=== PATIENT | male | born 1945 | race Caucasian/White ===

== ENCOUNTER → 2020-08-08 09:16 | Outpatient (CLI) | payer MEDICARE, OTHER, SELFPAY ==
--- NOTE | 2020-08-08 09:23 | XR_ITS ---
PROCEDURE: XR HIP RT 2-3V W/PELVIS CLINICAL INDICATION: right hi p pain COMPARISON: No exams were available for comparison FINDINGS: No fracture or dislocation is evident. There is moderate asymmetrical joint space narrowing right hip. There is a probable small bone island right iliac bone just above the acetabulum. There is scattered arteriosclerotic calcification of the right common iliac artery and proximal superficial femoral artery. There is a total hip prosthesis left-side which is intact with no acute abnormality identified. The iliac bones and pubic bones appear normal. There is moderate sclerosis of the inferior aspect of both SI joints. IMPRESSION: Bese-nn-mesbfoyf osteoarthritic change right hip, no acute pelvic bony pathology identified Dictated by: Dr. Raimundo Dumas MD 08/08/2020 09:51 Dr. Raimundo Dumas MD in [place] 08/08/2020 09:51
== END ==
PROVIDERS: PCP Family Medicine; Visit Provider Orthopaedic Surgery
DX: M25.551 Pain in right hip (principal)
CPT/HCPCS: 73502

== ENCOUNTER → 2022-04-16 11:07 | Outpatient (CLI) | payer MEDICARE, OTHER, SELFPAY | END | disposition home or self-care (01) | LOC: LAB 04-21 09:11 → COVID.OUT 04-21 09:14 | PROVIDERS: PCP Family Medicine; Visit Provider Surgery | DX: Z01.812 Encounter for preprocedural laboratory examination (principal); Z20.822 Contact with and (suspected) exposure to COVID-19; Z12.11 Encounter for screening for malignant neoplasm of colon | CPT/HCPCS: C9803; U0003; U0005 ==

== ENCOUNTER 2022-04-18 06:23 | Day surgery (SDC) | payer MEDICARE, OTHER, SELFPAY ==
[2022-04-18 06:56] VITALS: BP 154/78; PULSE 65; RESP 18; TEMP 36.1; O2SAT 97; BMI 33.5
--- NOTE | 2022-04-18 07:05 | EXP.ANES.CKL ---
PFSH PFSH Medical History Hyperlipidemia Hypertension Surgical History History of left hip replacement Family History (Updated 04/18/22 @ 06:51 by Tanya Murillo RN) Other Family history of myocardial infarction Social History (Updated 04/18/22 @ 06:54 by Tanya Murillo RN) Smoking Status: Current some day smoker tobacco type: cigars years smoked: 50 second hand exposure: No alcohol intake: current substance use type: denies use current occupational status: retired adopted: No caregiver/support person: No foster care: No household members: spouse housing: house lives independently: Yes marital status: service: Yes status: retired group home: No current occupational exposures/hazards: No pets and animals: Yes pets and animals: cat(s) leisure activities: sports sexually active: No caffeine: Yes physical activity: walking do you feel safe at home: Yes
[2022-04-18 08:02] VITALS: O2SAT 97
[2022-04-18 08:43] VITALS: BP 95/60; PULSE 63; RESP 16; TEMP 36.4; O2SAT 93
--- NOTE | 2022-04-18 08:44 | HMH.SCOPE ---
Procedure: Date: 04/18/22 Patient Date of :: 1945 Procedure Performed:: Colonoscopy Indications:: Patient is a 76-year-old male who has undergone several previous colonoscopies. Most recent colonoscopy in 2019 revealed 7 polyps 2 of which were tubular adenomas. 3-year follow-up was recommended. Performing Provider:: Jarocho Jay MD Referring Provider:: Tomás Kessler Sedation:: MAC sedation Procedure:: Patient was taken to endoscopy procedure room. He was positioned in lateral decubitus position. Adequate intravenous sedation was achieved with anesthesia titration of propofol. Variable stiffness Olympus colonoscope was inserted via the anus. It was advanced to the cecum. Ileocecal valve and appendiceal orifice were identified. It was advanced a short distance into the terminal ileum which was grossly normal. Colonoscope was slowly withdrawn to the colon with careful surveillance. He had some degree of pandiverticulosis with significant diverticulosis of the left colon. In the distal sigmoid colon there was a small somewhat hyperplastic appearing polyp removed with cold snare. In the rectum there was a tiny diminutive hyperplastic appearing polyp removed with biopsy forceps. Retroflexion within the rectum revealed no evidence of any bleeding internal hemorrhoids. Colonoscope was withdrawn. Findings:: Diverticulosis Diminutive polyps as noted Recommendations:: Likely repeat colonoscopy 5 years pending pathology Complications:: None immediate Estimated blood obtained (mL): 1
[2022-04-18 08:53] VITALS: BP 110/63; PULSE 57; RESP 16; O2SAT 94
[2022-04-18 09:03] VITALS: BP 126/73; PULSE 58; RESP 16; O2SAT 96
[2022-04-18 09:13] VITALS: BP 152/69; PULSE 52; RESP 16; O2SAT 98
== END 2022-04-18 09:13 | disposition home or self-care (01) ==
PROVIDERS: PCP Family Medicine; Visit Provider Surgery
PROC: 0DJD8ZZ Inspection of Lower Intestinal Tract, Via Natural or Artificial Opening Endoscopic (ICD-10-PCS; principal; 2022-04-18 07:30)
DX: Z12.11 Encounter for screening for malignant neoplasm of colon (principal); K63.5 Polyp of colon; Z79.899 Other long term (current) drug therapy; Z86.010 Personal history of colon polyps
CPT/HCPCS: 45380; 45385; 88305; J2704

== ENCOUNTER → 2022-04-22 09:54 | Outpatient (POV) | payer MEDICARE, OTHER, SELFPAY | PROVIDERS: Visit Provider Dermatology | DX: Z00.00 Encounter for general adult medical examination without abnormal findings (principal) ==

== ENCOUNTER → 2022-04-25 08:25 | Outpatient (CLI) | payer MEDICARE, OTHER, SELFPAY ==
--- NOTE | 2022-04-25 09:06 | XR_ITS ---
FINAL REPORT CLINICAL HISTORY: knee pain FINDINGS: RIGHT KNEE Four views of the right knee were obtained. There is no acute fracture or dislocation. Visualized joint spaces are normally aligned. There are mild degenerative changes. There are diffuse vascular calcifications. IMPRESSION: Mild degenerative change with no acute bony abnormality. Reviewed, Interpreted and Dictated by Jarocho Raines III, MD Transcribed by Charlotte Mcconnell Authenticated and [facility]
--- NOTE | 2022-04-25 09:06 | XR_ITS ---
FINAL REPORT CLINICAL HISTORY: knee pain FINDINGS: LEFT KNEE Four views of the left knee were obtained. There is no acute fracture or dislocation. Visualized joint spaces are normally aligned. There is a moderate joint effusion. There are mild degenerative changes. There are diffuse vascular calcifications. IMPRESSION: Moderate joint effusion with no acute bony abnormality. Reviewed, Interpreted and Dictated by Jarocho Raines III, MD Transcribed by Charlotte Mcconnell Authenticated and [facility]
== END ==
PROVIDERS: PCP Family Medicine; Visit Provider Orthopaedic Surgery
DX: M25.562 Pain in left knee (principal); M25.561 Pain in right knee
CPT/HCPCS: 73564

== ENCOUNTER → 2022-07-16 13:49 | Outpatient (CLI) | payer MEDICARE, OTHER, SELFPAY ==
[2022-07-16 14:46] LABS: Coronavirus 19, PCR Not Detected (NotDetected); Influenza A, PCR Not Detected (NotDetected); Influenza B, PCR Not Detected (NotDetected)
[2022-07-16 14:53] LABS: Basophils # 0.1 K/mm3 (0-0.2); Eosinophils # 0.2 K/mm3 (0.0-0.4); Eosinophils % 2.5 % (0.1-12.0); Hematocrit 42.6 % (42.0-52.0); Hemoglobin 14.2 g/dL (14.1-18.0); Lymphocytes # 1.9 K/mm3 (0.7-4.5); Lymphocytes % 21.1 % (10-50); Mean Corpuscular HGB Conc 33.2 g/dL (31.8-35.4); Mean Corpuscular Hemoglobin 29.6 pg (27.0-31.2); Mean Platelet Volume 8.5 fl (7.4-10.4); Monocytes # 0.4 K/mm3 (0.1-1.0); Monocytes % 4.9 % (1.7-9.3); Neutrophils # 6.3 K/mm3 (1.8-7.8); Neutrophils % 70.6 % (37.0-80.0); Platelet Count 214 K/mm3 (142-424); Red Blood Count 4.79 M/mm3 (4.60-6.20); Red Cell Distribution Width 13.5 % (11.5-17.5)
== END ==
PROVIDERS: PCP Family Medicine; Visit Provider Physician Assistant
DX: Z20.822 Contact with and (suspected) exposure to COVID-19 (principal)
CPT/HCPCS: 36415; 85025; C9803; U0003; U0005

== ENCOUNTER → 2023-06-01 09:44 | Outpatient (CLI) | payer MEDICARE, OTHER, SELFPAY ==
--- NOTE | 2023-06-01 09:51 | XR_ITS ---
FINAL REPORT CLINICAL HISTORY: left shoulder pain since november, muscle tightness, fell last week FINDINGS: LEFT SHOULDER 3 views of the left shoulder were obtained. There is no acute fracture or dislocation. There are mild degenerative changes of the acromioclavicular and glenohumeral joints. Soft tissues are unremarkable. IMPRESSION: No acute bony abnormality. Reviewed, Interpreted and Dictated by Jarocho Raines III, MD Transcribed by Aminta Farias Authenticated and [facility]
== END ==
PROVIDERS: PCP Family Medicine; Visit Provider Orthopaedic Surgery
DX: M25.512 Pain in left shoulder (principal)
CPT/HCPCS: 73030

== ENCOUNTER → 2023-06-04 14:02 | Outpatient (CLI) | payer MEDICARE, OTHER, SELFPAY ==
--- NOTE | 2023-06-04 14:08 | XR_ITS ---
FINAL REPORT CLINICAL HISTORY: LOW BACK PAIN, numbness and tingling FINDINGS: 5 views of the lumbar spine were obtained. There is no evidence of fracture or dislocation. The vertebral alignment is normal. 6 there are mild to moderate degenerative changes. Facet arthropathy is seen in the mid and lower lumbar spine. Vascular calcifications are noted. No acute paraspinous soft tissue abnormalities identified. IMPRESSION: No acute bony abnormality. Reviewed, Interpreted and Dictated by Jarocho Raines III, MD Transcribed by Aminta Farias Authenticated and [facility]
== END ==
PROVIDERS: PCP Family Medicine; Visit Provider Family Medicine
DX: M51.36 Other intervertebral disc degeneration, lumbar region (principal); M47.816 Spondylosis without myelopathy or radiculopathy, lumbar region
CPT/HCPCS: 72110

== ENCOUNTER → 2023-06-18 08:56 | Outpatient (CLI) | payer MEDICARE, OTHER, SELFPAY ==
--- NOTE | 2023-06-18 09:00 | US_ITS ---
FINAL REPORT TECHNIQUE: Ultrasound images of the abdominal aorta were obtained. CLINICAL HISTORY: Abdominal aortic aneurysm screening COMPARISON: None FINDINGS: ULTRASOUND OF THE ABDOMINAL AORTA The aorta measures up to 2.7 cm. The bifurcation is normal. IMPRESSION: No evidence of abdominal aortic aneurysm. Reviewed, Interpreted and Dictated by Jarocho Raines III, MD Transcribed by Gabriela Espitia Authenticated and [facility]
== END ==
PROVIDERS: PCP Family Medicine; Visit Provider Family Medicine
DX: I71.40 Abdominal aortic aneurysm, without rupture, unspecified (principal)
CPT/HCPCS: 76770

== ENCOUNTER → 2023-07-27 08:37 | Outpatient (POV) | payer MEDICARE, OTHER, SELFPAY ==
[2023-07-27 08:44] VITALS: BP 172/67; PULSE 88; RESP 18; O2SAT 94; BMI 35.5
--- NOTE | 2023-07-27 08:48 | EXP.PAIN.OV ---
HPI Data of Consult Patient: new to practice Consult date: 07/27/23 Requesting Physician: Eve Zamorano APRN Primary Care Provider: Tomás Kessler MD Consult Narrative Reason for consult: Low back pain, bilateral leg pain History of present illness: Mr. Patterson is a 77 year old male who presents today as a new patient. He has a referral from Dr. Kessler's office. Today he rates his pain a 4 out of 10. Patient states his pain is all in his low back with radiating symptoms into his legs. Patient does state that his right leg is the worst side and that it typically radiates into his groin as well. Patient does state that his pain gets worse as the day goes on typically getting up to a 7 or 8 out of 10. Patient states this all started a few months ago when he was mowing his yard with a push mower. He states that the grass was wet and got away from him and that he ended up being in an awkward position and felt like he pulled something. Patient does state this is an aching, throbbing sensation with pins and needle sensations. He states he has tried [id number] medication along with prescription Celebrex with no additional improvement. Patient does state that the pain interferes with his ability to perform activities of daily living such as cooking or cleaning and even sleeping. Patient states just in the last week he has started using Tylenol PM to help with some of his sleeping issues due to the pain. He states it does help additionally. Patient has also been to the chiropractor with some improvement over the last few months. He has tried massage. Patient denies any previous back surgery or injection history. He is interested in any help we may be able to provide. Patient is generally very active and walks frequently however has been very limited at the last several weeks due to the worsening pain symptoms. Patient is not on any scheduled medications. His Rc has been reviewed and is appropriate. CC: Eve Zamorano APRN [facility] Disclaimer: The information contained in this section may have been updated after the patient was seen, as this information can be updated by other users. Medical History Hyperlipidemia Hypertension Surgical History History of left hip replacement Family History Other Family history of myocardial infarction Social History Smoking Status: Current some day smoker tobacco type: cigars years smoked: 50 second hand exposure: No alcohol intake: current substance use type: denies use current occupational status: retired Travel in the last 8 weeks: None adopted: No caregiver/support person: No foster care: No household members: spouse housing: house lives independently: Yes marital status: service: Yes status: retired [employer]: No current occupational exposures/hazards: No pets and animals: Yes pets and animals: cat(s) leisure activities: sports sexually active: No caffeine: Yes physical activity: walking do you feel safe at home: Yes Review of Systems Review of Systems Review of systems:: pertinent systems reviewed and negative unless documented below Review of systems (narrative): Review of Systems: General: No recent weight changes, no fever, no sleep disturbances Respiratory: No cough, no shortness of air, no recurring pulmonary infections Cardiovascular/peripheral vascular: No chest pain, no palpitations, no edema, no shortness of breath Gastrointestinal: No new onset incontinence, normal bowel movements reported Genitourinary: No new onset incontinence Musculoskeletal: Low back pain, bilateral leg pain Psychiatric: [Normal mood/affect] Neurological: [Denies weakness in extremities], [denies jazmin
== END ==
PROVIDERS: PCP Family Medicine; Visit Provider Nurse Practitioner Family
DX: M54.50 Low back pain, unspecified; M51.16 Intervertebral disc disorders with radiculopathy, lumbar region; M47.26 Other spondylosis with radiculopathy, lumbar region
CPT/HCPCS: 99202; G0463

== ENCOUNTER 2023-08-04 08:11 | Day surgery (SDC) | payer MEDICARE, OTHER, SELFPAY ==
[2023-08-04 08:33] VITALS: BP 136/77; PULSE 95; RESP 16; TEMP 36.8; O2SAT 97; BMI 35.5
[2023-08-04 08:43] VITALS: BP 124/51; PULSE 89; RESP 18; O2SAT 93
[2023-08-04 08:44] VITALS: BP 124/51; PULSE 87; RESP 18; O2SAT 94
[2023-08-04 08:48] VITALS: BP 147/64; PULSE 80; RESP 16; O2SAT 97
--- NOTE | 2023-08-04 08:52 | EXP.PAIN.PRO ---
Procedure Date: 08/04/23 Time: 08:45 Anesthesiologist:: Molina Hallman CRNA Complications:: None Pre-procedure Diagnosis:: Degenerative disc lumbar spine multilevels. Lumbar radiculopathy. Lumbar facet arthropathy. Lumbar spondylosis. Post-procedure Diagnosis:: Same. Indications for Procedure:: Patient is a very pleasant 77-year-old male comes our clinic today for a lumbar epidural steroid injection at the L5-S1 level. Patient reports low back pain as well as bilateral hip and leg radicular symptoms. He rates his pain 7/10. He describes his low back pain as constant, dull, aching. Procedure Details:: Procedure: Lumbar epidural steroid injection under fluoroscopy Informed consent was obtained and the risks and benefits of the procedure were explained to the patient. The patient was taken to the procedure room and noninvasive monitors placed, including noninvasive blood pressure cuff and pulse oximeter. The back was viewed using C-arm Fluoroscopy and prepped using Chloraprep as a cleansing solution and the L5-S1 interspace was palpated. Skin and subcutaneous tissues were anesthetized using lidocaine 1.5% and a 25-gauge needle. After this, an 18-gauge Touhy epidural needle was placed into the L5-S1 interspace and advanced using fluoroscopic guidance and loss of resistance to air until the epidural space was encountered. After confirmation of needle placement in the epidural space, with dye, a solution containing normal saline, 3 mL and Depo-Medrol 80 mg were incrementally injected into the lumbar epidural space. The patient tolerated the procedure well with no complications. The patient was observed in the Pain Clinic and then discharged home neurologically intact. Plan and Disposition:: Patient was discharged without incident.
== END 2023-08-04 08:48 | disposition home or self-care (01) ==
PROVIDERS: PCP Family Medicine; Visit Provider Nurse Anesthetist, Certified Registered
DX: M51.16 Intervertebral disc disorders with radiculopathy, lumbar region (principal); M47.26 Other spondylosis with radiculopathy, lumbar region
CPT/HCPCS: 62323; J1040

== ENCOUNTER → 2023-10-14 10:48 | Outpatient (POV) | payer MEDICARE, OTHER, SELFPAY ==
--- NOTE | 2023-10-14 11:13 | A.OFFVIS_ITS ---
[facility] Pain Management SOAP Note Subjective:: Patient is a pleasant 77-year-old male who presents today for follow-up of lumbar epidural steroid injection L5-S1 on 08/04/2023. We are currently treating the patient for degenerative disc disease of lumbar spine with lumbar radiculopathy symptoms, lumbar facet arthropathy. Today he rates his pain a 5 out of 10. Patient does state he has had a right total hip replacement that did occur on August. He states he has been recovering from this and doing overall well. Patient does state that he is currently in physical therapy twice a week and then does do his continued at home physician guided exercise regimen daily. Patient does state that following the epidural injection he did have almost 100% relief of his overall heaviness sensations that he was experiencing into his legs. He states overall he felt like this injection did provide significant relief. He does state that now he really does not have any pain in and around his right hip however with doing the physical therapy he does note some pain in and around his belt line. Patient does state if it is still manage able however. His Rc has been reviewed and is appropriate. Review of Systems: General: No recent weight changes, no fever, no sleep disturbances Respiratory: No cough, no shortness of air, no recurring pulmonary infections Cardiovascular/peripheral vascular: No chest pain, no palpitations, no edema, no shortness of breath Gastrointestinal: No new onset incontinence, normal bowel movements reported Genitourinary: No new onset incontinence Musculoskeletal: Low back pain Psychiatric: [Normal mood/affect] Neurological: [Denies weakness in extremities], [denies balance issues] Objective:: Physical Exam: General: Alert and oriented x3, no acute distress, pleasant and cooperative Lungs: Respirations even and unlabored, symmetrical chest expansion Eyes: PERRL Musculoskeletal: Flexion and extension of lumbar [spine] somewhat guarded secondary to pain, [antalgic gait noted] Neurological: Speech clear, no gross sensory deficit Assessment:: Degenerative disc disease of lumbar spine with lumbar radiculopathy symptoms, lumbar facet arthropathy Plan:: Patient is doing well at this time and does not require any additional injection therapy. I have discussed with patient that I will order him a compounded cream. Patient will return to clinic in 1 month for reevaluation of symptoms and plan of care. Patient has been instructed to contact the clinic with any concerns before the next appointment. Dr. Pettit has reviewed this note and agrees with this plan of care. This note was dictated using voice recognition software and make contain errors or omissions. [facility] Disclaimer: The information contained in this section may have been updated after the patient was seen, as this information can be updated by other users. Medical History (Updated 09/01/23 @ 16:24 by Wen Blanca APRN) Hyperlipidemia Hypertension Surgical History (Updated 09/01/23 @ 16:18 by Wen Blanca APRN) History of left hip replacement Family History Other Family history of myocardial infarction Social History Smoking Status: Current some day smoker tobacco type: cigars years smoked: 50 second hand exposure: No alcohol intake: current substance use type: denies use current occupational status: retired Travel in the last 8 weeks: None adopted: No caregiver/support person: No foster care: No household members: spouse housing: house lives independently: Yes marital status: service: Yes status: retired skilled nursing: No current occupational exposures/hazards: No pets and animals: Yes pets and animals: cat(s) leisure activities: sports sexually active: No caffeine: Yes physical activity: walking do you feel safe at home: Yes
[2023-10-14 12:10] VITALS: BP 113/71; PULSE 90; RESP 18; O2SAT 97; BMI 34.7
== END ==
PROVIDERS: Visit Provider Nurse Practitioner Family
DX: M51.16 Intervertebral disc disorders with radiculopathy, lumbar region (principal); M47.26 Other spondylosis with radiculopathy, lumbar region
CPT/HCPCS: 99212; G0463

== ENCOUNTER 2023-10-29 08:00 | Outpatient (RCR) | payer MEDICARE, OTHER, SELFPAY | END 2023-10-29 09:30 | disposition home or self-care (01) | LOC: PT 08:00 | PROVIDERS: PCP Family Medicine; Visit Provider Orthopaedic Surgery | DX: M25.551 Pain in right hip (principal); Z96.641 Presence of right artificial hip joint | CPT/HCPCS: 97110; 97116; 97163; 97164; 97530 ==

== ENCOUNTER 2023-11-16 10:12 | Outpatient (POV) | payer MEDICARE, OTHER, SELFPAY ==
[2023-11-16 10:19] VITALS: BP 134/71; PULSE 80; RESP 18; TEMP 36.6; O2SAT 99; BMI 34.2
--- NOTE | 2023-11-16 10:26 | EXP.PAIN.SOA ---
[facility] Pain Management SOAP Note Subjective:: Patient is a pleasant 77-year-old male who presents today for follow-up. Today he rates his pain a 0 out of 10. Patient denies any new injury or trauma. He does take that he does still have some pain involving his hip where he did recently have it replaced. He states that he will have occasional pain when he is up and walking for longer periods of time however that when he stops to rest it does not improve. Patient did previously have a lumbar epidural back in July and states that overall he still doing well. He did get compounded cream at our last visit and states that this does significantly help improve his overall symptoms as well. His Rc has been reviewed and is appropriate. Review of Systems: General: No recent weight changes, no fever, no sleep disturbances Respiratory: No cough, no shortness of air, no recurring pulmonary infections Cardiovascular/peripheral vascular: No chest pain, no palpitations, no edema, no shortness of breath Gastrointestinal: No new onset incontinence, normal bowel movements reported Genitourinary: No new onset incontinence Musculoskeletal: Low back pain Psychiatric: [Normal mood/affect] Neurological: [Denies weakness in extremities], [denies balance issues] Objective:: Physical Exam: General: Alert and oriented x3, no acute distress, pleasant and cooperative Lungs: Respirations even and unlabored, symmetrical chest expansion Eyes: PERRL Musculoskeletal: Flexion and extension of lumbar [spine] somewhat guarded secondary to pain, [antalgic gait noted] Neurological: Speech clear, no gross sensory deficit Assessment:: Degenerative disc disease of lumbar spine with lumbar radiculopathy symptoms, bilateral hip Plan:: patient continues to do well and does not require any additional injection therapy at this time. Patient will return to clinic in 3 months for reevaluation of symptoms and plan of care. Patient has been instructed to contact the clinic with any concerns before the next appointment. Dr. Pettit has reviewed this note and agrees with this plan of care. This note was dictated using voice recognition software and make contain errors or omissions. [facility] Disclaimer: The information contained in this section may have been updated after the patient was seen, as this information can be updated by other users. Medical History (Updated 09/01/23 @ 16:24 by Wen Blanca APRN) Hyperlipidemia Hypertension Surgical History (Updated 09/01/23 @ 16:18 by Wen Blanca APRN) History of left hip replacement Family History Other Family history of myocardial infarction Social History Smoking Status: Current some day smoker tobacco type: cigars years smoked: 50 second hand exposure: No alcohol intake: current substance use type: denies use current occupational status: other Travel in the last 8 weeks: None adopted: No caregiver/support person: No foster care: No household members: spouse housing: house lives independently: Yes marital status: service: Yes status: retired shelter: No current occupational exposures/hazards: No pets and animals: Yes pets and animals: cat(s) leisure activities: sports sexually active: No caffeine: Yes physical activity: walking do you feel safe at home: Yes
== END 2023-11-16 23:59 ==
PROVIDERS: PCP Family Medicine; Visit Provider Nurse Practitioner Family
DX: M51.16 Intervertebral disc disorders with radiculopathy, lumbar region (principal); M25.551 Pain in right hip; M25.552 Pain in left hip
CPT/HCPCS: 99212; G0463

== ENCOUNTER 2023-11-24 14:23 | Outpatient (CLI) | payer MEDICARE, OTHER, SELFPAY | END 2023-11-24 23:59 | LOC: RT 14:24 | PROVIDERS: PCP Family Medicine; Visit Provider Physician Assistant | DX: I48.0 Paroxysmal atrial fibrillation (principal); Z82.49 Family history of ischemic heart disease and other diseases of the circulatory system; R94.31 Abnormal electrocardiogram [ECG] [EKG]; I10 Essential (primary) hypertension; E78.5 Hyperlipidemia, unspecified | CPT/HCPCS: 93270 ==

== ENCOUNTER 2023-12-25 12:05 | Outpatient (CLI) | payer MEDICARE, OTHER, SELFPAY ==
--- NOTE | 2023-12-25 | CA_ITS ---
APPROVED REPORT Exam: Pharmacologic Technologist: Peg Alfred, Ht: 5 ft 11 in Wt: 256 lbs BSA: 2.34 m2 HR: 66 bpm BP: 135/78 mmHg Rhythm: ectopic atrial rhythm, frequent PVCs, RBBB Medical History Medications: Lisinopril,,,,, Aspirin,,,,, Atorvastatin,,,,, TAMSULOSIN,,,,, Cardiac Risk Factors: HTN, Hyperlipidemia, Smoking Stress Test Details Test: LEXISCAN HR Resting HR: 65 bpm Max Heart Rate (APMHR): 144 bpm Max HR Achieved: 91 bpm Target HR (85% APMHR): 122 bpm % of APMHR: 63 Recovery HR: 73 bpm BP Resting BP: 135/78 mmHg Max BP: 174/92 mmHg Recovery BP: 169.0/80.0 mmHg ECG Resting ECG: ectopic atrial rhythm, frequent PVCs, RBBB Stress ECG: No significant ST changes Arrhythmia: PVCs Clinical Exercise duration: 04:01 min Highest Stage Achieved: Stress ECG Conclusion During lexiscan pt experinced SOA, mild stomach and head discomfort. Ectopy: Frequent isolated unifocal PVCs. Occasional premature junctional or atrial beat. ST changes: No significant ST changes. Conclusion: Unremarkable lexiscan stress. Myoview images reported separately. Test Summary REST . . . . . . . Sitting REST 04:41 . . 65 . 135/ 78 . . Stage 1 01:00 . . 84 . . . . Stage 2 01:00 . . 87 . 117/ 78 . . Stage 3 01:00 . . 78 . . . . Stage 4 01:00 . . 77 . 174/ 92 . . Stage 4 01:01 . . 77 . 174/ 92 . Stop exercise at 04:01 RECOVERY 01:00 . . 73 . . . . RECOVERY 02:00 . . 78 . 174/ 87 . . RECOVERY 03:00 . . 75 . 174/ 87 . . RECOVERY 04:00 . . 74 . 169/ 80 . . RECOVERY 05:00 . . 78 . 169/ 80 . . RECOVERY 05:38 . . 78 . 156/ 68 . . Electronically signed by : Ericka Graves MD 12/29/2023 11:46:41
[2023-12-25] MEDS: SODIUM CHLORIDE 0.9% 10ML SYR (RAD ONLY) 10 ML IV ×2 (12:15→13:45)
--- NOTE | 2023-12-25 12:49 | NM_ITS ---
APPROVED REPORT Exam: Nuclear Stress Test Indication: HTN, HYPERLIPIDEMIA, TOB USE, FM HX Patient Location: Outpatient Stress Tech: Peg Tima NM Tech:Aaliyah AlcarazKAMRAN zepeda RT (R)(N)(M) Ht: 5 ft 11 in Wt: 250 lbs HR: 65 bpm BP: 135/78 mmHg BSA: 2.32 m2 TID: 1.47 BMI: 34.8 History: HTN, HYPERLIPIDEMIA, TOB USE, FM HX Procedure: Patient received 0.4 mg of intravenous Lexiscan, resting heart rate 65 bpm, resting blood pressure 135/78 mmHg, with Lexiscan maximum heart rate achieved was 91 bpm which is % of the maximum predicted heart rate and blood pressure was 174/92 mmHg. With Lexiscan, patient denied any complaint of chest pain. Cardiac Stress and Resting SPECT Images: Cardiac Stress and Resting SPECT images were obtained using technetium 99m Myoview 31.8 mCi stress and 10.34 mCi at rest. Resting and stress imaging in supine and prone positions demonstrate a large sized, moderate, fixed perfusion defect in the inferior and inferoseptal LV olivas. There is increased transient ischemic dilatation ratio (TID 1.47), suggestive of possible multivessel disease or balanced ischemia. Gated imaging demonstrates mild reduction in global LV systolic function. There is moderate hypokinesis of the inferior LV wall. LVEF is calculated at 47%. Of note the LVEF may be inaccurate in the setting of frequent ectopy during image acquisition. Conclusion: Large sized, moderate, fixed perfusion defect in the inferior and inferoseptal LV olivas. There is increased transient ischemic dilatation ratio (TID 1.47), suggestive of possible multivessel disease or balanced ischemia. Gated imaging demonstrates mild reduction in global LV systolic function. There is moderate hypokinesis of the inferior LV wall. LVEF is calculated at 47%. Of note the LVEF may be inaccurate in the setting of frequent ectopy during image acquisition. Electronically signed by : Ericka Graves MD 12/29/2023 11:48:31
--- NOTE | 2023-12-25 13:13 | CA_ITS ---
APPROVED REPORT EXAM: Comprehensive 2D, Doppler, and color-flow Echocardiogram Steel Analyst: Kelly Campos CRT Ht: 5 ft 11 in Wt: 256lbs BSA: 2.34 BP: 159/65 mmHg Indications: ABN EKG, AFIB, HTN, HLD, Smoker 2D Dimensions LA Volume 97.60 mL LA Volume Index 40.70 mL/m2 (M/F) 16-34 M-Mode Dimensions RVDd 2.86 cm (0.9-2.6) LA Diam 5.32 cm (1.9-4.0) LVDd 4.78 cm (3.5-5.7) LVDs 2.90 cm (3.5-5.7) IVSd 1.88 cm (0.6-1.1) PWd 1.43 cm (0.6-1.1) EF (Teich) 69.80% FS 39.30% EDV (Teich) 106.50 mL ESV (Teich) 32.20 mL LV Diastology MED A' 13.70 cm/s LAT A' 13.60 cm/s Aortic Valve AoV Peak Francisco. 171.0 (50-130 cm/s) AI PHT 378.00 ms AO Peak GR. 11.70 mmHg AO Mean GR. 6.50 (<5 mmHg) AO VTI 38.2 (18-25 cm) Pulmonary Valve PV Peak Velocity 128.0 (50-150 cm/s) Tricuspid Valve TR P. Velocity 245.00 cm/s RAP Estimate 10.00 mmHg RVSP 33.90 mmHg Left Ventricle The left ventricle is normal size. The left ventricular systolic function is normal. The left ventricular ejection fraction is within the normal range. There is increased LV wall thickness. There is normal LV segmental wall motion. Transmitral Doppler flow pattern suggests impaired LV relaxation. LVEF is 55%. Right Ventricle Right ventricle is mild to moderately dilated. The right ventricular systolic function is normal. Atria Left atrium is mildly dilated. Right atrium is mildly dilated. There is no Doppler evidence of interatrial shunt. Aortic Valve The aortic valve opens well. There is no aortic valvular stenosis. Trace aortic regurgitation. Mitral Valve The mitral valve is normal in structure. No evidence of mitral valve stenosis. Trace mitral regurgitation. Tricuspid Valve The tricuspid valve leaflets are thin and pliable. Trace tricuspid regurgitation. There is insufficient TR jet to estimate RVSP. Pulmonic Valve The pulmonary valve is normal in structure. Trace pulmonic regurgitation. Great Vessels The aortic root is normal in size. The ascending aorta is normal in size. IVC is normal in size and collapses >50% with inspiration. Pericardium There is no pericardial effusion. Other Information Study Quality: Fair Conclusion Normal biventricular systolic function. No significant valvular stenosis or regurgitation. Electronically signed by : Ericka Graves MD 12/29/2023 21:13:41
[2023-12-25] MEDS: REGADENOSON 0.4MG/5ML SYRINGE 0.400000000000000022 MG IV (13:45)
[2023-12-25] MEDS: ISOTOPE MYOVIEW (PER STUDY) 1 DOSE IV (14:58)
== END 2023-12-25 23:59 | disposition home or self-care (01) ==
LOC: RAD 12:06
PROVIDERS: PCP Family Medicine; Visit Provider Physician Assistant
DX: I10 Essential (primary) hypertension (principal); E78.5 Hyperlipidemia, unspecified; I47.20 Ventricular tachycardia, unspecified; R94.31 Abnormal electrocardiogram [ECG] [EKG]; I49.3 Ventricular premature depolarization
CPT/HCPCS: 78452; 93017; 93018; 93306; A9502; J2785

== ENCOUNTER 2024-01-05 14:52 | Observation (INO) | payer MEDICARE, OTHER, SELFPAY ==
[2024-01-05] VITALS (41 sets, daily range): BP systolic 114–218; BP diastolic 56–123; PULSE 58–108; RESP 15–22; TEMP 36.6–36.9; O2SAT 95–97; BMI 35.2; BMI 34.8
--- NOTE | 2024-01-05 07:17 | IR_ITS ---
APPROVED REPORT Patient Location: Outpatient Coal Trammer: KAMRAN Jeronimo RT (R) PROCEDURES Right radial arterial access Catheter placement in the right brachial artery Right brachial artery retrograde angiogram Right femoral arterial access Left heart catheterization Left ventriculogram Selective coronary angiogram Pigtail catheter placement in the abdominal aorta Abdominal aortography Repositioning of the catheter in the abdominal aorta Bilateral iliofemoral runoff Left femoral arterial access Left retrograde femoral angiogram Attempted angioplasty of a chronically occluded left common iliac artery INDICATION Angina pectoris, Abnormal stress test, Abnormal JONELLE 0.5 bilaterally, [place] claudication class III-IV, Right brachial artery stenosis, Left common iliac artery occlusion, Informed consent was obtained prior to the procedure. COMPLICATIONS None Estimated Blood Loss: Less than 10 mls TECHNIQUE One percent lidocaine used to anesthetize the right anterior aspect of the wrist. The right radial artery was accessed via the Seldinger technique. A 6 Argentine sheath was placed in the right radial artery. 2.5 mg of Verapamil, 800 mcg of nitroglycerin, 1mg Lidocaine and 5000 U Heparin were given through the arterial sheath. The Poppa catheter was advanced to the distal brachial artery and would not further advance. Retrograde angiography was performed which demonstrated the radial artery extended into a small brachial branch and was not in the main brachial artery. Because the brachial artery appeared to branch into a larger dominant ulnar artery it was decided to abandon this access. 1% lidocaine was then used anesthetize right groin the right femoral artery was accessed via the Salinger technique. A long 6 Argentine sheath was placed in the right femoral artery due to the significant tortuosity of the iliofemoral system. A JL 4 JR4 catheter used to perform left heart catheterization left ventriculogram and selective coronary angiogram. Pigtail catheter is placed in abdominal aorta abdominal aortography was performed in the catheter was then repositioned and pulled down to the distal abdominal aorta where bilateral iliofemoral runoff was performed. Following this 1% lidocaine was used to size the left groin left femoral artery was accessed via Salinger technique and a 6 Argentine sheath is placed in the femoral artery. An advantage wire was used to attempt recanalization of the chronically occluded left common iliac artery. A trailblazer was advanced as well as a JR4 6 Argentine catheter to try to steer through the occlusion. There was extensive calcification and retrograde access or reentry into the aorta cannot be performed or achieved. A rim catheter was advanced through the right groin to the distal abdominal aorta and used to cannulate the chronically occluded left common iliac artery. An advantage wire cannot push in an antegrade manner through the occlusion. Eventually the apparatus was removed the patient was transferred to the postop holding in stable condition for postoperative care and sheath removal. ANGIOGRAPHIC RESULTS The left main artery Normal The left anterior descending artery Mild 10% luminal irregularities The circumflex artery Large mild 10% luminal irregularities The right coronary artery Large dominant mild 10% luminal irregularities The ESPINAL ventriculogram reveals Normal 65% The left ventricular end-diastolic pressure 10 mmHg Right brachial artery is a large vessel which branches into a large ulnar artery and gives a subbranch to the radial artery Bilateral renal arteries are singular and normal Infrarenal abdominal aorta is calcified but widely patent Left common iliac artery is ostially calcified and reconstitutes scantly via collaterals at the level of the common femoral artery. The left profunda femoris artery appears scantly patent as the left superficial femoral artery appears to be occluded throughout its entire course. No visualization was obtained below the left thigh due to the poor flow and chronic occlusion Right common iliac arteries patent and severely calcified. The right internal iliac artery is occluded. The right external iliac artery is patent the right common femoral artery is severely calcified. The right superficial femoral artery is calcified creating 70 and 80% proximal stenoses and then occluded at Rey's canal. The right popliteal artery reconstitutes at the infrageniculate level. Right anterior tibialis artery is proximally calcified with a focal 90% stenosis. The proximal right peroneal and right posterior tibialis artery are occluded however the right posterior tibialis artery does reconstitute via collaterals and supplies flow into the right foot. The distal right anterior tibialis artery is occluded IMPRESSION Mild luminal irregularities in the coronary arteries with normal ejection fraction normal LVEDP Chronically occluded heavily calcified left common iliofemoral artery with poor visualization distally Peripheral artery disease on the right leg most notably with severe spherical calcifications throughout the right common femoral artery and right superficial femoral artery with an occluded right popliteal artery and two-vessel runoff below the right leg PLAN 1. Medical management for coronary disease 2. Medical management for the right leg. The nature and extensive calcifications make percutaneous revascularization unattainable. 3. I recommend medical management for the left iliac occlusion and less patient's symptoms are recalcitrant or patient is experiencing limb threatening ischemia. It is possible to obtain right ulnar access and then take a long [address] at into the left common iliac artery and try to revascularize the vessel in an antegrade manner. This would still be considered high risk due to the extensive calcifications. I would only recommend this if patient is experiencing recalcitrant claudication which is impeding his quality of life or limb threatening ischemia Electronically signed by : Greg Grayson MD 01/05/2024 15:30:18
[2024-01-05 09:44] LABS: Basophils # 0.1 K/mm3 (0-0.2); Basophils % 1.3 % (0.1-2.0); Eosinophils # 0.2 K/mm3 (0.0-0.4); Hematocrit 46.3 % (42.0-52.0); Hemoglobin 15.6 g/dL (14.1-18.0); Lymphocytes # 1.3 K/mm3 (0.7-4.5); Lymphocytes % 26.8 % (10-50); Mean Corpuscular HGB Conc 33.8 g/dL (31.8-35.4); Mean Corpuscular Hemoglobin 29.2 pg (27.0-31.2); Mean Corpuscular Volume 86.5 fl (80-94); Mean Platelet Volume 8.2 fl (7.4-10.4); Monocytes # 0.2 K/mm3 (0.1-1.0); Monocytes % 4.7 % (1.7-9.3); Neutrophils # 3.1 K/mm3 (1.8-7.8); Neutrophils % 63.2 % (37.0-80.0); Platelet Count 153 K/mm3 (142-424); Red Blood Count 5.35 M/mm3 (4.60-6.20); Red Cell Distribution Width 14.7 % (11.5-17.5); White Blood Count 4.9 K/mm3 (4.8-10.8)
[2024-01-05 09:59] LABS: Anion Gap 15.5 mEq/L (5-15); Blood Urea Nitrogen 16 mg/dl (9-20); Calcium 9.4 mg/dl (8.4-10.2); Carbon Dioxide 27 mmol/L (22.0-30.0); Chloride 105 mmol/L (98-107); Creatinine Clearance Estimated 102 mL/min (50-200); Estimated Glomerular Filt Rate 73 ml/min (>60); GFR (African American) 88 ML/MIN (>60); Glucose 129 mg/dl (74-100); Potassium 4.5 mmoL/L (3.5-5.1); Sodium 143 mmol/L (136-145)
[2024-01-05] MEDS: LIDOCAINE 1% 10ML MDV 20 ML IJ ×2 (12:59→14:19)
[2024-01-05] MEDS: 0.9 % SODIUM CHLORIDE 500 ML 25 ML IV (12:59)
[2024-01-05] MEDS: HEPARIN 1,000 UNITS/500ML NS (CATH LAB) 3000 UNIT IV (12:59)
[2024-01-05] MEDS: VERAPAMIL 2.5MG/ML 2ML VIAL 2.5 MG IV (13:00)
[2024-01-05] MEDS: diphenhydrAMINE 50MG/ML VIAL 50 MG IV (13:00)
[2024-01-05] MEDS: NITROGLYCERIN 800MCG/8ML SYR (CATH LAB) 800 MCG IA (13:00)
[2024-01-05] MEDS: HEPARIN 1,000 UNITS/ML 10ML VIAL (CATH LAB) 10000 UNIT IV ×2 (13:00→14:26)
[2024-01-05] MEDS: FENTANYL 100MCG/2ML VIAL 50 MCG IV ×2 (13:54→14:43)
[2024-01-05] MEDS: MIDAZOLAM HCL 1MG/1ML 5ML VIAL 1 MG IV (13:54)
[2024-01-05] MEDS: PROTAMINE SULFATE 50MG/5ML VIAL (CATH LAB) 50 MG IV (14:42)
[2024-01-05] MEDS: MIDAZOLAM 2MG/2ML VIAL 1 MG IV (14:43)
--- NOTE | 2024-01-05 15:15 | HMH.PHAINT1 ---
Pharmacy Intervention Comments: MEDICATION RECONCILIATION COMPLETED ON PATIENT USING EXTERNAL FILL HISTORY FROM PHARMACY AND LIST FROM CARDIOLOGY OFFICE. -MICHELLE BRANTLEY, RYANND
[2024-01-05] MEDS: IOHEXOL-240 100ML BOTTLE 140 ML IV (15:38)
[2024-01-05] MEDS: IOPAMIDOL-370 (76%);100ML BOTTLE 150 ML IV (15:38)
[2024-01-05 15:40] LABS: CATHL Activated Clotting Time > 400 SEC (74-125)
[2024-01-05 15:41] LABS: CATHL Activated Clotting Time 176 SEC (74-125)
[2024-01-05] MEDS: HYDRALAZINE 20MG/ML VIAL 20 MG IV (15:48)
[2024-01-05] MEDS: MORPHINE 4MG/ML SYRINGE 4 MG IV (16:08)
[2024-01-05] MEDS: 0.9 % SODIUM CHLORIDE 1000ML 1,000 ML 100 ML IV (16:54)
--- NOTE | 2024-01-05 23:39 | PC.NURSE ---
left groin having red drainage. marked area, drainage went beyond border. held manual pressure for 15 minutes. removed drsg, no drainage noted, new drsg re-applied with gauze and tegaderm. no new draiange noted
[2024-01-06] VITALS: BP 99/59; PULSE 84; PULSE 90; RESP 16; TEMP 36.7; O2SAT 93
[2024-01-06 00:55] VITALS: BP 103/53; PULSE 83
[2024-01-06 04:00] VITALS: BP 107/62; PULSE 70; PULSE 76; RESP 18; TEMP 36.8; O2SAT 96; BMI 35.4
[2024-01-06 06:50] LABS: Anion Gap 13.1 mEq/L (5-15); Blood Urea Nitrogen 19 mg/dl (9-20); Calcium 8.5 mg/dl (8.4-10.2); Carbon Dioxide 23 mmol/L (22.0-30.0); Chloride 110 mmol/L (98-107); Creatinine Clearance Estimated 93 mL/min (50-200); Estimated Glomerular Filt Rate 65 ml/min (>60); GFR (African American) 79 ML/MIN (>60); Glucose 112 mg/dl (74-100); Potassium 4.1 mmoL/L (3.5-5.1); Sodium 142 mmol/L (136-145)
[2024-01-06 07:10] LABS: Basophils % 0.3 % (0.1-2.0); Eosinophils # 0.1 K/mm3 (0.0-0.4); Eosinophils % 0.7 % (0.1-12.0); Hematocrit 39.3 % (42.0-52.0); Lymphocytes # 1.3 K/mm3 (0.7-4.5); Lymphocytes % 16.8 % (10-50); Mean Corpuscular HGB Conc 33.2 g/dL (31.8-35.4); Mean Corpuscular Hemoglobin 28.4 pg (27.0-31.2); Mean Corpuscular Volume 85.5 fl (80-94); Mean Platelet Volume 8.6 fl (7.4-10.4); Monocytes # 0.4 K/mm3 (0.1-1.0); Monocytes % 5.5 % (1.7-9.3); Neutrophils # 6.1 K/mm3 (1.8-7.8); Neutrophils % 76.6 % (37.0-80.0); Platelet Count 168 K/mm3 (142-424); Red Blood Count 4.59 M/mm3 (4.60-6.20); Red Cell Distribution Width 14.7 % (11.5-17.5); White Blood Count 7.9 K/mm3 (4.8-10.8)
[2024-01-06 08:00] VITALS: PULSE 80
[2024-01-06 08:32] LABS: Hemoglobin 13.1 g/dL (14.1-18.0)
--- NOTE | 2024-01-06 11:59 | P.CONCA_ITS ---
History of Present Illness History of Present Illness Consult date: 01/06/24 Requesting physician: Tomás Kessler Chief complaint: observation post cath Additional Medical History:: History of present illness: 78-year-old white male established patient of our office. Recently underwent health screening was found to have irregular heart rhythm. He was referred to our office for evaluation and heart monitor showed nonsustained V. tach, PVCs, SVT. His echo was normal but stress test indicated transient ischemic dilation suggestive of possible multivessel disease. In the meantime patient also went to the [facility] where he had bilateral lower extremity ABIs indicating 0.5 bilaterally. Accordingly he was scheduled outpatient for left heart cath with bolus shefali angiogram which was completed yesterday. Results indicate nonobstructive disease in the coronary arteries. He has occluded arteries both lower extremities left to medical management due to high complexity. Patient was kept overnight to observe renal function and for evidence of bleeding as he had 3, 6-Swiss sheaths. This morning patient reports he is asymptomatic with no questions or concerns. He has mild bruising at bilateral groin sites but no pain on palpation and no firmness. [facility] Disclaimer: The information contained in this section may have been updated after the patient was seen, as this information can be updated by other users. Medical History Paroxysmal A-fib Family history of ischemic heart disease (IHD) Abnormal electrocardiogram [ECG] [EKG] Hyperlipidemia Hypertension Surgical History History of left hip replacement Family History Other Family history of myocardial infarction Social History Smoking Status: Current some day smoker tobacco type: cigars years smoked: 50 second hand exposure: No alcohol intake: current alcohol intake frequency: a few times a week substance use type: denies use current occupational status: other Travel in the last 8 weeks: None adopted: No caregiver/support person: No foster care: No household members: spouse housing: house lives independently: Yes marital status: service: Yes status: retired fdc: No current occupational exposures/hazards: No pets and animals: Yes pets and animals: cat(s) leisure activities: sports sexually active: No caffeine: Yes physical activity: walking do you feel safe at home: Yes Review of Systems Constitutional Constitutional: Denies fatigue and Denies weakness Eyes Eyes: Denies loss of vision ENT Ears, Nose, Mouth, and Throat: Denies hearing loss and Denies vertigo *Cardiovascular Cardiovascular: Denies chest pain, Denies dyspnea and Denies syncope *Respiratory Respiratory: Denies cough and Denies dyspnea *Gastrointestinal Gastrointestinal: Denies change in stool character, Denies nausea and Denies vomiting *Genitourinary Genitourinary: Denies difficulty urinating *Musculoskeletal Musculoskeletal: Denies muscle weakness Integumentary/Breasts Skin/Breast: Denies changing lesions *Neurologic Neurologic: Denies loss of vision, Denies syncope, Denies vertigo and Denies weakness Endocrine Endocrine: Denies fatigue Exam Data for Last 24 hours Vital signs and Labs for Last 24 Hours: Temp Pulse Resp BP Pulse Ox O2 Del Method 98.2 F 80 18 107/62 L 96 Room Air 01/06/24 04:00 01/06/24 08:00 01/06/24 04:00 01/06/24 04:00 01/06/24 04:00 01/06/24 11:00 Laboratory Results - last 24 hr 01/05/24 13:49: Activated Clotting Time > 400 H* 01/05/24 14:33: Activated Clotting Time 176 H* D 01/06/24 05:33: WBC 7.9 D, RBC 4.59 L, Hgb 13.1 L D, Hct 39.3 L, MCV 85.5, MCH 28.4, MCHC 33.2, RDW 14.7, Plt Count 168, MPV 8.6, Neut % (Auto) 76.6, Lymph % (Auto) 16.8, [place] % (Auto) 5.5, Eos % (Auto) 0.7, Baso % (Auto) 0.3, Neut # (Auto) 6.1, Lymph # (Auto) 1.3, [place] # (Auto) 0.4, Eos # (Auto) 0.1, Baso # (Auto) 0.0, Sodium 142, Potassium 4.1, Chloride 110 H, Carbon Dioxide 23, Anion Gap 13.1, BUN 19, Creatinine 1.10, Estimated Creat Clear 93, Estimated GFR 65, Est GFR ( Amer) 79, Glucose 112 H, Calcium 8.5 I & O for Last 24 hours: Intake & Output 01/03/24 01/04/24 01/05/24 01/06/24 23:59 23:59 23:59 23:59 Intake Total 1899 Output Total 450 / 450 0 / 0 Balance -450 / 970 1899 Weight 249 lb 253 lb 8 oz Constitutional Constitutional: no acute distress and cooperative *Routine HEENT Exam Eye: Present PERRL *Routine Respiratory Exam Respiratory: Present CTA bilaterally; Absent accessory muscle use, wheezes or crackles *Routine Cardiovascular Exam Cardiovascular: Present RRR, Normal S1 and Normal S2; Absent murmur, gallop or rubs Comments: Bilateral groin cath sites have mild surrounding bruising but no firmness or tenderness. Right radial cath site normal on inspection and palpation *Routine Abdominal Exam Abdominal: Present soft; Absent tenderness *Routine Extremities Exam Extremities: Present pulses intact; Absent cyanosis or edema *Routine Skin Exam Skin: Present intact; Absent erythema or wounds *Routine Neurological Exam Neurological: Present alert and oriented X3 Routine Psychiatric Exam Psychiatric: Present cooperative Meds Home Medications and Allergies Home Medications Medication Instructions Recorded Confirmed Type atorvastatin 40 mg tablet 40 mg PO DAILY 11/08/18 01/05/24 History tamsulosin 0.4 mg capsule 0.4 mg PO DAILY 11/08/18 01/05/24 History aspirin 81 mg tablet,delayed 81 mg PO DAILY 09/01/23 01/05/24 History release (Adult Low Dose Aspirin) lisinopril 20 mg tablet 10 mg PO DAILY 12/15/23 01/05/24 History metoprolol succinate 25 mg 25 mg PO DAILY #30 tabs 12/15/23 01/05/24 Rx tablet,extended release 24 hr (Toprol XL) New Prescriptions to Start Prescriptions: Allergies Allergy/AdvReac Type Severity Reaction Status Date / Time No Known Allergies Allergy Verified 12/30/23 13:09 Assessment and Plan *Assessment and plan (1) Coronary artery disease: Status: Acute Category: Medical Code(s): I25.10 - Atherosclerotic heart disease of [place] coronary artery without angina pectoris (2) Peripheral artery disease: Status: Acute Category: Medical Code(s): I73.9 - Peripheral vascular disease, unspecified (3) Nonsustained ventricular tachycardia: Status: Acute Category: Medical Code(s): I47.29 - Other ventricular tachycardia (4) Supraventricular tachycardia: Status: Acute Category: Medical Code(s): I47.10 - Supraventricular tachycardia, unspecified Plan Nonobstructive CAD - Pt denies chest pain, EKG - SR without acute ischemia - Plan: Continue aspirin, statin, beta-nikki, risk factor management PAD -L - left common iliofemoral artery - chronically occluded -R - Severe spherical calcifications throughout the right common femoral artery and right superficial femoral artery with an occluded right popliteal artery and two-vessel runoff below -Medical management recommended due to high complexity lesions with extensive calcification. -Plan: Cont ASA, Statin, Add Xarelto 2.5mg BID. NSVT/SVT/PVCs - noted on outpatient monitor - stable, SR here - continue beta blockers Obesity, BMI 35 - recommend aggressive weight loss via diet/exercise Htn - well controlled - Plan: cont home meds HLD - need outpatient labs - Plan: cont statin CV stable for discharge home. Patient has been instructed no lifting pushing pulling more than 10 pounds for 5 days. CV DC Meds: ASA 81 mg Atorvastatin 40 mg daily Lisinopril 10 mg daily Metoprolol 25 mg daily *Add Xarelto 2.5mg BID
[2024-01-06 12:00] VITALS: BP 102/61; PULSE 79; PULSE 80; RESP 16; TEMP 36.6; O2SAT 95
[2024-01-06] MEDS: RIVAROXABAN 2.5MG TABLET 2.5 MG PO (12:25)
--- NOTE | 2024-01-06 12:36 | EXP.HPDC ---
General Admission date:: 01/05/24 Discharge date: 01/06/24 *Admission Date: 01/05/24 *Chief complaint: leg weakness, abnormal stress test *History of present illness: 78-year-old white male established patient of our office. Recently underwent health screening was found to have irregular heart rhythm. He was referred to our office for evaluation and heart monitor showed nonsustained V. tach, PVCs, SVT. His echo was normal but stress test indicated transient ischemic dilation suggestive of possible multivessel disease. In the meantime patient also went to the [place] where he had bilateral lower extremity ABIs indicating 0.5 bilaterally. Accordingly he was scheduled outpatient for left heart cath with bolus shefali angiogram which was completed yesterday. Results indicate nonobstructive disease in the coronary arteries. He has occluded arteries both lower extremities left to medical management due to high complexity. Patient was kept overnight to observe renal function and for evidence of bleeding as he had 3, 6-Danish sheaths. This morning patient reports he is asymptomatic with no questions or concerns. He has mild bruising at bilateral groin sites but no pain on palpation and no firmness. (above as per cardiology) [facility] Disclaimer: The information contained in this section may have been updated after the patient was seen, as this information can be updated by other users. Medical History (Updated 01/06/24 @ 12:41 by MIRANDA Saenz) Type 2 diabetes mellitus Abdominal aortic aneurysm BPH (benign prostatic hyperplasia) Lumbar disc disease Paroxysmal A-fib Family history of ischemic heart disease (IHD) Abnormal electrocardiogram [ECG] [EKG] Hyperlipidemia Hypertension Surgical History (Updated 01/06/24 @ 12:42 by MIRANDA Saenz) History of cardiac catheterization History of inguinal hernia repair History of left hip replacement Family History Other Family history of myocardial infarction Social History Smoking Status: Current some day smoker tobacco type: cigars years smoked: 50 second hand exposure: No alcohol intake: current alcohol intake frequency: a few times a week substance use type: denies use current occupational status: other Travel in the last 8 weeks: None adopted: No caregiver/support person: No foster care: No household members: spouse housing: house lives independently: Yes marital status: service: Yes status: retired snf: No current occupational exposures/hazards: No pets and animals: Yes pets and animals: cat(s) leisure activities: sports sexually active: No caffeine: Yes physical activity: walking do you feel safe at home: Yes Review of Systems Constitutional Constitutional: Denies fatigue, Denies fever(s), Denies headache(s) and Denies weakness Eyes Eyes: Denies blurry vision, Denies diplopia and Denies loss of vision ENT Ears, Nose, Mouth, and Throat: Denies headache(s), Denies nasal congestion and Reports vertigo *Cardiovascular Cardiovascular: Denies chest pain, Denies dyspnea and Denies syncope *Respiratory Respiratory: Denies cough and Denies dyspnea *Gastrointestinal Gastrointestinal: Denies abdominal pain, Denies loose stools, Denies nausea and Denies vomiting *Genitourinary Genitourinary: Denies difficulty urinating and Denies dysuria *Musculoskeletal Musculoskeletal: Denies arthralgias and Denies myalgias *Neurologic Neurologic: Denies headache(s), Denies loss of vision, Denies syncope, Reports vertigo and Denies weakness Endocrine Endocrine: Denies fatigue Exam Data for Last 24 hours Vital signs and Labs for Last 24 Hours: Temp Pulse Resp BP Pulse Ox O2 Del Method 97.9 F 79 16 102/61 L 95 Room Air 01/06/24 12:00 01/06/24 12:00 01/06/24 12:00 01/06/24 12:00 01/06/24 12:00 01/06/24 11:00 Laboratory Results - last 24 hr 01/05/24 13:49: Activated Clotting Time > 400 H* 01/05/24 14:33: Activated Clotting Time 176 H* D 01/06/24 05:33: WBC 7.9 D, RBC 4.59 L, Hgb 13.1 L D, Hct 39.3 L, MCV 85.5, MCH 28.4, MCHC 33.2, RDW 14.7, Plt Count 168, MPV 8.6, Neut % (Auto) 76.6, Lymph % (Auto) 16.8, Smyth % (Auto) 5.5, Eos % (Auto) 0.7, Baso % (Auto) 0.3, Neut # (Auto) 6.1, Lymph # (Auto) 1.3, Smyth # (Auto) 0.4, Eos # (Auto) 0.1, Baso # (Auto) 0.0, Sodium 142, Potassium 4.1, Chloride 110 H, Carbon Dioxide 23, Anion Gap 13.1, BUN 19, Creatinine 1.10, Estimated Creat Clear 93, Estimated GFR 65, Est GFR ( Amer) 79, Glucose 112 H, Calcium 8.5 I & O for Last 24 hours: Intake & Output 01/04/24 01/05/24 01/06/24 01/07/24 11:59 11:59 11:59 11:59 Intake Total 1900 / 1900 Output Total 450 / 450 Balance 1450 / 1450 Weight 253 lb 253 lb 8 oz Constitutional Constitutional: no acute distress *Routine HEENT Exam Head: Present normocephalic and atraumatic Eye: Present EOMI and PERRL ENT: Present mucous membranes moist *Routine Neck Exam Neck: Present supple and full ROM *Routine Respiratory Exam Respiratory: Present CTA bilaterally *Routine Cardiovascular Exam Cardiovascular: Present RRR *Routine Abdominal Exam Abdominal: Present soft and normoactive bowel sounds; Absent tenderness *Routine Rectal Exam Rectal:: deferred *Routine Genitalia Exam Genitalia:: deferred *Routine Extremities Exam Extremities: Absent cyanosis, clubbing or edema *Routine Skin Exam Skin: Present intact and ecchymosis (bilateral groin areas); Absent erythema *Routine Neurological Exam Neurological: Present alert and oriented X3 Meds Home Medications and Allergies Home Medications Medication Instructions Recorded Confirmed Type atorvastatin 40 mg tablet 40 mg PO DAILY 11/08/18 01/05/24 History tamsulosin 0.4 mg capsule 0.4 mg PO DAILY 11/08/18 01/05/24 History aspirin 81 mg tablet,delayed 81 mg PO DAILY 09/01/23 01/05/24 History release (Adult Low Dose Aspirin) lisinopril 20 mg tablet 10 mg PO DAILY 12/15/23 01/05/24 History metoprolol succinate 25 mg 25 mg PO DAILY #30 tabs 12/15/23 01/05/24 Rx tablet,extended release 24 hr (Toprol XL) rivaroxaban 2.5 mg tablet (Xarelto) 2.5 mg PO BID #60 tabs 01/06/24 Rx New Prescriptions to Start Prescriptions: rivaroxaban [Xarelto] [place],Tomás Allergies Allergy/AdvReac Type Severity Reaction Status Date / Time No Known Allergies Allergy Verified 12/30/23 13:09 Hospital Course Hospital Course Hospital Course: The patient did well overnight. He did have some bruising in the bilateral groin areas. Medical management was recommended due to high complexity lesions with extensive calcifications. Cardiology wanted the patient to continue aspirin, a statin, and add Xarelto 2.5 mg twice daily. They felt he could be discharged home and should do no lifting pushing or pulling more than 10 pounds for 5 days. He will follow-up in the cardiology office. Results Data Completed and Pending Labs on day of discharge: Labs from last 24 hours 01/06/24 01/05/24 01/05/24 05:33 14:33 13:49 WBC 7.9 D RBC 4.59 L Hgb 13.1 L D Hct 39.3 L MCV 85.5 MCH 28.4 MCHC 33.2 RDW 14.7 Plt Count 168 MPV 8.6 Neut % (Auto) 76.6 Lymph % (Auto) 16.8 Smyth % (Auto) 5.5 Eos % (Auto) 0.7 Baso % (Auto) 0.3 Neut # (Auto) 6.1 Lymph # (Auto) 1.3 Smyth # (Auto) 0.4 Eos # (Auto) 0.1 Baso # (Auto) 0.0 Activated Clotting Time 176 H* D > 400 H* Sodium 142 Potassium 4.1 Chloride 110 H Carbon Dioxide 23 Anion Gap 13.1 BUN 19 Creatinine 1.10 Estimated Creat Clear 93 Estimated GFR 65 Est GFR ( Amer) 79 Glucose 112 H Calcium 8.5 DS: Diagnosis Discharge Diagnosis (1) Coronary artery disease: Status: Acute Code(s): I25.10 - Atherosclerotic heart disease of [place] coronary artery without angina pectoris (2) Peripheral artery disease: Status: Acute Code(s): I73.9 - Peripheral vascular disease, unspecified (3) Nonsustained ventricular tachycardia: Status: Acute Code(s): I47.29 - Other ventricular tachycardia (4) Supraventricular tachycardia: Status: Acute Code(s): I47.10 - Supraventricular tachycardia, unspecified Discharge Plan Disposition Patient Disposition: Home, Self-Care Condition: Fair Follow up Plan Follow up with: Tomás Kessler MD [Primary Care Provider] - 01/13/24 10:00 am Greg Grayson MD [Staff Physician] - 01/12/24 2:45 pm Prescriptions/Medication Reconciliation: New Xarelto 2.5 mg tablet 2.5 mg PO BID Qty: 60 5RF Continued lisinopril 20 mg tablet 10 mg PO DAILY metoprolol succinate [Toprol XL] 25 mg tablet extended release 24 hr 25 mg PO DAILY Qty: 30 5RF atorvastatin 40 mg tablet 40 mg PO DAILY tamsulosin 0.4 mg capsule 0.4 mg PO DAILY aspirin [Adult Low Dose Aspirin] 81 mg tablet,delayed release (DR/EC) 81 mg PO DAILY Problem Reconciliation Problems Reviewed?: Yes Patient Discharge Instructions ACTIVITY: Limited activity DIET: continue same diet Patient Instructions: DI for Cardiac Catheterization, DI for Surgical Site Infection Providers Primary Care Provider: Tomás Kessler Admit Provider: Tomás Kessler Attending Provider: Tomás Kessler
--- NOTE | 2024-01-08 11:27 | CARE MANAGER ---
Contacted patient related to hospital discharge. He had no medication changes and is aware of follow up appointments. Denies questions or concerns. JAZ Hand
== END 2024-01-06 13:15 | disposition home or self-care (01) ==
LOC: 2ND 14:53
PROVIDERS: Internal Medicine; Admitting Provider Family Medicine; PCP Family Medicine; Visit Provider Family Medicine
DX: R94.39 Abnormal result of other cardiovascular function study (principal); I49.3 Ventricular premature depolarization; R94.31 Abnormal electrocardiogram [ECG] [EKG]; I47.20 Ventricular tachycardia, unspecified; I10 Essential (primary) hypertension; E78.5 Hyperlipidemia, unspecified; I70.213 Atherosclerosis of native arteries of extremities with intermittent claudication, bilateral legs; I25.10 Atherosclerotic heart disease of native coronary artery without angina pectoris; I47.10 Supraventricular tachycardia, unspecified; F17.290 Nicotine dependence, other tobacco product, uncomplicated; Z79.899 Other long term (current) drug therapy; I25.83 Coronary atherosclerosis due to lipid rich plaque; I77.1 Stricture of artery; I70.92 Chronic total occlusion of artery of the extremities; Z82.49 Family history of ischemic heart disease and other diseases of the circulatory system
CPT/HCPCS: 36247; 36415; 75716; 80048; 85025; 85347; 99152; 99153; C1725; C1769; G0378; J1644; J2720; Q9966; Q9967

== ENCOUNTER 2024-01-13 08:47 | Outpatient (CLI) | payer MEDICARE, OTHER, SELFPAY ==
--- NOTE | 2024-01-13 08:47 | CA_ITS ---
FINAL REPORT TECHNIQUE: Arterial duplex Doppler evaluation of the right lower extremity. CLINICAL HISTORY: PAD, Knot in right groin, Rule out pseudoaneurysm COMPARISON: None FINDINGS: There is no evidence of hematoma or pseudoaneurysm. There is a 2.2 cm benign-appearing lymph node. IMPRESSION: No evidence of hematoma or pseudoaneurysm. Reviewed, Interpreted and Dictated by Kin Silva MD Transcribed by Gabriela Espitia Authenticated and [facility]
== END 2024-01-13 23:59 | disposition home or self-care (01) ==
LOC: RT 08:47
PROVIDERS: PCP Family Medicine; Visit Provider Nurse Practitioner Family
DX: I77.0 Arteriovenous fistula, acquired (principal); I72.9 Aneurysm of unspecified site
CPT/HCPCS: 93926

== ENCOUNTER 2024-02-15 08:08 | Outpatient (POV) | payer MEDICARE, OTHER, SELFPAY ==
[2024-02-15 08:34] VITALS: BP 122/71; PULSE 82; RESP 18; TEMP 36.6; O2SAT 98; BMI 34.8
--- NOTE | 2024-02-15 09:10 | EXP.PAIN.SOA ---
[facility] Pain Management SOAP Note Subjective:: Patient is a pleasant 78-year-old male who presents today for follow-up. Today he rates his pain a 2 out of 10 while sitting however states his pain will go up to a 7 out of 10 with walking or standing. Patient states it is still the same pain he was experiencing months ago. He states the pain is all in his low back and radiates into his legs. He describes it as a constant aching, throbbing sensation with numbness and tingling with prolonged positioning or ambulation. He denies any new trauma or injury. Patient does state that it is starting to interfere with his ability perform activities of daily living such as cooking and cleaning. Patient did previously have a lumbar epidural back in July that provided 100% relief and has lasted up until the last couple of weeks. He does state that he would be interested in repeating this injection because he did have some much improved function. Patient is on compounded cream and states this continues to help and he does also use it on his left shoulder. Patient does state that he was put on Plavix by Dr. Grayson's office for leg circulation and denies any A-fib or blood clot history. His Rc has been reviewed and is appropriate. Review of Systems: General: No recent weight changes, no fever, no sleep disturbances Respiratory: No cough, no shortness of air, no recurring pulmonary infections Cardiovascular/peripheral vascular: No chest pain, no palpitations, no edema, no shortness of breath Gastrointestinal: No new onset incontinence, normal bowel movements reported Genitourinary: No new onset incontinence Musculoskeletal: Low back pain, leg pain Psychiatric: [Normal mood/affect] Neurological: [Denies weakness in extremities], [denies balance issues] Objective:: Physical Exam: General: Alert and oriented x3, no acute distress, pleasant and cooperative Lungs: Respirations even and unlabored, symmetrical chest expansion Eyes: PERRL Musculoskeletal: Flexion and extension of lumbar [spine] somewhat guarded secondary to pain, [antalgic gait noted] Neurological: Speech clear, no gross sensory deficit Assessment:: Degenerative disc disease of lumbar spine with lumbar radiculopathy symptoms, bilateral hip pain Plan:: Patient is experiencing worsening pain in his low back and legs with limited range of motion of his lumbar spine. Patient did have 100% relief with his last lumbar epidural that was done on August 04, 2023 that lasted up until about the last couple of weeks. I did review over the risk and benefits of repeating a lumbar epidural steroid injection. Patient would like to proceed forward with this plan of care. Patient did have significant improved function with decreased pain when these injections had previously worked. Patient is currently on Plavix written by Dr. Grayson's office and we will reach out to them to confirm that he can stop this medication prior to this injection. Patient has continued at home stretching and exercises for longer than 6 weeks between injections with minimal improvement. Patient will be submitted for a LESI L5-S1 under fluoroscopy. Patient has been instructed to contact the clinic with any concerns before the next appointment. Dr. Pettit has reviewed this note and agrees with this plan of care. This note was dictated using voice recognition software and make contain errors or omissions. [facility] Disclaimer: The information contained in this section may have been updated after the patient was seen, as this information can be updated by other users. Medical History Right groin pain Peripheral artery disease CAD in [place] artery Pseudoaneurysm Type 2 diabetes mellitus Abdominal aortic aneurysm BPH (benign prostatic hyperplasia) Lumbar disc disease Paroxysmal A-fib Family history of ischemic heart disease (IHD) Abnormal electrocardiogram [ECG] [EKG] Hyperlipidemia Hypertension Surgical History History of cardiac catheterization History of inguinal hernia repair History of left hip replacement Family History Other Family history of myocardial infarction Social History Smoking Status: Current some day smoker tobacco type: cigars years smoked: 50 second hand exposure: No alcohol intake: current alcohol intake frequency: a few times a week substance use type: denies use current occupational status: other Travel in the last 8 weeks: None adopted: No caregiver/support person: No foster care: No household members: spouse housing: house lives independently: Yes marital status: service: Yes status: retired residential: No current occupational exposures/hazards: No pets and animals: Yes pets and animals: cat(s) leisure activities: sports sexually active: No caffeine: Yes physical activity: walking do you feel safe at home: Yes
== END 2024-02-15 23:59 | disposition home or self-care (01) ==
LOC: SC.PAIN 08:09
PROVIDERS: PCP Family Medicine; Visit Provider Nurse Practitioner Family
DX: M25.551 Pain in right hip (principal); M25.552 Pain in left hip; M51.36 Other intervertebral disc degeneration, lumbar region
CPT/HCPCS: 99212; G0463

== ENCOUNTER 2024-03-08 07:49 | Day surgery (SDC) | payer MEDICARE, OTHER, SELFPAY ==
[2024-03-08 08:33] VITALS: BP 150/78; PULSE 65; RESP 18; TEMP 36.7; O2SAT 95; BMI 34.8
[2024-03-08 08:56] VITALS: BP 156/67; PULSE 68; RESP 18; O2SAT 96
[2024-03-08] MEDS: methylPREDNISolone ACETATE 80MG/ML VIAL 80 MG (08:56)
[2024-03-08 08:57] VITALS: BP 156/67; PULSE 68; RESP 18; O2SAT 96
[2024-03-08 09:07] VITALS: BP 158/69; PULSE 61; RESP 18; O2SAT 96
--- NOTE | 2024-03-08 09:20 | EXP.PAIN.PRO ---
Procedure Date: 03/08/24 Time: 09:00 Anesthesiologist:: Molina Hallman CRNA Complications:: None Pre-procedure Diagnosis:: Degenerative disc lumbar spine multilevels. Lumbar radiculopathy. Post-procedure Diagnosis:: Same. Indications for Procedure:: Patient is a very pleasant 78-year-old male comes our clinic today for a second lumbar epidural steroid injection at L5-S1 level. Patient reports moderate to significant improvement in his overall low back pain as well as bilateral hip and leg radicular symptoms with his initial injection at the same level. He rates his pain today 7/10. He reports low back as well as bilateral hip and leg radicular symptoms. Procedure Details:: Procedure: Lumbar epidural steroid injection under fluoroscopy Informed consent was obtained and the risks and benefits of the procedure were explained to the patient. The patient was taken to the procedure room and noninvasive monitors placed, including noninvasive blood pressure cuff and pulse oximeter. The back was viewed using C-arm Fluoroscopy and prepped using Chloraprep as a cleansing solution and the L5-S1 interspace was palpated. Skin and subcutaneous tissues were anesthetized using lidocaine 1.5% and a 25-gauge needle. After this, an 18-gauge Touhy epidural needle was placed into the L5-S1 interspace and advanced using fluoroscopic guidance and loss of resistance to air until the epidural space was encountered. After confirmation of needle placement in the epidural space, with dye, a solution containing normal saline, 3 mL and Depo-Medrol 80 mg were incrementally injected into the lumbar epidural space. The patient tolerated the procedure well with no complications. The patient was observed in the Pain Clinic and then discharged home neurologically intact. Plan and Disposition:: Patient was discharged without incident.
== END 2024-03-08 09:08 | disposition home or self-care (01) ==
LOC: SC.PAINP 07:50
PROVIDERS: PCP Family Medicine; Visit Provider Nurse Anesthetist, Certified Registered
DX: M54.16 Radiculopathy, lumbar region (principal)
CPT/HCPCS: 62323; J1010

== ENCOUNTER 2024-03-24 09:49 | Outpatient (POV) | payer MEDICARE, OTHER, SELFPAY ==
[2024-03-24 09:58] VITALS: BP 163/81; PULSE 54; RESP 18; O2SAT 97; BMI 34.8
--- NOTE | 2024-03-24 10:11 | A.OFFVIS_ITS ---
[facility] Disclaimer: The information contained in this section may have been updated after the patient was seen, as this information can be updated by other users. Medical History Right groin pain Peripheral artery disease CAD in [place] artery Pseudoaneurysm Type 2 diabetes mellitus Abdominal aortic aneurysm BPH (benign prostatic hyperplasia) Lumbar disc disease Paroxysmal A-fib Family history of ischemic heart disease (IHD) Abnormal electrocardiogram [ECG] [EKG] Hyperlipidemia Hypertension Surgical History History of cardiac catheterization History of inguinal hernia repair History of left hip replacement Family History Other Family history of myocardial infarction Social History Smoking Status: Current some day smoker tobacco type: cigars years smoked: 50 second hand exposure: No alcohol intake: current alcohol intake frequency: a few times a week substance use type: denies use current occupational status: retired Travel in the last 8 weeks: None adopted: No caregiver/support person: No foster care: No household members: spouse housing: house lives independently: Yes marital status: service: Yes status: retired custodial: No current occupational exposures/hazards: No pets and animals: Yes pets and animals: cat(s) leisure activities: sports sexually active: No caffeine: Yes physical activity: walking do you feel safe at home: Yes PM Subjective & Objective Subjective Subjective:: Patient is a pleasant 78-year-old male who presents today for follow-up of lumbar epidural steroid injection L5-S1 on 03/08/2024. Today he rates his pain a 1 out of 10. Patient states that he has had at least 90% improvement and feels like it is still helping. Patient has been able to increase his activity with overall decreased pain and improved function. He states sitting and he has absolutely no pain and when he walks it is just a little bit. Patients Rc has been reviewed and is appropriate. Review of Systems: General: No recent weight changes, no fever, no sleep disturbances Respiratory: No cough, no shortness of air, no recurring pulmonary infections Cardiovascular/peripheral vascular: No chest pain, no palpitations, no edema, no shortness of breath Gastrointestinal: No new onset incontinence, normal bowel movements reported Genitourinary: No new onset incontinence Musculoskeletal: Low back pain Psychiatric: [Normal mood/affect] Neurological: [Denies weakness in extremities], [denies balance issues] Pain at rest (0-10 scale): 1 Objective Objective:: Physical Exam: General: Alert and oriented x3, no acute distress, pleasant and cooperative Lungs: Respirations even and unlabored, symmetrical chest expansion Eyes: PERRL Musculoskeletal: Flexion and extension of lumbar [spine] somewhat guarded secondary to pain, [antalgic gait noted] Neurological: Speech clear, no gross sensory deficit Has patient had previous pain injection?: Yes Percent improvement in pain since last injection: 90% Conservative treatment options previously tried: Home exercise plan Length of treatment: Longer than 6 weeks Meds Home Medications and Allergies Home Medications ?Medication ?Instructions ?Recorded ?Confirmed ?Type atorvastatin 40 mg tablet 40 mg PO DAILY 11/08/18 03/24/24 History tamsulosin 0.4 mg capsule 0.4 mg PO DAILY 11/08/18 03/24/24 History aspirin 81 mg tablet,delayed 81 mg PO DAILY 09/01/23 03/24/24 History release (Adult Low Dose Aspirin) lisinopril 20 mg tablet 10 mg PO DAILY 12/15/23 03/24/24 History metoprolol succinate 25 mg 25 mg PO DAILY #30 tabs 12/15/23 03/24/24 Rx tablet,extended release 24 hr (Toprol XL) clopidogrel 75 mg tablet (Plavix) 75 mg PO DAILY #30 tabs 01/08/24 03/24/24 Rx allopurinol 100 mg tablet 100 mg PO DAILY 01/12/24 03/24/24 History New Prescriptions to Start Prescriptions: Allergies Allergy/AdvReac Type Severity Reaction Status Date / Time No Known Allergies Allergy Verified 02/23/24 12:01 Assessment and Plan *Assessment and plan (1) Lumbar disc disease: Status: Acute Category: Medical Code(s): M51.9 - Unspecified thoracic, thoracolumbar and lumbosacral intervertebral disc disorder Plan Patient has had significant improvement following his lumbar epidural and does not require any additional injection therapy at this time. Patient will return to clinic in 1 month for reevaluation of symptoms and plan of care. Patient has been instructed to contact the clinic with any concerns before the next appointment. Dr. Pettit has reviewed this note and agrees with this plan of care. This note was dictated using voice recognition software and make contain errors or omissions. All injections are used with Lidocaine or Bupivacaine and Depo Medrol.
== END 2024-03-24 23:59 | disposition home or self-care (01) ==
LOC: SC.PAIN 09:50
PROVIDERS: PCP Family Medicine; Visit Provider Nurse Practitioner Family
DX: M51.36 Other intervertebral disc degeneration, lumbar region (principal); F17.210 Nicotine dependence, cigarettes, uncomplicated
CPT/HCPCS: 99212; G0463

== ENCOUNTER 2024-04-27 12:27 | Outpatient (CLI) | payer MEDICARE, OTHER, SELFPAY ==
--- NOTE | 2024-04-27 12:33 | XR_ITS ---
FINAL REPORT CLINICAL HISTORY: Bronchitis, question pneumonia COMPARISON: None FINDINGS: Two views of the chest were obtained. The heart size and pulmonary vascularity are within normal limits. The mediastinum is normal. There is a left upper lobe opacity best seen on the lateral view which is consistent with atelectasis or pneumonia. There is no pneumothorax. The bony thorax is intact. IMPRESSION: Atelectasis or pneumonia. Recommend follow-up radiographs. Reviewed, Interpreted and Dictated by Jarocho Raines III, MD Transcribed by Angélica Mac Authenticated and . [facility]
== END 2024-04-27 23:59 | disposition home or self-care (01) ==
LOC: RAD 12:29
PROVIDERS: PCP Family Medicine; Visit Provider Physician Assistant
DX: J40 Bronchitis, not specified as acute or chronic (principal)
CPT/HCPCS: 71046

== ENCOUNTER 2024-05-02 08:20 | Outpatient (POV) | payer MEDICARE, OTHER, SELFPAY ==
[2024-05-02 08:47] VITALS: PULSE 76; RESP 16; O2SAT 97; BMI 34.8
--- NOTE | 2024-05-02 08:55 | A.OFFVIS_ITS ---
[facility] Disclaimer: The information contained in this section may have been updated after the patient was seen, as this information can be updated by other users. 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 Type 2 diabetes mellitus Abdominal aortic aneurysm BPH (benign prostatic hyperplasia) Lumbar disc disease Paroxysmal A-fib Family history of ischemic heart disease (IHD) Abnormal electrocardiogram [ECG] [EKG] Hyperlipidemia Hypertension Surgical History History of cardiac catheterization History of inguinal hernia repair History of left hip replacement Family History Other Family history of myocardial infarction Social History Smoking Status: Current some day smoker tobacco type: cigars years smoked: 50 second hand exposure: No alcohol intake: current alcohol intake frequency: a few times a week substance use type: denies use current occupational status: retired Travel in the last 8 weeks: None adopted: No caregiver/support person: No foster care: No household members: spouse housing: house lives independently: Yes marital status: service: Yes status: retired [employer]: No current occupational exposures/hazards: No pets and animals: Yes pets and animals: cat(s) leisure activities: sports sexually active: No caffeine: Yes physical activity: walking do you feel safe at home: Yes PM Subjective & Objective Subjective Subjective:: Patient is a pleasant 78-year-old male who presents today for 1 month follow-up. Today he rates his pain a 0 out of 10. He denies any new trauma or injury. He does state that he feels like his lumbar epidural of L5-S1 that was given in February is still providing significant relief. Patient did previously write 90% improvement. He states that overall this is working well for him and he does have improved function. He does state however today that he has been under the weather due to pneumonia and is currently on antibiotic and breathing treatments. Patient is prescribed compounded cream that he states does help additionally and times that he is going out to do more activity. His Rc has been reviewed and is appropriate. Review of Systems: General: No recent weight changes, no fever, no sleep disturbances Respiratory: No cough, no shortness of air, no recurring pulmonary infections Cardiovascular/peripheral vascular: No chest pain, no palpitations, no edema, no shortness of breath Gastrointestinal: No new onset incontinence, normal bowel movements reported Genitourinary: No new onset incontinence Musculoskeletal: Low back pain Psychiatric: [Normal mood/affect] Neurological: [Denies weakness in extremities], [denies balance issues] Pain at rest (0-10 scale): 0 Objective Objective:: Physical Exam: General: Alert and oriented x3, no acute distress, pleasant and cooperative Lungs: Respirations even and unlabored, symmetrical chest expansion Eyes: PERRL Musculoskeletal: Flexion and extension of lumbar [spine] somewhat guarded secondary to pain, [antalgic gait noted] Neurological: Speech clear, no gross sensory deficit Has patient had previous pain injection?: No Conservative treatment options previously tried: Home exercise plan Length of treatment: Longer than 6 weeks Meds Home Medications and Allergies Home Medications ?Medication ?Instructions ?Recorded ?Confirmed ?Type atorvastatin 40 mg tablet 40 mg PO DAILY 11/08/18 05/02/24 History tamsulosin 0.4 mg capsule 0.4 mg PO DAILY 11/08/18 05/02/24 History aspirin 81 mg tablet,delayed 81 mg PO DAILY 09/01/23 05/02/24 History release (Adult Low Dose Aspirin) lisinopril 20 mg tablet 10 mg PO DAILY 12/15/23 05/02/24 History metoprolol succinate 25 mg 25 mg PO DAILY #30 tabs 12/15/23 05/02/24 Rx tablet,extended release 24 hr (Toprol XL) clopidogrel 75 mg tablet (Plavix) 75 mg PO DAILY #30 tabs 01/08/24 05/02/24 Rx allopurinol 100 mg tablet 100 mg PO DAILY 01/12/24 05/02/24 History New Prescriptions to Start Prescriptions: Allergies Allergy/AdvReac Type Severity Reaction Status Date / Time No Known Allergies Allergy Verified 04/18/24 09:29 Assessment and Plan *Assessment and plan (1) Lumbar radiculopathy: Status: Acute Category: Medical Code(s): M54.16 - Radiculopathy, lumbar region (2) Degenerative disc disease, lumbar: Status: Acute Category: Medical Code(s): M51.36 - Other intervertebral disc degeneration, lumbar region Plan Patient continues to get significant relief following his lumbar epidural on March 08 and does not require any additional injection therapy at this time. Patient will return to clinic in 3 months for reevaluation of symptoms and plan of care. Patient has been instructed to contact the clinic with any concerns before the next appointment. Dr. Pettit has reviewed this note and agrees with this plan of care. This note was dictated using voice recognition software and make contain errors or omissions. All injections are used with Lidocaine or Bupivacaine and Depo Medrol.
== END 2024-05-02 23:59 | disposition home or self-care (01) ==
LOC: SC.PAIN 08:22
PROVIDERS: PCP Family Medicine; Visit Provider Nurse Practitioner Family
DX: M51.16 Intervertebral disc disorders with radiculopathy, lumbar region (principal); F17.290 Nicotine dependence, other tobacco product, uncomplicated
CPT/HCPCS: 99212; G0463

== ENCOUNTER 2024-05-05 08:26 | Outpatient (CLI) | payer MEDICARE, OTHER, SELFPAY | END 2024-05-05 23:59 | disposition home or self-care (01) | LOC: LAB 08:28 | PROVIDERS: PCP Family Medicine; Visit Provider Physician Assistant | DX: J18.9 Pneumonia, unspecified organism (principal) | CPT/HCPCS: 87070; 87205 ==

== ENCOUNTER 2024-05-05 14:34 | Outpatient (CLI) | payer MEDICARE, OTHER, SELFPAY ==
--- NOTE | 2024-05-05 14:40 | XR_ITS ---
FINAL REPORT CLINICAL HISTORY: PNEUMONIA LEFT UPPER LOBE COMPARISON: 03/27/2024 FINDINGS: Two views of the chest were obtained. The heart size and pulmonary vascularity are within normal limits. The mediastinum is normal. Persistent left upper lobe opacities are present, consistent with pneumonia. There is no pneumothorax. The bony thorax is intact. IMPRESSION: Persistent left upper lobe opacities, consistent with pneumonia. Reviewed, Interpreted and Dictated by Jarocho Raines III, MD Transcribed by Alisha Hawk Authenticated and [facility]
== END 2024-05-05 23:59 | disposition home or self-care (01) ==
LOC: RAD 14:36
PROVIDERS: PCP Family Medicine; Visit Provider Physician Assistant
DX: J18.9 Pneumonia, unspecified organism (principal)
CPT/HCPCS: 71046; 87070; 87205

== ENCOUNTER 2024-05-16 08:03 | Outpatient (CLI) | payer MEDICARE, OTHER, SELFPAY ==
--- NOTE | 2024-05-16 08:09 | XR_ITS ---
FINAL REPORT CLINICAL HISTORY: f/u .pneumona COMPARISON: 05/05/2024 FINDINGS: 2 views of the chest were obtained . The heart is normal in size. The mediastinum is within normal limits. There has been significant interval improvement in left perihilar pneumonia. Mild residual density may represent scarring or residual pneumonia. There is no pleural effusion. There is no pneumothorax. Osseous structures are unremarkable. IMPRESSION: Significant interval improvement in left perihilar pneumonia. Reviewed, Interpreted and Dictated by Tom Kennedy MD Transcribed by Aminta Farias Authenticated and [facility]
== END 2024-05-16 23:59 | disposition home or self-care (01) ==
LOC: RAD 08:04
PROVIDERS: PCP Family Medicine; Visit Provider Physician Assistant
DX: J18.9 Pneumonia, unspecified organism (principal)
CPT/HCPCS: 71046

== ENCOUNTER 2024-08-15 09:06 | Outpatient (POV) | payer MEDICARE, OTHER, SELFPAY ==
--- NOTE | 2024-08-15 09:31 | A.OFFVIS_ITS ---
[facility] Disclaimer: The information contained in this section may have been updated after the patient was seen, as this information can be updated by other users. 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 Type 2 diabetes mellitus Abdominal aortic aneurysm BPH (benign prostatic hyperplasia) Lumbar disc disease Paroxysmal A-fib Family history of ischemic heart disease (IHD) Abnormal electrocardiogram [ECG] [EKG] Hyperlipidemia Hypertension Surgical History History of cardiac catheterization History of inguinal hernia repair History of left hip replacement Family History Other Family history of myocardial infarction Social History Smoking Status: Current some day smoker tobacco type: cigars years smoked: 50 second hand exposure: No alcohol intake: current alcohol intake frequency: a few times a week substance use type: denies use current occupational status: retired Travel in the last 8 weeks: None adopted: No caregiver/support person: No foster care: No household members: spouse housing: house lives independently: Yes marital status: service: Yes status: retired skilled nursing: No current occupational exposures/hazards: No pets and animals: Yes pets and animals: cat(s) leisure activities: sports sexually active: No caffeine: Yes physical activity: walking do you feel safe at home: Yes PM Subjective & Objective Subjective Subjective:: Patient is a pleasant 78-year-old male who presents today for worsening pain. Today he rates his pain a 5 out of 10. He denies any new injury or trauma. He does state that he has had overall worsening pain in his low back going on the last year and that it would come and go. Today he states that he has had more pain from her last appointment all along the left side and does go into his left buttocks area. He describes it as an aching, throbbing sensation that will occasionally interfere with his ability to perform activities of daily living such as cooking and cleaning. Patient does state that he does notice it when he is up moving more with increased activity. Patient does state that occasionally he can stop and rest and it does ease up. Patient has had lumbar epidurals in the past with his last 1 in February that did provide 90% improvement. He is prescribed compounded cream. Patient does state that he just lost his a week and a half ago due to cancer. His Rc has been reviewed and is appropriate. Review of Systems: General: No recent weight changes, no fever, no sleep disturbances Respiratory: No cough, no shortness of air, no recurring pulmonary infections Cardiovascular/peripheral vascular: No chest pain, no palpitations, no edema, no shortness of breath Gastrointestinal: No new onset incontinence, normal bowel movements reported Genitourinary: No new onset incontinence Musculoskeletal: Low back pain, left-sided Psychiatric: [Normal mood/affect] Neurological: [Denies weakness in extremities], [denies balance issues] Pain at rest (0-10 scale): 5 Objective Objective:: Physical Exam: General: Alert and oriented x3, no acute distress, pleasant and cooperative Lungs: Respirations even and unlabored, symmetrical chest expansion Eyes: PERRL Musculoskeletal: Flexion and extension of lumbar [spine] somewhat guarded secon jean to pain, [antalgic gait noted] point tenderness along left SI with positive left Radha's, Terrance's, Gaenslen's, compression and distraction exam Neurological: Speech clear, no gross sensory deficit Has patient had previous pain injection?: No Conservative treatment options previously tried: Home exercise plan Length of treatment: Longer than 12 weeks Meds Home Medications and Allergies Home Medications ?Medication ?Instructions ?Recorded ?Confirmed ?Type atorvastatin 40 mg tablet 40 mg PO DAILY 11/08/18 05/24/24 History tamsulosin 0.4 mg capsule 0.4 mg PO DAILY 11/08/18 05/24/24 History aspirin 81 mg tablet,delayed 81 mg PO DAILY 09/01/23 05/24/24 History release (Adult Low Dose Aspirin) lisinopril 20 mg tablet 10 mg PO DAILY 12/15/23 05/24/24 History metoprolol succinate 25 mg 25 mg PO DAILY #30 tabs 12/15/23 05/24/24 Rx tablet,extended release 24 hr (Toprol XL) clopidogrel 75 mg tablet (Plavix) 75 mg PO DAILY #30 tabs 01/08/24 05/24/24 Rx allopurinol 100 mg tablet 100 mg PO DAILY 01/12/24 05/24/24 History New Prescriptions to Start Prescriptions: Allergies Allergy/AdvReac Type Severity Reaction Status Date / Time No Known Allergies Allergy Verified 05/24/24 08:13 Assessment and Plan *Assessment and plan (1) Sacroiliitis: Status: Acute Category: Medical Code(s): M46.1 - Sacroiliitis, not elsewhere classified Plan Patient is experiencing worsening pain in his low back along the left side with limited range of motion and point tenderness along his left SI. Patient did have a positive left Radha's, Terrance's, Gaenslen's, compression and distraction exam. I did discuss with the patient that I do believe he would benefit from a left SI injection. Risk and benefits were discussed with the patient and he would like to proceed forward with this plan of care. Patient has tried and failed conservative therapy including continued at home stretching exercise for longer than 12 weeks between injections. Patient does state that he has had overall low back pain like this going on the last year and that it was more intermittent in the past. Patient will be scheduled for a left SI injection under fluoroscopy. Patient has been instructed to contact the clinic with any concerns before the next appointment. Dr. Pettit has reviewed this note and agrees with this plan of care. This note was dictated using voice recognition software and make contain errors or omissions. All injections are used with Lidocaine, Bupivacaine and Depo Medrol. Occasionally urine drug screen is needed to verify patient's compliance with our office pain contract. This is ordered based off specific treatments related to chronic pain with the potential to abuse certain medications.
[2024-08-15 09:50] VITALS: BP 139/52; PULSE 85; RESP 20; O2SAT 96; BMI 33.5
== END 2024-08-15 23:59 | disposition home or self-care (01) ==
LOC: SC.PAIN 09:09
PROVIDERS: PCP Family Medicine; Visit Provider Nurse Practitioner Family
DX: M46.1 Sacroiliitis, not elsewhere classified (principal); F17.290 Nicotine dependence, other tobacco product, uncomplicated; Z73.89 Other problems related to life management difficulty; Z79.02 Long term (current) use of antithrombotics/antiplatelets
CPT/HCPCS: 99212; G0463

== ENCOUNTER 2024-09-06 10:33 | Day surgery (SDC) | payer MEDICARE, OTHER, SELFPAY ==
[2024-09-06 10:46] VITALS: BP 152/84; PULSE 80; RESP 18; TEMP 36.6; O2SAT 96; BMI 34.2
--- NOTE | 2024-09-06 10:53 | EXP.PAIN.PRO ---
Procedure Date: 09/06/24 Time: 10:30 Anesthesiologist:: Molina Hallman CRNA Complications:: None Pre-procedure Diagnosis:: Left sacroiliitis Post-procedure Diagnosis:: Same. Indications for Procedure:: Patient is a pleasant 78-year-old male who comes our clinic today for a left sacroiliac joint injection of cortisone and local anesthetic. Patient describes left lumbar back pain. Also, left posterior hip pain. He describes having difficulty sitting. Difficulty with ambulation. Difficulty transitioning from sitting to standing due to left posterior hip pain. He rates his pain 7/10. Procedure Details:: Procedure: Left sacroiliac injection under fluoroscopy Informed consent was obtained and the risk and benefits of the procedure were explained to the patient.~ The patient was taken to the procedure room and noninvasive monitors were placed including noninvasive blood pressure cuff and pulse oximeter.~ The patient was placed prone on the procedure table.~ The~ left hip was cleansed using Betadine as a cleansing solution.~ C-arm fluorosocpy was used to view the left SI joint.~ The skin and subcutaneous tissues were anesthetized using Lidocaine 1.5% and a 25-gauge needle.~ After this, a 22-gauge spinal needle was inserted under fluoroscopic guidance into the inferior aspect of the left SI joint.~ Omnipaque dye was injected and a good spread was seen throughout the joint.~ After this, approximately 5 mL of bupivacaine 0.25% and Depo-Medrol 40 mg was incrementally injected into the sacroiliac joint.~ The patient tolerated the procedure well with no complications.~ The patient was observed in the Pain Clinic for a period of 30-45 minutes, then discharged home neurologically intact.~ Plan and Disposition:: Patient was discharged without incident.
[2024-09-06] MEDS: methylPREDNISolone ACETATE 80MG/ML VIAL 80 MG (10:54)
[2024-09-06] MEDS: LIDOCAINE 1% 5ML PF VIAL 5 ML (10:54)
[2024-09-06] MEDS: BUPIVACAINE 0.25% 10ML INJ 25 MG IJ (10:54)
[2024-09-06 10:55] VITALS: BP 165/64; PULSE 74; RESP 18; O2SAT 94
[2024-09-06 10:56] VITALS: BP 165/64; PULSE 74; RESP 18; O2SAT 94
[2024-09-06 11:00] VITALS: BP 154/92; PULSE 60; RESP 18; O2SAT 96
== END 2024-09-06 11:00 | disposition home or self-care (01) ==
PROVIDERS: PCP Family Medicine; Visit Provider Nurse Anesthetist, Certified Registered
DX: M46.1 Sacroiliitis, not elsewhere classified (principal)
CPT/HCPCS: 27096; G0260; J1010

== ENCOUNTER 2024-09-19 13:05 | Outpatient (POV) | payer MEDICARE, OTHER, SELFPAY ==
--- NOTE | 2024-09-19 13:17 | EXP.PAIN.SOA ---
[facility] Disclaimer: The information contained in this section may have been updated after the patient was seen, as this information can be updated by other users. 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 Type 2 diabetes mellitus Abdominal aortic aneurysm BPH (benign prostatic hyperplasia) Lumbar disc disease Paroxysmal A-fib Family history of ischemic heart disease (IHD) Abnormal electrocardiogram [ECG] [EKG] Hyperlipidemia Hypertension Surgical History History of cardiac catheterization History of inguinal hernia repair History of left hip replacement Family History Other Family history of myocardial infarction Social History Smoking Status: Current some day smoker tobacco type: cigars years smoked: 50 second hand exposure: No alcohol intake: current alcohol intake frequency: a few times a week substance use type: denies use current occupational status: retired Travel in the last 8 weeks: None adopted: No caregiver/support person: No foster care: No household members: spouse housing: house lives independently: Yes marital status: service: Yes status: retired senior living: No current occupational exposures/hazards: No pets and animals: Yes pets and animals: cat(s) leisure activities: sports sexually active: No caffeine: Yes physical activity: walking do you feel safe at home: Yes Have you lived/traveled outside [place] in past 30 days?: No Contact w/someone who lives/traveled outside US past 30 days?: No Exposure to someone with infectious disease in past 14 days?: No Do you have a fever (greater than 100.4 F or 38 C)?: No Have you tested positive for COVID-19: No Exposed to someone with COVID-19 in past 14 days?: No Do you have a sore throat?: No Do you have a cough?: No Do you have any weakness?: No Do you have any diarrhea?: No Are you experiencing any unusual bleeding?: No Do you have any muscle aches/pain?: No Do you have any abdominal pain?: No Are you experiencing loss of taste or smell?: No PM Subjective & Objective Subjective Subjective:: Patient is a pleasant 78-year-old male who presents today of follow-up regarding left SI injection on 09/06/2024. Today he rates his pain a 1 out of 10. He denies any new injury or trauma. He states that he has gotten 100% relief following this injection and feels like it still working wonderful. He states that he has been able to move around easier with overall decreased pain and is not experiencing any issues. Patient is prescribed compounded cream. His Rc has been reviewed and is appropriate., Review of Systems: General: No recent weight changes, no fever, no sleep disturbances Respiratory: No cough, no shortness of air, no recurring pulmonary infections Cardiovascular/peripheral vascular: No chest pain, no palpitations, no edema, no shortness of breath Gastrointestinal: No new onset incontinence, normal bowel movements reported Genitourinary: No new onset incontinence Musculoskeletal: Low back pain Psychiatric: [Normal mood/affect] Neurological: [Denies weakness in extremities], [denies balance issues] Pain at rest (0-10 scale): 1 Objective Objective:: Physical Exam: General: Alert and oriented x3, no acute distress, pleasant and cooperative Lungs: Respirations even and unlabored, symmetrical chest expansion Eyes: PERRL Musculoskeletal: Flexion and extension of lumbar [spine] somewhat guarded secondary to pain, [antalgic gait noted] Neurological: Speech clear, no gross sensory deficit Has patient had previous pain injection?: Yes Percent improvement in pain since last injection: 100% Conservative treatment options previously tried: Home exercise plan Length of treatment: Longer than 12 weeks Meds Home Medications and Allergies Home Medications ?Medication ?Instructions ?Recorded ?Confirmed ?Type atorvastatin 40 mg tablet 40 mg PO DAILY 11/08/18 09/06/24 History tamsulosin 0.4 mg capsule 0.4 mg PO DAILY 11/08/18 09/06/24 History aspirin 81 mg tablet,delayed 81 mg PO DAILY 09/01/23 09/06/24 History release (Adult Low Dose Aspirin) lisinopril 20 mg tablet 10 mg PO DAILY 12/15/23 09/06/24 History metoprolol succinate 25 mg 25 mg PO DAILY #30 tabs 12/15/23 09/06/24 Rx tablet,extended release 24 hr (Toprol XL) clopidogrel 75 mg tablet (Plavix) 75 mg PO DAILY #30 tabs 01/08/24 09/06/24 Rx allopurinol 100 mg tablet 100 mg PO DAILY 01/12/24 09/06/24 History New Prescriptions to Start Prescriptions: Allergies Allergy/AdvReac Type Severity Reaction Status Date / Time No Known Allergies Allergy Verified 09/06/24 10:47 Assessment and Plan *Assessment and plan (1) Sacroiliitis: Status: Acute Category: Medical Code(s): M46.1 - Sacroiliitis, not elsewhere classified (2) Lumbar disc disease: Status: Acute Category: Medical Code(s): M51.9 - Unspecified thoracic, thoracolumbar and lumbosacral intervertebral disc disorder Plan Patient has had significant improvement and does not require any additional injection therapy at this time. Patient will return to clinic in 6 weeks for reevaluation of symptoms and plan of care. Patient has been instructed to contact the clinic with any concerns before the next appointment. Dr. Pettit has reviewed this note and agrees with this plan of care. This note was dictated using voice recognition software and make contain errors or omissions. All injections are used with Lidocaine, Bupivacaine and Depo Medrol. Occasionally urine drug screen is needed to verify patient's compliance with our office pain contract. This is ordered based off specific treatments related to chronic pain with the potential to abuse certain medications.
[2024-09-19 15:23] VITALS: BP 120/73; PULSE 65; RESP 14; O2SAT 95; BMI 33.5
== END 2024-09-19 23:59 | disposition home or self-care (01) ==
LOC: SC.PAIN 13:07
PROVIDERS: PCP Family Medicine; Visit Provider Nurse Practitioner Family
DX: M46.1 Sacroiliitis, not elsewhere classified (principal); M51.86 Other intervertebral disc disorders, lumbar region; Z96.642 Presence of left artificial hip joint; F17.290 Nicotine dependence, other tobacco product, uncomplicated; Z79.02 Long term (current) use of antithrombotics/antiplatelets
CPT/HCPCS: 99212; G0463

== ENCOUNTER 2024-10-31 09:46 | Outpatient (POV) | payer MEDICARE, OTHER, SELFPAY ==
--- NOTE | 2024-10-31 10:17 | EXP.PAIN.SOA ---
[facility] Disclaimer: The information contained in this section may have been updated after the patient was seen, as this information can be updated by other users. 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 Type 2 diabetes mellitus Abdominal aortic aneurysm BPH (benign prostatic hyperplasia) Lumbar disc disease Paroxysmal A-fib Family history of ischemic heart disease (IHD) Abnormal electrocardiogram [ECG] [EKG] Hyperlipidemia Hypertension Surgical History History of cardiac catheterization History of inguinal hernia repair History of left hip replacement Family History Other Family history of myocardial infarction Social History Smoking Status: Current some day smoker tobacco type: cigars years smoked: 50 second hand exposure: No alcohol intake: current alcohol intake frequency: a few times a week substance use type: denies use current occupational status: other Travel in the last 8 weeks: None adopted: No caregiver/support person: No foster care: No household members: spouse housing: house lives independently: Yes marital status: service: Yes status: retired correction: No current occupational exposures/hazards: No pets and animals: Yes pets and animals: cat(s) leisure activities: sports sexually active: No caffeine: Yes physical activity: walking do you feel safe at home: Yes PM Subjective & Objective Subjective Subjective:: Patient is a pleasant 78-year-old male who presents today for follow-up. Today he rates his pain a 0 out of 10. He states that overall he is still doing well from his last SI injections back in August. Patient states that in the mornings he has no pain and really only notices more pain as the day goes on depending on his activity. Patient states he does do more work around his home and will have some more pain but it is definitely continue to provide significant relief. He is prescribed compounded cream. His Rc has been reviewed and is appropriate. Review of Systems: General: No recent weight changes, no fever, no sleep disturbances Respiratory: No cough, no shortness of air, no recurring pulmonary infections Cardiovascular/peripheral vascular: No chest pain, no palpitations, no edema, no shortness of breath Gastrointestinal: No new onset incontinence, normal bowel movements reported Genitourinary: No new onset incontinence Musculoskeletal: Low back pain Psychiatric: [Normal mood/affect] Neurological: [Denies weakness in extremities], [denies balance issues] Pain at rest (0-10 scale): 0 Objective Objective:: Physical Exam: General: Alert and oriented x3, no acute distress, pleasant and cooperative Lungs: Respirations even and unlabored, symmetrical chest expansion Eyes: PERRL Musculoskeletal: Flexion and extension of lumbar spine within normal limits Neurological: Speech clear, no gross sensory deficit Has patient had previous pain injection?: No Conservative treatment options previously tried: Home exercise plan Length of treatment: Longer than 12 weeks Meds Home Medications and Allergies Home Medications ?Medication ?Instructions ?Recorded ?Confirmed ?Type aspirin 81 mg tablet,delayed 81 mg PO DAILY 09/01/23 10/24/24 History release (Adult Low Dose Aspirin) metoprolol succinate 25 mg 25 mg PO DAILY #30 tabs 12/15/23 10/24/24 Rx tablet,extended release 24 hr (Toprol XL) clopidogrel 75 mg tablet (Plavix) 75 mg PO DAILY #30 tabs 01/08/24 10/24/24 Rx allopurinol 100 mg tablet 100 mg PO DAILY 01/12/24 10/24/24 History atorvastatin 40 mg tablet 80 mg PO HS 10/24/24 10/24/24 History lisinopril 20 mg tablet 10 mg PO HS 10/24/24 10/24/24 History omeprazole 20 mg capsule,delayed 20 mg PO DAILY 10/24/24 10/24/24 History release tamsulosin 0.4 mg capsule 0.4 mg PO HS 10/24/24 10/24/24 History New Prescriptions to Start Prescriptions: Allergies Allergy/AdvReac Type Severity Reaction Status Date / Time No Known Allergies Allergy Verified 10/24/24 09:04 Assessment and Plan *Assessment and plan (1) Sacroiliitis: Status: Acute Category: Medical Code(s): M46.1 - Sacroiliitis, not elsewhere classified Plan Patient continues to do well following his SI injection in August along the left side and does not require any additional injection therapy at this time. Patient will return to clinic in another 6 weeks. \ Patient has been instructed to contact the clinic with any concerns before the next appointment. Dr. Pettit has reviewed this note and agrees with this plan of care. This note was dictated using voice recognition software and make contain errors or omissions. All injections are used with Lidocaine, Bupivacaine and Depo Medrol. Occasionally urine drug screen is needed to verify patient's compliance with our office pain contract. This is ordered based off specific treatments related to chronic pain with the potential to abuse certain medications.
[2024-10-31 10:19] VITALS: BP 134/83; PULSE 77; RESP 16; O2SAT 97; BMI 34.8
== END 2024-10-31 23:59 | disposition home or self-care (01) ==
LOC: SC.PAIN 09:48
PROVIDERS: PCP Family Medicine; Visit Provider Nurse Practitioner Family
DX: M46.1 Sacroiliitis, not elsewhere classified (principal); Z96.642 Presence of left artificial hip joint; F17.290 Nicotine dependence, other tobacco product, uncomplicated
CPT/HCPCS: 99212; G0463

== ENCOUNTER 2024-12-12 10:17 | Outpatient (POV) | payer MEDICARE, OTHER, SELFPAY ==
--- OUTSIDE RECORDS SUMMARY | 2024-12-12 10:21 | XMS_ITS | Encounter Summary ---
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 Date/Time Encounter Type Encounter Description Reason Pro vider Source Nov 14, 2024 10:21 AM Outpatient Encounter PRIMARY CARE/MEDICINE IHE Encounter Template Text not used by ID Plan of Treatment: Future Appointments (+ 6 months) and Future Tests (+/- 45 days) The Plan of Treatment section includes future care activities for the patient from [facility] This section includes future appointments and future orders which are active, pending or scheduled. Future Appointments This section includes appointments that were scheduled to occur 6 months from the date of the Encounter, up to a maximum of 20 appointments. The data comes from all ID treatment facilities. Appointment Date/Time Appointment Type Appointme nt Facility Name Nov 29, 2024 08:30 AM AMBULATORY - NONE [facility] [facility] January 09, 2025 08:30 AM AMBULATORY - SURGERY [place] [facility] January 09, 2025 10:20 AM AMBULATORY - SURGERY [facility] Social History: Smoking Status (Most current) and Tobacco Use (All prior to encounter date) This section includes the most current, and the historical, smoking and tobacco- related health factors from the ID facility where the Encounter took place. Current Smoking Status This section includes the most current smoking, or tobacco-related health factor, from the ID facility where the Encounter took place. Date/Time Current Smoking Status Comment Facil ity May 18, 2024 09:00 AM VA-TOBACCO USER SOME DAYS [facility] Tobacco Use History This section includes a history of the smoking, or tobacco-related health factors, that were collected on or before the date of the Encounter. The data comes from the ID facility where the Encounter took place. 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 [facility] May 18, 2024 09:00 AM VA-TOBACCO USE MED NO [facility] May 18, 2024 09:00 AM VA-TOBACCO USER SOME DAYS [facility] Nov 02, 2023 09:00 AM VA-TOBACCO USE 30 YEARS OR MORE [facility] Nov 02, 2023 09:00 AM VA-TOBACCO USE ADVICE [facility] Nov 02, 2023 09:00 AM 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 [facility] Nov 02, 2023 09:00 AM VA-TOBACCO USE MED NO [facility] Nov 02, 2023 09:00 AM VA-TOBACCO USE WI 30 MIN OF WAKEUP [facility] Nov 02, 2023 09:00 AM VA-TOBACCO USER EVERY DAY [facility] Aug 29, 2022 08:00 AM VA-TOBACCO DOESNT USE WI 30 MIN WAKEUP [facility] Aug 29, 2022 08:00 AM VA-TOBACCO USE 30 YEARS OR MORE [facility] Aug 29, 2022 08:00 AM VA-TOBACCO USE ADVICE [facility] Aug 29, 2022 08:00 AM 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 [facility] Aug 29, 2022 08:00 AM VA-TOBACCO USE MED NO [facility] Aug 29, 2022 08:00 AM VA-TOBACCO USER EVERY DAY [facility] Aug 26, 2021 08:00 AM VA-TOBACCO DOESNT USE WI 30 MIN WAKEUP [facility] Aug 26, 2021 08:00 AM VA-TOBACCO USE 30 YEARS OR MORE [facility] Aug 26, 2021 08:00 AM VA-TOBACCO USE ADVICE [facility] Aug 26, 2021 08:00 AM 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 [facility] Aug 26, 2021 08:00 AM VA-TOBACCO USE MED NO [facility] Aug 26, 2021 08:00 AM VA-TOBACCO USER EVERY DAY [facility] December 26, 2019 10:07 AM VA-TOBACCO DOESNT USE WI 30 MIN WAKEUP [facility] December 26, 2019 10:07 AM VA-TOBACCO USE 30 YEARS OR MORE [facility] December 26, 2019 10:07 AM VA-TOBACCO USE ADVICE [facility] December 26, 2019 10:07 AM 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 [facility] December 26, 2019 10:07 AM VA-TOBACCO USE MED NO [facility] December 26, 2019 10:07 AM VA-TOBACCO USER EVERY DAY [facility] Oct 19, 2018 09:18 AM VA-TOBACCO DOESNT USE WI 30 MIN WAKEUP [facility] Oct 19, 2018 09:18 AM VA-TOBACCO USE 30 YEARS OR MORE [facility] Oct 19, 2018 09:18 AM VA-TOBACCO USE ADVICE [facility] Oct 19, 2018 09:18 AM 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 [facility] Oct 19, 2018 09:18 AM VA-TOBACCO USE MED NO [facility] Oct 19, 2018 09:18 AM VA-TOBACCO USER SOME DAYS [facility] Sep 25, 2017 01:14 PM V9 CURRENT TOBACCO USER [facility] Sep 25, 2017 01:14 PM V9 TOBACCO OFFERED [facility] Sep 25, 2017 01:14 PM V9 TOBACCO USE-DECLINED MEDS [facility] Oct 14, 2016 04:43 PM V9 CURRENT TOBACCO USER [facility] Oct 14, 2016 04:43 PM V9 TOBACCO OFFERED [facility] Oct 14, 2016 04:43 PM V9 TOBACCO USE-DECLINED MEDS [facility] Oct 03, 2015 08:21 AM V9 CURRENT TOBACCO USER [facility] Oct 03, 2015 08:21 AM V9 TOBACCO OFFERED [facility] Oct 03, 2015 08:21 AM V9 TOBACCO USE-DECLINED MEDS [facility] Aug 30, 2014 08:12 AM V9 CURRENT TOBACCO USER [facility] Aug 30, 2014 08:12 AM V9 TOBACCO OFFERED [facility] Jul 18, 2013 08:02 AM V9 CURRENT TOBACCO USER [facility] Jul 18, 2013 08:02 AM V9 QUIT TOBACCO >7 YEARS AGO [facility] Jul 18, 2013 08:02 AM V9 TOBACCO OFFERED [facility] Jul 01, 2012 07:45 AM TOBACCO OFFERRED P T MEDS (PROVIDER) [facility] Jul 01, 2012 07:45 AM V9 CURRENT TOBACCO USER [facility] Jul 01, 2012 07:45 AM V9 QUIT TOBACCO >1 2 MO & <7 YRS AGO [facility] Jul 01, 2012 07:45 AM V9 TOBACCO OFFERED [facility] 2011 07:55 AM V9 CURRENT TOBACCO USER [facility] 2011 07:55 AM V9 TOBACCO OFFERED [facility] Jun 12, 2011 07:53 AM TOBACCO OFFERRED P T MEDS (PROVIDER) [facility] Jun 12, 2011 07:53 AM V9 CURRENT TOBACCO USER [facility] Jun 12, 2011 07:53 AM V9 TOBACCO OFFERED [facility] Sep 06, 2010 07:32 AM TOBACCO OFFERRED P T MEDS (PROVIDER) [facility] Sep 06, 2010 07:32 AM V9 CURRENT TOBACCO USER [facility] Sep 06, 2010 07:32 AM V9 TOBACCO OFFERED [facility] Sep 06, 2009 07:33 AM TOBACCO OFFERRED P T MEDS (PROVIDER) [facility] Sep 06, 2009 07:33 AM V9 CURRENT TOBACCO USER [facility] Sep 06, 2009 07:33 AM V9 TOBACCO OFFERED [facility] Radiology Reports: +/- 30 [...] the Encounter. The data comes from all [facility] facilities. Date/Time Radiology Report Provider Source Nov 29, 2024 07:47 AM LDCT LCS 1, 3 OR 6 MONTH FOLLOW UP: MICHAEL THOMAS [facility] [id number] M Exm Date: NOV 29, 2024@07:47 Req Phys: KOUSA,KITTA Pat Loc: [facility]EKE PACT ALPHA 1-3 (Req'g Loc) Img Loc: CT SCAN Service: [place] [address] (Case [id number] COMPLETE) LDCT LCS 1, 3 OR 6 MONTH FOLLOW U(CT Detailed) CPT:46047 Reason for Study: 12-month F/U LDCT Clinical History: Report Status: Verified Date Reported: NOV 29, 2024 Date Verified: NOV 29, 2024 Commissary Officer E-Sig: Report: EXAM: LDCT LCS 1, 3 [...] Staff: CLAUDETTE HIDALGO, Staff Radiologist Verified by mangle roll operator for CLAUDETTE HIDALGO /CLAUDETTE [facility] Encounter Notes: All associated encounter notes This section contains the clinical notes associated to the Encounter. Date/Time Encounter Note(s) Provider Source Nov 14, 2024 10:38 AM PRIMARY CARE SECUR E MESSAGING: LOCAL TITLE: PRIMARY CARE SECURE MESSAGING STANDARD TITLE: PRIMARY CARE SECURE MESSAGING DATE OF NOTE: NOV 14, 2024@10:38 ENTRY DATE: NOV 14, 2024@10:38:32 AUTHOR: ASIA MITCHELL EXP COSIGNER: URGENCY: STATUS: COMPLETED ------Original Message ---- Sent: 11/14/2024 10:29 AM ET From: MICHAEL THOMAS To: [facility]PHA Team (Nasima) [facility] [place] Subject: General:Response regarding Omeprazole I don't think I need it anymore Thank you ------Original Message ---- Sent: 11/14/2024 10:38 AM ET From: ASIA MITCHELL To: MICHAEL THOMAS Subject: General:Response regarding Omeprazole You're welcome. I will forward your message to Dr. Jenkins. Thank you for using MICHAEL. /milagros/ Asia MARINELLI Signed: 11/14/2024 10:38 Receipt Acknowledged By: 11/16/2024 22:09 /es/ ASIA TURCIOS MD [facility] Nov 14, 2024 10:21 AM PRIMARY CARE [facility] E MESSAGING: LOCAL TITLE: PRIMARY CARE SECURE MESSAGING STANDARD TITLE: PRIMARY CARE SECURE MESSAGING DATE OF NOTE: NOV 14, 2024@10:21 ENTRY DATE: NOV 14, 2024@10:21:46 AUTHOR: ASIA MITCHELL EXP COSIGNER: URGENCY: STATUS: COMPLETED ------Original Message ---- Sent: 11/14/2024 10:21 AM ET From: ASIA MITCHELL To: MICHAEL THOMAS Subject: General:Response regarding Omeprazole Good morning, I sent your previous message to Dr. Jenkins. Her reply is as follows: Per Dr. Jenkins: Do I need Omeprazole. The omeprazole is on your list of medications. Do you need to take it for acid reflux, heart burn or nausea triggered by spicy , sour food or sweets....? If you wish to renew the medication, please let us know. Thank you for using [facility]. /milagros/ Asia MARINELLI Signed: 11/14/2024 10:21 ASIA MITCHELL [facility]
--- OUTSIDE RECORDS SUMMARY | 2024-12-12 10:21 | XMS_ITS | Clinical Summary ---
Author Organization [facility] , [facility] Address [address] [place] [address] Phone Care Team Providers Care Pastry Supervisor Name Role Phone Luis RUIZ, Ptael Covington Unavailable [phone] AZAEL CUMMINGS Unavailable [phone] Reason for Visit and Chief Complaint The Chief Complaint is: R hip pain Problems Includes: Problems addressed during this encounter and other active Problems All Visits Onset Date Resolved Date Provider Condition S tatus Joint Pain in the Right Hip 08/18/2023 Mela Jackson PA-C Active Last Documented On 3 8:24AM ; [facility] Plan of Treatment Fall Risk Assessment: This patient has been identified as a fall risk. Balance/gait along with postural blood pressure, vision and home fall hazards have been assessed. Medications have been reviewed, and recommendations made with regard to contributing factors for future falls. Plan of care: Consideration of vitamin D supplementation along with balance and strength training with consideration for formal physical therapy has been discussed with the patient. - Last Documented On 12/07/2023 10:20AM ; [facility] Overall, they are doing well post operatively. We discussed activity progression and reviewed dental precautions. They will continue to work on stretches and exercises on their own at home. We will plan to follow-up with them in 9 months with an x-ray on arrival. All of the patient's questions were answered to their satisfaction. They will call our office with any additional questions or concerns. They are comfortable with the plan. - Last Documented On 12/07/2023 10:20AM ; [facility], [facility] Instructions to patient Intervention and counseling on cessation of tobacco use Last Documented On 4 9:36AM ; [facility], [facility] Lose weight Last Documented On 4 9:36AM ; [facility], [facility] Assessments Includes: Assessments from this encounter Findings - Overweight - Last Documented On 12/07/2023 10:20AM ; [facility], [facility] Instructions Includes: Instructions from this encounter Instructions to patient Intervention and counseling on cessation of tobacco use Last Documented On 4 9:36AM ; [facility], [facility] Lose weight Last Documented On 4 9:36AM ; [facility], [facility] Medical Equipment - Implanted Devices Includes: Current Devices No Medical Equipment Recorded Medications Includes: Medications discussed during this encounter and other current Medications Past Medications on file Acetaminophen 500 MG Oral Tablet 08/21/2023 - 09/20/2023 Provider: Keanu cain MD Diagnosis: take as directed; take 2 tablets three times a d ay Last Documented On 3 3:13PM By Juliette Nair ; [facility] Aspirin Adult Low Dose 81 MG Oral Tablet Delayed Release 08/21/2023 - 10/02/2023 Provider: Keanu Doherty MD Diagnosis: twice a day Last Documented On 3 3:13PM By Juliette Nair ; [facility], [facility] Colace 100 MG Oral Capsule 08/21/2023 - 11/19/2023 Pro vider: Keanu Doherty MD Diagnosis: 1-2 tabs daily Last Documented On 3 3:13PM By Juliette Nair ; [facility] Cefadroxil 500 MG Oral Capsule 08/21/2023 - 08/24/2023 Provider: Keanu cain MD Diagnosis: twice a day Last Documented On 3 3:13PM By Juliette Nair ; [facility], [facility] Meloxicam 15 MG Oral Tablet 08/21/2023 - 09/04/2023 Pr ovider: Keanu Doherty MD Diagnosis: once a day Last Documented On 3 3:13PM By Juliette Nair ; [facility] Ondansetron HCl 4 MG Oral Tablet 08/21/2023 - 08/25/2023 Provider: Keanu cain MD Diagnosis: 1 po q 6h prn nausea Last Documented On 3 3:13PM By Juliette Nair ; [facility] oxyCODONE HCl 5 MG Oral Tablet 08/21/2023 - 08/28/2023 Provider: Keanu cain MD Diagnosis: 1-2 po q 4-6h prn pain Last Documented On 3 3:13PM By Dr. Doherty ; [facility] traMADol HCl 50 MG Oral Tablet 08/21/2023 - 08/28/2023 Provider: Keanu cain MD Diagnosis: 1-2 po q6h prn pain Last Documented On 3 3:13PM By Dr. Doherty ; [facility] Medications Administered Includes: Administered Medications from this encounter No Administered Medications Recorded Results Includes: Results discussed during this encounter No Results Recorded For Specified Dates History of Present Illness Includes: History of Present Illness from this encounter RADHA Thomas is a 77 year old male. 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 Overall, he reports that he is doing well post operatively. He denies any pain. He is working on stretches and exercises on his own at home. He denies any pain at today's appointment. He is very happy with his surgical outcome up to this point. No interval injury, trauma, or fall. Social History Description Last Updated Tobacco use 09/01/2023 Last Documented On 4 9:36AM ; [facility] Smoking Status Unknown Procedures and Surgical History Includes: Procedures from this encounter Procedures Code Diagnosis Performing Provider Service L ocation Service Date intervention and counseling on cessation of tobacco use 4000F Last Documented On 4 9:36AM ; [facility] use of tobacco assessment performed 1000F Last Documented On 4 9:36AM ; [facility] patient screened for future fall risk: documentation of any fall with injury in past year 1100F Last Documented On 4 9:36AM ; [facility] review of medications documented 1160F Last Documented On 4 9:36AM ; [facility] Medical History Includes: Medical History addressed during this encounter No Medical History Recorded Family History Includes: Family History addressed during this encounter No Family History Recorded Review of Systems Includes: Review of Systems from this encounter No Review of Systems Recorded Mental Status Includes: Mental Status from this encounter No Mental Status Recorded Functional Status Includes: Functional Status from this encounter No Functional Status Recorded Physical Exam Includes: Physical Exam from this encounter Allergies Includes: Active Allergies No Known Allergies Encounters Encounter Provider Location Date Check-In Time Check-Out Time Diagnosis Follow Up Mela Jackson PA-C [facility] 4 9:24AM 10:16AM Overweight Insurance Includes: Active Insurance Policies Plan Name Member ID Group # Subscriber Relationship Effect tricia Dates 1 - Medicare Part B [facility] [id number] Obey Durhamabner Self 2 - [facility] [id number] Obey Durhamclemenciasamuel Self Clinical Notes Includes: Clinical Notes from this encounter * Progress note Date Encounter Last Documented by 12/07/2023 Follow Up Last documented on 12/07/2023; 10:20 AM, Mela Jackson PA-C; [facility] Active Problems & Conditions - Joint Pain in the Right Hip Chief Complaint The Chief Complaint is: R hip pain. Referred Here Referred by. History of Present Illness Obey Thomas is a 77 year old male. 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 Overall, he reports that he is doing well post operatively. He denies any pain. He is working on stretches and exercises on his own at home. He denies any pain at today's appointment. He is very happy with his surgical outcome up to this point. No interval injury, trauma, or fall. Current Medication - Atorvastatin Calcium 10 MG Oral Tablet 0 days, 0 refills - Lisinopril 10 MG Oral Tablet 0 days, 0 refills - Tamsulosin HCl 0.4 MG Oral Capsule 0 days, 0 refills - ZyrTEC 10 MG Oral Tablet Chewable take as directed 0 days, 0 refills Social History Tobacco use: Tobacco use. Allergies - No Known Allergies Physical Findings The patient is well-dressed well-groomed. They have normal mood and affect. They are ambulating without any assistive devices at today's follow-up appointment. The hip has normal alignment. Leg lengths are equal. The incision is intact and well healed. There is no induration, fluctuance, or drainage. There is no increased redness or heat. There is no effusion. The right hip has normal internal and external rotation compared to the opposite side without pain. Normal sensation. Normal neurovascular status. No calf tenderness. Negative Homans sign. Tests Three-view radiographs of the right hip show the prosthesis to be in excellent alignment without signs of loosening. Assessment - Overweight Therapy - Intervention and counseling on cessation of tobacco use. Counseling/Education - Lose weight Plan Fall Risk Assessment: This patient has been identified as a fall risk. Balance/gait along with postural blood pressure, vision and home fall hazards have been assessed. Medications have been reviewed, and recommendations made with regard to contributing factors for future falls. Plan of care: Consideration of vitamin D supplementation along with balance and strength training with consideration for formal physical therapy has been discussed with the patient. Overall, they are doing well post operatively. We discussed activity progression and reviewed dental precautions. They will continue to work on stretches and exercises on their own at home. We will plan to follow-up with them in 9 months with an x-ray on arrival. All of the patient's questions were answered to their satisfaction. They will call our office with any additional questions or concerns. They are comfortable with the plan. Notes This dictation was done with voice recognition software and may contain errors and omissions. Practice Management Use of tobacco assessment performed and patient screened for future fall risk documentation of any fall with injury in past year Review of medications documented. Care Team - AZAEL CUMMINGS - CREW TRAINER
--- OUTSIDE RECORDS SUMMARY | 2024-12-12 10:21 | XMS_ITS ---
Author Organization [facility] , [facility] Address [address] [place] [address] Phone Care Team Providers Care Eyeglass Frames Polisher Name Role Phone Luis RUIZ, Patel Covington Unavailable + [phone] AZAEL CUMMINGS Unavailable [phone] Problems Includes: Active, inactive, and resolved Problems All Visits Onset Date Resolved Date Provider Condition S tatus Joint Pain in the Right Hip 08/18/2023 Mela Jackson PA-C Active Last Documented On 3 8:24AM ; [facility], [facility] Plan of Treatment Findings Encounter Date Patient screened for future fall risk: documentation of any fall with injury in past year Follow Up with Mela Jackson PA-C 09/07/2024 Last Documented On 5 11:05AM ; [facility] Instructions to patient Intervention and counseling on cessation of tobacco use Last Documented On 5 9:43AM ; [facility] Lose weight Last Documented On 5 9:43AM ; [facility] Intervention and counseling on cessation of tobacco use Last Documented On 4 9:36AM ; [facility] Lose weight Last Documented On 4 9:36AM ; [facility] Intervention and counseling on cessation of tobacco use Last Documented On 4 9:51AM ; [facility] Lose weight Last Documented On 4 9:51AM ; [facility] Assessments Includes: Assessments for all patient encounters Findings Encounter Date Overweight Follow Up with Mela Jagruti Sloan-C 09/07/2024 Last Documented On 5 11:05AM ; [facility], [facility] Overweight Follow Up with Mela Jagruti Sloan-C 12/07/2023 Last Documented On 4 10:20AM ; [facility], [facility] Overweight Post Op with Mela Jagruti Montanez 09/01/2023 Last Documented On 4 10:08AM ; [facility] Instructions Includes: Instructions for all patient encounters Instructions to patient Intervention and counseling on cessation of tobacco use Last Documented On 5 9:43AM ; [facility] Lose weight Last Documented On 5 9:43AM ; [facility] Intervention and counseling on cessation of tobacco use Last Documented On 4 9:36AM ; [facility], [facility] Lose weight Last Documented On 4 9:36AM ; [facility], [facility] Intervention and counseling on cessation of tobacco use Last Documented On 4 9:51AM ; [facility], [facility] Lose weight Last Documented On 4 9:51AM ; [facility], [facility] Medical Equipment - Implanted Devices Includes: Current and historical Devices No Medical Equipment Recorded Medications Includes: Current and historical Medications Past Medications on file Acetaminophen 500 MG Oral Tablet 08/21/2023 - 09/20/2023 Provider: Keanu cain MD Diagnosis: take as directed; take 2 tablets three times a d ay Last Documented On 3 3:13PM By Juliette Nair ; [facility], [facility] Aspirin Adult Low Dose 81 MG Oral Tablet Delayed Release 08/21/2023 - 10/02/2023 Provider: Keanu Doherty MD Diagnosis: twice a day Last Documented On 3 3:13PM By Juliette Nair ; [facility], [facility] Colace 100 MG Oral Capsule 08/21/2023 - 11/19/2023 Pro vider: Keanu Doherty MD Diagnosis: 1-2 tabs daily Last Documented On 3 3:13PM By Juliette Nair ; [facility] Cefadroxil 500 MG Oral Capsule 08/21/2023 - 08/24/2023 Provider: Keanu cain MD Diagnosis: twice a day Last Documented On 3 3:13PM By uJliette Nair ; [facility], [facility] Meloxicam 15 MG Oral Tablet 08/21/2023 - 09/04/2023 Pr ovider: Keanu Doherty MD Diagnosis: once a day Last Documented On 3 3:13PM By Juliette Nair ; [facility] Ondansetron HCl 4 MG Oral Tablet 08/21/2023 - 08/25/2023 Provider: Keanu cain MD Diagnosis: 1 po q 6h prn nausea Last Documented On 3 3:13PM By Juliette Nair ; [facility], [facility] oxyCODONE HCl 5 MG Oral Tablet 08/21/2023 - 08/28/2023 Provider: Keanu cain MD Diagnosis: 1-2 po q 4-6h prn pain Last Documented On 3 3:13PM By Dr. Doherty ; [facility] traMADol HCl 50 MG Oral Tablet 08/21/2023 - 08/28/2023 Provider: Keanu cain MD Diagnosis: 1-2 po q6h prn pain Last Documented On 3 3:13PM By Dr. Doherty ; [facility] Lisinopril 10 MG Oral Tablet 08/18/2023 - 09/07/2024 P hiender: Diagnosis: Last Documented On 5 9:42AM By Warner Bush ; [facility] Atorvastatin Calcium 10 MG Oral Tablet 08/18/2023 - Provider: Diagnosis: Last Documented On 5 9:42AM By Warner Bush ; [facility], [facility] Tamsulosin HCl 0.4 MG Oral Capsule 08/18/2023 - 2024 Provider: Diagnosis: Last Documented On 5 9:42AM By Warner Bush ; [facility] ZyrTEC 10 MG Oral Tablet Chewable 08/18/2023 - 025 Provider: Diagnosis: Last Documented On 5 9:42AM By Warner Bush ; [facility] Medications Administered Includes: Administered Medications in patient's chart No Administered Medications Recorded Vital Signs Includes: Vital Signs from 12/13/2023 through 12/12/2024 Vital Name 09/07/2024 09:51A Height (in) 71 Weight (lb) 250 Body Mass Index 34.9 Body Surface Area 2.3 Note: cd Last Documented: On 09/07/2024 9:51AM ; [facility] Results Includes: Results from 12/13/2023 through 12/12/2024 No Results Recorded For Specified Dates History of Present Illness History of Present Illness not supported for this document type No History of Present Illness Recorded Social History Description Last Updated Alcohol use 09/07/2024 Last Documented On 5 11:05AM ; [facility] No caffeine use 09/07/2024 Last Documented On 5 11:05AM ; [facility] No recent change in diet 09/07/2024 Last Documented On 5 11:05AM ; [facility] Not a current smoker. 09/07/2024 Last Documented On 5 11:05AM ; [facility] Not exercising regularly 09/07/2024 Last Documented On 5 11:05AM ; [facility] Not using drugs 09/07/2024 Last Documented On 5 11:05AM ; [facility] Tobacco use 09/01/2023 Last Documented On 4 10:08AM ; [facility] Smoking Status Unknown Procedures and Surgical History Includes: Procedures from 12/13/2023 through 12/12/2024 Procedures Code Diagnosis Performing Provider Service Location Service Date PELVIS w/ 2-3 VIEW HIP (RIGHT) 82981 Unilateral primary osteoarthritis, right hip Mela Jackson PA-C [facility] 09/07/2024 Last Documented On 5 9:42AM ; [facility] Medical History Includes: Medical History in patient's chart Description Last Updated Past medical and surgical history non-co ntributory 09/07/2024 Last Documented On 5 11:05AM ; [facility] Family History Includes: Family History in patient's chart Description Last Updated No significant family history 09/07/2024 Last Documented On 5 11:05AM ; [facility] Review of Systems Review of Systems not supported for this document type No Review of Systems Recorded Mental Status Description No anxiety Functional Status No Functional Status Recorded Physical Exam Physical Exam not supported for this document type No Physical Exam Recorded Allergies Includes: Active, inactive, and resolved Allergies No Known Allergies Encounters Includes: Encounters from 12/13/2023 through 12/12/2024 Encounter Provider Location Date Check-In Time Check-Out Time Diagnosis Follow Up Mela Jackson PA-C [facility] 5 9:40AM 10:29AM Overweight Insurance Includes: Active Insurance Policies Plan Name Member ID Group # Subscriber Relationship Effect tricia Dates 1 - Medicare Part B [facility] [id number] Obey Thomas Self 2 - [facility] [id number] Obey Thomas [facility] Clinical Notes Includes: Signed Clinical Notes starting from 08/07/2022 * Progress note Date Encounter Last Documented by 09/07/2024 Follow Up Last documented on 09/07/2024; 11:05 AM, Mela Jackson PA-C; [facility] Active Problems & Conditions - Joint Pain in the Right Hip Chief Complaint The Chief Complaint is: R hip pain. Referred Here Referred by pcp. History of Present Illness Obey Thomas is a 78 year old male. 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 Overall, he reports that he is doing well post operatively. He denies any pain. He is working on stretches and exercises on his own at home. He is very happy with his surgical outcome up to this point. The pain he was having before surgery has completely resolved. No interval injury, trauma, or fall. Current Medication - None Past Medical/Surgical History Past medical and surgical history non-contributory. Social History Not a current smoker. Current diet: No recent change in diet. Caffeine use: No caffeine use. Tobacco use: Tobacco use. Alcohol: Alcohol use. Drug Use: Not using drugs. Habits: Not exercising regularly. Allergies - No Known Allergies Family History No significant family history Review Of Systems Systemic: Not feeling tired, no recent weight loss, and no recent weight gain. Head: No headache and no sinus pain. Eyes: No vision problems, no Cataracts, no Glasses/Contacts, and no Glaucoma. Otolaryngeal: No hearing loss and no tinnitus. Cardiovascular: No chest pain or discomfort, no palpitations, no Hypertension, and no High Cholesterol. Pulmonary: No daytime asthma symptoms and no chronic cough. No wheezing. Gastrointestinal: No heartburn and no abdominal pain. No Indigestion, no Peptic Ulcer, no GI Stomach Bleed, no Ulcers, and no Acid Reflux. Endocrine: No hot flashes, no muscle weakness, no Diabetes, no Hypothyroid, and no Hyperthyroid. Hematologic: No easy bleeding, no tendency for easy bruising, and no Anemia. Musculoskeletal: No Arthritis and no lower back pain. No soft tissue swelling and no localized joint pain. Neurological: No dizziness, no convulsions, and no numbness. Psychological: No anxiety, no emotional lability, no depression, and no insomnia. Not crying for no reason. Skin: No dry skin. No Ulcers, no Scars, and no rash. Allergic and Immunologic: No complaint of seasonal allergic reaction. Physical Findings - Vitals taken 09/07/2024 09:51 am cd Height 71 in Weight 250 lbs Body Mass Index 34.9 kg/m2 Body Surface Area 2.3 m2 The patient is well-dressed well-groomed. They have [...] without signs of loosening. Assessment - Overweight Previous Tests Imaging: X-Ray: X-ray. MRI Scan: An MRI was performed. Therapy - Intervention and counseling on cessation of tobacco use. Counseling/Education - Tobacco non-user - Use of tobacco assessment performed - Lose weight Plan - Patient screened for future fall risk: documentation of any fall with injury in past year Fall Risk Assessment: This patient has been [...] home. We will plan to follow-up with every 5 years with an x-ray on arrival. All of [...] documented. Care Team - AZAEL CUMMINGS - NEWSPAPER MANAGING EDITOR
--- OUTSIDE RECORDS SUMMARY | 2024-12-12 10:21 | XMS_ITS ---
Author Name [facility] [place] Organization [facility] [place] Address [address] [place] [address] Care Team Providers Care Machinist Wood Name Role Phone PHONG JENKINS Primary Care [...] Policy Reece MEDICARE (WNR) MEDICARE (M) PART B Nov 22, 2012 PART B [id number] MICHAEL THOMAS PATIENT MEDICARE (WNR) MEDICARE (M) PART A Nov 22, 2012 PART A [id number] MICHAEL THOMAS PATIENT MEDICARE (WNR) MEDICARE (M) PART B Nov 22, 2012 PART B [id number] MICHAEL THOMAS PATIENT MEDICARE (WNR) MEDICARE (M) PART A Nov 22, 2012 PART A [id number] MICHAEL THOMAS PATIENT Selected Encounter This section includes the information on record at [place] for the Encounter. Date/Time Encounter Type Encounter Description Reason Pro vider Source Mar 30, 2024 11:31 AM Outpatient Encounter ADMIN PAT ACTIVTIES (MASNONCT) IHE Encounter Template Text not used by [place] Plan of Treatment: Future Appointments (+ 6 months) and Future Tests (+/- 45 days) The Plan of Treatment section includes future care activities for the patient from all [place] treatmentfacilities. This section includes future appointments and future orders which are active, pending or scheduled. Future Appointments This section includes appointments that were scheduled to occur 6 months from the date of the Encounter, up to a maximum of 20 appointments. The data comes from all [place] treatment facilities. Appointment Date/Time Appointment Type Appointme nt Facility Name May 18, 2024 09:00 AM AMBULATORY - NONE [facility] Encounter Notes: All associated encounter notes This section contains the clinical notes associated to the Encounter. Date/Time Encounter Note(s) Provider Source Mar 30, 2024 11:31 AM PRIMARY CARE LETTE RS: [facility] TITLE: PC LETTER FOLLOW UP/PAST RECALL/INACTIVE STANDARD TITLE: PRIMARY CARE LETTERS DATE OF NOTE: MAR 30, 2024@11:31 ENTRY DATE: MAR 30, 2024@11:32:01 AUTHOR: SIRI MUNGUIA COSIGNER: URGENCY: STATUS: COMPLETED [place] [id number] [place] [id number] Mr. MICHAEL THOMAS [address] [place] [address] [place] [address] MAR 30, 2024 Dear Mr. MICHAEL THOMAS, Our Records indicate you are past due for an appointment in primary care. We value you as a patient, and are concerned about your overall health. Patients are encouraged to see their Primary Care Provider annually to maintain their health care needs. If you would like to be seen and maintain enrollment in Primary Care, please contact our Telephone Care Program at or local [phone] to schedule an appointment. If you do not wish to be seen, please call the same number listed above, and let us know. We look forward to hearing from you soon. Sincerely, /milagros/ SIRI MUNGUIA Advanced Marine Pipefitter Helper Patient Record Number [id number] SIRI MUNGUIA-[facility]
--- OUTSIDE RECORDS SUMMARY | 2024-12-12 10:21 | XMS_ITS | Clinical Summary ---
Author Organization [facility] Address [address] [place] [address] Phone Care Team Providers Care Front Office Coordinator Name Role Phone Luis RUIZ, Patel Covington Unavailable [phone] AZAEL CUMMINGS Unavailable [phone] Reason for Visit and Chief Complaint The Chief Complaint is: R hip pain Problems Includes: Problems addressed during this encounter and other active Problems All Visits Onset Date Resolved Date Provider Condition S tatus Joint Pain in the Right Hip 08/18/2023 Mela Jackson PA-C Active Last Documented On 3 8:24AM ; [facility] Plan of Treatment Fall Risk Assessment: This [...] with the patient. - Last Documented On 09/01/2023 10:08AM ; [facility] Overall, they are doing well post operatively. We discussed activity progression and driving. We reviewed dental precautions. They will continue to work with outpatient physical therapy. We will plan to follow-up with them in 3 months with an x-ray on arrival. All of the patient's questions were answered to their satisfaction. They will call our office with any additional questions or concerns. They are comfortable with the plan. - Last Documented On 09/01/2023 10:08AM ; [facility] Pending Tests Order Diagnosis Results Due Ordering P mahsa Therapy - Physical Therapy Hip Tobacco abuse counseling 09/01/23 Mela Jackson PA-C Last Documented On 4 10:01AM ; [facility] Instructions to patient Intervention and counseling on cessation of tobacco use Last Documented On 4 9:51AM ; [facility] Lose weight Last Documented On 4 9:51AM ; [facility] Assessments Includes: Assessments from this encounter Findings - Overweight - Last Documented On 09/01/2023 10:08AM ; [facility] Instructions Includes: Instructions from this encounter Instructions to patient Intervention and counseling on cessation of tobacco use Last Documented On 4 9:51AM ; [facility] Lose weight Last Documented On 4 9:51AM ; [facility] Medical Equipment - Implanted Devices Includes: Current Devices No Medical Equipment Recorded Medications Includes: Medications discussed during this encounter and other current Medications Past Medications on file Acetaminophen 500 MG Oral Tablet 08/21/2023 - 09/20/2023 Provider: Keanu cain MD Diagnosis: take as directed; take 2 tablets three times a d ay Last Documented On 3 3:13PM By Juliette Nair ; [facility] Aspirin Adult Low Dose 81 MG Oral Tablet Delayed Release 08/21/2023 - 10/02/2023 Provider: Keanu Doherty MD Diagnosis: twice a day Last Documented On 3 3:13PM By Juliette Nair ; [facility] Colace 100 MG Oral Capsule 08/21/2023 - 11/19/2023 Pro vider: Keanu Doherty MD Diagnosis: 1-2 tabs daily Last Documented On 3 3:13PM By Juliette Nair ; [facility] Cefadroxil 500 MG Oral Capsule 08/21/2023 - 08/24/2023 Provider: Keanu cain MD Diagnosis: twice a day Last Documented On 3 3:13PM By Juliette Nair ; [facility] Meloxicam 15 MG Oral Tablet 08/21/2023 - 09/04/2023 Pr ovider: Keanu Doherty MD Diagnosis: once a day Last Documented On 3 3:13PM By Juliette Nair ; [facility] Ondansetron HCl 4 MG Oral Tablet 08/21/2023 - 08/25/2023 Provider: Keanu cain MD Diagnosis: 1 po q 6h prn nausea Last Documented On 3 3:13PM By Juliette Nair ; [facility] oxyCODONE HCl 5 MG Oral Tablet 08/21/2023 - 08/28/2023 Provider: Keanu cain MD Diagnosis: 1-2 po q 4-6h prn pain Last Documented On 3 3:13PM By Dr. Doherty ; [facility] traMADol HCl 50 MG Oral Tablet 08/21/2023 - 08/28/2023 Provider: Keanu cain MD Diagnosis: 1-2 po q6h prn pain Last Documented On 3 3:13PM By Dr. Doherty ; [facility] Medications Administered Includes: Administered Medications from this encounter No Administered Medications Recorded Vital Signs Includes: Vital Signs from this encounter Vital Name 09/01/2023 09:51A Height (in) 72 Weight (lb) 252 Body Mass Index 34.2 Body Surface Area 2.4 Note: adri Last Documented: On 09/01/2023 9:51AM ; [facility] Results Includes: Results discussed during this encounter No Results Recorded For Specified Dates History of Present Illness Includes: History of Present Illness from this encounter RADHA Thomas is a 77 year old male. - Allergy list reviewed - Problem list reviewed - Medication list reviewed He is 1 week status post right total hip arthroplasty. Overall, he reports that he is doing well post operatively. His pain is well controlled. His ambulation is progressing. He is working with home health physical therapy and plan to transition to outpatient physical therapy. He denies any recent fever, shortness of breath, chest pain, or calf tenderness. Social History Description Last Updated Tobacco use 09/01/2023 Last Documented On 4 10:08AM ; [facility] Smoking Status Unknown Procedures and Surgical History Includes: Procedures from this encounter Procedures Code Diagnosis Performing Provider Service L ocation Service Date intervention and counseling on cessation of tobacco use 4000F Last Documented On 4 9:51AM ; [facility] use of tobacco assessment performed 1000F Last Documented On 4 9:51AM ; [facility] patient screened for future fall risk: documentation of any fall with injury in past year 1100F Last Documented On 4 9:51AM ; [facility] review of medications documented 1160F Last Documented On 4 9:51AM ; [facility] Medical History Includes: Medical History addressed during [...] Location Date Check-In Time Check-Out Time Diagnosis Post Op Mela Jackson PA-C [facility] 4 9:46AM 10:08AM Overweight Insurance Includes: Active Insurance Policies Plan Name Member ID Group # Subscriber Relationship Effect tricia Dates 1 - Medicare Part B [facility] [id number] Obey Thomas Self 2 - [facility] [id number] Obey Thomas Self Clinical Notes Includes: Clinical Notes from this encounter * Progress note Date Encounter Last Documented by 09/01/2023 Post Op Last documented on 09/01/2023; 10:08 AM, Mela Montanez; [facility] Active Problems & Conditions - Joint Pain in the Right Hip Chief Complaint The Chief Complaint is: R hip pain. Referred Here Referred by. History of Present Illness Obey Thomas is a 77 year old male. - Allergy list reviewed - Problem list reviewed - Medication list reviewed He is 1 week status post right total hip arthroplasty. Overall, he reports that he is doing well post operatively. His pain is well controlled. His ambulation is progressing. He is working with home health physical therapy and plan to transition to outpatient physical therapy. He denies any recent fever, shortness of breath, chest pain, or calf tenderness. Current Medication - Acetaminophen 500 MG Oral Tablet take as directed; take 2 tablets three times a day, 30 days, 0 refills - Aspirin Adult Low Dose 81 MG Oral Tablet Delayed Release twice a day, 42 days, 0 refills - Atorvastatin Calcium 10 MG Oral Tablet 0 days, 0 refills - Colace 100 MG Oral Capsule 1-2 tabs daily, 30 days, 2 refills - Lisinopril 10 MG Oral Tablet 0 days, 0 refills - Meloxicam 15 MG Oral Tablet once a day, 14 days, 0 refills - Tamsulosin HCl 0.4 MG Oral Capsule 0 days, 0 refills - ZyrTEC 10 MG Oral Tablet Chewable take as directed 0 days, 0 refills Social History Tobacco use: Tobacco use. Allergies - No Known Allergies Physical Findings - Vitals taken 09/01/2023 09:51 am adri Height 72 in Weight 252 lbs Body Mass Index 34.2 kg/m2 Body Surface Area 2.4 m2 The patient is well-dressed well-groomed. They have normal mood and affect. They are ambulating with the assistance of a walker at today's follow-up appointment. The hip has normal alignment. Leg lengths are equal. The dressing was removed. The Preena mesh remains intact. The incision is intact, steri-strips cover the incision. There is no induration, fluctuance, or drainage. There is no increased redness or heat. There is no effusion. Normal sensation. Normal neurovascular status. No calf tenderness. Negative Homans sign. Assessment - Overweight Therapy - Intervention and counseling on cessation of tobacco use. Counseling/Education - Lose weight Plan StartCited - Tobacco abuse counseling Therapy/Physical Therapy: Hip Instructions: See PT order attached EndCited Fall Risk Assessment: This patient has been [...] post operatively. We discussed activity progression and driving. We reviewed dental precautions. They will continue to work with outpatient physical therapy. We will plan to follow-up with them in 3 months with an x-ray on arrival. All [...] documented. Care Team - AZAEL CUMMINGS - REFERENCE ASSISTANT
--- OUTSIDE RECORDS SUMMARY | 2024-12-12 10:21 | XMS_ITS ---
Author Organization Unknown Medications Date Medication Dosage DosageUnit StartDate StopDate StopReason Active DoseQuantity DoseUnit Dispense DispenseUnit Refills NdcCode DrugCode PharmacyId IsPrescription MappedMedication Srcstatus 08/31 00:00 :00 Albuterol Sulfate (2.5 MG/3ML) 0.083% Nebulizatio n Solution 1 [id number] 27 052 P Taking 07/11 00:00 :00 Albuterol Sulfate (2.5 MG/3ML) 0.083% Nebulizatio n Solution 1 [id number] 27 052 P Taking 05/05 00:00 :00 Albuterol Sulfate (2.5 MG/3ML) 0.083% Nebulizatio n Solution 1 [id number] 27 052 P Continue 05/05 00:00 :00 Albuterol Sulfate (2.5 MG/3ML) 0.083% Nebulizatio n Solution 04/27/2024 00:00:00 1 [id number] 7 052 P Taking 04/29 00:00 :00 Albuterol Sulfate (2.5 MG/3ML) 0.083% Nebulizatio n Solution 04/27/2024 00:00:00 1 [id number] 7 052 P Continue 04/29 00:00 :00 Albuterol Sulfate (2.5 MG/3ML) 0.083% Nebulizatio n Solution 04/27/2024 00:00:00 1 60 2 [id number] 7 052 P Taking 04/27 00:00 :00 Albuterol Sulfate (2.5 MG/3ML) 0.083% Nebulizatio n Solution 04/27/2024 00:00:00 1 60 2 [id number] 7 052 P Start 08/31 00:00 :00 Allopurinol 100 MG Tablet 1 30 36 8013 701 Taking 07/11 00:00 :00 Allopurinol 100 MG Tablet 1 30 7 8013 701 Taking 05/05 00:00 :00 Allopurinol 100 MG Tablet 1 30 7 8013 701 Taking 04/29 00:00 :00 Allopurinol 100 MG Tablet 1 30 0037 8013 701 Taking 04/27 00:00 :00 Allopurinol 100 MG Tablet 1 30 0037 8013 701 Taking 04/19 00:00 :00 Allopurinol 100 MG Tablet 1 30 7 8013 701 Taking 01/12 00:00 :00 Allopurinol 100 MG Tablet 1 30 0037 8013 701 Taking 08/31 00:00 :00 Aspirin 81 MG Tablet Delayed Release 1 30 [id number] 474 Taking 07/11 00:00 :00 Aspirin 81 MG Tablet Delayed Release 1 30 [id number] 474 Taking 05/05 00:00 :00 Aspirin 81 MG Tablet Delayed Release 1 30 [id number] 474 Taking 04/29 00:00 :00 Aspirin 81 MG Tablet Delayed Release 1 30 [id number] 474 Taking 04/27 00:00 :00 Aspirin 81 MG Tablet Delayed Release 1 30 [id number] 474 Taking 04/19 00:00 :00 Aspirin 81 MG Tablet Delayed Release 1 30 [id number] 474 Taking 01/12 00:00 :00 Aspirin 81 MG Tablet Delayed Release 1 30 09043482 474 Taking 07/16 00:00 :00 ATORVASTATI N 80 mg tablet 1 2381107 5 798 Taking 08/31 00:00 :00 Atorvastati n Calcium 80 MG Tablet 1 000 67394 705 Taking 07/11 00:00 :00 Atorvastati n Calcium 80 MG Tablet 1 000 05762 705 Taking 05/05 00:00 :00 Atorvastati n Calcium 80 MG Tablet 1 000 64553 705 Taking 04/29 00:00 :00 Atorvastati n Calcium 80 MG Tablet 1 000 20585 705 Taking 04/27 00:00 :00 Atorvastati n Calcium 80 MG Tablet 1 000 78818 705 Taking 04/19 00:00 :00 Atorvastati n Calcium 80 MG Tablet 1 000 74031 705 Taking 01/12 00:00 :00 Atorvastati n Calcium 80 MG Tablet 1 000 38323 705 Taking 06/23 00:00 :00 Atorvastati n Calcium 80 MG Tablet 1 000 30697 705 Taking 06/02 00:00 :00 Atorvastati n Calcium 80 MG Tablet 1 000 95516 705 Taking 01/24 00:00 :00 Atorvastati n Calcium 80 MG Tablet 1 000 11540 705 Taking 07/11 00:00 :00 Benzonatate 200 MG Capsule 0 101 30405 205 P Discontinu ed 05/05 00:00 :00 Benzonatate 200 MG Capsule 1 101 24016 205 P Continue 05/05 00:00 :00 Benzonatate 200 MG Capsule 04/27/2024 00:00:00 1 9609991 3 205 P Taking 04/29 00:00 :00 Benzonatate 200 MG Capsule 04/27/2024 00:00:00 1 6961693 3 205 P Continue 04/29 00:00 :00 Benzonatate 200 MG Capsule 04/27/2024 00:00:00 1 30 1 9968510 3 205 P Taking 04/27 00:00 :00 Benzonatate 200 MG Capsule 04/27/2024 00:00:00 1 30 1 4537648 3 205 P Start 08/31 00:00 :00 Breztri Aerosphere 160-9-4 .8 MCG/ACT Aerosol 1 35068064 612 P Taking 07/11 00:00 :00 Breztri Aerosphere 160-9-4 .8 MCG/ACT Aerosol 1 37943731 612 P Taking 05/05 00:00 :00 Breztri Aerosphere 160-9-4 .8 MCG/ACT Aerosol 1 75806614 612 P Continue 05/05 00:00 :00 Breztri Aerosphere 160-9-4 .8 MCG/ACT Aerosol 04/27/2024 00:00:00 1 2111631 1 612 P Taking 04/29 00:00 :00 Breztri Aerosphere 160-9-4 .8 MCG/ACT Aerosol 04/27/2024 00:00:00 1 7496473 1 612 P Continue 04/29 00:00 :00 Lorena Aerosphere 160-9-4 .8 MCG/ACT Aerosol 04/27/2024 00:00:00 1 0855717 1 612 P Taking 04/27 00:00 :00 Lorena Aerosphere 160-9-4 .8 MCG/ACT Aerosol 04/27/2024 00:00:00 1 [id number] 1 612 P Start 04/29 00:00 :00 Cefdinir 300 MG Capsule 04/28/2024 00:00:00 1 5233168 6 006 P Continue 04/29 00:00 :00 Cefdinir 300 MG Capsule 04/28/2024 00:00:00 1 14 Capsule 0 90047530 006 P Taking 04/28 00:00 :00 Cefdinir 300 MG Capsule 04/28/2024 00:00:00 1 14 Capsule 0 05616056 006 P Start 04/19 00:00 :00 Celecoxib 100 MG Capsule 06/02/2023 00:00:00 0 30 Capsule 0 53239166 301 P Discontinu ed 01/12 00:00 :00 Celecoxib 100 MG Capsule 06/02/2023 00:00:00 0 30 Capsule 0 51468758 301 P Not Taking 06/23 00:00 :00 Celecoxib 100 MG Capsule 06/02/2023 00:00:00 1 30 Capsule 0 21486752 301 P Unknown Status 06/23 00:00 :00 Celecoxib 100 MG Capsule 06/02/2023 00:00:00 1 30 Capsule 0 00087821 301 P Taking 06/02 00:00 :00 Celecoxib 100 MG Capsule 06/02/2023 00:00:00 1 30 Capsule 0 76479043 301 P Start 08/31 00:00 :00 CPAP machine and supplies - - 04/19/2024 00:00:00 1 1 0 P Taking 07/11 00:00 :00 CPAP machine and supplies - - 04/19/2024 00:00:00 1 1 0 P Taking 05/05 00:00 :00 CPAP machine and supplies - - 04/19/2024 00:00:00 1 1 0 P Taking 04/29 00:00 :00 CPAP machine and supplies - - 04/19/2024 00:00:00 1 1 0 P Taking 04/27 00:00 :00 CPAP machine and supplies - - 04/19/2024 00:00:00 1 1 0 P Unknow n Status 04/27 00:00 :00 CPAP machine and supplies - - 04/19/2024 00:00:00 1 1 0 P Taking 04/19 00:00 :00 CPAP machine and supplies - - 04/19/2024 00:00:00 1 1 0 P Start 08/31 00:00 :00 CPAP SUPPLIES 01/06/2020 00:00:00 1 1 P Taking 07/11 00:00 :00 CPAP SUPPLIES 01/06/2020 00:00:00 1 1 P Taking 05/05 00:00 :00 CPAP SUPPLIES 01/06/2020 00:00:00 1 1 P Taking 04/29 00:00 :00 CPAP SUPPLIES 01/06/2020 00:00:00 1 1 P Taking 04/27 00:00 :00 CPAP SUPPLIES 01/06/2020 00:00:00 1 1 P Taking 04/19 00:00 :00 CPAP SUPPLIES 01/06/2020 00:00:00 1 1 P Taking 01/12 00:00 :00 CPAP SUPPLIES 01/06/2020 00:00:00 1 1 P Taking 06/23 00:00 :00 CPAP SUPPLIES 01/06/2020 00:00:00 1 1 P Taking 06/02 00:00 :00 CPAP SUPPLIES 01/06/2020 00:00:00 1 1 P Taking 01/24 00:00 :00 CPAP SUPPLIES 01/06/2020 00:00:00 1 1 P Taking 07/16 00:00 :00 CPAP SUPPLIES 01/06/2020 00:00:00 1 1 P Taking 08/31 00:00 :00 Doxycycline Monohydrate 100 MG Tablet 05/06/2024 00:00:00 0 14 Tablet 0 83726 133 825 P Discontinu ed 07/11 00:00 :00 Doxycycline Monohydrate 100 MG Tablet 05/06/2024 00:00:00 1 14 Tablet 0 95648 133 825 P Taking 05/06 00:00 :00 Doxycycline Monohydrate 100 MG Tablet 05/06/2024 00:00:00 1 14 Tablet 0 68039 133 825 P Start 08/31 00:00 :00 Fluticasone Propionate 50 MCG/ACT Suspension 08/31/2024 00:00:00 1 1 0 3954633 7 099 P Start 08/31 00:00 :00 Lisinopril 5 MG Tablet 1 4950320 0 601 Taking 07/11 00:00 :00 Lisinopril 5 MG Tablet 1 5371278 0 601 Taking 05/05 00:00 :00 Lisinopril 5 MG Tablet 1 4960601 0 601 Taking 04/29 00:00 :00 Lisinopril 5 MG Tablet 1 1540671 0 601 Taking 04/27 00:00 :00 Lisinopril 5 MG Tablet 1 8626758 0 601 Taking 04/19 00:00 :00 Lisinopril 5 MG Tablet 1 0027939 0 601 Taking 01/12 00:00 :00 Lisinopril 5 MG Tablet 1 9709451 0 601 Taking 06/23 00:00 :00 Lisinopril 5 MG Tablet 1 0532475 0 601 Taking 06/02 00:00 :00 Lisinopril 5 MG Tablet 1 9071959 0 601 Taking 01/24 00:00 :00 Lisinopril 5 MG Tablet 1 5517768 0 601 Taking 07/16 00:00 :00 LISINOPRIL 5 mg tablet 1 8673694 1 890 Taking 04/29 00:00 :00 Loratadine 10 MG Tablet 04/19/2024 00:00:00 0 30 0 7587637 7 430 P Not Taking 04/27 00:00 :00 Loratadine 10 MG Tablet 04/19/2024 00:00:00 0 30 0 0937304 7 430 P Not Taking 04/19 00:00 :00 Loratadine 10 MG Tablet 04/19/2024 00:00:00 1 30 0 7698898 7 430 P Start 04/29 00:00 :00 Medrol 4 MG Tablet Therapy Pack 04/27/2024 00:00:00 1 0746959 5 604 P Continue 04/29 00:00 :00 Medrol 4 MG Tablet Therapy Pack 04/27/2024 00:00:00 1 1 0 9075472 5 604 P Taking 04/27 00:00 :00 Medrol 4 MG Tablet Therapy Pack 04/27/2024 00:00:00 1 1 0 0495937 5 604 P Start 08/31 00:00 :00 Montelukast Sodium 10 MG Tablet 08/31/2024 00:00:00 1 30 Tablet 0 87847 680 806 P Start 04/29 00:00 :00 Montelukast Sodium 10 MG Tablet 04/19/2024 00:00:00 0 30 0 3667648 0 806 P Not Taking 04/27 00:00 :00 Montelukast Sodium 10 MG Tablet 04/19/2024 00:00:00 0 30 0 7111813 0 806 P Not Taking 04/19 00:00 :00 Montelukast Sodium 10 MG Tablet 04/19/2024 00:00:00 1 30 0 2531880 0 806 P Start 08/31 00:00 :00 Multivitami n - Tablet 1 30 8505902 2 000 Taking 07/11 00:00 :00 Multivitami n - Tablet 1 30 6634260 2 000 Taking 05/05 00:00 :00 Multivitami n - Tablet 1 30 3850373 2 000 Taking 04/29 00:00 :00 Multivitami n - Tablet 1 30 5059117 2 000 Taking 04/27 00:00 :00 Multivitami n - Tablet 1 30 1591738 2 000 Taking 04/19 00:00 :00 Multivitami n - Tablet 1 30 2832061 2 000 Taking 01/12 00:00 :00 Multivitami n - Tablet 1 30 8797028 2 000 Taking 06/23 00:00 :00 Multivitami n - Tablet 1 30 2947182 2 000 Taking 06/02 00:00 :00 Multivitami n - Tablet 1 30 6941183 2 000 Taking 01/24 00:00 :00 Multivitami n - Tablet 1 30 3468310 2 000 Taking 07/16 00:00 :00 MULTIVITAMI N Multipl e Vitamin s tablet 1 30 04316140 030 Taking 08/31 00:00 :00 Nebulizer System All-In-One - Miscellaneo 04/27/2024 00:00:00 1 1 0 0026851 9 21 P Taking 07/11 00:00 :00 Nebulizer System All-In-One - Miscellaneo 04/27/2024 00:00:00 1 1 0 1517653 9 21 P Taking 05/05 00:00 :00 Nebulizer System All-In-One - Miscellaneo 04/27/2024 00:00:00 1 1 0 1377870 9 21 P Taking 04/29 00:00 :00 Nebulizer System All-In-One - Miscellaneo 04/27/2024 00:00:00 1 1 0 6517194 9 21 P Taking 04/27 00:00 :00 Nebulizer System All-In-One - Miscellaneo 04/27/2024 00:00:00 1 1 0 7220870 9 21 P Start 08/31 00:00 :00 Plavix 75 MG Tablet 1 30 64246304 190 Taking 07/11 00:00 :00 Plavix 75 MG Tablet 1 30 01712855 190 Taking 05/05 00:00 :00 Plavix 75 MG Tablet 1 30 96897242 190 Taking 04/29 00:00 :00 Plavix 75 MG Tablet 1 30 23306973 190 Taking 04/27 00:00 :00 Plavix 75 MG Tablet 1 30 81980451 190 Taking 04/19 00:00 :00 Plavix 75 MG Tablet 1 30 56845217 190 Taking 01/12 00:00 :00 Plavix 75 MG Tablet 1 30 16014323 190 Taking 07/16 00:00 :00 TAMSULOSIN 0.4 mg capsule 1 0022 8299 611 Taking 08/31 00:00 :00 Tamsulosin HCl 0.4 MG Capsule 1 34923 002 510 Taking 07/11 00:00 :00 Tamsulosin HCl 0.4 MG Capsule 1 77105 002 510 Taking 05/05 00:00 :00 Tamsulosin HCl 0.4 MG Capsule 1 52454 002 510 Taking 04/29 00:00 :00 Tamsulosin HCl 0.4 MG Capsule 1 15007 002 510 Taking 04/27 00:00 :00 Tamsulosin HCl 0.4 MG Capsule 1 12470 002 510 Taking 04/19 00:00 :00 Tamsulosin HCl 0.4 MG Capsule 1 40863 002 510 Taking 01/12 00:00 :00 Tamsulosin HCl 0.4 MG Capsule 1 54381 002 510 Taking 06/23 00:00 :00 Tamsulosin HCl 0.4 MG Capsule 1 08117 002 510 Taking 06/02 00:00 :00 Tamsulosin HCl 0.4 MG Capsule 1 77936 002 510 Taking 01/24 00:00 :00 Tamsulosin HCl 0.4 MG Capsule 1 16145 002 510 Taking 07/16 00:00 :00 ZITHROMAX Z-PACK 250 mg tablet 07/16/2022 00:00:00 1 1 0 0513215 6 075 P Start 04/29 00:00 :00 Zithromax Z-Brandan 250 MG Tablet 04/27/2024 00:00:00 1 8665845 6 075 P Continue 04/29 00:00 :00 Zithromax Z-Brandan 250 MG Tablet 04/27/2024 00:00:00 1 1 0 9529343 6 075 P Taking 04/27 00:00 :00 Zithromax Z-Brandan 250 MG Tablet 04/27/2024 00:00:00 1 1 0 3465850 6 075 P Start 01/24 00:00 :00 Zithromax Z-Brandan 250 MG Tablet 07/16/2022 00:00:00 1 1 0 2413398 6 075 P Start
--- OUTSIDE RECORDS SUMMARY | 2024-12-12 10:21 | XMS_ITS | Encounter Summary ---
Author Name [facility] Organization [facility] Address [address] [place] [address] Care Team Providers Care Slabber Light Name Role Phone PHONG JENKINS Primary Care [...] PART A Nov 22, 2012 PART A [id number] MICHAEL THOMAS PATIENT MEDICARE (WNR) MEDICARE (M) PART B Nov 22, 2012 PART B [id number] MEGANMIKEMICHAEL An PATIENT MEDICARE (WNR) MEDICARE (M) PART A Nov 22, 2012 PART A [id number] MICHAEL THOMAS PATIENT MEDICARE (WNR) MEDICARE (M) PART B Nov 22, 2012 PART B [id number] MICHAEL THOMSA PATIENT Selected Encounter This section includes the information on record at CT for the Encounter. Date/Time Encounter Type Encounter Description Reason Pro vider Source Sep 27, 2024 09:40 AM Outpatient Encounter ADMIN PAT ACTIVTIES (MASNONCT) IHE Encounter Template Text not used by CT Plan of Treatment: Future Appointments (+ 6 months) and Future Tests (+/- 45 days) The Plan of Treatment section includes future care activities for the patient from all CT treatmentfacilities. This section includes future appointments and future orders which are active, pending or scheduled. Future Appointments This section includes appointments that were scheduled to occur 6 months from the date of the Encounter, up to a maximum of 20 appointments. The data comes from all CT treatment facilities. Appointment Date/Time Appointment Type Appointme nt Facility Name Nov 02, 2024 08:00 AM [facility] Nov 29, 2024 08:30 AM [facility] - NONE [facility] January 09, 2025 08:30 AM [facility] - SURGERY [facility] January 09, 2025 10:20 [facility] Encounter Notes: All associated encounter notes This section contains the clinical notes associated to the Encounter. 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 /milagros/ MITZI SEGOVIA AMSA Signed: 09/27/2024 09:41 [facility]
--- OUTSIDE RECORDS SUMMARY | 2024-12-12 10:22 | XMS_ITS | Clinical Summary ---
Author Organization [facility] Address [address] [address] Phone Care Team Providers Care Associate Principal Name Role Phone Luis RUIZ, Patel Covington Unavailable [phone] AZAEL CUMMINGS Unavailable [phone] Reason for Visit and Chief Complaint The Chief Complaint is: R hip pain Problems Includes: Problems addressed during this encounter and other active Problems All Visits Onset Date Resolved Date Provider Condition S tatus Joint Pain in the Right Hip 08/18/2023 Mela Jackson PA-C Active Last Documented On 3 8:24AM ; [facility] Plan of Treatment - Patient screened for future fall risk: documentation of any fall with injury in past year - Last Documented On 09/07/2024 11:05AM ; [facility] Fall Risk Assessment: This patient has been [...] with the patient. - Last Documented On 09/07/2024 11:05AM ; [facility] Overall, they are doing well post [...] with the plan. - Last Documented On 09/07/2024 11:05AM ; [facility] Instructions to patient Intervention and counseling on cessation of tobacco use Last Documented On 5 9:43AM ; [facility] Lose weight Last Documented On 5 9:43AM ; [facility] Assessments Includes: Assessments from this encounter Findings - Overweight - Last Documented On 09/07/2024 11:05AM ; [facility] Instructions Includes: Instructions from this encounter Instructions to patient Intervention and counseling on cessation of tobacco use Last Documented On 5 9:43AM ; [facility] Lose weight Last Documented On 5 9:43AM ; [facility] Medical Equipment - Implanted Devices Includes: Current Devices No Medical Equipment Recorded Medications Includes: Medications discussed during this encounter and other current Medications Discontinued / Stopped on this date on 08/18/2023 Lisinopril 10 MG Oral Tablet Provider: Diagnosis: Last Documented On 5 9:42AM By Warner Castro [facility] Atorvastatin Calcium 10 MG Oral Tablet Pr ovider: Diagnosis: Last Documented On 5 9:42AM By Warner Bush ; [facility] Tamsulosin HCl 0.4 MG Oral Capsule Provid er: Diagnosis: Last Documented On 5 9:42AM By Warner Castro [facility] ZyrTEC 10 MG Oral Tablet Chewable Provide r: Diagnosis: Last Documented On 5 9:42AM By Warner Castro [facility] Past Medications on file Acetaminophen 500 MG Oral Tablet 08/21/2023 - 09/20/2023 Provider: Keanu cain MD Diagnosis: take as directed; take 2 tablets three times a d ay Last Documented On 3 3:13PM By Juliette Castro [facility] Aspirin Adult Low Dose 81 MG Oral Tablet Delayed Release 08/21/2023 - 10/02/2023 Provider: Keanu Doherty MD Diagnosis: twice a day Last Documented On 3 3:13PM By Juliette Nair ; [facility] Colace 100 MG Oral Capsule 08/21/2023 - 11/19/2023 Pro vider: Keanu Doherty MD Diagnosis: 1-2 tabs daily Last Documented On 3 3:13PM By Juliette Nair ; [facility] Cefadroxil 500 MG Oral Capsule 08/21/2023 - 08/24/2023 Provider: Keanu cain MD Diagnosis: twice a day Last Documented On 3 3:13PM By Juliette Nair ; [facility] Meloxicam 15 MG Oral Tablet 08/21/2023 - 09/04/2023 Pr ovider: Keanu Doherty MD Diagnosis: once a day Last Documented On 3 3:13PM By Juliette Nair ; [facility] Ondansetron HCl 4 MG Oral Tablet 08/21/2023 - 08/25/2023 Provider: Keanu cain MD Diagnosis: 1 po q 6h prn nausea Last Documented On 3 3:13PM By Juliette Nair ; [facility] oxyCODONE HCl 5 MG Oral Tablet 08/21/2023 - 08/28/2023 Provider: Keanu cain MD Diagnosis: 1-2 po q 4-6h prn pain Last Documented On 3 3:13PM By Dr. Doherty ; [facility] traMADol HCl 50 MG Oral Tablet 08/21/2023 - 08/28/2023 Provider: Keanu cain MD Diagnosis: 1-2 po q6h prn pain Last Documented On 3 3:13PM By Dr. Doherty ; [facility] Medications Administered Includes: Administered Medications from this encounter No Administered Medications Recorded Vital Signs Includes: Vital Signs from this encounter Vital Name 09/07/2024 09:51A Height (in) 71 Weight (lb) 250 Body Mass Index 34.9 Body Surface Area 2.3 Note: cd Last Documented: On 09/07/2024 9:51AM ; [facility] Results Includes: Results discussed during this encounter No Results Recorded For Specified Dates History of Present Illness Includes: History of Present Illness from this encounter RADHA Thomas is a 78 year old male. [...] resolved. No interval injury, trauma, or fall. Social History Description Last Updated Alcohol use 09/07/2024 Last Documented On 5 11:05AM ; [facility] No caffeine use 09/07/2024 Last Documented On 5 11:05AM ; [facility] No recent change in diet 09/07/2024 Last Documented On 5 11:05AM ; [facility] Not a current smoker. 09/07/2024 Last Documented On 5 11:05AM ; [facility] Not exercising regularly 09/07/2024 Last Documented On 5 11:05AM ; [facility] Not using drugs 09/07/2024 Last Documented On 5 11:05AM ; [facility] Tobacco use 09/01/2023 Last Documented On 5 9:43AM ; [facility] Smoking Status Unknown Procedures and Surgical History Includes: Procedures from this encounter Procedures Code Diagnosis Performing Provider Service Location Service Date PELVIS w/ 2-3 VIEW HIP (RIGHT) 52046 Unilateral primary osteoarthritis, right hip Mela Jackson PA-C [facility] 09/07/2024 Last Documented On 5 9:42AM ; [facility] 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 4000F Last Documented On 5 9:43AM ; [facility] use of tobacco assessment performed 1000F Last Documented On 5 9:43AM ; [facility] patient screened for future fall risk: documentation of any fall with injury in past year 1100F Last Documented On 5 9:43AM ; [facility] review of medications documented 1160F Last Documented On 5 9:43AM ; [facility] X-ray 33647 Last Documented On 5 10:53AM ; [facility] an MRI was performed 60711 Last Documented On 5 10:53AM ; [facility] Medical History Includes: Medical History addressed during this encounter Description Last Updated Past medical and surgical history non-co ntributory 09/07/2024 Last Documented On 5 11:05AM ; [facility] Family History Includes: Family History addressed during this encounter Description Last Updated No significant family history 09/07/2024 Last Documented On 11:05AM ; [facility] Review of Systems Includes: Review of Systems from this encounter Systemic: Not feeling tired, no recent weight [...] Immunologic: No complaint of seasonal allergic reaction. Mental Status Includes: Mental Status from this encounter Description No anxiety Functional Status Includes: Functional Status from this encounter No Functional Status Recorded Physical Exam Includes: Physical Exam from this encounter Allergies Includes: Active Allergies No Known Allergies Encounters Encounter Provider Location Date Check-In Time Check-Out Time Diagnosis Follow Up Mela Jakcson PA-C [facility] 5 9:40AM 10:29AM Overweight Insurance Includes: Active Insurance Policies Plan Name Member ID Group # Subscriber Relationship Effect tricia Dates 1 - Medicare Part B [facility] [id number] Obey Thomas Self 2 - [facility] [id number] Obey Thomas Self Clinical Notes Includes: Clinical Notes from this encounter * Progress note Date Encounter Last Documented by 09/07/2024 Follow Up Last documented on 09/07/2024; 11:05 AM, Mela Jackson PA-C; [facility] Active Problems & Conditions - [...] documented. Care Team - AZAEL CUMMINGS - [employer]
--- OUTSIDE RECORDS SUMMARY | 2024-12-12 10:22 | XMS_ITS | Clinical Summary ---
Author Organization [facility] , [facility] Address [address] [place] [address] Phone Care Team Providers Care Beater Machine Operator Name Role Phone Luis RUIZ, Patel Covington Unavailable [phone] AZAEL CUMMINGS Unavailable [phone] Reason for Visit and Chief Complaint [facility] Outpatient Surgery Suites Problems Includes: Problems addressed during this encounter and other active Problems All Visits Onset Date Resolved Date Provider Condition S tatus Joint Pain in the Right Hip 08/18/2023 Mela Jackson PA-C Active Last Documented On 3 8:24AM ; [facility] Plan of Treatment No Plan of Treatment Recorded Assessments Includes: Assessments from this encounter No Assessments Recorded Medical Equipment - Implanted Devices Includes: Current Devices No Medical Equipment Recorded Medications Includes: Medications discussed during this encounter and other current Medications No Medications Taken Medications Administered Includes: Administered Medications from this encounter No Administered Medications Recorded Results Includes: Results discussed during this encounter No Results Recorded For Specified Dates History of Present Illness Includes: History of Present Illness from this encounter No History of Present Illness Recorded Social History No Social History Recorded - Smoking Status Unknown Medical History Includes: Medical History addressed during [...] Exam Includes: Physical Exam from this encounter No Physical Exam Recorded Allergies Includes: Active Allergies No Known Allergies Encounters Encounter Provider Location Date Check-In Time Check-Out Time Diagnosis [facility] Outpatient Surgery Suites Keanu Doherty MD Surgery 4 9:27AM 11:59PM Insurance Includes: Active Insurance Policies Plan Name Member ID Group # Subscriber Relationship Effect tricia Dates 1 - Medicare Part B [facility] [id number] Obey Tyler 2 - [facility] [id number] Obey Tyler Clinical Notes Includes: Clinical Notes from this encounter No Clinical Notes Recorded
--- OUTSIDE RECORDS SUMMARY | 2024-12-12 10:22 | XMS_ITS | Encounter Summary ---
Author Name [facility] Organization [facility] Address [address] [place] [id number] Care Team Providers Care Machine Room Engineer Name Role Phone PHONG JENKINS Primary Care [...] PART A Nov 22, 2012 PART A [id number] MICHAEL THOMAS PATIENT MEDICARE (WNR) MEDICARE (M) PART B Nov 22, 2012 PART B [id number] MICHAEL THOMAS PATIENT MEDICARE (WNR) MEDICARE (M) PART A Nov 22, 2012 PART A [id number] MICHAEL THOMAS PATIENT MEDICARE (WNR) MEDICARE (M) PART B Nov 22, 2012 PART B [id number] MICHAEL THOMAS PATIENT Selected Encounter This section includes the information on record at [place] for the Encounter. Date/Time Encounter Type Encounter Description Reason Pro vider Source Nov 07, 2024 10:12 AM Outpatient Encounter PRIMARY CARE/MEDICINE IHE Encounter Template Text not used by [place] Plan of Treatment: Future Appointments (+ 6 months) and Future Tests (+/- 45 days) The Plan of Treatment section includes future care activities for the patient from [facility]. This section includes future appointments and future orders which are active, pending or scheduled. Future Appointments This section includes appointments that were scheduled to occur 6 months from the date of the Encounter, up to a maximum of 20 appointments. The data comes from all [place] treatment facilities. Appointment Date/Time Appointment Type Appointme nt Facility Name Nov 29, 2024 08:30 AM AM[place]ULATORY - NONE [place] [facility] January 09, 2025 08:30 AM AMBULATORY - SURGERY [place] [facility] January 09, 2025 10:20 AM AMBULATORY - SURGERY [facility] Social History: Smoking Status (Most current) and Tobacco Use (All prior to encounter date) This section includes the most current, and the historical, smoking and tobacco- related health factors from the [place] facility where the Encounter took place. Current Smoking Status This section includes the most current smoking, or tobacco-related health factor, from the [place] facility where the Encounter took place. Date/Time Current Smoking Status Comment Facil ity May 18, 2024 09:00 AM VA-TOBACCO USER SOME DAYS [facility] Tobacco Use History This section includes a history of the smoking, or tobacco-related health factors, that were collected on or before the date of the Encounter. The data comes from the [place] facility where the Encounter took place. Date/Time Smoking Status/Tobacco Use Comment F acility May 18, 2024 09:00 AM VA-TOBACCO USE 30 YEARS OR MORE [facility] May 18, 2024 09:00 AM VA-TOBACCO USE ADVICE [facility] May 18, 2024 09:00 AM VA-TOBACCO USE REFRACTORY TECHNICIAN NO [facility] May 18, 2024 09:00 AM VA-TOBACCO USE MED NO [facility] May 18, 2024 09:00 AM VA-TOBACCO USER SOME DAYS [facility] Nov 02, 2023 09:00 AM VA-TOBACCO USE 30 YEARS OR MORE [facility] Nov 02, 2023 09:00 AM VA-TOBACCO USE ADVICE [facility] Nov 02, 2023 09:00 AM VA-TOBACCO USE REFRACTORY TECHNICIAN NO [facility] Nov 02, 2023 09:00 AM VA-TOBACCO USE MED NO [facility] Nov 02, 2023 09:00 AM VA-TOBACCO USE WI 30 MIN OF WAKEUP [facility] Nov 02, 2023 09:00 AM VA-TOBACCO USER EVERY DAY [facility] Aug 29, 2022 08:00 AM VA-TOBACCO DOESNT USE WI 30 MIN WAKEUP [facility] Aug 29, 2022 08:00 AM VA-TOBACCO USE 30 YEARS OR MORE [facility] Aug 29, 2022 08:00 AM VA-TOBACCO USE ADVICE [facility] Aug 29, 2022 08:00 AM VA-TOBACCO USE REFRACTORY TECHNICIAN NO [facility] Aug 29, 2022 08:00 AM VA-TOBACCO USE MED NO [facility] Aug 29, 2022 08:00 AM VA-TOBACCO USER EVERY DAY [facility] Aug 26, 2021 08:00 AM VA-TOBACCO DOESNT USE WI 30 MIN WAKEUP [facility] Aug 26, 2021 08:00 AM VA-TOBACCO USE 30 YEARS OR MORE [facility] Aug 26, 2021 08:00 AM VA-TOBACCO USE ADVICE [facility] Aug 26, 2021 08:00 AM VA-TOBACCO USE REFRACTORY TECHNICIAN NO [facility] Aug 26, 2021 08:00 AM VA-TOBACCO USE MED NO [facility] Aug 26, 2021 08:00 AM VA-TOBACCO USER EVERY DAY [facility] December 26, 2019 10:07 AM VA-TOBACCO DOESNT USE WI 30 MIN WAKEUP [facility] December 26, 2019 10:07 AM VA-TOBACCO USE 30 YEARS OR MORE [facility] December 26, 2019 10:07 AM VA-TOBACCO USE ADVICE [facility] December 26, 2019 10:07 AM VA-TOBACCO USE REFRACTORY TECHNICIAN NO [facility] December 26, 2019 10:07 AM VA-TOBACCO USE MED NO [facility] December 26, 2019 10:07 AM VA-TOBACCO USER EVERY DAY [facility] Oct 19, 2018 09:18 AM VA-TOBACCO DOESNT USE WI 30 MIN WAKEUP [facility] Oct 19, 2018 09:18 AM VA-TOBACCO USE 30 YEARS OR MORE [facility] Oct 19, 2018 09:18 AM VA-TOBACCO USE ADVICE [facility] Oct 19, 2018 09:18 AM VA-TOBACCO USE REFRACTORY TECHNICIAN NO [facility] Oct 19, 2018 09:18 AM VA-TOBACCO USE MED NO [facility] Oct 19, 2018 09:18 AM VA-TOBACCO USER SOME DAYS [facility] Sep 25, 2017 01:14 PM V9 CURRENT TOBACCO USER [facility] Sep 25, 2017 01:14 PM V9 TOBACCO OFFERED [facility] Sep 25, 2017 01:14 PM V9 TOBACCO USE-DECLINED MEDS [facility] Oct 14, 2016 04:43 PM V9 CURRENT TOBACCO USER [facility] Oct 14, 2016 04:43 PM V9 TOBACCO OFFERED [facility] Oct 14, 2016 04:43 PM V9 TOBACCO USE-DECLINED MEDS [facility] Oct 03, 2015 08:21 AM V9 CURRENT TOBACCO USER [facility] Oct 03, 2015 08:21 AM V9 TOBACCO OFFERED [facility] Oct 03, 2015 08:21 AM V9 TOBACCO USE-DECLINED MEDS [facility] Aug 30, 2014 08:12 AM V9 CURRENT TOBACCO USER [facility] Aug 30, 2014 08:12 AM V9 TOBACCO OFFERED [facility] Jul 18, 2013 08:02 AM V9 CURRENT TOBACCO USER [facility] Jul 18, 2013 08:02 AM V9 QUIT TOBACCO >7 YEARS AGO [facility] Jul 18, 2013 08:02 AM V9 TOBACCO OFFERED [facility] Jul 01, 2012 07:45 AM TOBACCO OFFERRED P T MEDS (PROVIDER) [facility] Jul 01, 2012 07:45 AM V9 CURRENT TOBACCO USER [facility] Jul 01, 2012 07:45 AM V9 QUIT TOBACCO >1 2 MO & <7 YRS AGO [facility] Jul 01, 2012 07:45 AM V9 TOBACCO OFFERED [facility] 2011 07:55 AM V9 CURRENT TOBACCO USER [facility] 2011 07:55 AM V9 TOBACCO OFFERED [facility] Jun 12, 2011 07:53 AM TOBACCO OFFERRED P T MEDS (PROVIDER) [facility] Jun 12, 2011 07:53 AM V9 CURRENT TOBACCO USER [facility] Jun 12, 2011 07:53 AM V9 TOBACCO OFFERED [facility] Sep 06, 2010 07:32 AM TOBACCO OFFERRED P T MEDS (PROVIDER) [facility] Sep 06, 2010 07:32 AM V9 CURRENT TOBACCO USER [facility] Sep 06, 2010 07:32 AM V9 TOBACCO OFFERED [facility] Sep 06, 2009 07:33 AM TOBACCO OFFERRED P T MEDS (PROVIDER) [facility] Sep 06, 2009 07:33 AM V9 CURRENT TOBACCO USER [facility] Sep 06, 2009 07:33 AM V9 TOBACCO OFFERED [facility] Radiology Reports: +/- 30 days [...] the Encounter. The data comes from all [facility] facilities. Date/Time Radiology Report Provider Source Nov 29, 2024 07:47 AM LDCT LCS 1, 3 OR 6 MONTH FOLLOW UP: MICHAEL THOMAS [facility] [id number] -[id number] M Exm Date: NOV 29, 2024@07:47 Req Phys: KOUSA,KITTA Pat Loc: [facility] PACT ALPHA 1-3 (Req'g Loc) Img Loc: CT SCAN Service: Unknown [place] [id number] (Case [id number] COMPLETE) LDCT LCS 1, 3 OR 6 MONTH FOLLOW U(CT Detailed) CPT:71945 Reason for Study: 12-month F/U LDCT Clinical History: Report Status: Verified Date Reported: NOV 29, 2024 Date Verified: NOV 29, 2024 Booking Manager E-Sig: Report: EXAM: LDCT LCS 1, 3 [...] Staff: CLAUDETTE HIDALGO, Staff Radiologist Verified by abrasive sawyer for CLAUDETTE HIDALGO /CLAUDETTE [facility] Encounter Notes: All associated encounter notes This section contains the clinical notes associated to the Encounter. Date/Time Encounter Note(s) Provider Source Nov 12, 2024 08:44 AM ADDENDUM: LOCAL TITLE: Addendum STANDARD TITLE: ADDENDUM DATE OF NOTE: NOV 12, 2024@08:44:05 ENTRY DATE: NOV 12, 2024@08:44:06 AUTHOR: PHONG JENKINS EXP COSIGNER: URGENCY: STATUS: COMPLETED Do I need Omeorazole The omeprazole is on your list of medications. Do you need to take it for acid reflux, heart burn or nausea triggered by spicy , sour food or sweats....! /milagros/ PHONG JENKINS MD Signed: 11/12/2024 08:45 Receipt Acknowledged By: 11/14/2024 10:21 /milagros/ Asia Vargas AMSA --- Original Document --- 11/07/24 PRIMARY CARE SECURE MESSAGING: ------Original Message ---- Sent: 11/06/2024 10:22 AM ET From: MICHAEL THOMAS To: [facility] Team (Nas[facility]) [facility] Subject: Medication:Meds Do I need Omeorazole [place] has been notifying but not for this ------Original Message ---- Sent: 11/07/2024 10:11 AM ET From: ASIA VARGAS To: MICHAEL THOMAS Subject: Medication:Meds Good morning, I will send your message to Dr. Jenkins for review and to see if the medication is still needed. Thank you for using [facility]. /milagros/ Asia Vargas AMSA Signed: 11/07/2024 10:12 Receipt Acknowledged By: 11/12/2024 08:42 /PHONG Torres MD [facility] Nov 07, 2024 10:12 AM PRIMARY CARE [facility] E MESSAGING: LOCAL TITLE: PRIMARY CARE SECURE MESSAGING STANDARD TITLE: PRIMARY CARE SECURE MESSAGING DATE OF NOTE: NOV 07, 2024@10:12 ENTRY DATE: NOV 07, 2024@10:12:04 AUTHOR: ASIA VARGAS EXP COSIGNER: URGENCY: STATUS: COMPLETED PRIMARY CARE SECURE MESSAGING Has ADDENDA ------Original Message ---- Sent: 11/06/2024 10:22 AM ET From: MICHAEL THOMAS To: ALPHA Team (Nasima) [facility] Subject: Medication:Meds Do I need Omeorazole [place] has been notifying but not for this ------Original Message ---- Sent: 11/07/2024 10:11 AM ET From: ASIA VARGAS To: MICHAEL THOMAS Subject: Medication:Meds Good morning, I will send your message to Dr. Jenkins for review and to see if the medication is still needed. Thank you for using [facility]. /milagros/ Asia MARINELLI Signed: 11/07/2024 10:12 Receipt Acknowledged By: 11/12/2024 08:42 /milagros/ PHONG JENKINS MD 11/12/2024 ADDENDUM STATUS: COMPLETED Do I need Omeorazole The omeprazole is on your list of medications. Do you need to take it for acid reflux, heart burn or nausea triggered by spicy , sour food or sweats....! /milagros/ PHNOG JENKINS MD Signed: 11/12/2024 08:45 Receipt Acknowledged By: 11/14/2024 10:21 /guerrero MARINELLI 11/14/2024 ADDENDUM STATUS: COMPLETED -See 11/14/2024 PC Secure messaging note. /guerrero MARINELLI Signed: 11/14/2024 10:22 ASIA VARGAS [facility]
--- OUTSIDE RECORDS SUMMARY | 2024-12-12 10:22 | XMS_ITS | Continuity of Care Document ---
Author Name [facility] Organization [facility] Care Team Providers Care Slab Inspector Name Role Phone [facility] Unavailable Unavailable Problems Combined list of problems from Department of Defense and [facility] facilities. It does not include entries that were removed or entered in error. Problem Status Onset Date Problem Type Date of Resolution Comments Source Benign essential hypertension (SNOMED CT 5094003) Active Condition [place] [facility] Benign prostatic hyperplasia with outflow obstruction Active Condition [place] [facility] Exposure to potentially hazardous substance Active Condition [place] [facility] Exposure to potentially hazardous substance (SCT [id number]) Active Condition [place] [facility] Gastroesophageal reflux disease Active Condition [place] [facility] Hearing loss in left ear Active Condition [place] [facility] Low back pain Active Condition [place] [facility] Mixed hyperlipidemia (SNOMED CT 845799431) Active Condition [place] [facility] Multiple nodules of lung (SNOMED CT 680809134) Active Condition [place] [facility] Neuropathy Active Condition [place] [facility] Obstructive sleep apnea of adult Active Condition [place] [facility] Peripheral arterial occlusive disease Active Condition [place] [facility] 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 [place] [facility] Smokes tobacco daily Active Condition [place] [facility] Dm Type I Dm W/O Complications Inactive Condition 02/06/2014 Feb 06, 2014 Entered By: NANCY PABLO Comment: removed per MD request [place] [facility] Diagnosis: ICD-10-CM E11.9 Type 2 diabetes mellitus without complications Active Diagnosis [facility] Diagnosis: ICD-10-CM I10 Essential (primary) hypertension Active Diagnosis [facility] Diagnosis: ICD-10-CM Z71.89 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ed counseling Active Diagnosis DIMITRIAngella JOHNSON [facility] Diagnosis: ICD-10-CM I73.9 Peripheral vascular disease, unspecified Active Diagnosis DARLINE Winkler [facility] Diagnosis: ICD-10-CM H25.813 Combined forms of age-related cataract, bilateral Active Diagnosis [facility] Medications Combined list of outpatient medications from Department of Defense and Veterans Affairs facilities.Medications provided include 1) outpatient medications from the last 15 months, and 2) patient-reported medications. Medication Details Route Status Patient Instructions Prescription Expires Prescription Number Last Dispense Date Ordering Provider Order Date Order Qty Source ALLOPURINOL 100MG TAB TAKE ONE TABLET BY MOUTH DAILY FOR GOUT ORAL SUSPEND ED 11/23/2025 [id number] 5 SANTANA JENKINS TA 2024 90 [place] [facility] ALLOPURINOL 100MG TAB TAKE ONE TABLET BY MOUTH DAILY FOR GOUT ORAL DISCONT INUED 10/19/2025 [id number] 5 SANTANA JENKINS TA 2024 90 [place] [facility] ALLOPURINOL 100MG TAB TAKE ONE TABLET BY MOUTH DAILY FOR GOUT ORAL DISCONT INUED 11/15/2024 [id number] MORENAUSAKIT TA 2023 90 [place] [facility] ASPIRIN 81MG TAB,EC TAKE ONE TABLET BY MOUTH DAILY FOR HEART ORAL ACTIVE 11/23/2025 [id number] 5 MORENAUSAKIT TA 2024 90 [place] [facility] ASPIRIN 81MG TAB,EC TAKE ONE TABLET BY MOUTH DAILY FOR HEART ORAL DISCONT INUED 11/02/2024 [id number] MORENAUSAKIT TA 2023 90 [place] [facility] ATORVASTATI N CA 80MG TAB TAKE ONE-HALF TABLET BY MOUTH DAILY FOR CHOLESTE ROL ORAL SUSPEND ED 11/23/2025 [id number] 5 GREGORYKIT TA 2024 45 [place] [facility] [place] ATORVASTATI N CA 80MG TAB TAKE ONE-HALF TABLET BY MOUTH DAILY FOR CHOLESTE ROL ORAL DISCONT INUED 10/12/2025 [id number] 5 SANTANA JENKINS 2024 45 [place] [facility] ATORVASTATI N CA 80MG TAB TAKE ONE-HALF TABLET BY MOUTH DAILY FOR CHOLESTE ROL ORAL DISCONT INUED 11/02/2024 [id number] 4 SANTANA JENKINS 2023 45 [place] [facility] CLOPIDOGREL BISULFATE 75MG TAB TAKE ONE TABLET BY MOUTH DAILY TO THIN BLOOD ORAL SUSPEND ED 11/23/2025 [id number] 5 SANTANA JENKINS 2024 90 [place] [facility] CLOPIDOGREL BISULFATE 75MG TAB TAKE ONE TABLET BY MOUTH DAILY TO THIN BLOOD ORAL DISCONT INUED 05/19/2025 [id number] SANTANA JENKINS 2023 90 [place] [facility] LISINOPRIL 20MG TAB TAKE ONE-HALF TABLET BY MOUTH DAILY FOR BLOOD PRESSURE /HEART ORAL SUSPEND ED 11/23/2025 [id number] 5 SANTANA JENKINS 2024 45 [place] [facility] LISINOPRIL 20MG TAB TAKE ONE-HALF TABLET BY MOUTH DAILY FOR BLOOD PRESSURE /HEART NEW DOSE ORAL DISCONT INUED 10/12/2025 [id number] 5 SANTANA JENKINS 2024 45 [place] [facility] LISINOPRIL 20MG TAB TAKE ONE-HALF TABLET BY MOUTH DAILY FOR BLOOD PRESSURE /HEART NEW DOSE ORAL DISCONT INUED 11/02/2024 [id number] SANTANA JENKINS 2023 45 [place] [facility] LISINOPRIL 5MG TAB TAKE ONE TABLET BY MOUTH DAILY FOR BLOOD PRESSURE /HEART NEW DOSE ORAL DISCONT INUED (EDIT) 04/01/2024 [id number] Daniella ABRAHAM A 2022 90 [place] [facility] METOPROLOL SUCCINATE 50MG TAB,SA TAKE ONE-HALF TABLET BY MOUTH DAILY FOR BLOOD PRESSURE ORAL SUSPEND ED 11/23/2025 [id number] 5 KOUSA,KIT TA 2024 45 [place] [facility] METOPROLOL SUCCINATE 50MG TAB,SA TAKE ONE-HALF TABLET BY MOUTH DAILY FOR BLOOD PRESSURE ORAL DISCONT INUED 05/19/2025 [id number] 5 KOUSA,KIT TA 2023 45 [place] [facility] [place] OMEPRAZOLE 20MG CAP,EC TAKE ONE CAPSULE BY MOUTH ONCE A DAY 30 MINUTES BEFORE A MEAL FOR STOMACH -TAKE ON AN EMPTY STOMACH ORAL SUSPEND ED 11/23/2025 [id number] 5 KOUSA,KIT TA 2024 90 [place] [facility] [place] OMEPRAZOLE 20MG CAP,EC TAKE ONE CAPSULE BY MOUTH ONCE A DAY 30 MINUTES BEFORE A MEAL FOR STOMACH -TAKE ON AN EMPTY STOMACH ORAL DISCONT INUED BY PROVIDE R 11/02/2024 [id number] 4 MORENAUSAKIT TA 2023 90 [place] [facility] [place] TAMSULOSIN HCL 0.4MG CAP TAKE ONE CAPSULE BY MOUTH EVERY EVENING FOR PROSTATE ORAL ACTIVE 11/23/2025 [id number] 5 MORENAUSA,KIT TA 2024 90 [place] [facility] [place] TAMSULOSIN HCL 0.4MG CAP TAKE ONE CAPSULE BY MOUTH EVERY EVENING FOR PROSTATE ORAL DISCONT INUED 11/02/2024 [id number] 5 MORENAUSA,KIT TA 2023 90 [place] [facility] [place] TAMSULOSIN HCL 0.4MG CAP TAKE ONE CAPSULE BY MOUTH EVERY EVENING FOR PROSTATE ORAL DISCONT INUED (EDIT) 06/12/2024 [id number] 4 EBENEZER DAVIS 2022 30 [place] [facility] Immunizations Combined list of available immunizations from the Department of Defense and Veterans Affairs facilities. 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 Status Comments Source COVID-19 (MODERNA), MRNA, LNP-S, PF, 50 MCG/0.5 ML (AGES 12+ YEARS) 6 2022 312 complet ed HISTORICA L INFORMATI ON - FROM OTHER REGISTRY, [place] [facility] INFLUENZA, INJECTABLE, QUADRIVALENT, PRESERVATIVE FREE 6 2022 150 complet ed HISTORICA L INFORMATI ON - FROM OTHER REGISTRY, [place] [facility] ZOSTER RECOMBINANT 2 2022 SOILA BOSS LEFT DELTO ID [id number] 187 complet ed [facility] [place], [place] [facility] ZOSTER RECOMBINANT 1 2022 PEYTON SOOD LEFT DEL[place] ID [id number] 187 complet ed [place] [place], [place] [facility] [place] COVID-19 ([employer]), MRNA, LNP-S, BIVALENT BOOSTER, PF, 30 MCG/0.3 ML DOSE 2022 ALANIS PARKER RIGHT DELTO ID [id number] 300 complet ed Booster for Series, [place], [place] [facility] PNEUMOCOCCAL CONJUGATE PCV20, POLYSACCHARID E [id number] CONJUGATE, ADJUVANT, PF 2022 ALANIS PARKER LEFT DELTO ID [id number] 216 complet ed Completed Series, [place], [place] [facility] [place] INFLUENZA, HIGH-DOSE, QUADRIVALENT 5 2021 197 complet ed HISTORICA L INFORMATI ON - FROM OTHER REGISTRY, [place] [facility] COVID-19 ([employer]), MRNA, LNP-S, PF, 30 MCG/0.3 ML DOSE, KIRSTEN-SUCROSE (AGES 12+ YEARS) 3 2021 217 complet ed HISTORICA L INFORMATI ON - FROM OTHER REGISTRY, [place] [facility] [place] INFLUENZA, HIGH DOSE SEASONAL 4 2020 135 complet ed HISTORICA L INFORMATI ON - FROM OTHER REGISTRY, [place] [facility] [place] INFLUENZA, UNSPECIFIED FORMULATION 2020 88 complet ed [place] [facility] COVID-19 ([employer]), MRNA, LNP-S, PF, 30 MCG/0.3 ML DOSE 3 2020 208 complet ed HISTORICA L INFORMATI ON - FROM OTHER REGISTRY, [place] [facility] COVID-19 ([employer]), MRNA, LNP-S, PF, 30 MCG/0.3 ML DOSE 2 2020 208 complet ed PFR; [id number]; 1 [place] [facility] COVID-19 ([employer]), MRNA, LNP-S, PF, 30 MCG/0.3 ML DOSE 1 2020 208 complet ed PFR; [id number]; 1 [place] [facility] INFLUENZA, HIGH DOSE SEASONAL 3 2019 135 complet ed HISTORICA L INFORMATI ON - FROM OTHER REGISTRY, [place] [facility] INFLUENZA, UNSPECIFIED FORMULATION 2019 88 complet ed [place] [facility] HEP A, ADULT 2019 52 complet ed [place] [facility] INFLUENZA, HIGH DOSE SEASONAL 2 2018 135 complet ed HISTORICA L INFORMATI ON - FROM OTHER REGISTRY, [place] [facility] INFLUENZA, SEASONAL, INJECTABLE 2018 141 complet ed [place] [facility] [place] HEP A, ADULT 2018 52 complet ed [place] [facility] INFLUENZA, INJECTABLE, QUADRIVALENT, PRESERVATIVE FREE 1 2017 150 complet ed HISTORICA L INFORMATI ON - FROM OTHER REGISTRY, [place] [facility] INFLUENZA, SEASONAL, INJECTABLE 2017 141 complet ed locally [place] [facility] PNEUMOCOCCAL POLYSACCHARID E [id number] 2017 33 complet ed [place] [facility] INFLUENZA A & B (HISTORICAL) 2016 88 complet ed [place] [facility] [id number] (HISTORICAL) 2016 133 complet ed [place] [facility] INFLUENZA A & B (HISTORICAL) 2015 88 complet ed [place] [facility] DTP 2015 01 complet ed [place] [facility] TDAP (HISTORICAL) 2015 115 complet ed [place] [facility] [place] INFLUENZA A & B (HISTORICAL) 2014 88 complet ed [place] [facility] INFLUENZA A & B (HISTORICAL) 2013 88 complet ed [place] [facility] [place] INFLUENZA A & B (HISTORICAL) 2012 88 complet ed [place] [facility] PNEUMOCOCCAL, UNSPECIFIED FORMULATION 2011 109 complet ed [place] [facility] [place] ZOSTER LIVE 2011 TERENCE TALLEY 121 complet ed [place] [facility] [place] INFLUENZA A & B (HISTORICAL) 2011 88 complet ed [place] [facility] [place] FLU,3 YRS (HISTORICAL) 2010 88 complet ed [place] [facility] [place] INFLUENZA A & B (HISTORICAL) 2009 88 complet ed [place] [facility] [place] INFLUENZA A & B (HISTORICAL) 2008 88 complet ed [place] [facility] TD(ADULT) UNSPECIFIED FORMULATION 2004 139 complet ed [place] [facility] TD (ADULT), 2 LF TETANUS TOXOID, PRESERVATIVE FREE, ADSORBED 1 1996 09 complet ed HISTORICA L INFORMATI ON - FROM OTHER REGISTRY, [place] [facility] Results Combined list of recent chemistry, hematology and other laboratory results from Department of Defense and Veterans Affairs, ranging from 15 months to all on record, depending upon the facility. Order Name Results Value Reference Range Date Interpretation Specimen Comments Source GLYCOHEM OGLOBIN HEMOGLOBIN A1C/HEMOGL OBIN.TOTAL IN BLOOD BY HPLC 6.6 4.4 - 6.4 05/18 H Specimen Type: BLOOD Comment: [place]-DoD guidelines for A1c interpretat ion: Glycemic control targets are based on Shared Decision Making between clinicians and patients. Criteria used to establish an A1c target recommendat ion can be found at https://www .va.gov/moe lityandpati entsafety/ and include the use of result accuracy and precision(C V) of the A1c tests clinicians utilize at their own sites of practice. Values obtained from A1C measurement s can vary. For typical A1C assays, a reported value of 7.0 could actually be between 6.72 and 7.28 if measured by a reference method. A reported value of 9.0 could actually be between 8.73 and 9.27. Ref: https://ngs p.org/CAPda ta.asp. The in-house [employer] D-100 analyzer has a historical CV <= 2%. Contact the laboratory for further performance characteris tics of this assay. Ordering Provider: PHONG JENKINS Report Released Date/Time: May 18, 2024 09:37 AM Reporting Lab: [facility] [address] [address] Performing Lab: [facility] [address] [address] [facility] LIPID PROFILE CHOLESTERO L [MASS/VOLU ME] IN SERUM OR PLASMA 110 mg/dL 0 - 199 05/18 Specimen Type: PLASMA Comment: Estimated Glomerular Filtration Rate (eGFR) calculated using the 2020 Chronic Kidney Disease-Epi demiology (CKD-EPI) Collaborati on creatinine equation; units of measure are mL/min/1.73 m2. Results are only valid for adults (>=18 years) whose serum creatinine is in a steady state. eGFR calculation s are not valid for patients with acute kidney injury and for patients on dialysis. Creatinine- based estimates of kidney function may also be inaccurate in patients with reduced creatinine generation due to decreased muscle mass (e.g., malnutritio n, severe hypoalbumin emia, sarcopenia, chronic neuromuscul ar disease, amputations , severe heart failure or liver disease) and in patients with increased creatinine generation due to increased muscle mass (e.g., muscle builders, anabolic steroids) or increased dietary intake. As drug clearance is proportiona l to total GFR and not GFR indexed to body surface area (BSA), in individuals with a BSA substantial ly different than 1.73 m2, drug dosing should be based on the reported eGFR value de-indexed from BSA by multiplying by the individual' s BSA and dividing by 1.73. CKD is diagnosed based on abnormaliti es of kidney structure or function, present for >3 months, with implication s for health and disease. CKD is classified and staged based on cause, eGFR and albuminuria (quantified as urine albumin to creatinine ratio). An eGFR >60 mL/min/1.73 m2 in the absence of increased urine albumin excretion or structural abnormaliti es does not represent CKD. eGFR CKD Interpretat ion (mL/min/1.7 3 m2) stage >=90 G1 Normal 60-89 G2 Mild decrease 45-59 G3A Mild to moderate decrease 30-44 G3B Moderate to severe decrease 15-29 G4 Severe decrease <15 G5 Kidney failure Ordering Provider: PHONG JENKINS Report Released Date/Time: May 18, 2024 09:37 AM Reporting Lab: [address] [address] Performing Lab: [address] [address] [facility] LIPID PROFILE TRIGLYCERI DE [MASS/VOLU ME] IN SERUM OR PLASMA 99 mg/dL 0 - 149 05/18 Specimen Type: PLASMA Comment: Estimated Glomerular Filtration Rate (eGFR) calculated using the 2020 Chronic Kidney Disease-Epi demiology (CKD-EPI) Collaborati on creatinine equation; units of measure are mL/min/1.73 m2. Results are only valid for adults (>=18 years) whose serum creatinine is in a steady state. eGFR calculation s are not valid for patients with acute kidney injury and for patients on dialysis. Creatinine- based estimates of kidney function may also be inaccurate in patients with reduced creatinine generation due to decreased muscle mass (e.g., malnutritio n, severe hypoalbumin emia, sarcopenia, chronic neuromuscul ar disease, amputations , severe heart failure or liver disease) and in patients with increased creatinine generation due to increased muscle mass (e.g., muscle builders, anabolic steroids) or increased dietary intake. As drug clearance is proportiona l to total GFR and not GFR indexed to body surface area (BSA), in individuals with a BSA substantial ly different than 1.73 m2, drug dosing should be based on the reported eGFR value de-indexed from BSA by multiplying by the individual' s BSA and dividing by 1.73. CKD is diagnosed based on abnormaliti es of kidney structure or function, present for >3 months, with implication s for health and disease. CKD is classified and staged based on cause, eGFR and albuminuria (quantified as urine albumin to creatinine ratio). An eGFR >60 mL/min/1.73 m2 in the absence of increased urine albumin excretion or structural abnormaliti es does not represent CKD. eGFR CKD Interpretat ion (mL/min/1.7 3 m2) stage >=90 G1 Normal 60-89 G2 Mild decrease 45-59 G3A Mild to moderate decrease 30-44 G3B Moderate to severe decrease 15-29 G4 Severe decrease <15 G5 Kidney failure Ordering Provider: PHONG JENKINS Report Released Date/Time: May 18, 2024 09:37 AM Reporting Lab: [facility] [address] [address] Performing Lab: [facility] [address] [address] [facility] LIPID PROFILE CHOLESTERO L IN HDL [MASS/VOLU ME] IN SERUM OR PLASMA 33 mg/dL 40 - 69 05/18 L Specimen Type: PLASMA Comment: Estimated Glomerular Filtration Rate (eGFR) calculated using the 2020 Chronic Kidney Disease-Epi demiology (CKD-EPI) Collaborati on creatinine equation; units of measure are mL/min/1.73 m2. Results are only valid for adults (>=18 years) whose serum creatinine is in a steady state. eGFR calculation s are not valid for patients with acute kidney injury and for patients on dialysis. Creatinine- based estimates of kidney function may also be inaccurate in patients with reduced creatinine generation due to decreased muscle mass (e.g., malnutritio n, severe hypoalbumin emia, sarcopenia, chronic neuromuscul ar disease, amputations , severe heart failure or liver disease) and in patients with increased creatinine generation due to increased muscle mass (e.g., muscle builders, anabolic steroids) or increased dietary intake. As drug clearance is proportiona l to total GFR and not GFR indexed to body surface area (BSA), in individuals with a BSA substantial ly different than 1.73 m2, drug dosing should be based on the reported eGFR value de-indexed from BSA by multiplying by the individual' s BSA and dividing by 1.73. CKD is diagnosed based on abnormaliti es of kidney structure or function, present for >3 months, with implication s for health and disease. CKD is classified and staged based on cause, eGFR and albuminuria (quantified as urine albumin to creatinine ratio). An eGFR >60 mL/min/1.73 m2 in the absence of increased urine albumin excretion or structural abnormaliti es does not represent CKD. eGFR CKD Interpretat ion (mL/min/1.7 3 m2) stage >=90 G1 Normal 60-89 G2 Mild decrease 45-59 G3A Mild to moderate decrease 30-44 G3B Moderate to severe decrease 15-29 G4 Severe decrease <15 G5 Kidney failure Ordering Provider: PHONG JENKINS Report Released Date/Time: May 18, 2024 09:37 AM Reporting Lab: [facility] [address] [address] Performing Lab: [facility] [address] [address] [facility] LIPID PROFILE CHOLESTERO L IN LDL [MASS/VOLU ME] IN SERUM OR PLASMA BY DIRECT ASSAY 69 mg/dL 0 - 100 05/18 Specimen Type: PLASMA Comment: Estimated Glomerular Filtration Rate (eGFR) calculated using the 2020 Chronic Kidney Disease-Epi demiology (CKD-EPI) Collaborati on creatinine equation; units of measure are mL/min/1.73 m2. Results are only valid for adults (>=18 years) whose serum creatinine is in a steady state. eGFR calculation s are not valid for patients with acute kidney injury and for patients on dialysis. Creatinine- based estimates of kidney function may also be inaccurate in patients with reduced creatinine generation due to decreased muscle mass (e.g., malnutritio n, severe hypoalbumin emia, sarcopenia, chronic neuromuscul ar disease, amputations , severe heart failure or liver disease) and in patients with increased creatinine generation due to increased muscle mass (e.g., muscle builders, anabolic steroids) or increased dietary intake. As drug clearance is proportiona l to total GFR and not GFR indexed to body surface area (BSA), in individuals with a BSA substantial ly different than 1.73 m2, drug dosing should be based on the reported eGFR value de-indexed from BSA by multiplying by the individual' s BSA and dividing by 1.73. CKD is diagnosed based on abnormaliti es of kidney structure or function, present for >3 months, with implication s for health and disease. CKD is classified and staged based on cause, eGFR and albuminuria (quantified as urine albumin to creatinine ratio). An eGFR >60 mL/min/1.73 m2 in the absence of increased urine albumin excretion or structural abnormaliti es does not represent CKD. eGFR CKD Interpretat ion (mL/min/1.7 3 m2) stage >=90 G1 Normal 60-89 G2 Mild decrease 45-59 G3A Mild to moderate decrease 30-44 G3B Moderate to severe decrease 15-29 G4 Severe decrease <15 G5 Kidney failure Ordering Provider: PHONG JENKINS Report Released Date/Time: May 18, 2024 09:37 AM Reporting Lab: [facility] [address] [address] Performing Lab: [facility] [address] [address] [facility] URIC ACID URATE [MASS/VOLU ME] IN SERUM OR PLASMA 5.5 mg/dL 3.5 - 7.2 05/18 Specimen Type: PLASMA Comment: Estimated Glomerular Filtration Rate (eGFR) calculated using the 2020 Chronic Kidney Disease-Epi demiology (CKD-EPI) Collaborati on creatinine equation; units of measure are mL/min/1.73 m2. Results are only valid for adults (>=18 years) whose serum creatinine is in a steady state. eGFR calculation s are not valid for patients with acute kidney injury and for patients on dialysis. Creatinine- based estimates of kidney function may also be inaccurate in patients with reduced creatinine generation due to decreased muscle mass (e.g., malnutritio n, severe hypoalbumin emia, sarcopenia, chronic neuromuscul ar disease, amputations , severe heart failure or liver disease) and in patients with increased creatinine generation due to increased muscle mass (e.g., muscle builders, anabolic steroids) or increased dietary intake. As drug clearance is proportiona l to total GFR and not GFR indexed to body surface area (BSA), in individuals with a BSA substantial ly different than 1.73 m2, drug dosing should be based on the reported eGFR value de-indexed from BSA by multiplying by the individual' s BSA and dividing by 1.73. CKD is diagnosed based on abnormaliti es of kidney structure or function, present for >3 months, with implication s for health and disease. CKD is classified and staged based on cause, eGFR and albuminuria (quantified as urine albumin to creatinine ratio). An eGFR >60 mL/min/1.73 m2 in the absence of increased urine albumin excretion or structural abnormaliti es does not represent CKD. eGFR CKD Interpretat ion (mL/min/1.7 3 m2) stage >=90 G1 Normal 60-89 G2 Mild decrease 45-59 G3A Mild to moderate decrease 30-44 G3B Moderate to severe decrease 15-29 G4 Severe decrease <15 G5 Kidney failure Ordering Provider: PHONG JENKINS Report Released Date/Time: May 18, 2024 09:37 AM Reporting Lab: [place] [id number] Performing Lab: [address] PSA PROSTATE SPECIFIC AG [MASS/VOLU ME] IN SERUM OR PLASMA 8.384 ng/mL 0 - 3.999 05/18 H Specimen Type: SERUM No comment entered. Ordering Provider: PHONG JENKINS Report Released Date/Time: May 18, 2024 09:37 AM Reporting Lab: [place] [id number] Performing Lab: [id number] CBC/PLT LEUKOCYTES [#/VOLUME] IN BLOOD BY AUTOMATED COUNT 4.7 10*3/uL 5.0 - 10.0 05/18 L Specimen Type: BLOOD No comment entered. Ordering Provider: PHONG JENKINS Report Released Date/Time: May 18, 2024 09:37 AM Reporting Lab: [address] [address] Performing Lab: [place] [id number] [place] [address] CBC/PLT ERYTHROCYT ES [#/VOLUME] IN BLOOD BY AUTOMATED COUNT 4.76 10*6/uL 4.6 - 6.2 05/18 Specimen Type: BLOOD No comment entered. Ordering Provider: PHONG JENKINS Report Released Date/Time: May 18, 2024 09:37 AM Reporting Lab: [address] [address] Performing Lab: [place] [phone] [place] [address] CBC/PLT HEMOGLOBIN [MASS/VOLU ME] IN BLOOD 13.3 g/dL 14.0 - 18.0 05/18 L Specimen Type: BLOOD No comment entered. Ordering Provider: PHONG JENKINS Report Released Date/Time: May 18, 2024 09:37 AM Reporting Lab: [address] [address] Performing Lab: [place] [id number] [place] [address] CBC/PLT HEMATOCRIT [VOLUME FRACTION] OF BLOOD BY AUTOMATED COUNT 42.5 42.0 - 52.0 05/18 Specimen Type: BLOOD No comment entered. Ordering Provider: PHONG JENKINS Report Released Date/Time: May 18, 2024 09:37 AM Reporting Lab: [address] [address] Performing Lab: [phone] [place] [address] CBC/PLT MCV [ENTITIC VOLUME] BY AUTOMATED COUNT 89.3 fL 80.0 - 94.0 05/18 Specimen Type: BLOOD No comment entered. Ordering Provider: PHONG JENKINS Report Released Date/Time: May 18, 2024 09:37 AM Reporting Lab: [address] [address] Performing Lab: [address] [place] [id number] [place] [address] CBC/PLT MCH [ENTITIC MASS] BY AUTOMATED COUNT 27.9 pg 27.0 - 31.0 05/18 Specimen Type: BLOOD No comment entered. Ordering Provider: PHONG JENKINS Report Released Date/Time: May 18, 2024 09:37 AM Reporting Lab: [place] [phone] Performing Lab: [place] [id number] [place] [address] CBC/PLT MCHC [MASS/VOLU ME] BY AUTOMATED COUNT 31.3 g/dL 32.0 - 36.0 05/18 L Specimen Type: BLOOD No comment entered. Ordering Provider: PHONG JENKINS Report Released Date/Time: May 18, 2024 09:37 AM Reporting Lab: [place] [phone] Performing Lab: [address] CBC/PLT PLATELETS [#/VOLUME] IN BLOOD 173 10*3/uL 150 - 450 05/18 Specimen Type: BLOOD No comment entered. Ordering Provider: PHONG JENKINS Report Released Date/Time: May 18, 2024 09:37 AM Reporting Lab: [place] [phone] Performing Lab: [place] [id number] [place] [address] CBC/PLT PLATELET MEAN VOLUME [ENTITIC VOLUME] IN BLOOD 10.2 fL 9.0 - 13.1 05/18 Specimen Type: BLOOD No comment entered. Ordering Provider: PHONG JENKINS Report Released Date/Time: May 18, 2024 09:37 AM Reporting Lab: [address] [address] Performing Lab: [place] [phone] CBC/PLT ERYTHROCYT E DISTRIBUTI ON WIDTH [ENTITIC VOLUME] BY AUTOMATED COUNT 13.6 11.0 - 16.0 05/18 Specimen Type: BLOOD No comment entered. Ordering Provider: PHONG JENKINS Report Released Date/Time: May 18, 2024 09:37 AM Reporting Lab: [address] [address] Performing Lab: [address] [phone] [place] [address] CBC/PLT NUCLEATED ERYTHROCYT ES/100 ERYTHROCYT ES IN BLOOD 0.0 0.0 - 0.0 05/18 Specimen Type: BLOOD No comment entered. Ordering Provider: HPONG JENKINS Report Released Date/Time: May 18, 2024 09:37 AM Reporting Lab: [address] [address] Performing Lab: [place] [phone] [place] [address] PANEL 5 CREATININE [MASS/VOLU ME] IN SERUM OR PLASMA 1.05 mg/dL 0.72 - 1.25 05/18 Specimen Type: PLASMA Comment: Estimated Glomerular Filtration Rate (eGFR) calculated using the 2020 Chronic Kidney Disease-Epi demiology (CKD-EPI) Collaborati on creatinine equation; units of measure are mL/min/1.73 m2. Results are only valid for adults (>=18 years) whose serum creatinine is in a steady state. eGFR calculation s are not valid for patients with acute kidney injury and for patients on dialysis. Creatinine- based estimates of kidney function may also be inaccurate in patients with reduced creatinine generation due to decreased muscle mass (e.g., malnutritio n, severe hypoalbumin emia, sarcopenia, chronic neuromuscul ar disease, amputations , severe heart failure or liver disease) and in patients with increased creatinine generation due to increased muscle mass (e.g., muscle builders, anabolic steroids) or increased dietary intake. As drug clearance is proportiona l to total GFR and not GFR indexed to body surface area (BSA), in individuals with a BSA substantial ly different than 1.73 m2, drug dosing should be based on the reported eGFR value de-indexed from BSA by multiplying by the individual' s BSA and dividing by 1.73. CKD is diagnosed based on abnormaliti es of kidney structure or function, present for >3 months, with implication s for health and disease. CKD is classified and staged based on cause, eGFR and albuminuria (quantified as urine albumin to creatinine ratio). An eGFR >60 mL/min/1.73 m2 in the absence of increased urine albumin excretion or structural abnormaliti es does not represent CKD. eGFR CKD Interpretat ion (mL/min/1.7 3 m2) stage >=90 G1 Normal 60-89 G2 Mild decrease 45-59 G3A Mild to moderate decrease 30-44 G3B Moderate to severe decrease 15-29 G4 Severe decrease <15 G5 Kidney failure Ordering Provider: PHONG JENKINS Report Released Date/Time: May 18, 2024 09:37 AM Reporting Lab: [facility] [address] [address] Performing Lab: [facility] [address] [address] [facility] PANEL 5 UREA NITROGEN [MASS/VOLU ME] IN SERUM OR PLASMA 10 mg/dL 05/18 Specimen Type: PLASMA Comment: Estimated Glomerular Filtration Rate (eGFR) calculated using the 2020 Chronic Kidney Disease-Epi demiology (CKD-EPI) Collaborati on creatinine equation; units of measure are mL/min/1.73 m2. Results are only valid for adults (>=18 years) whose serum creatinine is in a steady state. eGFR calculation s are not valid for patients with acute kidney injury and for patients on dialysis. Creatinine- based estimates of kidney function may also be inaccurate in patients with reduced creatinine generation due to decreased muscle mass (e.g., malnutritio n, severe hypoalbumin emia, sarcopenia, chronic neuromuscul ar disease, amputations , severe heart failure or liver disease) and in patients with increased creatinine generation due to increased muscle mass (e.g., muscle builders, anabolic steroids) or increased dietary intake. As drug clearance is proportiona l to total GFR and not GFR indexed to body surface area (BSA), in individuals with a BSA substantial ly different than 1.73 m2, drug dosing should be based on the reported eGFR value de-indexed from BSA by multiplying by the individual' s BSA and dividing by 1.73. CKD is diagnosed based on abnormaliti es of kidney structure or function, present for >3 months, with implication s for health and disease. CKD is classified and staged based on cause, eGFR and albuminuria (quantified as urine albumin to creatinine ratio). An eGFR >60 mL/min/1.73 m2 in the absence of increased urine albumin excretion or structural abnormaliti es does not represent CKD. eGFR CKD Interpretat ion (mL/min/1.7 3 m2) stage >=90 G1 Normal 60-89 G2 Mild decrease 45-59 G3A Mild to moderate decrease 30-44 G3B Moderate to severe decrease 15-29 G4 Severe decrease <15 G5 Kidney failure Ordering Provider: PHONG JENKINS Report Released Date/Time: May 18, 2024 09:37 AM Reporting Lab: [facility] [address] [address] Performing Lab: [facility] [address] [address] [facility] PANEL 5 GLUCOSE [MASS/VOLU ME] IN SERUM OR PLASMA 119 mg/dL 74 - 100 05/18 H Specimen Type: PLASMA Comment: Estimated Glomerular Filtration Rate (eGFR) calculated using the 2020 Chronic Kidney Disease-Epi demiology (CKD-EPI) Collaborati on creatinine equation; units of measure are mL/min/1.73 m2. Results are only valid for adults (>=18 years) whose serum creatinine is in a steady state. eGFR calculation s are not valid for patients with acute kidney injury and for patients on dialysis. Creatinine- based estimates of kidney function may also be inaccurate in patients with reduced creatinine generation due to decreased muscle mass (e.g., malnutritio n, severe hypoalbumin emia, sarcopenia, chronic neuromuscul ar disease, amputations , severe heart failure or liver disease) and in patients with increased creatinine generation due to increased muscle mass (e.g., muscle builders, anabolic steroids) or increased dietary intake. As drug clearance is proportiona l to total GFR and not GFR indexed to body surface area (BSA), in individuals with a BSA substantial ly different than 1.73 m2, drug dosing should be based on the reported eGFR value de-indexed from BSA by multiplying by the individual' s BSA and dividing by 1.73. CKD is diagnosed based on abnormaliti es of kidney structure or function, present for >3 months, with implication s for health and disease. CKD is classified and staged based on cause, eGFR and albuminuria (quantified as urine albumin to creatinine ratio). An eGFR >60 mL/min/1.73 m2 in the absence of increased urine albumin excretion or structural abnormaliti es does not represent CKD. eGFR CKD Interpretat ion (mL/min/1.7 3 m2) stage >=90 G1 Normal 60-89 G2 Mild decrease 45-59 G3A Mild to moderate decrease 30-44 G3B Moderate to severe decrease 15-29 G4 Severe decrease <15 G5 Kidney failure Ordering Provider: PHONG JENKINS Report Released Date/Time: May 18, 2024 09:37 AM Reporting Lab: [facility] [address] [address] Performing Lab: [facility] [address] [address] [facility] PANEL 5 SODIUM [MOLES/VOL UME] IN SERUM OR PLASMA 142 mmol/L 136 - 145 05/18 Specimen Type: PLASMA Comment: Estimated Glomerular Filtration Rate (eGFR) calculated using the 2020 Chronic Kidney Disease-Epi demiology (CKD-EPI) Collaborati on creatinine equation; units of measure are mL/min/1.73 m2. Results are only valid for adults (>=18 years) whose serum creatinine is in a steady state. eGFR calculation s are not valid for patients with acute kidney injury and for patients on dialysis. Creatinine- based estimates of kidney function may also be inaccurate in patients with reduced creatinine generation due to decreased muscle mass (e.g., malnutritio n, severe hypoalbumin emia, sarcopenia, chronic neuromuscul ar disease, amputations , severe heart failure or liver disease) and in patients with increased creatinine generation due to increased muscle mass (e.g., muscle builders, anabolic steroids) or increased dietary intake. As drug clearance is proportiona l to total GFR and not GFR indexed to body surface area (BSA), in individuals with a BSA substantial ly different than 1.73 m2, drug dosing should be based on the reported eGFR value de-indexed from BSA by multiplying by the individual' s BSA and dividing by 1.73. CKD is diagnosed based on abnormaliti es of kidney structure or function, present for >3 months, with implication s for health and disease. CKD is classified and staged based on cause, eGFR and albuminuria (quantified as urine albumin to creatinine ratio). An eGFR >60 mL/min/1.73 m2 in the absence of increased urine albumin excretion or structural abnormaliti es does not represent CKD. eGFR CKD Interpretat ion (mL/min/1.7 3 m2) stage >=90 G1 Normal 60-89 G2 Mild decrease 45-59 G3A Mild to moderate decrease 30-44 G3B Moderate to severe decrease 15-29 G4 Severe decrease <15 G5 Kidney failure Ordering Provider: PHONG JENKINS Report Released Date/Time: May 18, 2024 09:37 AM Reporting Lab: [facility] [address] [address] Performing Lab: [facility] [address] [address] [facility] PANEL 5 POTASSIUM [MOLES/VOL UME] IN SERUM OR PLASMA 4.6 mmol/L 3.5 - 5.1 05/18 Specimen Type: PLASMA Comment: Estimated Glomerular Filtration Rate (eGFR) calculated using the 2020 Chronic Kidney Disease-Epi demiology (CKD-EPI) Collaborati on creatinine equation; units of measure are mL/min/1.73 m2. Results are only valid for adults (>=18 years) whose serum creatinine is in a steady state. eGFR calculation s are not valid for patients with acute kidney injury and for patients on dialysis. Creatinine- based estimates of kidney function may also be inaccurate in patients with reduced creatinine generation due to decreased muscle mass (e.g., malnutritio n, severe hypoalbumin emia, sarcopenia, chronic neuromuscul ar disease, amputations , severe heart failure or liver disease) and in patients with increased creatinine generation due to increased muscle mass (e.g., muscle builders, anabolic steroids) or increased dietary intake. As drug clearance is proportiona l to total GFR and not GFR indexed to body surface area (BSA), in individuals with a BSA substantial ly different than 1.73 m2, drug dosing should be based on the reported eGFR value de-indexed from BSA by multiplying by the individual' s BSA and dividing by 1.73. CKD is diagnosed based on abnormaliti es of kidney structure or function, present for >3 months, with implication s for health and disease. CKD is classified and staged based on cause, eGFR and albuminuria (quantified as urine albumin to creatinine ratio). An eGFR >60 mL/min/1.73 m2 in the absence of increased urine albumin excretion or structural abnormaliti es does not represent CKD. eGFR CKD Interpretat ion (mL/min/1.7 3 m2) stage >=90 G1 Normal 60-89 G2 Mild decrease 45-59 G3A Mild to moderate decrease 30-44 G3B Moderate to severe decrease 15-29 G4 Severe decrease <15 G5 Kidney failure Ordering Provider: PHONG JENKINS Report Released Date/Time: May 18, 2024 09:37 AM Reporting Lab: [facility] [address] [address] Performing Lab: [facility] [address] [address] [facility] PANEL 5 CHLORIDE [MOLES/VOL UME] IN SERUM OR PLASMA 110 mmol/L 98 - 107 05/18 H Specimen Type: PLASMA Comment: Estimated Glomerular Filtration Rate (eGFR) calculated using the 2020 Chronic Kidney Disease-Epi demiology (CKD-EPI) Collaborati on creatinine equation; units of measure are mL/min/1.73 m2. Results are only valid for adults (>=18 years) whose serum creatinine is in a steady state. eGFR calculation s are not valid for patients with acute kidney injury and for patients on dialysis. Creatinine- based estimates of kidney function may also be inaccurate in patients with reduced creatinine generation due to decreased muscle mass (e.g., malnutritio n, severe hypoalbumin emia, sarcopenia, chronic neuromuscul ar disease, amputations , severe heart failure or liver disease) and in patients with increased creatinine generation due to increased muscle mass (e.g., muscle builders, anabolic steroids) or increased dietary intake. As drug clearance is proportiona l to total GFR and not GFR indexed to body surface area (BSA), in individuals with a BSA substantial ly different than 1.73 m2, drug dosing should be based on the reported eGFR value de-indexed from BSA by multiplying by the individual' s BSA and dividing by 1.73. CKD is diagnosed based on abnormaliti es of kidney structure or function, present for >3 months, with implication s for health and disease. CKD is classified and staged based on cause, eGFR and albuminuria (quantified as urine albumin to creatinine ratio). An eGFR >60 mL/min/1.73 m2 in the absence of increased urine albumin excretion or structural abnormaliti es does not represent CKD. eGFR CKD Interpretat ion (mL/min/1.7 3 m2) stage >=90 G1 Normal 60-89 G2 Mild decrease 45-59 G3A Mild to moderate decrease 30-44 G3B Moderate to severe decrease 15-29 G4 Severe decrease <15 G5 Kidney failure Ordering Provider: PHONG JENKINS Report Released Date/Time: May 18, 2024 09:37 AM Reporting Lab: [facility] [address] [address] Performing Lab: [facility] [address] [address] [facility] PANEL 5 CARBON DIOXIDE, TOTAL [MOLES/VOL UME] IN SERUM OR PLASMA 23 mmol/L 22 - 29 05/18 Specimen Type: PLASMA Comment: Estimated Glomerular Filtration Rate (eGFR) calculated using the 2020 Chronic Kidney Disease-Epi demiology (CKD-EPI) Collaborati on creatinine equation; units of measure are mL/min/1.73 m2. Results are only valid for adults (>=18 years) whose serum creatinine is in a steady state. eGFR calculation s are not valid for patients with acute kidney injury and for patients on dialysis. Creatinine- based estimates of kidney function may also be inaccurate in patients with reduced creatinine generation due to decreased muscle mass (e.g., malnutritio n, severe hypoalbumin emia, sarcopenia, chronic neuromuscul ar disease, amputations , severe heart failure or liver disease) and in patients with increased creatinine generation due to increased muscle mass (e.g., muscle builders, anabolic steroids) or increased dietary intake. As drug clearance is proportiona l to total GFR and not GFR indexed to body surface area (BSA), in individuals with a BSA substantial ly different than 1.73 m2, drug dosing should be based on the reported eGFR value de-indexed from BSA by multiplying by the individual' s BSA and dividing by 1.73. CKD is diagnosed based on abnormaliti es of kidney structure or function, present for >3 months, with implication s for health and disease. CKD is classified and staged based on cause, eGFR and albuminuria (quantified as urine albumin to creatinine ratio). An eGFR >60 mL/min/1.73 m2 in the absence of increased urine albumin excretion or structural abnormaliti es does not represent CKD. eGFR CKD Interpretat ion (mL/min/1.7 3 m2) stage >=90 G1 Normal 60-89 G2 Mild decrease 45-59 G3A Mild to moderate decrease 30-44 G3B Moderate to severe decrease 15-29 G4 Severe decrease <15 G5 Kidney failure Ordering Provider: PHONG JENKINS Report Released Date/Time: May 18, 2024 09:37 AM Reporting Lab: [facility] [address] [address] Performing Lab: [facility] [address] [address] [facility] PANEL 5 CALCIUM [MASS/VOLU ME] IN SERUM OR PLASMA 9.4 mg/dL 8.4 - 10.2 09/25 /2024 Specimen Type: PLASMA Comment: Estimated Glomerular Filtration Rate (eGFR) calculated using the 2020 Chronic Kidney Disease-Epi demiology (CKD-EPI) Collaborati on creatinine equation; units of measure are mL/min/1.73 m2. Results are only valid for adults (>=18 years) whose serum creatinine is in a steady state. eGFR calculation s are not valid for patients with acute kidney injury and for patients on dialysis. Creatinine- based estimates of kidney function may also be inaccurate in patients with reduced creatinine generation due to decreased muscle mass (e.g., malnutritio n, severe hypoalbumin emia, sarcopenia, chronic neuromuscul ar disease, amputations , severe heart failure or liver disease) and in patients with increased creatinine generation due to increased muscle mass (e.g., muscle builders, anabolic steroids) or increased dietary intake. As drug clearance is proportiona l to total GFR and not GFR indexed to body surface area (BSA), in individuals with a BSA substantial ly different than 1.73 m2, drug dosing should be based on the reported eGFR value de-indexed from BSA by multiplying by the individual' s BSA and dividing by 1.73. CKD is diagnosed based on abnormaliti es of kidney structure or function, present for >3 months, with implication s for health and disease. CKD is classified and staged based on cause, eGFR and albuminuria (quantified as urine albumin to creatinine ratio). An eGFR >60 mL/min/1.73 m2 in the absence of increased urine albumin excretion or structural abnormaliti es does not represent CKD. eGFR CKD Interpretat ion (mL/min/1.7 3 m2) stage >=90 G1 Normal 60-89 G2 Mild decrease 45-59 G3A Mild to moderate decrease 30-44 G3B Moderate to severe decrease 15-29 G4 Severe decrease <15 G5 Kidney failure Ordering Provider: PHONG JENKINS Report Released Date/Time: May 18, 2024 09:37 AM Reporting Lab: [facility] [address] [address] Performing Lab: [facility] [address] [address] [facility] PANEL 5 PROTEIN [MASS/VOLU ME] IN SERUM OR PLASMA 7.0 g/dL 6.4 - 8.3 05/18 Specimen Type: PLASMA Comment: Estimated Glomerular Filtration Rate (eGFR) calculated using the 2020 Chronic Kidney Disease-Epi demiology (CKD-EPI) Collaborati on creatinine equation; units of measure are mL/min/1.73 m2. Results are only valid for adults (>=18 years) whose serum creatinine is in a steady state. eGFR calculation s are not valid for patients with acute kidney injury and for patients on dialysis. Creatinine- based estimates of kidney function may also be inaccurate in patients with reduced creatinine generation due to decreased muscle mass (e.g., malnutritio n, severe hypoalbumin emia, sarcopenia, chronic neuromuscul ar disease, amputations , severe heart failure or liver disease) and in patients with increased creatinine generation due to increased muscle mass (e.g., muscle builders, anabolic steroids) or increased dietary intake. As drug clearance is proportiona l to total GFR and not GFR indexed to body surface area (BSA), in individuals with a BSA substantial ly different than 1.73 m2, drug dosing should be based on the reported eGFR value de-indexed from BSA by multiplying by the individual' s BSA and dividing by 1.73. CKD is diagnosed based on abnormaliti es of kidney structure or function, present for >3 months, with implication s for health and disease. CKD is classified and staged based on cause, eGFR and albuminuria (quantified as urine albumin to creatinine ratio). An eGFR >60 mL/min/1.73 m2 in the absence of increased urine albumin excretion or structural abnormaliti es does not represent CKD. eGFR CKD Interpretat ion (mL/min/1.7 3 m2) stage >=90 G1 Normal 60-89 G2 Mild decrease 45-59 G3A Mild to moderate decrease 30-44 G3B Moderate to severe decrease 15-29 G4 Severe decrease <15 G5 Kidney failure Ordering Provider: PHONG JENKINS Report Released Date/Time: May 18, 2024 09:37 AM Reporting Lab: [facility] [address] [address] Performing Lab: [facility] [address] [address] [facility] PANEL 5 ALBUMIN [MASS/VOLU ME] IN SERUM OR PLASMA 4.1 g/dL 3.5 - 5.2 05/18 Specimen Type: PLASMA Comment: Estimated Glomerular Filtration Rate (eGFR) calculated using the 2020 Chronic Kidney Disease-Epi demiology (CKD-EPI) Collaborati on creatinine equation; units of measure are mL/min/1.73 m2. Results are only valid for adults (>=18 years) whose serum creatinine is in a steady state. eGFR calculation s are not valid for patients with acute kidney injury and for patients on dialysis. Creatinine- based estimates of kidney function may also be inaccurate in patients with reduced creatinine generation due to decreased muscle mass (e.g., malnutritio n, severe hypoalbumin emia, sarcopenia, chronic neuromuscul ar disease, amputations , severe heart failure or liver disease) and in patients with increased creatinine generation due to increased muscle mass (e.g., muscle builders, anabolic steroids) or increased dietary intake. As drug clearance is proportiona l to total GFR and not GFR indexed to body surface area (BSA), in individuals with a BSA substantial ly different than 1.73 m2, drug dosing should be based on the reported eGFR value de-indexed from BSA by multiplying by the individual' s BSA and dividing by 1.73. CKD is diagnosed based on abnormaliti es of kidney structure or function, present for >3 months, with implication s for health and disease. CKD is classified and staged based on cause, eGFR and albuminuria (quantified as urine albumin to creatinine ratio). An eGFR >60 mL/min/1.73 m2 in the absence of increased urine albumin excretion or structural abnormaliti es does not represent CKD. eGFR CKD Interpretat ion (mL/min/1.7 3 m2) stage >=90 G1 Normal 60-89 G2 Mild decrease 45-59 G3A Mild to moderate decrease 30-44 G3B Moderate to severe decrease 15-29 G4 Severe decrease <15 G5 Kidney failure Ordering Provider: PHONG JENKINS Report Released Date/Time: May 18, 2024 09:37 AM Reporting Lab: [facility] [address] [address] Performing Lab: [facility] [address] [address] [facility] PANEL 5 BILIRUBIN. TOTAL [MASS/VOLU ME] IN SERUM OR PLASMA 1.0 mg/dL 0.2 - 1.2 05/18 Specimen Type: PLASMA Comment: Estimated Glomerular Filtration Rate (eGFR) calculated using the 2020 Chronic Kidney Disease-Epi demiology (CKD-EPI) Collaborati on creatinine equation; units of measure are mL/min/1.73 m2. Results are only valid for adults (>=18 years) whose serum creatinine is in a steady state. eGFR calculation s are not valid for patients with acute kidney injury and for patients on dialysis. Creatinine- based estimates of kidney function may also be inaccurate in patients with reduced creatinine generation due to decreased muscle mass (e.g., malnutritio n, severe hypoalbumin emia, sarcopenia, chronic neuromuscul ar disease, amputations , severe heart failure or liver disease) and in patients with increased creatinine generation due to increased muscle mass (e.g., muscle builders, anabolic steroids) or increased dietary intake. As drug clearance is proportiona l to total GFR and not GFR indexed to body surface area (BSA), in individuals with a BSA substantial ly different than 1.73 m2, drug dosing should be based on the reported eGFR value de-indexed from BSA by multiplying by the individual' s BSA and dividing by 1.73. CKD is diagnosed based on abnormaliti es of kidney structure or function, present for >3 months, with implication s for health and disease. CKD is classified and staged based on cause, eGFR and albuminuria (quantified as urine albumin to creatinine ratio). An eGFR >60 mL/min/1.73 m2 in the absence of increased urine albumin excretion or structural abnormaliti es does not represent CKD. eGFR CKD Interpretat ion (mL/min/1.7 3 m2) stage >=90 G1 Normal 60-89 G2 Mild decrease 45-59 G3A Mild to moderate decrease 30-44 G3B Moderate to severe decrease 15-29 G4 Severe decrease <15 G5 Kidney failure Ordering Provider: PHONG JENKINS Report Released Date/Time: May 18, 2024 09:37 AM Reporting Lab: [address] [address] Performing Lab: [address] [address] [facility] PANEL 5 ASPARTATE AMINOTRANS FERASE [ENZYMATIC ACTIVITY/V OLUME] IN SERUM OR PLASMA 14 U/L 5 - 34 05/18 Specimen Type: PLASMA Comment: Estimated Glomerular Filtration Rate (eGFR) calculated using the 2020 Chronic Kidney Disease-Epi demiology (CKD-EPI) Collaborati on creatinine equation; units of measure are mL/min/1.73 m2. Results are only valid for adults (>=18 years) whose serum creatinine is in a steady state. eGFR calculation s are not valid for patients with acute kidney injury and for patients on dialysis. Creatinine- based estimates of kidney function may also be inaccurate in patients with reduced creatinine generation due to decreased muscle mass (e.g., malnutritio n, severe hypoalbumin emia, sarcopenia, chronic neuromuscul ar disease, amputations , severe heart failure or liver disease) and in patients with increased creatinine generation due to increased muscle mass (e.g., muscle builders, anabolic steroids) or increased dietary intake. As drug clearance is proportiona l to total GFR and not GFR indexed to body surface area (BSA), in individuals with a BSA substantial ly different than 1.73 m2, drug dosing should be based on the reported eGFR value de-indexed from BSA by multiplying by the individual' s BSA and dividing by 1.73. CKD is diagnosed based on abnormaliti es of kidney structure or function, present for >3 months, with implication s for health and disease. CKD is classified and staged based on cause, eGFR and albuminuria (quantified as urine albumin to creatinine ratio). An eGFR >60 mL/min/1.73 m2 in the absence of increased urine albumin excretion or structural abnormaliti es does not represent CKD. eGFR CKD Interpretat ion (mL/min/1.7 3 m2) stage >=90 G1 Normal 60-89 G2 Mild decrease 45-59 G3A Mild to moderate decrease 30-44 G3B Moderate to severe decrease 15-29 G4 Severe decrease <15 G5 Kidney failure Ordering Provider: PHONG JENKINS Report Released Date/Time: May 18, 2024 09:37 AM Reporting Lab: [facility] [address] [address] Performing Lab: [facility] [address] [address] [facility] PANEL 5 ALANINE AMINOTRANS FERASE [ENZYMATIC ACTIVITY/V OLUME] IN SERUM OR PLASMA 20 U/L 0 - 55 05/18 Specimen Type: PLASMA Comment: Estimated Glomerular Filtration Rate (eGFR) calculated using the 2020 Chronic Kidney Disease-Epi demiology (CKD-EPI) Collaborati on creatinine equation; units of measure are mL/min/1.73 m2. Results are only valid for adults (>=18 years) whose serum creatinine is in a steady state. eGFR calculation s are not valid for patients with acute kidney injury and for patients on dialysis. Creatinine- based estimates of kidney function may also be inaccurate in patients with reduced creatinine generation due to decreased muscle mass (e.g., malnutritio n, severe hypoalbumin emia, sarcopenia, chronic neuromuscul ar disease, amputations , severe heart failure or liver disease) and in patients with increased creatinine generation due to increased muscle mass (e.g., muscle builders, anabolic steroids) or increased dietary intake. As drug clearance is proportiona l to total GFR and not GFR indexed to body surface area (BSA), in individuals with a BSA substantial ly different than 1.73 m2, drug dosing should be based on the reported eGFR value de-indexed from BSA by multiplying by the individual' s BSA and dividing by 1.73. CKD is diagnosed based on abnormaliti es of kidney structure or function, present for >3 months, with implication s for health and disease. CKD is classified and staged based on cause, eGFR and albuminuria (quantified as urine albumin to creatinine ratio). An eGFR >60 mL/min/1.73 m2 in the absence of increased urine albumin excretion or structural abnormaliti es does not represent CKD. eGFR CKD Interpretat ion (mL/min/1.7 3 m2) stage >=90 G1 Normal 60-89 G2 Mild decrease 45-59 G3A Mild to moderate decrease 30-44 G3B Moderate to severe decrease 15-29 G4 Severe decrease <15 G5 Kidney failure Ordering Provider: PHONG JENKINS Report Released Date/Time: May 18, 2024 09:37 AM Reporting Lab: [facility] [address] [address] Performing Lab: [facility] [address] [address] [facility] PANEL 5 ANION GAP 3 IN SERUM OR PLASMA 9 meq/L 3 - 19 05/18 Specimen Type: PLASMA Comment: Estimated Glomerular Filtration Rate (eGFR) calculated using the 2020 Chronic Kidney Disease-Epi demiology (CKD-EPI) Collaborati on creatinine equation; units of measure are mL/min/1.73 m2. Results are only valid for adults (>=18 years) whose serum creatinine is in a steady state. eGFR calculation s are not valid for patients with acute kidney injury and for patients on dialysis. Creatinine- based estimates of kidney function may also be inaccurate in patients with reduced creatinine generation due to decreased muscle mass (e.g., malnutritio n, severe hypoalbumin emia, sarcopenia, chronic neuromuscul ar disease, amputations , severe heart failure or liver disease) and in patients with increased creatinine generation due to increased muscle mass (e.g., muscle builders, anabolic steroids) or increased dietary intake. As drug clearance is proportiona l to total GFR and not GFR indexed to body surface area (BSA), in individuals with a BSA substantial ly different than 1.73 m2, drug dosing should be based on the reported eGFR value de-indexed from BSA by multiplying by the individual' s BSA and dividing by 1.73. CKD is diagnosed based on abnormaliti es of kidney structure or function, present for >3 months, with implication s for health and disease. CKD is classified and staged based on cause, eGFR and albuminuria (quantified as urine albumin to creatinine ratio). An eGFR >60 mL/min/1.73 m2 in the absence of increased urine albumin excretion or structural abnormaliti es does not represent CKD. eGFR CKD Interpretat ion (mL/min/1.7 3 m2) stage >=90 G1 Normal 60-89 G2 Mild decrease 45-59 G3A Mild to moderate decrease 30-44 G3B Moderate to severe decrease 15-29 G4 Severe decrease <15 G5 Kidney failure Ordering Provider: PHONG JENKINS Report Released Date/Time: May 18, 2024 09:37 AM Reporting Lab: [facility] [address] [address] Performing Lab: [facility] [address] [address] [facility] PANEL 5 ALKALINE PHOSPHATAS E [ENZYMATIC ACTIVITY/V OLUME] IN SERUM OR PLASMA 82 U/L 40 - 150 05/18 Specimen Type: PLASMA Comment: Estimated Glomerular Filtration Rate (eGFR) calculated using the 2020 Chronic Kidney Disease-Epi demiology (CKD-EPI) Collaborati on creatinine equation; units of measure are mL/min/1.73 m2. Results are only valid for adults (>=18 years) whose serum creatinine is in a steady state. eGFR calculation s are not valid for patients with acute kidney injury and for patients on dialysis. Creatinine- based estimates of kidney function may also be inaccurate in patients with reduced creatinine generation due to decreased muscle mass (e.g., malnutritio n, severe hypoalbumin emia, sarcopenia, chronic neuromuscul ar disease, amputations , severe heart failure or liver disease) and in patients with increased creatinine generation due to increased muscle mass (e.g., muscle builders, anabolic steroids) or increased dietary intake. As drug clearance is proportiona l to total GFR and not GFR indexed to body surface area (BSA), in individuals with a BSA substantial ly different than 1.73 m2, drug dosing should be based on the reported eGFR value de-indexed from BSA by multiplying by the individual' s BSA and dividing by 1.73. CKD is diagnosed based on abnormaliti es of kidney structure or function, present for >3 months, with implication s for health and disease. CKD is classified and staged based on cause, eGFR and albuminuria (quantified as urine albumin to creatinine ratio). An eGFR >60 mL/min/1.73 m2 in the absence of increased urine albumin excretion or structural abnormaliti es does not represent CKD. eGFR CKD Interpretat ion (mL/min/1.7 3 m2) stage >=90 G1 Normal 60-89 G2 Mild decrease 45-59 G3A Mild to moderate decrease 30-44 G3B Moderate to severe decrease 15-29 G4 Severe decrease <15 G5 Kidney failure Ordering Provider: PHONG JENKINS Report Released Date/Time: May 18, 2024 09:37 AM Reporting Lab: [facility] [address] [address] Performing Lab: [facility] [address] [address] [facility] PANEL 5 GLOMERULAR FILTRATION RATE/1.73 SQ M.PREDICTE D [VOLUME RATE/AREA] IN SERUM, PLASMA OR BLOOD BY CREATININE -BASED FORMULA (CKD-EPI 2020) 74 05/18 Specimen Type: PLASMA Comment: Estimated Glomerular Filtration Rate (eGFR) calculated using the 2020 Chronic Kidney Disease-Epi demiology (CKD-EPI) Collaborati on creatinine equation; units of measure are mL/min/1.73 m2. Results are only valid for adults (>=18 years) whose serum creatinine is in a steady state. eGFR calculation s are not valid for patients with acute kidney injury and for patients on dialysis. Creatinine- based estimates of kidney function may also be inaccurate in patients with reduced creatinine generation due to decreased muscle mass (e.g., malnutritio n, severe hypoalbumin emia, sarcopenia, chronic neuromuscul ar disease, amputations , severe heart failure or liver disease) and in patients with increased creatinine generation due to increased muscle mass (e.g., muscle builders, anabolic steroids) or increased dietary intake. As drug clearance is proportiona l to total GFR and not GFR indexed to body surface area (BSA), in individuals with a BSA substantial ly different than 1.73 m2, drug dosing should be based on the reported eGFR value de-indexed from BSA by multiplying by the individual' s BSA and dividing by 1.73. CKD is diagnosed based on abnormaliti es of kidney structure or function, present for >3 months, with implication s for health and disease. CKD is classified and staged based on cause, eGFR and albuminuria (quantified as urine albumin to creatinine ratio). An eGFR >60 mL/min/1.73 m2 in the absence of increased urine albumin excretion or structural abnormaliti es does not represent CKD. eGFR CKD Interpretat ion (mL/min/1.7 3 m2) stage >=90 G1 Normal 60-89 G2 Mild decrease 45-59 G3A Mild to moderate decrease 30-44 G3B Moderate to severe decrease 15-29 G4 Severe decrease <15 G5 Kidney failure Ordering Provider: PHONG JENKINS Report Released Date/Time: May 18, 2024 09:37 AM Reporting Lab: [id number] [address] Performing Lab: [address] [address] [facility] MICROALB UMIN/CRE AT RATIO CREATININE [MASS/VOLU ME] IN URINE 49.2 mg/dL 11/01 Specimen Type: URINE No comment entered. Ordering Provider: PHONG JENKINS Report Released Date/Time: Nov 02, 2023 09:25 AM Reporting Lab: [id number] [address] Performing Lab: [address] [address] [facility] MICROALB UMIN/CRE AT RATIO MICROALBUM IN [MASS/VOLU ME] IN URINE 30.0 mg/L 0.0 - 30.0 11/01 Specimen Type: URINE No comment entered. Ordering Provider: PHONG JENKINS Report Released Date/Time: Nov 02, 2023 09:25 AM Reporting Lab: [address] [address] Performing Lab: [address] [phone] [place] [address] MICROALB UMIN/CRE AT RATIO MICROALBUM IN/CREATIN INE [MASS RATIO] IN URINE 61.0 ug/mg{cr eat} 11/01 Specimen Type: URINE No comment entered. Ordering Provider: PHONG JENKINS Report Released Date/Time: Nov 02, 2023 09:25 AM Reporting Lab: [address] [address] Performing Lab: [address] [phone] [place] [address] URINALYS IS COLOR OF URINE Light Yellow 11/01 Specimen Type: URINE Comment: Microscopic not indicated Ordering Provider: PHONG JENKINS Report Released Date/Time: Nov 02, 2023 09:25 AM Reporting Lab: [address] [address] Performing Lab: [address] [address] [facility] URINALYS IS APPEARANCE OF URINE Clear 11/01 Specimen Type: URINE Comment: Microscopic not indicated Ordering Provider: PHONG JENKINS Report Released Date/Time: Nov 02, 2023 09:25 AM Reporting Lab: [address] [address] Performing Lab: [address] [address] [facility] URINALYS IS UROBILINOG EN [MASS/VOLU ME] IN URINE BY TEST STRIP Normalmg /dL 11/01 Specimen Type: URINE Comment: Microscopic not indicated Ordering Provider: PHONG JENKINS Report Released Date/Time: Nov 02, 2023 09:25 AM Reporting Lab: [id number] [address] Performing Lab: [address] [address] [facility] URINALYS IS HEMOGLOBIN [PRESENCE] IN URINE BY TEST STRIP Negative 11/01 Specimen Type: URINE Comment: Microscopic not indicated Ordering Provider: PHONG JENKINS Report Released Date/Time: Nov 02, 2023 09:25 AM Reporting Lab: [address] [address] Performing Lab: [address] [address] [facility] URINALYS IS BILIRUBIN. TOTAL [PRESENCE] IN URINE BY TEST STRIP Negative 11/01 Specimen Type: URINE Comment: Microscopic not indicated Ordering Provider: PHONG JENKINS Report Released Date/Time: Nov 02, 2023 09:25 AM Reporting Lab: [address] [address] Performing Lab: [address] [address] [facility] URINALYS IS KETONES [MASS/VOLU ME] IN URINE BY TEST STRIP Negative mg/dL 11/01 Specimen Type: URINE Comment: Microscopic not indicated Ordering Provider: PHONG JENKINS Report Released Date/Time: Nov 02, 2023 09:25 AM Reporting Lab: [address] [address] Performing Lab: [address] [address] [facility] URINALYS IS PROTEIN [MASS/VOLU ME] IN URINE BY TEST STRIP Negative mg/dL 11/01 Specimen Type: URINE Comment: Microscopic not indicated Ordering Provider: PHONG JENKINS Report Released Date/Time: Nov 02, 2023 09:25 AM Reporting Lab: [address] [address] Performing Lab: [address] [address] [facility] URINALYS IS PH OF URINE BY TEST STRIP 5.5 4.5 - 8.0 11/01 Specimen Type: URINE Comment: Microscopic not indicated Ordering Provider: PHONG JENKINS Report Released Date/Time: Nov 02, 2023 09:25 AM Reporting Lab: [address] [address] Performing Lab: [address] [address] [facility] URINALYS IS NITRITE [PRESENCE] IN URINE BY TEST STRIP Negative 11/01 Specimen Type: URINE Comment: Microscopic not indicated Ordering Provider: PHONG JENKINS Report Released Date/Time: Nov 02, 2023 09:25 AM Reporting Lab: [address] [address] Performing Lab: [address] [address] [facility] URINALYS IS LEUKOCYTE ESTERASE [PRESENCE] IN URINE BY TEST STRIP Negative 11/01 Specimen Type: URINE Comment: Microscopic not indicated Ordering Provider: PHONG JENKINS Report Released Date/Time: Nov 02, 2023 09:25 AM Reporting Lab: [address] [address] Performing Lab: [address] [address] [facility] URINALYS IS SPECIFIC GRAVITY OF URINE 1.010 1.005 - 1.030 11/01 Specimen Type: URINE Comment: Microscopic not indicated Ordering Provider: PHONG JENKINS Report Released Date/Time: Nov 02, 2023 09:25 AM Reporting Lab: [address] [address] Performing Lab: [address] [address] [facility] URINALYS IS GLUCOSE [MASS/VOLU ME] IN URINE BY TEST STRIP Negative mg/dL 11/01 Specimen Type: URINE Comment: Microscopic not indicated Ordering Provider: PHONG JENKINS Report Released Date/Time: Nov 02, 2023 09:25 AM Reporting Lab: [address] [address] Performing Lab: [address] [address] [facility] PSA PROSTATE SPECIFIC AG [MASS/VOLU ME] IN SERUM OR PLASMA 3.887 ng/mL 0 - 3.999 11/01 Specimen Type: SERUM Comment: The National Institutes of Health (NIH) recommendat ions state: <12 ng/mL - Deficient 20 - 50 ng/mL - Optimal Levels - adequate for most people. >50 ng/mL - Increased risk of hypercalciu edgardo/other health problems - clinical correlation is required. These reference ranges represent clinical decision values rather than population- based reference values. Ordering Provider: PHONG JENKINS Report Released Date/Time: Nov 02, 2023 09:25 AM Reporting Lab: [address] [address] Performing Lab: [address] [phone] [place] [address] GLYCOHEM OGLOBIN HEMOGLOBIN A1C/HEMOGL OBIN.TOTAL IN BLOOD BY HPLC 5.6 4.4 - 6.4 11/01 Specimen Type: BLOOD Comment: [place] guidelines for A1c interpretat ion: Glycemic control targets are based on Shared Decision Making between clinicians and patients. Criteria used to establish an A1c target recommendat ion can be found at https://www .ne.gov/moe lityandpati entsafety/ and include the use of result accuracy and precision(C V) of the A1c tests clinicians utilize at their own sites of practice. Values obtained from A1C measurement s can vary. For typical A1C assays, a reported value of 7.0 could actually be between 6.72 and 7.28 if measured by a reference method. A reported value of 9.0 could actually be between 8.73 and 9.27. Ref: https://ngs p.org/CAPda ta.asp. The in-house [employer] D-100 analyzer has a historical CV <= 2%. Contact the laboratory for further performance characteris tics of this assay. Ordering Provider: PHONG JENKINS Report Released Date/Time: Nov 02, 2023 09:25 AM Reporting Lab: [address] [address] Performing Lab: [address] [address] [facility] Vital Signs Combined list of inpatient and outpatient Vital Signs from Department of Defense and Veterans Affairs, ranging from 12 months to all on record, depending upon the facility. Vital Sign Value Date Comments Source SYSTOLIC BLOOD PRESSURE 123 05/18/2024 08:50:13 [place] [facility] DIASTOLIC BLOOD PRESSURE 69 05/18/2024 08:50:13 [place] [facility] PULSE OXIMETRY 95 05/18/2024 08:50:13 [place] [facility] WEIGHT 241.8 05/18/2024 08:50:13 [place] [facility] BMI 34 kg/m2 05/18/2024 08:50:13 [place] [facility] PAIN 2 05/18/2024 08:50:13 [place] [facility] HEIGHT 71 05/18/2024 08:50:13 [place] [facility] TEMPERATURE 97.8 05/18/2024 08:50:13 [place] [facility] PULSE 65 05/18/2024 08:50:13 [place] [facility] SYSTOLIC BLOOD PRESSURE 121 02/17/2024 10:44:47 [place] [facility] DIASTOLIC BLOOD PRESSURE 69 02/17/2024 10:44:47 [place] [facility] PULSE OXIMETRY 94 02/17/2024 10:44:47 [place] [facility] PULSE 74 02/17/2024 10:44:47 [place] [facility] RESPIRATION 18 02/17/2024 10:44:47 [place] [facility] SYSTOLIC BLOOD PRESSURE 145 01/11/2024 08:21:00 [place] [facility] DIASTOLIC BLOOD PRESSURE 74 01/11/2024 08:21:00 [place] [facility] PULSE OXIMETRY 94 01/11/2024 08:21:00 [place] [facility] WEIGHT 253.0 01/11/2024 08:21:00 [place] [facility] BMI 35 kg/m2 01/11/2024 08:21:00 [place] [facility] PAIN 0 01/11/2024 08:21:00 [place] [facility] PULSE 71 01/11/2024 [facility] Encounters Combined list of: 1) Encounters from Department of [facility] facilities going backup to the last 18 months, not all [place] inpatient encounters are included; 2) Encounters from the Department of [facility] facilities going backup to 280 months. Location Location Details Encounter Type Encounter Number Reason For Visit Attending Provider ADM Date DC Date Status Disposition Source [facility] Outpatient Encounter [id number] 06/19 [place] [facility] Outpatient Encounter [id number] 08/11 [place] [facility] Outpatient Encounter [id number] 08/19 [place] En[facility] [id number] 11/01 [place] [facility] OFFICE O/P EST MOD 30 MIN [id number] Diagnos is: ICD-10- CM I10 Essenti al (primar y) hyperte nsion NANCY JENKINS A 11/01 [place] [facility] COMPRE OPH EXAM EST PT 1/> [id number] Diagnos is: ICD-10- CM H25.813 Combine d forms of age-rel ated catarac t, bilater al BRIE DIXON Y 11/01 [place] [facility] Outpatient Encounter [id number] 11/05 [place] [facility] Outpatient Encounter [id number] 11/09 [place] En[facility] [id number] 11/14 [place] [facility] Outpatient Encounter [id number] 11/15 [place] [facility] Outpatient Encounter [id number] 11/23 [place] [facility] Outpatient Encounter [id number] 11/28 [place] [facility] Outpatient Encounter [id number] 11/30 [place] [facility] Outpatient Encounter [id number] 11/30 [place] OFFICE O/P NEW LOW 30 MIN [id number] Diagnos is: ICD-10- CM 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 , unspeci BEVERLY Gudino 01/10 [place] Outpatient Encounter [id number] 02/07 [place] [facility] OFF/OP EST MAY X REQ PHY/QHP [id number] Diagnos is: ICD-10- CM 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 Aline Merino 02/16 [place] [facility] Outpatient Encounter [id number] 02/22 [place] [facility] Outpatient Encounter [id number] 03/30 [place] OFFICE O/P EST MOD 30 MIN [id number] Diagnos is: ICD-10- CM I10 Essenti al (primar y) hyperte nsion MORENAALBANANCY A 05/18 [place] [facility] Outpatient Encounter [id number] 05/21 [place] [facility] Outpatient Encounter [id number] 09/27 [place] EST PT 1/ [id number] Diagnos is: ICD-10- CM E11.9 Type 2 diabete s mellitu s without complic ations BRIE DIXON Y 11/02 [place] [facility] Outpatient Encounter [id number] 11/07 [place] [facility] Outpatient Encounter [id number] 11/14 [place] [facility] Outpatient Encounter [id number] 11/21 [place] [facility] Outpatient Encounter [id number] 11/22 [place] [facility] Outpatient Encounter [id number] 11/29 [place] [facility] Social History Combined list of available smoking, tobacco, and other social history from Department of Defense and Veterans Affairs facilities. 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 12/26/2019 [facility] 10/19/2018 [facility] History of tobacco use V9 CURRENT TOBACCO USER 09/25/2017 [facility] History of tobacco use V9 CURRENT TOBACCO USER 10/14/2016 [facility] History of tobacco use V9 CURRENT TOBACCO USER 10/03/2015 [facility] History of tobacco use V9 CURRENT TOBACCO USER 08/30/2014 [facility] History of tobacco use V9 QUIT TOBACCO >7 YEARS AGO 07/18/2013 [facility] History of tobacco use V9 CURRENT TOBACCO USER 07/01/2012 [facility] History of tobacco use V9 CURRENT TOBACCO USER 2011 [facility] History of tobacco use V9 CURRENT TOBACCO USER 06/12/2011 [facility] History of tobacco use V9 CURRENT TOBACCO USER 09/06/2010 [facility] History of tobacco use V9 CURRENT TOBACCO USER 09/06/2009 [facility] Plan of Care List of future care activities from Department [facility] facilities. Additional future care activities may be listed in the Assessment and Plan section. Date/Time Care Activity Care Activity Detail Facili ty 01/09/2025 AMBULATORY - SURGERY AMBULATORY - SURGERY [facility]
--- OUTSIDE RECORDS SUMMARY | 2024-12-12 10:22 | XMS_ITS ---
Author Name [facility] Organization [facility] [place] Address [address] [place] [address] Care Team Providers Care Procurement Cost Coordinator Name Role Phone PHONG JENKINS Primary Care [...] PART B Nov 22, 2012 PART B [id number] [phone] MICHAEL THOMAS PATIENT MEDICARE (WNR) MEDICARE (M) PART A Nov 22, 2012 PART A [id number] MICHAEL THOMAS PATIENT MEDICARE (WNR) MEDICARE (M) PART B Nov 22, 2012 PART B [id number] MICHAEL THOMAS PATIENT MEDICARE (WNR) MEDICARE (M) PART A Nov 22, 2012 PART A [id number] MICHAEL THOMAS PATIENT Selected Encounter This section includes the information on record at [place] for the Encounter. Date/Time Encounter Type Encounter Description Reason Provider Source January 11, 2024 09:00 AM OFFICE O/P NEW LOW 30 MIN VASCULAR SURGERY ICD-10-CM I73.9 Peripheral vascular disease, unspecified BEVERLY QUINONEZ IHE Encounter Template Text not used by [place] Assessments - Encounter Diagnoses This section includes the primary and secondary diagnoses documented for the Encounter. Date/Time Primary/Secondary Diagnosis Diagnosis Name Provider Source Feb 01, 2024 12:14 PM PRIMARY Peripheral vascular disease, unspecified JADYN JESUS [facility] Plan of Treatment: Future Appointments (+ 6 months) and Future Tests (+/- 45 days) The Plan of Treatment section includes future care activities for the patient from all [facility] This section includes future appointments and future orders which are active, pending or scheduled. Future Appointments This section includes appointments that were scheduled to occur 6 months from the date of the Encounter, up to a maximum of 20 appointments. The data comes from all [facility] facilities. Appointment Date/Time Appointment Type Appointme nt Facility Name Feb 17, 2024 10:00 AM AMBULATORY - MEDICINE DIMITRI JOHNSON [facility] May 18, 2024 09:00 AM AMBULATORY - NONE ABDOUL Curtis [facility] Radiology Reports: +/- 30 days of the [...] the Encounter. The data comes from all [facility]. Date/Time Radiology Report Provider Source January 05, 2024 07:17 AM [id number] SPECIALS/ANG IO PERFORMED BY OTHER FACILITY: MICHAEL THOMAS [facility] [id number] -1945 M Exm Date: JANUARY 05, 2024@07:17 Req Phys: PHONG JENKINS Pat Loc: ZEKE PACT ALPHA 1-3 (Req'g Loc) Img Loc: OUTSIDE2 LD ANGIO Service: Unknown (Case [id number] COMPLETE) [id number] SPECIALS/ANGIO PERFORMED BY(ANI Detailed) CPT:31637 Reason for Study: Exam imported from outside Clinical History: Original Data for Imported Study Patient Name: MICHAEL THOMAS Date: 1945 Sex: M Study Date: 01/05/24 Study Time: 07:17:00 Study Description: CL [facility] W VENTRICLE Referring Physician: AZAEL VANCE Series 1: 1 XA file, description: Zero-Image Study Series 2: 1 XA file, description: Left Coronary 15 fps Series 3: 1 XA file, description: Left Coronary 15 fps Series 4: 1 XA file, description: Left Coronary 15 fps Series 5: 1 XA file, description: Left Coronary 15 fps Series 6: 1 XA file, description: Left Coronary 15 fps Series 7: 1 XA file, description: Left Coronary 15 fps Series 8: 1 XA file, description: Left Coronary 15 fps Series 9: 1 XA file, description: Left Coronary 15 fps Series 10: 1 XA file, description: Left Coronary 15 fps Series 11: 1 XA file, description: Left Coronary 15 fps Series 12: 1 XA file, description: Abdomen 2fps Series 13: 1 XA file, description: Bolus shefali two legs Report Status: Electronically Filed Date Reported: JANUARY 11, 2024 Report: Electronically generated report for outside study. Impression: Electronically generated report for outside study. Primary Diagnostic Code: VERIFIED BY: / *ELECTRONICALLY FILED* [facility] Encounter Notes: All associated encounter notes This section contains the clinical notes associated to the Encounter. Date/Time Encounter Note(s) Provider Source January 11, 2024 09:01 AM VASCULAR SURGERY C ONSULT: LOCAL TITLE: VASCULAR SURGERY CONSULT RESPONSE STANDARD TITLE: VASCULAR SURGERY CONSULT DATE OF NOTE: JANUARY 11, 2024@09:01 ENTRY DATE: JANUARY 11, 2024@09:02:08 AUTHOR: JADYN JESUS COSIGNER: BEVERLY QUINONEZ URGENCY: STATUS: COMPLETED VASCULAR SURGERY CONSULT RESPONSE Has ADDENDA HISTORY & PHYSICAL CONSULT RESPONSE Is patient a transfer from an outside facility? PAIN:0 (01/11/2024 08:21) CHIEF COMPLAINT: Abnormal ABIs HISTORY OF PRESENT ILLNESS: Patient is a 78 year old male with PMHx of HTN, T2DM, WALLACE, and tobacco abuse who presents to clinic for evaluation following abnormal ABIs. Patient recently switched primary providers and underwent ABIs, arterial duplex, stress test, echo, and carotid ultrasounds. His ABIs were R .57 and L .52. He denies any claudication symptoms and can walk through [employer] without issue. He denies rest pain or tissue loss. He is currently on ASA, statin, and Plavix. He smokes 1 cigar daily and denies cigarrette use. He recently underwent a heart cath for abnormal stress test but states it was normal with no intervention performed. Most recent A1c 5.7. PAST MEDICAL HX: Active problems - Computerized Problem List is the source for the followin. Exposure to potentially hazardous substance ([facility] [id number]) 2. Low back pain 3. Hearing loss in left ear 4. Obstructive sleep apnea of adult 5. Neuropathy 6. Exposure to potentially hazardous substance 7. Benign prostatic hyperplasia with outflow obstruction 8. Smokes tobacco daily 9. Peripheral arterial occlusive disease 10. Renal disorder due to type 2 diabetes mellitus 11. Gastroesophageal reflux disease 12. Multiple nodules of lung (SNOMED CT 084924535) 13. Benign essential hypertension (SNOMED CT 2452609) 14. Mixed hyperlipidemia (SNOMED CT 733521562) OTHER MEDICAL HX/PROBLEMS: PAST SURGICAL HX: no previous vascular surgeries. ALLERGIES: Patient has answered NKA MEDICATIONS: Medicine/Supplies Qty Last Filled 1) ASPIRIN 81MG EC TAB: TAKE ONE TABLET BY MOUTH NOV 02, 2023 DAILY FOR HEART 2) ATORVASTATIN CALCIUM 80MG TAB: TAKE ONE-HALF NOV 02, 2023 TABLET BY MOUTH DAILY FOR CHOLESTEROL 3) LISINOPRIL 20MG TAB: TAKE ONE-HALF TABLET BY MOUTH NOV 02, 2023 DAILY FOR BLOOD PRESSURE/HEART NEW DOSE 4) OMEPRAZOLE 20MG EC CAP: TAKE ONE CAPSULE BY MOUTH NOV 02, 2023 ONCE A DAY 30 MINUTES BEFORE A MEAL FOR 5) TAMSULOSIN HCL 0.4MG CAP: TAKE ONE CAPSULE BY 90 NOV 23, 2023 MOUTH EVERY EVENING FOR PROSTATE 6) ALLOPURINOL 100MG TAB: TAKE ONE TABLET BY MOUTH NOV 15, 2023 DAILY FOR GOUT Active Non-VA Meds NONE Patient educated on medication changes and an updated list of medications was provided. REVIEW OF SYSTEMS: 14 pt review of systems negative unless otherwise stated in HPI ALLERGIES: Patient has answered NKA Active problems - Computerized Problem List is the source for the followin. Exposure to potentially hazardous substance ([facility] [id number]) 2. Low back pain 3. Hearing loss in left ear 4. Obstructive sleep apnea of adult 5. Neuropathy 6. Exposure to potentially hazardous substance 7. Benign prostatic hyperplasia with outflow obstruction 8. Smokes tobacco daily 9. Peripheral arterial occlusive disease 10. Renal disorder due to type 2 diabetes mellitus 11. Gastroesophageal reflux disease 12. Multiple nodules of lung (SNOMED CT 032280008) 13. Benign essential hypertension (SNOMED CT 2236476) 14. Mixed hyperlipidemia (SNOMED CT 327107710) Other problems: FAMILY HISTORY: SOCIAL HISTORY: SMOKING: Past 1ppd cigarette smoker, currently smokes 1 cigar daily ETOH: Denies PHYSICAL EXAMINATION: Vitals: TEMP: 98 F [36.7 C] (11/02/2023 08:36) BP: 137/76 (01/11/2024 08:22) RESP: 12 (11/02/2023 08:36) PULSE: 70 (01/11/2024 08:22) WT: 253.0 lb [114.76 kg] (01/11/2024 08:21) APPEARANCE:NAD HEENT: Normal RESP:No increased work of breathing on room air CV: Heart:Regular rate, appears well perfused ABD:Soft, Non-tender, Non-distended EXT:no edema SKIN: warm and dry, No chronic non-healing wounds on bilateral lower extremities MUSCULOSKELETAL: Muscle strength/tone 5/5 NEURO/PSYCH: Orientation Time, Place, Person Mood/affect NL LABS: CBC/PLT, BLOOD - Partial Panel found WBC , BLOOD, 11/02/23 6.0 K/cmm (5.0 - 10.0) RBC, BLOOD, 11/02/23 5.08 M/cmm (4.6 - 6.2) HGB, BLOOD, 11/02/23 14.3 g/dL (14.0 - 18.0) HCT, BLOOD, 11/02/23 43.8 % (42.0 - 52.0) MCV, BLOOD, 11/02/23 86.2 fL (80.0 - 94.0) MCH, BLOOD, 11/02/23 28.1 pg (27.0 - 31.0) MCHC, BLOOD, 11/02/23 32.6 g/dL (32.0 - 36.0) RDW, BLOOD, 11/02/23 12.9 % (11.0 - 16.0) PLT, BLOOD, 11/02/23 189 K/cmm (150 - 450) MPV, BLOOD, 11/02/23 10.1 fL (9.0 - 13.1) NRBC, BLOOD, 11/02/23 0.0 % (0.0 - 0.0) PANEL 1 David. date GLUCOSE BUN CREAT SODIUM K [employer] CO2 11/02/23 09:26 129 H 15 1.02 140 4.3 107 22 PANEL 2 David. date TOT PRO ALBUMIN SGOT SGPT Z ALK PHZ DIRECTZ TOTAL 11/02/23 09:26 7.3 4.5 17 29 66 0.2 0.8 AMYLASE:____ LIPASE:____ PT:____ PTT:____ Date Procedure CPT Status Case # 11/12/2023 SEGMENTAL PRESSURES, LOWER [id number] Verified 1435 EXT(JONELLE) BILAT Right: Abnormal study. Hemodynamically significant infrainguinal disease is identified. Moderate arterial insufficiency is present at rest. Left: Abnormal study. Hemodynamically significant inflow disease is identified. Moderate arterial insufficiency is present at rest. 05/15/2017 SEGMENTAL PRESSURES (JONELLE) WITH [id number] Verified 1925 TREADMILL Abnormal study. Left lower extremity abnormal study. Hemodynamically significant disease identified at rest and with exercise. Moderate arterial insufficiency is present at rest Right lower extremity no evidence of hemodynamically significant arterial disease identified at rest. Assessment/Plan: Patient is a 78 year old male with PMHx of HTN, T2DM, WALLACE, and tobacco abuse who presents to clinic for evaluation following abnormal ABIs. His ABIs were R .57 and L .52. Carotid duplex with <50% stenosis bilaterally. Arterial duplex with Right:hemodynamically significant common femoral artery stenosis. Multiphasic flow starting in the mid superficial femoral artery. Stenosis of the distal superficial femoral artery at large collaterals origin. Occlusion of the proximal posterior tibial artery with distal reconstitution. Left: Monophasic flow throughout the left lower extremity starting in the common femoral artery. Occlusion of the left proximal peroneal artery with distal reconstitution. The patient is currently asymptomatic and does not experience claudication symptoms. He denies rest pain and tissue loss. He is on ASA, statin, and plavix. Encouraged smoking cessation. Will follow up in 1 year with repeat ABIs. Patient voiced understanding and is in agreement with this plan. /milagros/ JADYN JESUS SURGERY RESIDENT Signed: 01/11/2024 09:18 /milagros/ BEVERLY QUINONEZ VASCULAR SURGERY ATTENDING Cosigned: 01/25/2024 11:02 01/26/2024 ADDENDUM STATUS: COMPLETED Placed on 1 year recall for VS FOLLOW-Up1 01/09/25. /milagros/ RUSLAN SILVA Advanced Telephone Ad Taker Signed: 01/26/2024 09:42 [facility] January 11, 2024 08:46 AM SURGERY NURSING NO TE: LOCAL TITLE: SURGERY CLINIC INTAKE NOTE STANDARD TITLE: SURGERY NURSING NOTE DATE OF NOTE: JANUARY 11, 2024@08:46 ENTRY DATE: JANUARY 11, 2024@08:46:48 AUTHOR: JESSIE ALVAREZ EXP COSIGNER: URGENCY: STATUS: COMPLETED The patient was given a list of his/her medications, instructed to review and discuss any changes or problems with their provider. Patient advised to carry a list of current medications and any allergies with them in the event of emergency situations. Allergies: local and remote Patient has answered NKA No Remote Allergy/ADR Data available for this patient Medication Reconciliation MRR1 - Med Reconciliation INCLUDED IN THIS LIST: Alphabetical list of active outpatient prescriptions dispensed from this [place] (local) and dispensed from another [place] or [facility] facility (remote) as well as inpatient orders (local pending and active), local clinic medications, locally documented non-VA medications, and local prescriptions that have or been discontinued in the past 90 days. Non-VA Meds Last Documented On: Sep 06, 2010 NOTE The display of VA prescriptions dispensed from another [place] or [facility] facility (remote) is limited to active outpatient prescription entries matched to National Drug File at the originating site and may not include some items such as investigational drugs, compounds, etc. NOT INCLUDED IN THIS LIST: Medications self-entered by the patient into personal health records (i.e. Flexiroam) are NOT included in this list. Non-VA medications documented outside this [place], remote inpatient orders (regardless of status) and remote clinic medications are NOT included in this list. The patient and provider must always discuss medications the patient is taking, regardless of where the medication was dispensed or obtained. OUTPT ALLOPURINOL 100MG TAB (Status = Active) TAKE ONE TABLET BY MOUTH DAILY FOR GOUT Rx# [id number] Last Released: 11/16/23 Qty/Days Supply: Rx Expiration Date: 11/15/24 Refills Remainin Indication: FOR GOUT OUTPT ASPIRIN 81MG EC TAB (Status = Active) TAKE ONE TABLET BY MOUTH DAILY FOR HEART Rx# [id number] Last Released: 11/03/23 Qty/Days Supply: Rx Expiration Date: 11/02/24 Refills Remainin Indication: FOR HEART OUTPT ATORVASTATIN CALCIUM 80MG TAB (Status = Discontinued) TAKE ONE-HALF TABLET BY MOUTH DAILY FOR CHOLESTEROL Rx# [id number] Last Released: 07/30/23 Qty/Days Supply: Rx Expiration Date: 10/21/23 Refills Remainin Indication: FOR CHOLESTEROL OUTPT ATORVASTATIN CALCIUM 80MG TAB (Status = Active) TAKE ONE-HALF TABLET BY MOUTH DAILY FOR CHOLESTEROL Rx# [id number] Last Released: 11/05/23 Qty/Days Supply: Rx Expiration Date: 11/02/24 Refills Remainin Indication: FOR CHOLESTEROL OUTPT LISINOPRIL 20MG TAB (Status = Active) TAKE ONE-HALF TABLET BY MOUTH DAILY FOR BLOOD PRESSURE/HEART NEW DOSE Rx# [id number] Last Released: 11/05/23 Qty/Days Supply: Rx Expiration Date: 11/02/24 Refills Remainin Indication: FOR BLOOD PRESSURE/HEART OUTPT LISINOPRIL 5MG TAB (Status = Discontinued) TAKE ONE TABLET BY MOUTH DAILY FOR BLOOD PRESSURE/HEART NEW DOSE Rx# [id number] Last Released: 09/29/23 Qty/Days Supply: Rx Expiration Date: 04/01/24 Refills Remainin Indication: FOR HIGH BLOOD PRESSURE OUTPT OMEPRAZOLE 20MG EC CAP (Status = Active) TAKE ONE CAPSULE BY MOUTH ONCE A DAY 30 MINUTES BEFORE A MEAL FOR STOMACH -TAKE ON AN EMPTY STOMACH Rx# [id number] Last Released: 11/03/23 Qty/Days Supply: Rx Expiration Date: 11/02/24 Refills Remainin Indication: FOR STOMACH OUTPT TAMSULOSIN HCL 0.4MG CAP (Status = Discontinued) TAKE ONE CAPSULE BY MOUTH EVERY EVENING FOR PROSTATE Rx# [id number] Last Released: 10/29/23 Qty/Days Supply: Rx Expiration Date: 06/12/24 Refills Remainin Indication: FOR PROSTATE OUTPT TAMSULOSIN HCL 0.4MG CAP (Status = Active) TAKE ONE CAPSULE BY MOUTH EVERY EVENING FOR PROSTATE Rx# [id number] Last Released: 11/18/23 Qty/Days Supply: Rx Expiration Date: 11/02/24 Refills Remainin Indication: FOR PROSTATE SUPPLIES /milagros/ Serena Al[address] Passenger Firer Signed: 01/11/2024 08:47 JESSIE ALVAREZ[facility]
--- OUTSIDE RECORDS SUMMARY | 2024-12-12 10:22 | XMS_ITS | Clinical Summary ---
Author Organization [facility] Address [address] [place] [address] Phone Care Team Providers Care Regional Maintenance Manager Name Role Phone Luis RUIZ, Patel Covington Unavailable U navailable AZAEL CUMMINGS Unavailable [phone] Reason for Visit and Chief Complaint BRACE FITTING Problems Includes: Problems addressed during this encounter and other active Problems All Visits Onset Date Resolved Date Provider Condition S tatus Joint Pain in the Right Hip 08/18/2023 Mela Jackson PA-C Active Last Documented On 3 8:24AM ; [facility] Plan of Treatment No Plan of Treatment [...] Allergies Includes: Active Allergies No Known Allergies Insurance Includes: Active Insurance Policies Plan Name Member ID Group # Subscriber Relationship Effect tricia Dates 1 - Medicare Part [place] of [place] [id number] Obey Tyler 2 - [employer] [id number] Obey Tyler Clinical Notes Includes: Clinical Notes from this encounter No Clinical Notes Recorded
--- OUTSIDE RECORDS SUMMARY | 2024-12-12 10:22 | XMS_ITS | Encounter Summary ---
Author Name [facility] [place] [facility] [place] Organization [facility] [place] Address [address] [place] [address] Care Team Providers Care Supervisor Telephone Clerks Name Role Phone PHONG JENKINS Primary Care [...] PART A Nov 22, 2012 PART A [id number] MICHAEL THOMAS PATIENT MEDICARE (WNR) MEDICARE (M) PART B Nov 22, 2012 PART B [id number] MICHAEL THOMAS PATIENT MEDICARE (WNR) MEDICARE (M) PART B Nov 22, 2012 PART B [id number] MICHAEL THOMAS PATIENT MEDICARE (WNR) MEDICARE (M) PART A Nov 22, 2012 PART A [id number] MICHAEL THOMAS PATIENT Selected Encounter This section includes the information on record at [place] for the Encounter. Date/Time Encounter Type Encounter Description Reason Pro vider Source Nov 22, 2024 08:40 AM Outpatient Encounter PRIMARY CARE/MEDICINE IHE Encounter Template Text not used by [place] Plan of Treatment: Future Appointments (+ 6 months) and Future Tests (+/- 45 days) The Plan of Treatment section includes future care activities for the [facility] [place] [facility] This section includes future appointments and future orders which are active, pending or scheduled. Future Appointments This section includes appointments that were scheduled to occur 6 months from the date of the Encounter, up to a maximum of 20 appointments. The data comes from all [place] treatment facilities. Appointment Date/Time Appointment Type Appointme nt Facility Name Nov 29, 2024 08:30 AM [facility] - [facility]ONE [place] [facility] January 09, 2025 08:30 AM AMBULATORY - SURGERY [place] [facility] January 09, 2025 10:20 AM AMBULATORY - SURGERY [facility] Social History: Smoking Status (Most current) and Tobacco Use (All prior to encounter date) This section includes the most current, and the historical, smoking and tobacco- related health factors from the [place] facility where the Encounter took place. Current Smoking Status This section includes the most current smoking, or tobacco-related health factor, from the [place] facility where the Encounter took place. Date/Time Current Smoking Status Comment Facil ity May 18, 2024 09:00 AM VA-TOBACCO USER SOME DAYS [facility] Tobacco Use History This section includes a history of the smoking, or tobacco-related health factors, that were collected on or before the date of the Encounter. The data comes from the [place] facility where the Encounter took place. Date/Time Smoking Status/Tobacco Use Comment F acility May 18, 2024 09:00 AM VA-TOBACCO USE 30 YEARS OR MORE [facility] May 18, 2024 09:00 AM VA-TOBACCO USE ADVICE [facility] May 18, 2024 09:00 AM VA-TOBACCO USE AREA OPERATIONS MANAGER NO [facility] May 18, 2024 09:00 AM VA-TOBACCO USE MED NO [facility] May 18, 2024 09:00 AM VA-TOBACCO USER SOME DAYS [facility] Nov 02, 2023 09:00 AM VA-TOBACCO USE 30 YEARS OR MORE [facility] Nov 02, 2023 09:00 AM VA-TOBACCO USE ADVICE [facility] Nov 02, 2023 09:00 AM VA-TOBACCO USE AREA OPERATIONS MANAGER NO [facility] Nov 02, 2023 09:00 AM VA-TOBACCO USE MED NO [facility] Nov 02, 2023 09:00 AM VA-TOBACCO USE WI 30 MIN OF WAKEUP [facility] Nov 02, 2023 09:00 AM VA-TOBACCO USER EVERY DAY [facility] Aug 29, 2022 08:00 AM VA-TOBACCO DOESNT USE WI 30 MIN WAKEUP [facility] Aug 29, 2022 08:00 AM VA-TOBACCO USE 30 YEARS OR MORE [facility] Aug 29, 2022 08:00 AM VA-TOBACCO USE ADVICE [facility] Aug 29, 2022 08:00 AM VA-TOBACCO USE AREA OPERATIONS MANAGER NO [facility] Aug 29, 2022 08:00 AM VA-TOBACCO USE MED NO [facility] Aug 29, 2022 08:00 AM VA-TOBACCO USER EVERY DAY [facility] Aug 26, 2021 08:00 AM VA-TOBACCO DOESNT USE WI 30 MIN WAKEUP [facility] Aug 26, 2021 08:00 AM VA-TOBACCO USE 30 YEARS OR MORE [facility] Aug 26, 2021 08:00 AM VA-TOBACCO USE ADVICE [facility] Aug 26, 2021 08:00 AM VA-TOBACCO USE AREA OPERATIONS MANAGER NO [facility] Aug 26, 2021 08:00 AM VA-TOBACCO USE MED NO [facility] Aug 26, 2021 08:00 AM VA-TOBACCO USER EVERY DAY [facility] December 26, 2019 10:07 AM VA-TOBACCO DOESNT USE WI 30 MIN WAKEUP [facility] December 26, 2019 10:07 AM VA-TOBACCO USE 30 YEARS OR MORE [facility] December 26, 2019 10:07 AM VA-TOBACCO USE ADVICE [facility] December 26, 2019 10:07 AM VA-TOBACCO USE AREA OPERATIONS MANAGER NO [facility] December 26, 2019 10:07 AM VA-TOBACCO USE MED NO [facility] December 26, 2019 10:07 AM VA-TOBACCO USER EVERY DAY [facility] Oct 19, 2018 09:18 AM VA-TOBACCO DOESNT USE WI 30 MIN WAKEUP [facility] Oct 19, 2018 09:18 AM VA-TOBACCO USE 30 YEARS OR MORE [facility] Oct 19, 2018 09:18 AM VA-TOBACCO USE ADVICE [facility] Oct 19, 2018 09:18 AM VA-TOBACCO USE AREA OPERATIONS MANAGER NO [facility] Oct 19, 2018 09:18 AM VA-TOBACCO USE MED NO [facility] Oct 19, 2018 09:18 AM VA-TOBACCO USER SOME DAYS [facility] Sep 25, 2017 01:14 PM V9 CURRENT TOBACCO USER [facility] Sep 25, 2017 01:14 PM V9 TOBACCO OFFERED [facility] Sep 25, 2017 01:14 PM V9 TOBACCO USE-DECLINED MEDS [facility] Oct 14, 2016 04:43 PM V9 CURRENT TOBACCO USER [facility] Oct 14, 2016 04:43 PM V9 TOBACCO OFFERED [facility] Oct 14, 2016 04:43 PM V9 TOBACCO USE-DECLINED MEDS [facility] Oct 03, 2015 08:21 AM V9 CURRENT TOBACCO USER [facility] Oct 03, 2015 08:21 AM V9 TOBACCO OFFERED [facility] Oct 03, 2015 08:21 AM V9 TOBACCO USE-DECLINED MEDS [facility] Aug 30, 2014 08:12 AM V9 CURRENT TOBACCO USER [facility] Aug 30, 2014 08:12 AM V9 TOBACCO OFFERED [facility] Jul 18, 2013 08:02 AM V9 CURRENT TOBACCO USER [facility] Jul 18, 2013 08:02 AM V9 QUIT TOBACCO >7 YEARS AGO [facility] Jul 18, 2013 08:02 AM V9 TOBACCO OFFERED [facility] Jul 01, 2012 07:45 AM TOBACCO OFFERRED P T MEDS (PROVIDER) [facility] Jul 01, 2012 07:45 AM V9 CURRENT TOBACCO USER [facility] Jul 01, 2012 07:45 AM V9 QUIT TOBACCO >1 2 MO & <7 YRS AGO [facility] Jul 01, 2012 07:45 AM V9 TOBACCO OFFERED [facility] 2011 07:55 AM V9 CURRENT TOBACCO USER [facility] 2011 07:55 AM V9 TOBACCO OFFERED [facility] Jun 12, 2011 07:53 AM TOBACCO OFFERRED P T MEDS (PROVIDER) [facility] Jun 12, 2011 07:53 AM V9 CURRENT TOBACCO USER [facility] Jun 12, 2011 07:53 AM V9 TOBACCO OFFERED [facility] Sep 06, 2010 07:32 AM TOBACCO OFFERRED P T MEDS (PROVIDER) [facility] Sep 06, 2010 07:32 AM V9 CURRENT TOBACCO USER [facility] Sep 06, 2010 07:32 AM V9 TOBACCO OFFERED [facility] Sep 06, 2009 07:33 AM TOBACCO OFFERRED P T MEDS (PROVIDER) [facility] Sep 06, 2009 07:33 AM V9 CURRENT TOBACCO USER [facility] Sep 06, 2009 07:33 AM V9 TOBACCO OFFERED [facility] Radiology Reports: +/- 30 days of the [...] the Encounter. The data comes from all [facility] facilities. Date/Time Radiology Report Provider Source Nov 29, 2024 07:47 AM LDCT LCS 1, 3 OR 6 MONTH FOLLOW UP: MICHAEL THOMAS [facility] [id number] -[id number] M Exm Date: NOV 29, 2024@07:47 Req Phys: KOUSA,KITTA Pat Loc: ZEKE PACT ALPHA 1-3 (Req'g Loc) Img Loc: CT SCAN Service: [place] [address] (Case [id number] COMPLETE) LDCT LCS 1, 3 OR 6 MONTH FOLLOW U(CT Detailed) CPT:04205 Reason for Study: 12-month F/U LDCT Clinical History: Report Status: Verified Date Reported: NOV 29, 2024 Date Verified: NOV 29, 2024 Silviculturist E-Sig: Report: EXAM: LDCT LCS 1, 3 [...] Staff: CLAUDETTE HIDALGO, Staff Radiologist Verified by sports agent for CLAUDETTE HIDALGO /CLAUDETTE [facility] Encounter Notes: All associated encounter notes This section contains the clinical notes associated to the Encounter. Date/Time Encounter Note(s) Provider Source Nov 23, 2024 09:39 AM ADDENDUM: LOCAL TITLE: Addendum STANDARD TITLE: ADDENDUM DATE OF NOTE: NOV 23, 2024@09:39:05 ENTRY DATE: NOV 23, 2024@09:39:06 AUTHOR: ASIA MITCHELL EXP COSIGNER: URGENCY: STATUS: COMPLETED Forwarding to RN for assistance with this. Thank you so much. /milagros/ Asia MARINELLI Signed: 11/23/2024 09:39 Receipt Acknowledged By: 11/24/2024 15:57 /milagros/ EDY REBOLLEDO,RN PC GATE TENDER --- Original Document --- 11/23/24 PRIMARY CARE SECURE MESSAGING: ------Original Message --- Sent: 11/22/2024 09:15 AM ET From: MICHAEL THOMAS To: [facility] Team ([place]) [facility] [place] Subject: Medication:Response to previous message. Attachments: [id number] (127.41 KB) Neither one of the statements are correct The prescriptions were stopped by a [place] provider The suzanneson have 7 refills remaining /guerrero MARINELLI Signed: 11/23/2024 09:38 11/24/2024 ADDENDUM STATUS: UNSIGNED You may not VIEW this UNSIGNED Addendum. ASIA MITCHELL [facility] Nov 23, 2024 09:38 AM PRIMARY CARE SECUR E MESSAGING: LOCAL TITLE: PRIMARY CARE SECURE MESSAGING STANDARD TITLE: PRIMARY CARE SECURE MESSAGING DATE OF NOTE: NOV 23, 2024@09:38 ENTRY DATE: NOV 23, 2024@09:38:55 AUTHOR: ASIA MITCHELL EXP COSIGNER: URGENCY: STATUS: COMPLETED PRIMARY CARE SECURE MESSAGING Has ADDENDA ------Original Message --- Sent: 11/22/2024 09:15 AM ET From: MICHAEL THOMAS To: [facility]PHA Team (Nasima) [facility] [place] Subject: Medication:Response to previous message. Attachments: [id number] (076.41 KB) Neither one of the statements are correct The prescriptions were stopped by a [place] provider The tamsoloson have 7 refills remaining /guerrero MARINELLI Signed: 11/23/2024 09:38 11/23/2024 ADDENDUM STATUS: COMPLETED Forwarding to RN for assistance with this. Thank you so much. /guerrero MARINELLI Signed: 11/23/2024 09:39 Receipt Acknowledged By: 11/24/2024 15:57 /EDY Rajput,RN PC GATE TENDER 11/24/2024 ADDENDUM STATUS: COMPLETED Called and spoke with and advised him medications, omeprazole and tamsulosin has been reordered and mailed on 11/23/24. If he has any further medication questions, advised that he can send secure message to pharmacy. verbalized understanding and had no other issues or concerns. /EDY Rajput,RN PC GATE TENDER Signed: 11/24/2024 15:59 ASIA MITCHELL [facility] Nov 22, 2024 08:40 AM PRIMARY CARE SECUR E MESSAGING: LOCAL TITLE: PRIMARY CARE SECURE MESSAGING STANDARD TITLE: PRIMARY CARE SECURE MESSAGING DATE OF NOTE: NOV 22, 2024@08:40 ENTRY DATE: NOV 22, 2024@08:40:32 AUTHOR: ASIA MITCHELL EXP COSIGNER: URGENCY: STATUS: COMPLETED ------Original Message --- Sent: 11/22/2024 08:40 AM ET From: ASIA MITCHELL To: MICHAEL THOMAS Subject: Medication:Response to previous message. Good morning, I sent your previous message to Dr. García. She replied as follows, Per Dr. Jenkins: Please let pt know that his medications can only be D/C'd in 2 cases: -If he does not renew his meds for > 8 months per pharmacy policy -Or he requested to cancel his medications. I hope this helps. Thank you for using [facility]. /milagros/ Asia MARINELLI Signed: 11/22/2024 08:40 ASIA MITCHELL [facility]
--- OUTSIDE RECORDS SUMMARY | 2024-12-12 10:23 | XMS_ITS | Encounter Summary ---
Author Name [facility] [place] [place] Organization [facility] [place] Address [address] [place] [address] Care Team Providers Care Skidway Worker Name Role Phone PHONG JENKINS Primary [...] PART B Nov 22, 2012 PART B [id number] [phone] [id number] MICHAEL THOMAS PATIENT MEDICARE (WNR) MEDICARE (M) PART A Nov 22, 2012 PART A [id number] MARTHA MICHAEL PATIENT MEDICARE (WNR) MEDICARE (M) PART A Nov 22, 2012 PART A [id number] MEGANMIKEMICHAEL An PATIENT MEDICARE (WNR) MEDICARE (M) PART B Nov 22, 2012 PART B [id number] MICHAEL THOMAS PATIENT Selected Encounter This section includes the information on record at [place] for the Encounter. Date/Time Encounter Type Encounter Description Reason Provider Source Nov 02, 2024 08:00 AM COMPRE OPH EXAM EST PT 1/> OPTOMETRY ICD-10-CM E11.9 Type 2 diabetes mellitus without complications YOLADNA DIXON Willy Encounter Template Text not used by [facility] Assessments - Encounter Diagnoses This section includes the primary and secondary diagnoses documented for the Encounter. Date/Time Primary/Secondary Diagnosis Diagnosis Name Provider Source Nov 02, 2024 09:09 AM PRIMARY Type 2 diabetes mellitus without complications YOLANDA DIXON [facility] Nov 02, 2024 09:09 AM SECONDARY Combined forms of age-related cataract, bilateral YOLANDA DIXON [facility] Nov 02, 2024 09:09 AM SECONDARY Presbyopia YOLANDA DIXON [facility] Plan of Treatment: Future Appointments (+ 6 months) and Future Tests (+/- 45 days) The Plan of Treatment section includes future care activities for the patient from all [place] treatmentfacilities. This section includes future appointments and future orders which are active, pending or scheduled. Future Appointments This section includes appointments that were scheduled to occur 6 months from the date of the Encounter, up to a maximum of 20 appointments. The data comes from all [place] treatment facilities. Appointment Date/Time Appointment Type Appointme nt Facility Name Nov 29, 2024 08:30 AM [facility]ORY - [facility]ONE [place] [facility] January 09, 2025 08:30 AM AM[facility]ULATORY - SURGERY [place] [facility] January 09, 2025 10:20 AM [facility] Social History: Smoking Status (Most current) and Tobacco Use (All prior to encounter date) This section includes the most current, and the historical, smoking and tobacco- related health factors from the [place] facility where the Encounter took place. Current Smoking Status This section includes the most current smoking, or tobacco-related health factor, from the [place] facility where the Encounter took place. Date/Time Current Smoking Status Comment Facil ity May 18, 2024 09:00 AM VA-TOBACCO USER SOME DAYS [facility] Tobacco Use History This section includes a history of the smoking, or tobacco-related health factors, that were collected on or before the date of the Encounter. The data comes from the [place] facility where the Encounter took place. Date/Time Smoking Status/Tobacco Use Comment F acility May 18, 2024 09:00 AM VA-TOBACCO USE 30 YEARS OR MORE [facility] May 18, 2024 09:00 AM VA-TOBACCO USE ADVICE [facility] May 18, 2024 09:00 AM VA-TOBACCO USE CAKE FORMER NO [facility] May 18, 2024 09:00 AM VA-TOBACCO USE MED NO [facility] May 18, 2024 09:00 AM VA-TOBACCO USER SOME DAYS [facility] Nov 02, 2023 09:00 AM VA-TOBACCO USE 30 YEARS OR MORE [facility] Nov 02, 2023 09:00 AM VA-TOBACCO USE ADVICE [facility] Nov 02, 2023 09:00 AM VA-TOBACCO USE CAKE FORMER NO [facility] Nov 02, 2023 09:00 AM VA-TOBACCO USE MED NO [facility] Nov 02, 2023 09:00 AM VA-TOBACCO USE WI 30 MIN OF WAKEUP [facility] Nov 02, 2023 09:00 AM VA-TOBACCO USER EVERY DAY [facility] Aug 29, 2022 08:00 AM VA-TOBACCO DOESNT USE WI 30 MIN WAKEUP [facility] Aug 29, 2022 08:00 AM VA-TOBACCO USE 30 YEARS OR MORE [facility] Aug 29, 2022 08:00 AM VA-TOBACCO USE ADVICE [facility] Aug 29, 2022 08:00 AM VA-TOBACCO USE CAKE FORMER NO [facility] Aug 29, 2022 08:00 AM VA-TOBACCO USE MED NO [facility] Aug 29, 2022 08:00 AM VA-TOBACCO USER EVERY DAY [facility] Aug 26, 2021 08:00 AM VA-TOBACCO DOESNT USE WI 30 MIN WAKEUP [facility] Aug 26, 2021 08:00 AM VA-TOBACCO USE 30 YEARS OR MORE [facility] Aug 26, 2021 08:00 AM VA-TOBACCO USE ADVICE [facility] Aug 26, 2021 08:00 AM VA-TOBACCO USE CAKE FORMER NO [facility] Aug 26, 2021 08:00 AM VA-TOBACCO USE MED NO [facility] Aug 26, 2021 08:00 AM VA-TOBACCO USER EVERY DAY [facility] December 26, 2019 10:07 AM VA-TOBACCO DOESNT USE WI 30 MIN WAKEUP [facility] December 26, 2019 10:07 AM VA-TOBACCO USE 30 YEARS OR MORE [facility] December 26, 2019 10:07 AM VA-TOBACCO USE ADVICE [facility] December 26, 2019 10:07 AM VA-TOBACCO USE CAKE FORMER NO [facility] December 26, 2019 10:07 AM VA-TOBACCO USE MED NO [facility] December 26, 2019 10:07 AM VA-TOBACCO USER EVERY DAY [facility] Oct 19, 2018 09:18 AM VA-TOBACCO DOESNT USE WI 30 MIN WAKEUP [facility] Oct 19, 2018 09:18 AM VA-TOBACCO USE 30 YEARS OR MORE [facility] Oct 19, 2018 09:18 AM VA-TOBACCO USE ADVICE [facility] Oct 19, 2018 09:18 AM VA-TOBACCO USE CAKE FORMER NO [facility] Oct 19, 2018 09:18 AM VA-TOBACCO USE MED NO [facility] Oct 19, 2018 09:18 AM VA-TOBACCO USER SOME DAYS [facility] Sep 25, 2017 01:14 PM V9 CURRENT TOBACCO USER [facility] Sep 25, 2017 01:14 PM V9 TOBACCO OFFERED [facility] Sep 25, 2017 01:14 PM V9 TOBACCO USE-DECLINED MEDS [facility] Oct 14, 2016 04:43 PM V9 CURRENT TOBACCO USER [facility] Oct 14, 2016 04:43 PM V9 TOBACCO OFFERED [facility] Oct 14, 2016 04:43 PM V9 TOBACCO USE-DECLINED MEDS [facility] Oct 03, 2015 08:21 AM V9 CURRENT TOBACCO USER [facility] Oct 03, 2015 08:21 AM V9 TOBACCO OFFERED [facility] Oct 03, 2015 08:21 AM V9 TOBACCO USE-DECLINED MEDS [facility] Aug 30, 2014 08:12 AM V9 CURRENT TOBACCO USER [facility] Aug 30, 2014 08:12 AM V9 TOBACCO OFFERED [facility] Jul 18, 2013 08:02 AM V9 CURRENT TOBACCO USER [facility] Jul 18, 2013 08:02 AM V9 QUIT TOBACCO >7 YEARS AGO [facility] Jul 18, 2013 08:02 AM V9 TOBACCO OFFERED [facility] Jul 01, 2012 07:45 AM TOBACCO OFFERRED P T MEDS (PROVIDER) [facility] Jul 01, 2012 07:45 AM V9 CURRENT TOBACCO USER [facility] Jul 01, 2012 07:45 AM V9 QUIT TOBACCO >1 2 MO & <7 YRS AGO [facility] Jul 01, 2012 07:45 AM V9 TOBACCO OFFERED [facility] 2011 07:55 AM V9 CURRENT TOBACCO USER [facility] 2011 07:55 AM V9 TOBACCO OFFERED [facility] Jun 12, 2011 07:53 AM TOBACCO OFFERRED P T MEDS (PROVIDER) [facility] Jun 12, 2011 07:53 AM V9 CURRENT TOBACCO USER [facility] Jun 12, 2011 07:53 AM V9 TOBACCO OFFERED [facility] Sep 06, 2010 07:32 AM TOBACCO OFFERRED P T MEDS (PROVIDER) [facility] Sep 06, 2010 07:32 AM V9 CURRENT TOBACCO USER [facility] Sep 06, 2010 07:32 AM V9 TOBACCO OFFERED [facility] Sep 06, 2009 07:33 AM TOBACCO OFFERRED P T MEDS (PROVIDER) [facility] Sep 06, 2009 07:33 AM V9 CURRENT TOBACCO USER [facility] Sep 06, 2009 07:33 AM V9 TOBACCO OFFERED [facility] Radiology Reports: +/- 30 days of the [...] the Encounter. The data comes from all [place] treatment facilities. Date/Time Radiology Report Provider Source Nov 29, 2024 07:47 AM LDCT LCS 1, 3 OR 6 MONTH FOLLOW UP: MICHAEL THOMAS [id number] -1945 M Exm Date: NOV 29, 2024@07:47 Req Phys: PHONG JENKINS Pat Loc: ZEKE PACT ALPHA 1-3 (Req'g Loc) Img Loc: CT SCAN Service: [place] [address] (Case [id number] COMPLETE) LDCT LCS 1, 3 OR 6 MONTH FOLLOW U(CT Detailed) CPT:96301 Reason for Study: 12-month F/U LDCT Clinical History: Report Status: Verified Date Reported: NOV 29, 2024 Date Verified: NOV 29, 2024 Technical Trainer E-Sig: Report: EXAM: LDCT LCS 1, 3 [...] Staff: CLAUDETTE HIDALGO, Staff Radiologist Verified by carry out clerk and shelf stocker for CLAUDETTE HIDALGO /CLAUDETTE [facility] Encounter Notes: All associated encounter notes This section contains the clinical notes associated to the Encounter. Date/Time Encounter Note(s) Provider Source Nov 02, 2024 08:56 AM STUDENT NOTE: LOCAL TITLE: MEDICAL STUDENT SOAP NOTE STANDARD TITLE: STUDENT NOTE DATE OF NOTE: NOV 02, 2024@08:56 ENTRY DATE: NOV 02, 2024@08:56:28 AUTHOR: SHERRELL TIPTON EXP COSIGNER: YOLANDA DIXON URGENCY: STATUS: COMPLETED I participated in this patient care encounter with Dr. Dixon /milagros/ SHERRELL TIPTON Optometry Student Signed: 11/02/2024 08:56 /milagros/ YOLANDA DIXON Staff Ground Transportation Operator, Primary Care Service Cosigned: 11/02/2024 09:09 SHERRELL TIPTON [facility] Nov 02, 2024 08:08 AM OPTOMETRY NOTE: [...] is over age 60 (-) Pt has Citizen Of [place] heritage Medical history: Active problems - Computerized Problem List is the source for the followin. Exposure to potentially hazardous substance ([facility] [id number]) 2. Low back pain 3. Hearing loss in left ear 4. Obstructive sleep apnea of adult 5. Neuropathy 6. Exposure to potentially hazardous substance 7. Benign prostatic hyperplasia with outflow obstruction 8. Smokes tobacco daily 9. Peripheral arterial occlusive disease 10. Renal disorder due to type 2 diabetes mellitus 11. Gastroesophageal reflux disease 12. Multiple nodules of lung (SNOMED CT 963698800) 13. Benign essential hypertension (SNOMED CT 4085478) 14. Mixed hyperlipidemia (SNOMED CT 567837999) Allergies: Patient has answered NKA Medications: Active [...] OU Pupils: PERRL, no APD Refraction: OD: +1.00-0.77k110 20/20-2 OS: -0.50-0.42b551 20/25+2 Add:+2.50 Final RX: Same as above [...] happy with habitual bifocals. Monitor annually. The voiced understanding of topics covered/discussed in today's visit. Next visit: 12 months with attending 5 for full exam /es/ YOLANDA DIXON Staff Ground Transportation Operator, Primary Care Service Signed: 11/02/2024 09:09 YOLANDA DIXON [facility]
--- OUTSIDE RECORDS SUMMARY | 2024-12-12 10:23 | XMS_ITS ---
Care Plan - [facility] Created on: December 12, 2024 Obey Thomas : 1945 Sex: Male Author Organization [facility] Address [address] [place] [address] Phone Care Team Providers Care Technology Consultant Name Role Phone Luis RUIZ, Patel Covington Unavailable [phone] AZAEL CUMMINGS Unavailable [phone]
--- OUTSIDE RECORDS SUMMARY | 2024-12-12 10:23 | XMS_ITS | Encounter Summary ---
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 Date/Time Encounter Type Encounter Description Reason Pro vider Source Nov 21, 2024 09:22 AM Outpatient Encounter PRIMARY CARE/MEDICINE IHE Encounter Template Text not used by [place] Plan of Treatment: Future Appointments (+ 6 months) and Future Tests (+/- 45 days) The Plan of Treatment section includes future care activities for the patient from all [place] [facility] This section includes future appointments and future orders which are active, pending or scheduled. Future Appointments This section includes appointments that were scheduled to occur 6 months from the date of the Encounter, up to a maximum of 20 appointments. The data comes from all [place] treatment facilities. Appointment Date/Time Appointment Type Appointme nt Facility Name Nov 29, 2024 08:30 AM AMBULATORY - NONE [place] [facility] January 09, 2025 08:30 AM AMBULATORY - SURGERY [place] [facility] January 09, 2025 10:20 AM AMBULATORY - SURGERY [facility] Social History: Smoking Status (Most current) and Tobacco Use (All prior to encounter date) This section includes the most current, and the historical, smoking and tobacco- related health factors from the [place] facility where the Encounter took place. Current Smoking Status This section includes the most current smoking, or tobacco-related health factor, from the [place] facility where the Encounter took place. Date/Time Current Smoking Status Comment Facil ity May 18, 2024 09:00 AM VA-TOBACCO USER SOME DAYS [facility] Tobacco Use History This section includes a history of the smoking, or tobacco-related health factors, that were collected on or before the date of the Encounter. The data comes from the [place] facility where the Encounter took place. 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 PAINTER NO [facility] May 18, 2024 09:00 AM VA-TOBACCO USE MED NO [facility] May 18, 2024 09:00 AM VA-TOBACCO USER SOME DAYS [facility] Nov 02, 2023 09:00 AM VA-TOBACCO USE 30 YEARS OR MORE [facility] Nov 02, 2023 09:00 AM VA-TOBACCO USE ADVICE [facility] Nov 02, 2023 09:00 AM VA-TOBACCO USE METAL PAINTER NO [facility] Nov 02, 2023 09:00 AM VA-TOBACCO USE MED NO [facility] Nov 02, 2023 09:00 AM VA-TOBACCO USE WI 30 MIN OF WAKEUP [facility] Nov 02, 2023 09:00 AM VA-TOBACCO USER EVERY DAY [facility] Aug 29, 2022 08:00 AM VA-TOBACCO DOESNT USE WI 30 MIN WAKEUP [facility] Aug 29, 2022 08:00 AM VA-TOBACCO USE 30 YEARS OR MORE [facility] Aug 29, 2022 08:00 AM VA-TOBACCO USE ADVICE [facility] Aug 29, 2022 08:00 AM VA-TOBACCO USE 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 PAINTER NO [facility] Aug 29, 2022 08:00 AM VA-TOBACCO USE MED NO [facility] Aug 29, 2022 08:00 AM VA-TOBACCO USER EVERY DAY [facility] Aug 26, 2021 08:00 AM VA-TOBACCO DOESNT USE WI 30 MIN WAKEUP [facility] Aug 26, 2021 08:00 AM VA-TOBACCO USE 30 YEARS OR MORE [facility] Aug 26, 2021 08:00 AM VA-TOBACCO USE ADVICE [facility] Aug 26, 2021 08:00 AM VA-TOBACCO USE METAL PAINTER NO [facility] Aug 26, 2021 08:00 AM VA-TOBACCO USE MED NO [facility] Aug 26, 2021 08:00 AM VA-TOBACCO USER EVERY DAY [facility] December 26, 2019 10:07 AM VA-TOBACCO DOESNT USE WI 30 MIN WAKEUP [facility] December 26, 2019 10:07 AM VA-TOBACCO USE 30 YEARS OR MORE [facility] December 26, 2019 10:07 AM VA-TOBACCO USE ADVICE [facility] December 26, 2019 10:07 AM VA-TOBACCO USE METAL PAINTER NO [facility] December 26, 2019 10:07 AM VA-TOBACCO USE MED NO [facility] December 26, 2019 10:07 AM VA-TOBACCO USER EVERY DAY [facility] Oct 19, 2018 09:18 AM VA-TOBACCO DOESNT USE WI 30 MIN WAKEUP [facility] Oct 19, 2018 09:18 AM VA-TOBACCO USE 30 YEARS OR MORE [facility] Oct 19, 2018 09:18 AM VA-TOBACCO USE ADVICE [facility] Oct 19, 2018 09:18 AM VA-TOBACCO USE METAL PAINTER NO [facility] Oct 19, 2018 09:18 AM VA-TOBACCO USE MED NO [facility] Oct 19, 2018 09:18 AM VA-TOBACCO USER SOME DAYS [facility] Sep 25, 2017 01:14 PM V9 CURRENT TOBACCO USER [facility] Sep 25, 2017 01:14 PM V9 TOBACCO OFFERED [facility] Sep 25, 2017 01:14 PM V9 TOBACCO USE-DECLINED MEDS [facility] Oct 14, 2016 04:43 PM V9 CURRENT TOBACCO USER [facility] Oct 14, 2016 04:43 PM V9 TOBACCO OFFERED [facility] Oct 14, 2016 04:43 PM V9 TOBACCO USE-DECLINED MEDS [facility] Oct 03, 2015 08:21 AM V9 CURRENT TOBACCO USER [facility] Oct 03, 2015 08:21 AM V9 TOBACCO OFFERED [facility] Oct 03, 2015 08:21 AM V9 TOBACCO USE-DECLINED MEDS [facility] Aug 30, 2014 08:12 AM V9 CURRENT TOBACCO USER [facility] Aug 30, 2014 08:12 AM V9 TOBACCO OFFERED [facility] Jul 18, 2013 08:02 AM V9 CURRENT TOBACCO USER [facility] Jul 18, 2013 08:02 AM V9 QUIT TOBACCO >7 YEARS AGO [facility] Jul 18, 2013 08:02 AM V9 TOBACCO OFFERED [facility] Jul 01, 2012 07:45 AM TOBACCO OFFERRED P T MEDS (PROVIDER) [facility] Jul 01, 2012 07:45 AM V9 CURRENT TOBACCO USER [facility] Jul 01, 2012 07:45 AM V9 QUIT TOBACCO >1 2 MO & <7 YRS AGO [facility] Jul 01, 2012 07:45 AM V9 TOBACCO OFFERED [facility] 2011 07:55 AM V9 CURRENT TOBACCO USER [facility] 2011 07:55 AM V9 TOBACCO OFFERED [facility] Jun 12, 2011 07:53 AM TOBACCO OFFERRED P T MEDS (PROVIDER) [facility] Jun 12, 2011 07:53 AM V9 CURRENT TOBACCO USER [facility] Jun 12, 2011 07:53 AM V9 TOBACCO OFFERED [facility] Sep 06, 2010 07:32 AM TOBACCO OFFERRED P T MEDS (PROVIDER) [facility] Sep 06, 2010 07:32 AM V9 CURRENT TOBACCO USER [facility] Sep 06, 2010 07:32 AM V9 TOBACCO OFFERED [facility] Sep 06, 2009 07:33 AM TOBACCO OFFERRED P T MEDS (PROVIDER) [facility] Sep 06, 2009 07:33 AM V9 CURRENT TOBACCO USER [facility] Sep 06, 2009 07:33 AM V9 TOBACCO OFFERED [facility] Radiology Reports: +/- 30 days of [...] the Encounter. The data comes from all [facility] facilities. Date/Time Radiology Report Provider Source Nov 29, 2024 07:47 AM LDCT LCS 1, 3 OR 6 MONTH FOLLOW UP: MICHAEL THOMAS 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 Date/Time Encounter Note(s) Provider Source Nov 22, 2024 06:00 AM ADDENDUM: LOCAL TITLE: Addendum STANDARD TITLE: ADDENDUM DATE OF NOTE: NOV 22, 2024@06:00:09 ENTRY DATE: NOV 22, 2024@06:00:10 AUTHOR: PHONG JENKINS EXP COSIGNER: URGENCY: STATUS: COMPLETED Please let pt know that his medications can only be D/C'd in 2 cases: -If he does not renewed his meds for > 8 months per pharmact policy -Or he requested to cancel his medications. Thank you. /milagros/ PHONG JENKINS MD Signed: 11/22/2024 06:03 Receipt Acknowledged By: 11/22/2024 08:40 /milagros/ Asia Vargas AMSA --- Original Document --- 11/21/24 PRIMARY CARE SECURE MESSAGING: ------Original Message --- Sent: 11/21/2024 08:21 AM ET From: MICHAEL THOMAS To: [facility] Team ([facility]as[facility]) [facility] [place] Subject: Medication:Meds Why is the V A discontinuing my meds Should someone let me know 2 nd time ------Original Message --- Sent: 11/21/2024 09:22 AM ET From: ASIA VARGAS To: MICHAEL THOMAS Subject: Medication:Meds Good morning, I will forward your message to Dr. Jenkins for her to review your meds. Thank you for using [facility]. /milagros/ Asia Vargas AMSA Signed: 11/21/2024 09:22 Receipt Acknowledged By: 11/22/2024 05:57 /PHONG Torres MD [facility] Nov 21, 2024 09:22 AM PRIMARY CARE SECUR E MESSAGING: LOCAL TITLE: PRIMARY CARE SECURE MESSAGING STANDARD TITLE: PRIMARY CARE SECURE MESSAGING DATE OF NOTE: NOV 21, 2024@09:22 ENTRY DATE: NOV 21, 2024@09:22:44 AUTHOR: ASIA VARGAS EXP COSIGNER: URGENCY: STATUS: COMPLETED PRIMARY CARE SECURE MESSAGING Has ADDENDA ------Original Message --- Sent: 11/21/2024 08:21 AM ET From: MICHAEL THOMAS To: ALPHA Team (Nasima) [facility] [place] Subject: Medication:Meds Why is the V A discontinuing my meds Should someone let me know 2 nd time ------Original Message --- Sent: 11/21/2024 09:22 AM ET From: ASIA VARGAS To: MICHAEL THOMAS Subject: Medication:Meds Good morning, I will forward your message to Dr. Jenkins for her to review your meds. Thank you for using [facility]. /guerrero MARINELLI Signed: 11/21/2024 09:22 Receipt Acknowledged By: 11/22/2024 05:57 /milagros/ PHONG JENKINS MD 11/22/2024 ADDENDUM STATUS: COMPLETED Please let pt know that his medications can only be D/C'd in 2 cases: -If he does not renewed his meds for > 8 months per pharmact policy -Or he requested to cancel his medications. Thank you. /guerrero JENKINS MD Signed: 11/22/2024 06:03 Receipt Acknowledged By: 11/22/2024 08:40 /guerrero MARINELLI 11/22/2024 ADDENDUM STATUS: COMPLETED Sent through secure message. -See 11/22/2024 PC Secure messaging note. /guerrero MARINELLI Signed: 11/22/2024 08:41 [facility]ARGAS [facility]
--- OUTSIDE RECORDS SUMMARY | 2024-12-12 10:23 | XMS_ITS | Encounter Summary ---
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 Date/Time Encounter Type Encounter Description Reason Pro vider Source Nov 29, 2024 12:00 AM Outpatient Encounter EVENT (HISTORICAL) IHE Encounter Template Text not used by [place] Plan of Treatment: Future Appointments (+ 6 months) and Future Tests (+/- 45 days) The Plan of Treatment section includes future care activities for the patient [facility] [place] [facility] This section includes future appointments and future orders which are active, pending or scheduled. Future Appointments This section includes appointments that were scheduled to occur 6 months from the date of the Encounter, up to a maximum of 20 appointments. The data comes from all [place] treatment facilities. Appointment Date/Time Appointment Type Appointme nt Facility Name January 09, 2025 08:30 AM [facility] January 09, 2025 10:20 AM AMBULATORY - SURGERY [facility] Active, Pending, and Scheduled Orders This section includes a listing of several types of active, pending, and scheduled orders, including clinic medications orders, diagnostic test orders, procedure orders and consult orders; where the start date of the order is 45 days before the date of the Encounter or 45 days after the date of theEncounter. The data comes from all [facility] facilities. Test Date/Time Test Type Test Details Facility Name January 09, 2025 12:00 AM Imaging - Vascular Lab Order SEGMENTAL PRESSURES, LOWER EXT(JONELLE) [facility] Social History: Smoking Status (Most current) and Tobacco Use (All prior to encounter date) This section includes the most current, and the historical, smoking and tobacco- related health factors from the [place] facility where the Encounter took place. Current Smoking Status This section includes the most current smoking, or tobacco-related health factor, from the [place] facility where the Encounter took place. Date/Time Current Smoking Status Comment Facil ity May 18, 2024 09:00 AM VA-TOBACCO USER SOME DAYS [facility] Tobacco Use History This section includes a history of the smoking, or tobacco-related health factors, that were collected on or before the date of the Encounter. The data comes from the [place] facility where the Encounter took place. 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 BUSINESS 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 NO [facility] Nov 02, 2023 09:00 AM VA-TOBACCO USE MED NO [facility] Nov 02, 2023 09:00 AM VA-TOBACCO USE WI 30 MIN OF WAKEUP [facility] Nov 02, 2023 09:00 AM VA-TOBACCO USER EVERY DAY [facility] Aug 29, 2022 08:00 AM VA-TOBACCO DOESNT USE WI 30 MIN WAKEUP [facility] Aug 29, 2022 08:00 AM VA-TOBACCO USE 30 YEARS OR MORE [facility] Aug 29, 2022 08:00 AM VA-TOBACCO USE ADVICE [facility] Aug 29, 2022 08:00 AM VA-TOBACCO USE 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 BUSINESS MANAGER NO [facility] Aug 29, 2022 08:00 AM VA-TOBACCO USE MED NO [facility] Aug 29, 2022 08:00 AM VA-TOBACCO USER EVERY DAY [facility] Aug 26, 2021 08:00 AM VA-TOBACCO DOESNT USE WI 30 MIN WAKEUP [facility] Aug 26, 2021 08:00 AM VA-TOBACCO USE 30 YEARS OR MORE [facility] Aug 26, 2021 08:00 AM VA-TOBACCO USE ADVICE [facility] Aug 26, 2021 08:00 AM VA-TOBACCO USE 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 BUSINESS MANAGER NO [facility] Aug 26, 2021 08:00 AM VA-TOBACCO USE MED NO [facility] Aug 26, 2021 08:00 AM VA-TOBACCO USER EVERY DAY [facility] December 26, 2019 10:07 AM VA-TOBACCO DOESNT USE WI 30 MIN WAKEUP [facility] December 26, 2019 10:07 AM VA-TOBACCO USE 30 YEARS OR MORE [facility] December 26, 2019 10:07 AM VA-TOBACCO USE ADVICE [facility] December 26, 2019 10:07 AM VA-TOBACCO USE 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 BUSINESS MANAGER NO [facility] December 26, 2019 10:07 AM VA-TOBACCO USE MED NO [facility] December 26, 2019 10:07 AM VA-TOBACCO USER EVERY DAY [facility] Oct 19, 2018 09:18 AM VA-TOBACCO DOESNT USE WI 30 MIN WAKEUP [facility] Oct 19, 2018 09:18 AM VA-TOBACCO USE 30 YEARS OR MORE [facility] Oct 19, 2018 09:18 AM VA-TOBACCO USE ADVICE [facility] Oct 19, 2018 09:18 AM VA-TOBACCO USE 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 BUSINESS MANAGER NO [facility] Oct 19, 2018 09:18 AM VA-TOBACCO USE MED NO [facility] Oct 19, 2018 09:18 AM VA-TOBACCO USER SOME DAYS [facility] Sep 25, 2017 01:14 PM V9 CURRENT TOBACCO USER [facility] Sep 25, 2017 01:14 PM V9 TOBACCO OFFERED [facility] Sep 25, 2017 01:14 PM V9 TOBACCO USE-DECLINED MEDS [facility] Oct 14, 2016 04:43 PM V9 CURRENT TOBACCO USER [facility] Oct 14, 2016 04:43 PM V9 TOBACCO OFFERED [facility] Oct 14, 2016 04:43 PM V9 TOBACCO USE-DECLINED MEDS [facility] Oct 03, 2015 08:21 AM V9 CURRENT TOBACCO USER [facility] Oct 03, 2015 08:21 AM V9 TOBACCO OFFERED [facility] Oct 03, 2015 08:21 AM V9 TOBACCO USE-DECLINED MEDS [facility] Aug 30, 2014 08:12 AM V9 CURRENT TOBACCO USER [facility] Aug 30, 2014 08:12 AM V9 TOBACCO OFFERED [facility] Jul 18, 2013 08:02 AM V9 CURRENT TOBACCO USER [facility] Jul 18, 2013 08:02 AM V9 QUIT TOBACCO >7 YEARS AGO [facility] Jul 18, 2013 08:02 AM V9 TOBACCO OFFERED [facility] Jul 01, 2012 07:45 AM TOBACCO OFFERRED P T MEDS (PROVIDER) [facility] Jul 01, 2012 07:45 AM V9 CURRENT TOBACCO USER [facility] Jul 01, 2012 07:45 AM V9 QUIT TOBACCO >1 2 MO & <7 YRS AGO [facility] Jul 01, 2012 07:45 AM V9 TOBACCO OFFERED [facility] 2011 07:55 AM V9 CURRENT TOBACCO USER [facility] 2011 07:55 AM V9 TOBACCO OFFERED [facility] Jun 12, 2011 07:53 AM TOBACCO OFFERRED P T MEDS (PROVIDER) [facility] Jun 12, 2011 07:53 AM V9 CURRENT TOBACCO USER [facility] Jun 12, 2011 07:53 AM V9 TOBACCO OFFERED [facility] Sep 06, 2010 07:32 AM TOBACCO OFFERRED P T MEDS (PROVIDER) [facility] Sep 06, 2010 07:32 AM V9 CURRENT TOBACCO USER [facility] Sep 06, 2010 07:32 AM V9 TOBACCO OFFERED [facility] Sep 06, 2009 07:33 AM TOBACCO OFFERRED P T MEDS (PROVIDER) [facility] Sep 06, 2009 07:33 AM V9 CURRENT TOBACCO USER [facility] Sep 06, 2009 07:33 AM V9 TOBACCO OFFERED [facility] Radiology Reports: +/- 30 days of the [...] the Encounter. The data comes from all [place] treatment facilities. Date/Time Radiology Report Provider Source Nov 29, 2024 07:47 AM LDCT LCS 1, 3 OR 6 MONTH FOLLOW UP: MICHAEL THOMAS [id number] -[id number] M Exm Date: NOV 29, 2024@07:47 Req Phys: KOUSA,KITTA Pat Loc: ZEKE PACT ALPHA 1-3 (Req'g Loc) Img Loc: CT SCAN Service: [place] [address] (Case [id number] COMPLETE) LDCT LCS 1, 3 OR 6 MONTH FOLLOW U(CT Detailed) CPT:08675 Reason for Study: 12-month F/U LDCT Clinical History: Report Status: Verified Date Reported: NOV 29, 2024 Date Verified: NOV 29, 2024 Delivery Of Shopping News E-Sig: Report: EXAM: LDCT LCS 1, 3 [...] Staff: CLAUDETTE HIDALGO, Staff Radiologist Verified by aircraft pilot for CLAUDETTE HIDALGO /[facility]
--- OUTSIDE RECORDS SUMMARY | 2024-12-12 10:23 | XMS_ITS | Encounter Summary ---
Author Name [facility] [place] [facility] [place] Address [address] [place] [id number] Care Team Providers Care Director Acute Name Role Phone PHONG JENKINS Primary Care [...] PART A Nov 22, 2012 PART A [id number] MEGANMIKEJuve MICHAEL PATIENT MEDICARE (WNR) MEDICARE (M) PART B Nov 22, 2012 PART B [id number] MICHAEL THOMAS PATIENT MEDICARE (WNR) MEDICARE (M) PART A Nov 22, 2012 PART A [id number] [id number] [id number] MARTHA MICHAEL PATIENT MEDICARE (WNR) MEDICARE (M) PART B Nov 22, 2012 PART B [id number] MICHAEL THOMAS PATIENT Selected Encounter This section includes the information on record at [place] for the Encounter. Date/Time Encounter Type Encounter Description Reason Provider Source Feb 17, 2024 10:00 AM OFF/OP EST MAY X REQ PHY/QHP PRIMARY CARE/MEDICINE ICD-10-CM Z71.89 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ed counseling MARKO CHRISTIANSON Willy Encounter Template Text not used by [place] Assessments - Encounter Diagnoses This section includes the primary and secondary diagnoses documented for the Encounter. Date/Time Primary/Secondary Diagnosis Diagnosis Name Provider Source Feb 17, 2024 10:44 AM PRIMARY 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ed counseling MARKO CHRISTIANSON [facility] Plan of Treatment: Future Appointments (+ 6 months) and Future Tests (+/- 45 days) The Plan of Treatment section includes [facility] care activities for the [facility] [place] [facility] This section includes future appointments and [...] 18, 2024 09:00 AM AMBULATORY - NONE [facility] Vital Signs: All taken on the encounter date This section contains inpatient and outpatient Vital Signs collected on the date of the Encounter. Date/Time Temperature Pulse Blood Pressure Respiratory Rate SP02 Pain Height Weight Body Mass Index Source Feb 17, 2024 10:44 AM 74 121/69 18 94 [facility] Social History: Smoking Status (Most current) and Tobacco Use (All prior to encounter date) This section includes the most current, and the historical, smoking and tobacco- related health factors from the [place] facility where the Encounter took place. Current Smoking Status This section includes the most current smoking, or tobacco-related health factor, from the [place] facility where the Encounter took place. Date/Time Current Smoking Status Comment Davi ity Nov 02, 2023 09:00 AM VA-TOBACCO USER EVERY DAY [facility] Tobacco Use History This section includes a history of the smoking, or tobacco-related health factors, that were collected on or before the date of the Encounter. The data comes from the [place] facility where the Encounter took place. 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 WASHER NO [facility] Nov 02, 2023 09:00 AM VA-TOBACCO USE MED NO [facility] Nov 02, 2023 09:00 AM VA-TOBACCO USE WI 30 MIN OF WAKEUP [facility] Nov 02, 2023 09:00 AM VA-TOBACCO USER EVERY DAY [facility] Aug 29, 2022 08:00 AM VA-TOBACCO DOESNT USE WI 30 MIN WAKEUP [facility] Aug 29, 2022 08:00 AM VA-TOBACCO USE 30 YEARS OR MORE [facility] Aug 29, 2022 08:00 AM VA-TOBACCO USE ADVICE [facility] Aug 29, 2022 08:00 AM VA-TOBACCO USE RAIL WASHER NO [facility] Aug 29, 2022 08:00 AM VA-TOBACCO USE MED NO [facility] Aug 29, 2022 08:00 AM VA-TOBACCO USER EVERY DAY [facility] Aug 26, 2021 08:00 AM VA-TOBACCO DOESNT USE WI 30 MIN WAKEUP [facility] Aug 26, 2021 08:00 AM VA-TOBACCO USE 30 YEARS OR MORE [facility] Aug 26, 2021 08:00 AM VA-TOBACCO USE ADVICE [facility] Aug 26, 2021 08:00 AM VA-TOBACCO USE RAIL WASHER NO [facility] Aug 26, 2021 08:00 AM VA-TOBACCO USE MED NO [facility] Aug 26, 2021 08:00 AM VA-TOBACCO USER EVERY DAY [facility] December 26, 2019 10:07 AM VA-TOBACCO DOESNT USE WI 30 MIN WAKEUP [facility] December 26, 2019 10:07 AM VA-TOBACCO USE 30 YEARS OR MORE [facility] December 26, 2019 10:07 AM VA-TOBACCO USE ADVICE [facility] December 26, 2019 10:07 AM VA-TOBACCO USE RAIL WASHER NO [facility] December 26, 2019 10:07 AM VA-TOBACCO USE MED NO [facility] December 26, 2019 10:07 AM VA-TOBACCO USER EVERY DAY [facility] Oct 19, 2018 09:18 AM VA-TOBACCO DOESNT USE WI 30 MIN WAKEUP [facility] Oct 19, 2018 09:18 AM VA-TOBACCO USE 30 YEARS OR MORE [facility] Oct 19, 2018 09:18 AM VA-TOBACCO USE ADVICE [facility] Oct 19, 2018 09:18 AM VA-TOBACCO USE RAIL WASHER NO [facility] Oct 19, 2018 09:18 AM VA-TOBACCO USE MED NO [facility] Oct 19, 2018 09:18 AM VA-TOBACCO USER SOME DAYS [facility] Sep 25, 2017 01:14 PM V9 CURRENT TOBACCO USER [facility] Sep 25, 2017 01:14 PM V9 TOBACCO OFFERED [facility] Sep 25, 2017 01:14 PM V9 TOBACCO USE-DECLINED MEDS [facility] Oct 14, 2016 04:43 PM V9 CURRENT TOBACCO USER [facility] Oct 14, 2016 04:43 PM V9 TOBACCO OFFERED [facility] Oct 14, 2016 04:43 PM V9 TOBACCO USE-DECLINED MEDS [facility] Oct 03, 2015 08:21 AM V9 CURRENT TOBACCO USER [facility] Oct 03, 2015 08:21 AM V9 TOBACCO OFFERED [facility] Oct 03, 2015 08:21 AM V9 TOBACCO USE-DECLINED MEDS [facility] Aug 30, 2014 08:12 AM V9 CURRENT TOBACCO USER [facility] Aug 30, 2014 08:12 AM V9 TOBACCO OFFERED [facility] Jul 18, 2013 08:02 AM V9 CURRENT TOBACCO USER [facility] Jul 18, 2013 08:02 AM V9 QUIT TOBACCO >7 YEARS AGO [facility] Jul 18, 2013 08:02 AM V9 TOBACCO OFFERED [facility] Jul 01, 2012 07:45 AM TOBACCO OFFERRED P T MEDS (PROVIDER) [facility] Jul 01, 2012 07:45 AM V9 CURRENT TOBACCO USER [facility] Jul 01, 2012 07:45 AM V9 QUIT TOBACCO >1 2 MO & <7 YRS AGO [facility] Jul 01, 2012 07:45 AM V9 TOBACCO OFFERED [facility] 2011 07:55 AM V9 CURRENT TOBACCO USER [facility] 2011 07:55 AM V9 TOBACCO OFFERED [facility] Jun 12, 2011 07:53 AM TOBACCO OFFERRED P T MEDS (PROVIDER) [facility] Jun 12, 2011 07:53 AM V9 CURRENT TOBACCO USER [facility] Jun 12, 2011 07:53 AM V9 TOBACCO OFFERED [facility] Sep 06, 2010 07:32 AM TOBACCO OFFERRED P T MEDS (PROVIDER) [facility] Sep 06, 2010 07:32 AM V9 CURRENT TOBACCO USER [facility] Sep 06, 2010 07:32 AM V9 TOBACCO OFFERED [facility] Sep 06, 2009 07:33 AM TOBACCO OFFERRED P T MEDS (PROVIDER) [facility] Sep 06, 2009 07:33 AM V9 CURRENT TOBACCO USER [facility] Sep 06, 2009 07:33 AM V9 TOBACCO OFFERED [facility] Encounter Notes: All associated encounter notes This section contains the clinical notes associated to the Encounter. Date/Time Encounter Note(s) Provider Source Feb 17, 2024 10:29 AM PRIMARY CARE NURSI NG NOTE: LOCAL TITLE: [employer] Tr[employer] Note STANDARD TITLE: PRIMARY CARE NURSING NOTE DATE OF NOTE: FEB 17, 2024@10:29 ENTRY DATE: FEB 17, 2024@10:29:44 AUTHOR: MARKO CHRISTIANSON EXP COSIGNER: URGENCY: STATUS: COMPLETED [place] arrived to front man of clinic @ 0905 for scheduled RN appt @ 1000. had c/o rash to bilateral lower extremities x 2 weeks. Upon examination bilateral lower extremities had some redness in spots. Denies: pain, itching, fever Denies any new lotions, creams, soaps, detergents, medications. Reviewed image that was sent in via [employer]. [place] verbalized when he was doing yard work recently, he was exposed to poison peg. OTC medicine: CeraVe lotion VS: NO TEMP - 74hr - 18rr - 121/69bp - 94% RA Provider in to see patient at 9:25 Provider reviewed images on [facility] and examined bilateral lower extremities. Per provider: poison peg is healing - continue using lotion - wear pants when doing yard work around poison peg. verbalized understanding and had no other issues or concerns at this time. /milagros/ EDY REBOLLEDO,RN PC BLANKING MACHINE OPERATOR Signed: 02/17/2024 10:44 Receipt Acknowledged By: 02/17/2024 11:12 /milagros/ PHONG CHRISTIANSON,MARKO [facility]
--- OUTSIDE RECORDS SUMMARY | 2024-12-12 10:24 | XMS_ITS | Encounter Summary ---
Author Name [facility] [place] Organization [facility] [place] Address [address] [place] [id number] Care Team Providers Care Policy Writer Sales Name Role Phone PHONG JENKINS Primary Care [...] PART A Nov 22, 2012 PART A [id number] MICHAEL THOMAS PATIENT MEDICARE (WNR) MEDICARE (M) PART B Nov 22, 2012 PART B [id number] MEGANMIKEMICHAEL An PATIENT MEDICARE (WNR) MEDICARE (M) PART A Nov 22, 2012 PART A [id number] [phone] [id number] MICHAEL THOMAS PATIENT MEDICARE (WNR) MEDICARE (M) PART B Nov 22, 2012 PART B [id number] MICHAEL THOMAS PATIENT Selected Encounter This section includes the information on record at [place] for the Encounter. Date/Time Encounter Type Encounter Description Reason Provider Source May 18, 2024 09:00 AM OFFICE O/P EST MOD 30 MIN PRIMARY CARE/MEDICINE ICD-10-CM I10 Essential (primary) hypertension PHONG JENKINS Willy Encounter Template Text not used by [place] Assessments - Encounter Diagnoses This section includes the primary and secondary diagnoses documented for the Encounter. Date/Time Primary/Secondary Diagnosis Diagnosis Name Provider Source May 18, 2024 09:56 AM PRIMARY Essential (primary) hypertension [facility] May 18, 2024 09:56 AM SECONDARY Benign prostatic hyperplasia with lower urinary tract symp KOUSA,[facility] May 18, 2024 09:56 AM SECONDARY Hyperlipidemia, unspecified KOUSA,[facility] May 18, 2024 09:56 AM SECONDARY Mixed hyperlipidemia KOUSA,[facility] May 18, 2024 09:56 AM SECONDARY Obstructive sleep apnea (adult) (pediatric) KOUSA,[facility] May 18, 2024 09:56 AM SECONDARY Other obstructive and reflux uropathy KOUSA,[facility] May 18, 2024 09:56 AM SECONDARY Peripheral vascular disease, unspecified KOUSA,[facility] May 18, 2024 09:56 AM SECONDARY Solitary pulmonary nodule KOUSA,[facility] May 18, 2024 09:56 AM SECONDARY Unspecified sensorineural hearing loss KOUSA,[facility] May 18, 2024 09:56 AM SECONDARY Vertebrogenic low back pain KOUSA,[facility] Plan of Treatment: Future Appointments (+ 6 months) and Future Tests (+/- 45 days) The Plan of Treatment section includes future care activities for the patient [facility] [place] [facility] This section includes future appointments and future orders which are active, pending or scheduled. Future Appointments This section includes appointments that were scheduled to occur 6 months from the date of the Encounter, up to a maximum of 20 appointments. The data comes from all [place] treatment facilities. Appointment Date/Time Appointment Type Appointme nt Facility Name Nov 02, 2024 08:00 AM [facility] Active, Pending, and Scheduled Orders This section includes a listing of several types of active, pending, and scheduled orders, including clinic medications orders, diagnostic test orders, procedure orders and consult orders; where the start date of the order is 45 days before the date of the Encounter or 45 days after the date of theEncounter. The data comes from all [place] treatment facilities. Test Date/Time Test Type Test Details Facility Name May 21, 2024 12:00 AM Laboratory - Chemi stry Order B12 VITAMIN [id number] SP ONCE [facility] May 21, 2024 12:00 AM Laboratory - Chemi stry Order FOLATE [id number] SP [facility] May 21, 2024 12:00 AM Laboratory - Chemi stry Order IRON/TIBC [id number] SP ONCE [facility] May 21, 2024 12:00 AM Laboratory - Chemi stry Order FERRITIN [id number] SP ONCE [facility] Lab Results: +/- 30 days of the encounter This section includes the Chemistry and Hematology Lab Results on record with [place] for the patient. Radiology Reports and Pathology Reports are provided separately, in subsequent sections. Lab Results This section contains the Chemistry/Hematology Results that were resulted 30 days before or 30 daysafter the date of the Encounter. Date/Time Source Result Type Result - Unit Interpretation Reference Range Specimen Type Comment May 18, 2024 09:43 AM [facility] GLYCOHEMOGLOBIN BLOOD Specimen Type: BLOOD Comment: [place] guidelines for A1c interpretation: Glycemic control targets are based on Shared Decision Making between clinicians and patients. Criteria used to establish an A1c target recommendation can be found at https://www.co. ov/qualityandpat ientsafety/ and include the use of result accuracy and precision(CV) of the A1c tests clinicians utilize at their own sites of practice. Values obtained from A1C measurements can vary. For typical A1C assays, a reported value of 7.0 could actually be between 6.72 and 7.28 if measured by a reference method. A reported value of 9.0 could actually be between 8.73 and 9.27. Ref: https://ngsp.org /CAPdata.asp. The in-house [employer] D-100 analyzer has a historical CV <= 2%. Contact the laboratory for further performance characteristics of this assay. Ordering Provider: PHONG JENKINS Report Released Date/Time: May 18, 2024 09:37 AM Reporting Lab: [address] [address] Performing Lab: [address] [address] GLYCOHEMOGLOBIN 6.6 H 4.4-6.4 May 18, 2024 09:43 AM [facility] LIPID PROFILE PLASMA Specimen Type: PLASM A Comment: Estimated [...] May 18, 2024 09:37 AM Reporting Lab: [address] [address] Performing Lab: [address] [address] CHOLESTEROL 110 mg/dL 0-199 TRIGLYCERIDE 99 mg/dL 0-149 HDL CHOLESTEROL 33 mg/dL L 40-69 DIRECT LDL CHOL. 69 mg/dL 0-100 May 18, 2024 09:43 AM [facility] URIC ACID PLASMA Specimen Type: PLASM A [...] May 18, 2024 09:37 AM Reporting Lab: [place] [address] Performing Lab: [place] [address] URIC ACID 5.5 mg/dL 3.5-7.2 May 18, 2024 09:43 AM [facility] PSA S KEO Specimen Type: SERUM No comment entered. Ordering Provider: PHONG JENKINS Report Released Date/Time: May 18, 2024 09:37 AM Reporting Lab: [place] [address] Performing Lab: [place] [address] PSA 8.384 ng/mL H 0-3.999 May 18, 2024 09:43 AM [facility] CBC/PLT BLOOD Specimen Type: BLOOD No comment entered. Ordering Provider: PHONG JENKINS Report Released Date/Time: May 18, 2024 09:37 AM Reporting Lab: [place] [address] Performing Lab: [place] [address] WBC 4.7 10*3/uL L 5.0-10.0 RBC 4.76 10*6/uL 4.6-6.2 HGB 13.3 g/dL L 14.0-18.0 HCT 42.5 42.0-52.0 MCV 89.3 fL 80.0-94.0 MCH 27.9 pg 27.0-31.0 MCHC 31.3 g/dL L 32.0-36.0 PLT 173 10*3/uL 150-450 MPV 10.2 fL 9.0-13.1 RDW 13.6 11.0-16.0 NRBC 0.0 0.0-0.0 May 18, 2024 09:43 AM [facility] PANEL 5 PLASMA Specimen Type: PLASM A [...] May 18, 2024 09:37 AM Reporting Lab: [address] [address] Performing Lab: [address] [address] CREATININE 1.05 mg/dL 0.72-1.25 UREA NITROGEN 10 [...] 95 2 [address] [facility] Social History: Smoking Status (Most current) and Tobacco Use (All prior to encounter date) This section includes the most current, and the historical, smoking and tobacco- related health factors from the [place] facility where the Encounter took place. Current Smoking Status This section includes the most current smoking, or tobacco-related health factor, from the [place] facility where the Encounter took place. Date/Time Current Smoking Status Comment Facil ity May 18, 2024 09:00 AM VA-TOBACCO USER SOME DAYS [facility] Tobacco Use History This section includes a history of the smoking, or tobacco-related health factors, that were collected on or before the date of the Encounter. The data comes from the [place] facility where the Encounter took place. Date/Time Smoking Status/Tobacco Use Comment F acility May 18, 2024 09:00 AM VA-TOBACCO USE 30 YEARS OR MORE [facility] May 18, 2024 09:00 AM VA-TOBACCO USE ADVICE [facility] May 18, 2024 09:00 AM VA-TOBACCO USE HEEL NAIL RASPER NO [facility] May 18, 2024 09:00 AM VA-TOBACCO USE MED NO [facility] May 18, 2024 09:00 AM VA-TOBACCO USER SOME DAYS [facility] Nov 02, 2023 09:00 AM VA-TOBACCO USE 30 YEARS OR MORE [facility] Nov 02, 2023 09:00 AM VA-TOBACCO USE ADVICE [facility] Nov 02, 2023 09:00 AM VA-TOBACCO USE HEEL NAIL RASPER NO [facility] Nov 02, 2023 09:00 AM VA-TOBACCO USE MED NO [facility] Nov 02, 2023 09:00 AM VA-TOBACCO USE [place] 30 MIN OF WAKEUP [facility] Nov 02, 2023 09:00 AM VA-TOBACCO USER EVERY DAY [facility] Aug 29, 2022 08:00 AM VA-TOBACCO DOESNT USE [place] 30 MIN WAKEUP [facility] Aug 29, 2022 08:00 AM VA-TOBACCO USE 30 YEARS OR MORE [facility] Aug 29, 2022 08:00 AM VA-TOBACCO USE ADVICE [facility] Aug 29, 2022 08:00 AM VA-TOBACCO USE HEEL NAIL RASPER NO [facility] Aug 29, 2022 08:00 AM VA-TOBACCO USE MED NO [facility] Aug 29, 2022 08:00 AM VA-TOBACCO USER EVERY DAY [facility] Aug 26, 2021 08:00 AM VA-TOBACCO DOESNT USE [place] 30 MIN WAKEUP [facility] Aug 26, 2021 08:00 AM VA-TOBACCO USE 30 YEARS OR MORE [facility] Aug 26, 2021 08:00 AM VA-TOBACCO USE ADVICE [facility] Aug 26, 2021 08:00 AM VA-TOBACCO USE HEEL NAIL RASPER NO [facility] Aug 26, 2021 08:00 AM VA-TOBACCO USE MED NO [facility] Aug 26, 2021 08:00 AM VA-TOBACCO USER EVERY DAY [facility] December 26, 2019 10:07 AM VA-TOBACCO DOESNT USE [place] 30 MIN WAKEUP [facility] December 26, 2019 10:07 AM VA-TOBACCO USE 30 YEARS OR MORE [facility] December 26, 2019 10:07 AM VA-TOBACCO USE ADVICE [facility] December 26, 2019 10:07 AM VA-TOBACCO USE HEEL NAIL RASPER NO [facility] December 26, 2019 10:07 AM VA-TOBACCO USE MED NO [facility] December 26, 2019 10:07 AM VA-TOBACCO USER EVERY DAY [facility] Oct 19, 2018 09:18 AM VA-TOBACCO DOESNT USE [place] 30 MIN WAKEUP [facility] Oct 19, 2018 09:18 AM VA-TOBACCO USE 30 YEARS OR MORE [facility] Oct 19, 2018 09:18 AM VA-TOBACCO USE ADVICE [facility] Oct 19, 2018 09:18 AM VA-TOBACCO USE HEEL NAIL RASPER NO [facility] Oct 19, 2018 09:18 AM VA-TOBACCO USE MED NO [facility] Oct 19, 2018 09:18 AM VA-TOBACCO USER SOME DAYS [facility] Sep 25, 2017 01:14 PM V9 CURRENT TOBACCO USER [facility] Sep 25, 2017 01:14 PM V9 TOBACCO OFFERED [facility] Sep 25, 2017 01:14 PM V9 TOBACCO USE-DECLINED MEDS [facility] Oct 14, 2016 04:43 PM V9 CURRENT TOBACCO USER [facility] Oct 14, 2016 04:43 PM V9 TOBACCO OFFERED [facility] Oct 14, 2016 04:43 PM V9 TOBACCO USE-DECLINED MEDS [facility] Oct 03, 2015 08:21 AM V9 CURRENT TOBACCO USER [facility] Oct 03, 2015 08:21 AM V9 TOBACCO OFFERED [facility] Oct 03, 2015 08:21 AM V9 TOBACCO USE-DECLINED MEDS [facility] Aug 30, 2014 08:12 AM V9 CURRENT TOBACCO USER [facility] Aug 30, 2014 08:12 AM V9 TOBACCO OFFERED [facility] Jul 18, 2013 08:02 AM V9 CURRENT TOBACCO USER [facility] Jul 18, 2013 08:02 AM V9 QUIT TOBACCO >7 YEARS AGO [facility] Jul 18, 2013 08:02 AM V9 TOBACCO OFFERED [facility] Jul 01, 2012 07:45 AM TOBACCO OFFERRED P T MEDS (PROVIDER) [facility] Jul 01, 2012 07:45 AM V9 CURRENT TOBACCO USER [facility] Jul 01, 2012 07:45 AM V9 QUIT TOBACCO >1 2 MO & <7 YRS AGO [facility] Jul 01, 2012 07:45 AM V9 TOBACCO OFFERED [facility] 2011 07:55 AM V9 CURRENT TOBACCO USER [facility] 2011 07:55 AM V9 TOBACCO OFFERED [facility] Jun 12, 2011 07:53 AM TOBACCO OFFERRED P T MEDS (PROVIDER) [facility] Jun 12, 2011 07:53 AM V9 CURRENT TOBACCO USER [facility] Jun 12, 2011 07:53 AM V9 TOBACCO OFFERED [facility] Sep 06, 2010 07:32 AM TOBACCO OFFERRED P T MEDS (PROVIDER) [facility] Sep 06, 2010 07:32 AM V9 CURRENT TOBACCO USER [facility] Sep 06, 2010 07:32 AM V9 TOBACCO OFFERED [facility] Sep 06, 2009 07:33 AM TOBACCO OFFERRED P T MEDS (PROVIDER) [facility] Sep 06, 2009 07:33 AM V9 CURRENT TOBACCO USER [facility] Sep 06, 2009 07:33 AM V9 TOBACCO OFFERED [facility] Encounter Notes: All associated encounter notes This section contains the clinical notes associated to the Encounter. Date/Time Encounter Note(s) Provider Source May 18, 2024 08:27 AM PRIMARY CARE NURSI TERRENCE NOTE: LOCAL TITLE: [facility] Tech/concrete finisher Note STANDARD TITLE: PRIMARY CARE NURSING NOTE [...] the event of emergency situations. Yes - /Caregiver verbalized understanding of topics discussed and education [...] Assessment: Preferred language for discussing health care Bahraini REASSESSMENT LEARNING BARRIERS Hearing Barrier Comment: left [...] file. Screening not required. [place] Index of Pleasants in Activities of Daily Living: [place] INDEX FOR ADL ASSESSMENT: [place] Index of Pleasants in Activities of Daily Living was completed [...] INSTRUMENTAL ACTIVITIES OF DAILY LIVING (IADL) SCALE ([place]) Telephone: 1 point - Looks up numbers, [...] Not at all Suicide Screen: C-SSRS Screening [place] Suicide Severity Rating Scale (C-SSRS) screener 1. [...] to protect and improve your health and [place] has the resources to support you. - [...] behavioral changes to help you quit. - [place] has a number of behavioral counseling options to help you with quitting, including: * Provide information about the facility smoking or tobacco use treatment options or clinics * [place]'s national quitline, 3-680-BOVO-VET, with counseling available Thursday-Thursday The patient was [...] with feet/occasional neuropath feeling /es/ ADRIAN ROSS MEASURER MACHINE STAFF MEASURER MACHINE Signed: 05/18/2024 08:51 ADRIAN ROSS [facility] May 18, 2024 08:26 AM PRIMARY CARE NOTE: LOCAL TITLE: PC PROGRESS NOTE STANDARD TITLE: PRIMARY CARE NOTE DATE OF NOTE: MAY 18, 2024@08:26 ENTRY DATE: MAY 18, 2024@08:26:26 AUTHOR: PHONG JENKINS EXP COSIGNER: URGENCY: STATUS: COMPLETED ID: 78 year old MALE Chief Complaint: Ongoing management of active/chronic medical problems PC-Nurse's note is reviewed. HPI/PROBLEM LIST: Patient is a 78 year old MALE here today to establish treatment of active/chronic medical problems, and F/U test results. Patient denies any recent Hospitalizations, ER visits or surgeries in last 90 days. NON-VA Provider-NA [facility] - right hip replacement [facility] - [place], [place], pain management clinic for low back pain. PCP- Dr Kessler - [place] , [place] Pharmacy- [facility] - Since last visit had pneumonia treated as an outpt by his NON-VA [facility] in his home town. Cleared yup yesterday as he completed all the RXs . Today has no complaints. - Low back pain across lower back / right leg pain- had epidural steroid injection on 08/04/2023 at [facility] - pain management clinic in - [place], [place] , helped,the lower back pain and [...] outflow obstruction-/- Elevated PSA- 12/01/2022 Urology visit- [facility] - PSA stable, recheck in 6 month [...] his toenail clipped every 3 month at [facility] podiatry in his hometown. - Gastroesophageal reflux [...] repeat 10/2013 +benign TA, repeated 03/11 at [facility] at [facility] benign TA; F/U Dr. Jay-repeat recommended 2023. - PSA:3.887 ng/mL (11/02/2023 09:26) - Screening for HIV:NEG 2017 - Screening for HCV:NEG 2017 . IM - Immunizations ADMINISTERED COVID-19 (MODERNA), MRNA, LNP-S,* 6 06/19/2023 IZG:KALIN ALVAREZ COVID-19 (Causecast), MRNA, LNP-S, * B 08/29/2022 [place]* COVID-19 (PFIZER), MRNA, LNP-S, * 3 04/24/2021 IZG:KALIN IIS COVID-19 (Causecast), MRNA, LNP-S, * 2 09/30/2020 [place]* COVID-19 (PFIZER), MRNA, LNP-S, * 1 09/09/2020 [place]* COVID-19 (PFIZER), MRNA, LNP-S, * 3 03/17/2022 [facility] DTP 10/03/2015 [place]* HEP A, ADULT 10/17/2019 [place]* HEP A, ADULT 04/18/2019 [place]* INFLUENZA, SPLIT VIRUS, QUADRIVA* 6 06/19/2023 IZG:KALIN IIS [id number] (HISTORICAL) 10/15/2016 [place]* PNEUMOCOCCAL CONJUGATE PCV20, PO* [...] Range 10/22/2018 08:26 SERUM !! BRICEÑO/TOT (TO [id number] NEG No Hep B immunization history found. Active problems - Computerized Problem List is the source for the followin. Exposure to potentially hazardous substance (SCT [id number]) 2. Low back pain 3. Hearing loss in left ear 4. Obstructive sleep apnea of adult 5. Neuropathy 6. Exposure to potentially hazardous substance 7. Benign prostatic hyperplasia with outflow obstruction 8. Smokes tobacco daily 9. Peripheral arterial occlusive disease 10. Renal disorder due to type 2 diabetes mellitus 11. Gastroesophageal reflux disease 12. Multiple nodules of lung (SNOMED CT 027152443) 13. Benign essential hypertension (SNOMED CT 4135465) 14. Mixed hyperlipidemia (SNOMED CT 430197782) List of active problems are reviewed with patient and updated. SURGICAL HISTORY: Right hip TR 08/26/2023- [facility] FAMILY HISTORY Father-passed in his 70s Mother-passed in her 90s with dementia Siblings: 3 brothers, 2 sisters. All living in [place]. Healthy as far as he knows Children: 1 son, living in [place], healthy SOCIAL HISTORY: [employer] # Entered Discharge [employer] [id number] JUN 17, 1965 JUN 16, 1967 HONORABLE ([place]) OCCUPATION:[employer],retired x 13 years MARITAL STATUS - .Lives: [place] with . Son Lives in [place] TOBACCO: 2 ppd x 30 years, quit [...] MICROALBUMIN DIEGO 30.0 mg/L 0.0 - 30.0 11/02/2023 09:26 [...] his toenail clipped every 3 month at [facility] pod[facility] in [place] hometown. - Gastroesophageal reflux [...] Deferral / Refusal Deferred due to sergio rodriguez etdevon take it in 05/2024 in his hometown. [...] diminished) SENSORY CHECK: Includes 10 gram Monofilament ([place]-Jun) test of sensation. Intact (Greater than or [...] JENKINS MD Signed: 05/18/2024 09:56 PHONG JENKINS [facility]
--- NOTE | 2024-12-12 11:07 | EXP.PAIN.SOA ---
[facility] Disclaimer: The information contained in this section may have been updated after the patient was seen, as this information can be updated by other users. 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 Type 2 diabetes mellitus Abdominal aortic aneurysm BPH (benign prostatic hyperplasia) Lumbar disc disease Paroxysmal A-fib Family history of ischemic heart disease (IHD) Abnormal electrocardiogram [ECG] [EKG] Hyperlipidemia Hypertension Surgical History History of cardiac catheterization History of inguinal hernia repair History of left hip replacement Family History Other Family history of myocardial infarction Social History Smoking Status: Current some day smoker tobacco type: cigars years smoked: 50 second hand exposure: No alcohol intake: current alcohol intake frequency: a few times a week substance use type: denies use current occupational status: other Travel in the last 8 weeks: None adopted: No caregiver/support person: No foster care: No household members: spouse housing: house lives independently: Yes marital status: service: Yes status: retired intermediate: No current occupational exposures/hazards: No pets and animals: Yes pets and animals: cat(s) leisure activities: sports sexually active: No caffeine: Yes physical activity: walking do you feel safe at home: Yes PM Subjective & Objective Subjective Subjective:: Patient is a pleasant 78-year-old male who presents today for 6-week follow-up. Today he rates his pain a 0 out of 10. He states that he is still gotten great relief from his last SI injections from August. He states they are still doing wonderful and he feels much better overall. He denies any new falls or injuries. His Rc has been reviewed and is appropriate. Review of Systems: General: No recent weight changes, no fever, no sleep disturbances Respiratory: No cough, no shortness of air, no recurring pulmonary infections Cardiovascular/peripheral vascular: No chest pain, no palpitations, no edema, no shortness of breath Gastrointestinal: No new onset incontinence, normal bowel movements reported Genitourinary: No new onset incontinence Musculoskeletal: Low back pain Psychiatric: [Normal mood/affect] Neurological: [Denies weakness in extremities], [denies balance issues] Pain at rest (0-10 scale): 0 Objective Objective:: Physical Exam: General: Alert and oriented x3, no acute distress, pleasant and cooperative Lungs: Respirations even and unlabored, symmetrical chest expansion Eyes: PERRL Musculoskeletal: Flexion and extension of lumbar [spine] within normal limits Neurological: Speech clear, no gross sensory deficit Has patient had previous pain injection?: No Conservative treatment options previously tried: Home exercise plan Length of treatment: Longer than 12 weeks Meds Home Medications and Allergies Home Medications ?Medication ?Instructions ?Recorded ?Confirmed ?Type aspirin 81 mg tablet,delayed 81 mg PO DAILY 09/01/23 11/24/24 History release (Adult Low Dose Aspirin) metoprolol succinate 25 mg 25 mg PO DAILY #30 tabs 12/15/23 11/24/24 Rx tablet,extended release 24 hr (Toprol XL) clopidogrel 75 mg tablet (Plavix) 75 mg PO DAILY #30 tabs 01/08/24 11/24/24 Rx allopurinol 100 mg tablet 100 mg PO DAILY 01/12/24 11/24/24 History atorvastatin 40 mg tablet 80 mg PO HS 10/24/24 11/24/24 History lisinopril 20 mg tablet 10 mg PO HS 10/24/24 11/24/24 History omeprazole 20 mg capsule,delayed 20 mg PO DAILY 10/24/24 11/24/24 History release tamsulosin 0.4 mg capsule 0.4 mg PO HS 10/24/24 11/24/24 History New Prescriptions to Start Prescriptions: Allergies Allergy/AdvReac Type Severity Reaction Status Date / Time No Known Allergies Allergy Verified 11/24/24 08:10 Assessment and Plan *Assessment and plan (1) Sacroiliitis: Status: Acute Category: Medical Code(s): M46.1 - Sacroiliitis, not elsewhere classified Plan Patient continues to get significant relief from his last SI injections and does not require any additional interventions at this time. Patient will return to clinic in 3 months. Patient has been instructed to contact the clinic with any concerns before the next appointment. Dr. Pettit has reviewed this note and agrees with this plan of care. This note was dictated using voice recognition software and make contain errors or omissions. All injections are used with Lidocaine, Bupivacaine and Depo Medrol. Occasionally urine drug screen is needed to verify patient's compliance with our office pain contract. This is ordered based off specific treatments related to chronic pain with the potential to abuse certain medications.
[2024-12-12 11:44] VITALS: BP 142/66; PULSE 71; RESP 18; O2SAT 97; BMI 34.8
== END 2024-12-12 23:59 | disposition home or self-care (01) ==
LOC: SC.PAIN 10:18
PROVIDERS: PCP Family Medicine; Visit Provider Nurse Practitioner Family
DX: M46.1 Sacroiliitis, not elsewhere classified (principal); Z96.642 Presence of left artificial hip joint; F17.290 Nicotine dependence, other tobacco product, uncomplicated; Z79.02 Long term (current) use of antithrombotics/antiplatelets
CPT/HCPCS: 99212; G0463

== ENCOUNTER 2025-03-13 10:29 | Outpatient (POV) | payer MEDICARE, OTHER, SELFPAY ==
--- OUTSIDE RECORDS SUMMARY | 2024-07-11 06:15 | XMS_ITS ---
Author Organization [facility] Address [address] [facility] [address] [place] [phone] Care Team Providers Care Data Programmer Name Role Phone Checo Tomás Primary Care [...] Provider Diagnosis [facility] [address] [facility] [address] [place] [phone] 07/11/2024 Tomás Kessler Obstructive sleep ap june [...] * MICHAEL THOMASDOB:[birth year] (79 yo M)Acc No.[id number]:07/11/2024 Progress Notes Patient: MICHAEL RAMIREZ Provider: Janie Kessler M.D. :1945 A ge:78 Y S ex:Male Date:07/11/2024 Address:[address] [place] [address] , [place], [id number] Subjective: * Chief Complaints: * 1 . [...] Osteoarthritis, left hip, Hyperlipidemia, BPH, Followed at [place] in [place] by Dr. Krissy Abreu, Lumbar Disc Disease, Lumbar facet arthropathy, peripheral vascular disease, see angiogram December 2023. * Surgical History: i nguinal hernia repair , LT Total Hip Replacement 10/27/2014, normal heart cath 12/2014. * Hospitalization/Major Diagno stic Procedure: p eptic ulcer, Upper GI bleed- [facility] 2006, [facility] - Total Hip Replacement [...] * Images: Billing Information: * Visit Code: 90563 Office Visit, Est Pt., Level 3. * Procedure Codes: G2211 Complex e/m visit add on. * Electronic signature of Machelle Kessler MD on 03/13/2025 at 10:39 AM EDT Sign off status: Pending * Provider: Janie Kessler M.D. Date: 1 09/10/2023 Generated for Carmel jenkins/Vika/Mauitting on: 0 03/13/2025 10:39 AM EDT History and Physical Notes * [...]
--- OUTSIDE RECORDS SUMMARY | 2024-08-31 06:15 | XMS_ITS ---
Author Organization [facility] Address [address] [place] [phone] Care Team Providers Care Deaf And Hard Of Hearing Teacher Name Role Phone Tomás Kessler Primary Care [...] Provider Diagnosis [facility] [address] [place] [phone] 08/31/2024 Tomás Kessler Acute rhiniti s J00 [...] * WAGNERSamuel MICHAELDOB:[birth year] (79 yo M)Acc No.[id number]:08/31/2024 Progress Notes Patient: MICHAEL RAMIREZ Provider: Janie Kessler M.D. :1945 A ge:78 Y S ex:Male Date:08/31/2024 Address:[facility] [place], [id number] Subjective: * Chief [...] Osteoarthritis, left hip, Hyperlipidemia, BPH, Followed at [facility] in [place] by Dr. Krissy Abreu, Lumbar Disc Disease, Lumbar facet arthropathy, peripheral vascular disease, see angiogram December 2023. * Surgical History: i nguinal hernia repair , LT Total Hip Replacement 10/27/2014, normal heart cath 12/2014. * Hospitalization/Major Diagno stic Procedure: p eptic ulcer, Upper GI bleed- [facility] 2006, [facility] - Total Hip Replacement 10/27-05/2015. * Family [...] G 2211 Complex e/[place], [address] CAPILLARY BLOOD DRAW, 28542 CBC WITH AUTO DIFF * Follow Up: v ia phone to report progress * Images: Billing Information: * Visit Code: 84896 Office Visit, Est Pt., Level 3. * Procedure Codes: G2211 Complex e/[place]. [address] CAPILLARY BLOOD DRAW. 48509 CBC WITH AUTO DIFF. * Electronic signature of Machelle Kessler MD on 03/13/2025 at 10:39 AM EDT Sign off status: Pending * Provider: Janie Kessler M.D. Date: 0 08/31/2024 Generated for Printi ng/Faxing/eTransmitting on: 0 03/13/2025 10:39 AM EDT History [...]
--- OUTSIDE RECORDS SUMMARY | 2025-02-23 02:53 | XMS_ITS | Continuity of Care Document ---
Author Name [facility] Organization [facility] Care Team Providers Care Dispensing Optician Apprentice Name Role Phone [facility] Unavailable Unavailable Problems Combined list of problems from Department of Defense and [facility] Affairs facilities. It does not include entries that were removed or entered in error. Problem Status Onset Date Problem Type Date of Resolution Comments Source Benign essential hypertension (SNOMED CT 5810910) Active Condition [place] [facility] Benign prostatic hyperplasia with outflow obstruction Active Condition [facility] [facility] Exposure to potentially hazardous substance Active Condition [place] Exposure to potentially hazardous substance (SCT [id number]) Active Condition [place] Gastroesophageal reflux disease Active Condition [place] [facility] Hearing loss in left ear Active Condition [place] [facility] Low back pain Active Condition [place] Mixed hyperlipidemia (SNOMED CT 821880112) Active Condition [place] [facility] Multiple nodules of lung (SNOMED CT 644409571) Active Condition [place] [facility] Neuropathy Active Condition [place] [facility] Obstructive sleep apnea of adult Active Condition [place] [facility] Peripheral arterial occlusive disease Active Condition [place] [facility] 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 [place] [facility] Smokes tobacco daily Active Condition [place] Dm Type I Dm W/O Complications Inactive Condition 02/06/2014 Feb 06, 2014 Entered By: ANNCY PABLO Comment: removed per MD request [facility] Diagnosis: ICD-10-CM I73.9 Peripheral vascular disease, unspecified Active Diagnosis [facility] Diagnosis: ICD-10-CM E11.9 Type 2 diabetes mellitus without complications Active Diagnosis [facility] Diagnosis: ICD-10-CM I10 Essential (primary) hypertension Active Diagnosis [facility] Diagnosis: ICD-10-CM Z71.89 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ed counseling Active Diagnosis [facility] Diagnosis: ICD-10-CM H25.813 Combined forms of age-related cataract, bilateral Active Diagnosis [facility] Medications Combined list of outpatient medications from Department of Defense and Veterans Affairs facilities.Medications provided include 1) outpatient medications from the last 15 months, and 2) patient-reported medications. Medication Details Route Status Patient Instructions Prescription Expires Prescription Number Last Dispense Date Ordering Provider Order Date Order Qty Source ALLOPURINOL 100MG TAB TAKE ONE TABLET BY MOUTH DAILY FOR GOUT ORAL ACTIVE 11/23/2025 [id number] GREGORYKIT TA 2024 90 [place] [facility] ALLOP[facility] 100MG TAB TAKE ONE TABLET BY MOUTH DAILY FOR GOUT ORAL DISCONT INUED 10/19/2025 [id number] 5 SANTANA JENKINS TA 2024 90 [place] [facility] ALLOPURINOL 100MG TAB TAKE ONE TABLET BY MOUTH DAILY FOR GOUT ORAL DISCONT INUED 11/15/2024 [id number] GREGORYKIT TA 2023 90 [place] [facility] ASPIRIN 81MG TAB,EC TAKE ONE TABLET BY MOUTH DAILY FOR HEART ORAL DISCONT INUED BY PROVIDE R 11/23/2025 [id number] 5 KOALBAKIT TA 2024 90 [place] [facility] ASPIRIN 81MG TAB,EC TAKE ONE TABLET BY MOUTH DAILY ORAL ACTIVE OMAR SUBRAMANIAN 2024 [place] ATORVASTATI N [place] 80MG TAB TAKE ONE-HALF TABLET BY MOUTH DAILY FOR CHOLESTE ROL ORAL ACTIVE 11/23/2025 [id number] 5 KOALBAKIT TA 2024 45 [place] [facility] [place] 80MG TAB TAKE ONE-HALF TABLET BY MOUTH DAILY FOR CHOLESTE ROL ORAL DISCONT INUED 10/12/2025 [id number] KOALBAKIT TA 2024 45 [place] [facility] ATORVASTATI N CA 80MG TAB TAKE ONE-HALF TABLET BY MOUTH DAILY FOR CHOLESTE ROL ORAL DISCONT INUED 11/02/2024 [id number] SANTANA JENKINS 2023 45 [place] [facility] [place] CLOPIDOGREL BISULFATE 75MG TAB TAKE ONE TABLET BY MOUTH DAILY TO THIN BLOOD ORAL ACTIVE 11/23/2025 [id number] 5 SANTANA JENKINS 2024 90 [place] [facility] CLOPIDOGREL BISULFATE 75MG TAB TAKE ONE TABLET BY MOUTH DAILY TO THIN BLOOD ORAL DISCONT INUED 05/19/2025 [id number] SANTANA JENKINS 2023 90 [place] [facility] LISINOPRIL 20MG TAB TAKE ONE-HALF TABLET BY MOUTH DAILY FOR BLOOD PRESSURE /HEART ORAL ACTIVE 11/23/2025 [id number] 5 SANTANA JENKINS 2024 45 [place] [facility] LISINOPRIL 20MG TAB TAKE ONE-HALF TABLET BY MOUTH DAILY FOR BLOOD PRESSURE /HEART NEW DOSE ORAL DISCONT INUED 10/12/2025 [id number] 5 SANTANA JENKINS 2024 45 [place] [facility] LISINOPRIL 20MG TAB TAKE ONE-HALF TABLET BY MOUTH DAILY FOR BLOOD PRESSURE /HEART NEW DOSE ORAL DISCONT INUED 11/02/2024 [id number] SANTANA JENKINS 2023 45 [place] [facility] METOPROLOL SUCCINATE 50MG TAB,SA TAKE ONE-HALF TABLET BY MOUTH DAILY FOR BLOOD PRESSURE ORAL ACTIVE 11/23/2025 [id number] 5 SANTANA JENKINS 2024 45 [place] [facility] METOPROLOL SUCCINATE 50MG TAB,SA TAKE ONE-HALF TABLET BY MOUTH DAILY FOR BLOOD PRESSURE ORAL DISCONT INUED 05/19/2025 [id number] SANTANA JENKINS 2023 45 [place] [facility] OMEPRAZOLE 20MG CAP,EC TAKE ONE CAPSULE BY MOUTH ONCE A DAY 30 MINUTES BEFORE A MEAL FOR STOMACH -TAKE ON AN EMPTY STOMACH ORAL ACTIVE 11/23/2025 [id number] 5 MORENAUSA,KIT TA 2024 90 [place] [facility] OMEPRAZOLE 20MG CAP,EC TAKE ONE CAPSULE BY MOUTH ONCE A DAY 30 MINUTES BEFORE A MEAL FOR STOMACH -TAKE ON AN EMPTY STOMACH ORAL DISCONT INUED BY PROVIDE R 11/02/2024 [id number] MORENAUSA,KIT TA 2023 90 [place] [facility] TAMSULOSIN HCL 0.4MG CAP TAKE ONE CAPSULE BY MOUTH EVERY EVENING FOR PROSTATE ORAL ACTIVE 11/23/2025 [id number] 5 GREGORY,KIT TA 2024 90 [place] [facility] TAMSULOSIN HCL 0.4MG CAP TAKE ONE CAPSULE BY MOUTH EVERY EVENING FOR PROSTATE ORAL DISCONT INUED 11/02/2024 [id number] GREGORYKIT TA 2023 90 [place] [facility] Immunizations Combined list of available immunizations from the Department of Defense and Veterans Affairs facilities. Immunization Series Date Given Administered By Site Reaction Lot Number CVX Code Drug Health Program Analyst Status Comments Source COVID-19 (MODERNA), MRNA, LNP-S, PF, 50 MCG/0.5 ML (AGES 12+ YEARS) 6 2022 312 complet ed HISTORICA L INFORMATI ON - FROM OTHER REGISTRY, [place] [facility] INFLUENZA, INJECTABLE, QUADRIVALENT, PRESERVATIVE FREE 6 2022 150 complet ed HISTORICA L INFORMATI ON - FROM OTHER REGISTRY, [place] [facility] ZOSTER RECOMBINANT 2 2022 SOILA BOSS LEFT DELTO ID [id number] 187 complet ed [place] [facility] ZOSTER RECOMBINANT 1 2022 PEYTON SOOD LEFT DELTO ID [id number] 187 complet ed [place], [place] [facility] COVID-19 (PFIZER), MRNA, LNP-S, BIVALENT BOOSTER, PF, 30 MCG/0.3 ML DOSE 2022 ALANIS PARKER Yi RIGHT DELTO ID [id number] 300 complet ed Booster for Series, [place], [place] [facility] PNEUMOCOCCAL CONJUGATE PCV20, POLYSACCHARID E [id number] CONJUGATE, ADJUVANT, PF 2022 ALANIS PARKER LEFT DELTO ID [id number] 216 complet ed Completed Series, [place], [place] [facility] INFLUENZA, HIGH-DOSE, QUADRIVALENT 5 2021 197 complet ed HISTORICA L INFORMATI ON - [facility] OTHER REGISTRY, [place] [facility] COVID-19 (LivBlends), MRNA, LNP-S, PF, 30 MCG/0.3 ML DOSE, KIRSTEN-SUCROSE (AGES 12+ YEARS) 3 2021 217 complet ed HISTORICA L INFORMATI ON - FROM OTHER REGISTRY, [place] [facility] [place] INFLUENZA, HIGH DOSE SEASONAL 4 2020 135 complet ed HISTORICA L INFORMATI ON - FROM OTHER REGISTRY, [place] [facility] [place] INFLUENZA, UNSPECIFIED FORMULATION 2020 88 complet ed [place] [facility] COVID-19 (LivBlends), MRNA, LNP-S, PF, 30 MCG/0.3 ML DOSE 3 2020 208 complet ed HISTORICA L INFORMATI ON - FROM OTHER REGISTRY, [place] [facility] COVID-19 (LivBlends), MRNA, LNP-S, PF, 30 MCG/0.3 ML DOSE 2 2020 208 complet ed PFR; [id number]; 1 [place] COVID-19 (PFIZER), MRNA, LNP-S, PF, 30 MCG/0.3 ML DOSE 1 2020 208 complet ed PFR; [id number]; 1 [place] INFLUENZA, HIGH DOSE SEASONAL 3 2019 135 complet ed HISTORICA L INFORMATI ON - FROM OTHER REGISTRY, [place] [facility] [place] INFLUENZA, UNSPECIFIED FORMULATION 2019 88 complet ed [place] [facility]P A, ADULT 2019 52 complet ed [place] [facility] INFLUENZA, HIGH DOSE SEASONAL 2 2018 135 complet ed HISTORICA L INFORMATI ON - FROM OTHER REGISTRY, [place] [facility] INFLUENZA, SEASONAL, INJECTABLE 2018 141 complet ed [place] [facility] HEP A, ADULT 2018 52 complet ed [place] [facility] INFLUENZA, INJECTABLE, QUADRIVALENT, PRESERVATIVE FREE 1 2017 150 complet ed HISTORICA L INFORMATI ON - FROM OTHER REGISTRY, [place] [facility] INFLUENZA, SEASONAL, INJECTABLE 2017 141 complet ed locally [place] [facility] PNEUMOCOCCAL POLYSACCHARID E [id number] 2017 33 complet ed [place] [facility] INFLUENZA A & B (HISTORICAL) 2016 88 complet ed [place] [facility] [id number] (HISTORICAL) 2016 133 complet ed [place] [facility] FLU,3 YRS (HISTORICAL) 2015 88 complet ed [place] [facility] DTP 2015 01 complet ed [place] [facility] TDAP (HISTORICAL) 2015 115 complet ed [place] [facility] INFLUENZA A & B (HISTORICAL) 2014 88 complet ed [place] [facility] INFLUENZA A & B (HISTORICAL) 2013 88 complet ed [place] [facility] INFLUENZA A & B (HISTORICAL) 2012 88 complet ed [place] [facility] PNEUMOCOCCAL, UNSPECIFIED FORMULATION 2011 109 complet ed [place] [facility] ZOSTER LIVE 2011 TERENCE TALLEY 121 complet ed [place] [facility] INFLUENZA A & B (HISTORICAL) 2011 88 complet ed [place] [facility] FLU,3 YRS (HISTORICAL) 2010 88 complet ed [place] [facility] INFLUENZA A & B (HISTORICAL) 2009 88 complet ed [place] [facility] INFLUENZA A & B (HISTORICAL) 2008 88 complet ed [place] [facility] TD(ADULT) UNSPECIFIED FORMULATION 2004 139 complet ed [place] [facility] TD (ADULT), 2 LF TETANUS TOXOID, PRESERVATIVE FREE, ADSORBED 1 1996 09 complet ed HISTORICA L INFORMATI ON - FROM OTHER REGISTRY, [place] [facility] Results Combined list of recent chemistry, hematology and other laboratory results from Department of Defense and Veterans Affairs, ranging from 15 months to all on record, depending upon the facility. Order Name Results Value Reference Range Date Interpretation Specimen Comments Source GLYCOHEM OGLOBIN HEMOGLOBIN A1C/HEMOGL OBIN.TOTAL IN BLOOD BY HPLC 6.6 4.4 - 6.4 05/18 H Specimen Type: BLOOD Comment: [facility] guidelines for A1c interpretat ion: Glycemic [...] 9.27. Ref: [email or web address] [email or web address] [email or web address]. The in-house [employer] D-100 analyzer has a historical CV <= 2%. Contact the laboratory for further performance characteris tics of this assay. Ordering Provider: PHONG JENKINS Report Released Date/Time: May 18, 2024 09:37 AM Reporting Lab: [facility]ARD [facility] [address] [address] Performing Lab: [facility] [address] [address] [facility] LIPID PROFILE CHOLESTERO L [MASS/VOLU ME] [...] 2024 09:37 AM Reporting Lab: [facility] [address] [address] Performing Lab: [facility] [address] [address] [facility] LIPID PROFILE TRIGLYCERI DE [MASS/VOLU ME] [...] 2024 09:37 AM Reporting Lab: [facility]ARD [facility] [address] [facility] [address] Performing Lab: R[facility]ARD [facility] [address] [facility] [address] [facility] LIPID PROFILE CHOLESTERO L IN HDL [...] May 18, 2024 09:37 AM Reporting Lab: GILDAaTrik [facility] [address] [facility] [address] Performing Lab: RICHARD DOMO [facility] [address] [facility] [address] [facility] LIPID PROFILE CHOLESTERO L IN LDL [...] May 18, 2024 09:37 AM Reporting Lab: GILDATarik [facility] [address] [facility] [address] Performing Lab: ZEKEZEFERINO [place] [address] [address] [facility] URIC ACID URATE [MASS/VOLU ME] IN [...] May 18, 2024 09:37 AM Reporting Lab: [place] [phone] Performing Lab: [place] [phone] [place] [address] PSA PROSTATE SPECIFIC AG [MASS/VOLU ME] IN SERUM OR PLASMA 8.384 ng/mL 0 - 3.999 05/18 H Specimen Type: SERUM No comment entered. Ordering Provider: PHONG JENKINS Report Released Date/Time: May 18, 2024 09:37 AM Reporting Lab: [place] [phone] Performing Lab: [address] [place] [address] CBC/PLT LEUKOCYTES [#/VOLUME] IN BLOOD BY AUTOMATED COUNT 4.7 10*3/uL 5.0 - 10.0 05/18 L Specimen Type: BLOOD No comment entered. Ordering Provider: PHONG JENKINS Report Released Date/Time: May 18, 2024 09:37 AM Reporting Lab: [place] [phone] Performing Lab: [place] [phone] [place] [address] CBC/PLT ERYTHROCYT ES [#/VOLUME] IN BLOOD BY AUTOMATED COUNT 4.76 10*6/uL 4.6 - 6.2 05/18 Specimen Type: BLOOD No comment entered. Ordering Provider: PHONG JENKINS Report Released Date/Time: May 18, 2024 09:37 AM Reporting Lab: [place] [phone] Performing Lab: [address] [phone] [place] [address] CBC/PLT HEMOGLOBIN [MASS/VOLU ME] IN BLOOD 13.3 g/dL 14.0 - 18.0 05/18 L Specimen Type: BLOOD No comment entered. Ordering Provider: PHONG JENKINS Report Released Date/Time: May 18, 2024 09:37 AM Reporting Lab: [place] [phone] Performing Lab: [place] [phone] [place] [address] CBC/PLT HEMATOCRIT [VOLUME FRACTION] OF BLOOD BY AUTOMATED COUNT 42.5 42.0 - 52.0 05/18 Specimen Type: BLOOD No comment entered. Ordering Provider: PHONG JENKINS Report Released Date/Time: May 18, 2024 09:37 AM Reporting Lab: [place] [phone] Performing Lab: [place] [phone] [place] [address] CBC/PLT MCV [ENTITIC VOLUME] BY AUTOMATED COUNT 89.3 fL 80.0 - 94.0 05/18 Specimen Type: BLOOD No comment entered. Ordering Provider: PHONG JENKINS Report Released Date/Time: May 18, 2024 09:37 AM Reporting Lab: [place] [phone] Performing Lab: [place] [phone] [place] [address] CBC/PLT MCH [ENTITIC MASS] BY AUTOMATED COUNT 27.9 pg 27.0 - 31.0 05/18 Specimen Type: BLOOD No comment entered. Ordering Provider: PHNOG JENKINS Report Released Date/Time: May 18, 2024 09:37 AM Reporting Lab: [address] [address] Performing Lab: [place] [phone] [place] [address] CBC/PLT MCHC [MASS/VOLU ME] BY AUTOMATED COUNT 31.3 g/dL 32.0 - 36.0 05/18 L Specimen Type: BLOOD No comment entered. Ordering Provider: PHONG JENKINS Report Released Date/Time: May 18, 2024 09:37 AM Reporting Lab: [place] [address] Performing Lab: [address] CBC/PLT PLATELETS [#/VOLUME] IN BLOOD 173 10*3/uL 150 - 450 05/18 Specimen Type: BLOOD No comment entered. Ordering Provider: PHONG JENKINS Report Released Date/Time: May 18, 2024 09:37 AM Reporting Lab: [place] [address] Performing Lab: [address] CBC/PLT PLATELET MEAN VOLUME [ENTITIC VOLUME] IN BLOOD 10.2 fL 9.0 - 13.1 05/18 Specimen Type: BLOOD No comment entered. Ordering Provider: PHONG JENKINS Report Released Date/Time: May 18, 2024 09:37 AM Reporting Lab: [place] [address] Performing Lab: [address] CBC/PLT ERYTHROCYT E DISTRIBUTI ON WIDTH [ENTITIC VOLUME] BY AUTOMATED COUNT 13.6 11.0 - 16.0 05/18 Specimen Type: BLOOD No comment entered. Ordering Provider: PHONG JENKINS Report Released Date/Time: May 18, 2024 09:37 AM Reporting Lab: [place] [address] Performing Lab: [place] [phone] CBC/PLT NUCLEATED ERYTHROCYT ES/100 ERYTHROCYT ES IN BLOOD 0.0 0.0 - 0.0 05/18 Specimen Type: BLOOD No comment entered. Ordering Provider: PHONG JENKINS Report Released Date/Time: May 18, 2024 09:37 AM Reporting Lab: [address] [place] [address] Performing Lab: RICHARD [facility] [address] [facility] [address] [facility] PANEL 5 CREATININE [MASS/VOLU ME] IN SERUM [...] 2024 09:37 AM Reporting Lab: [facility] [address] [facility] [address] Performing Lab: RICHARD [facility] [address] [facility] [address] [facility] PANEL 5 UREA NITROGEN [MASS/VOLU ME] [...] May 18, 2024 09:37 AM Reporting Lab: [facility] [address] [facility] [address] [facility]: [facility] [address] [facility] [address] [facility] PANEL 5 GLUCOSE [MASS/VOLU ME] IN [...] May 18, 2024 09:37 AM Reporting Lab: [facility] [address] [address] Performing Lab: [facility] [address] [place] [address] [facility] PANEL 5 SODIUM [MOLES/VOL UME] IN [...] 2024 09:37 AM Reporting Lab: RICHARD [facility] [address] [address] Performing Lab: RICHARD [facility] [address] [address] [facility] PANEL 5 POTASSIUM [MOLES/VOL UME] IN [...] 2024 09:37 AM Reporting Lab: R[facility]ARD [facility] [address] [address] Performing Lab: RICHARD [facility] [address] [address] [facility] PANEL 5 CHLORIDE [MOLES/VOL UME] IN [...] 2024 09:37 AM Reporting Lab: R[facility]ARD [facility] [address] [address] Performing Lab: RICHARD [facility] [address] [address] [facility] PANEL 5 CARBON DIOXIDE, TOTAL [MOLES/VOL UME] IN SERUM OR PLASMA 23 mmol/L - 05/18 Specimen Type: PLASMA Comment: Estimated Glomerular [...] 2024 09:37 AM Reporting Lab: R[facility]ARD [facility] [address] [address] Performing Lab: RICHARD [facility] [address] [address] [facility] PANEL 5 CALCIUM [MASS/VOLU ME] IN SERUM OR PLASMA 9.4 mg/dL 8.4 - 10.2 05/18 Specimen Type: PLASMA Comment: Estimated Glomerular [...] 2024 09:37 AM Reporting Lab: R[facility] [address] [address] Performing Lab: RICHARD [address] [address] [facility] PANEL 5 PROTEIN [MASS/VOLU ME] IN [...] 2024 09:37 AM Reporting Lab: R[facility] [address] [address] Performing Lab: RICHARD [facility] [address] [address] [facility] PANEL 5 ALBUMIN [MASS/VOLU ME] IN [...] 2024 09:37 AM Reporting Lab: RICHARD [facility] [address] [address] Performing Lab: RICHARD [facility] [address] [address] [facility] PANEL 5 BILIRUBIN. TOTAL [MASS/VOLU ME] [...] 2024 09:37 AM Reporting Lab: RICHARD [facility] [address] [address] Performing Lab: RICHARD [facility] [address] [address] [facility] PANEL 5 ASPARTATE AMINOTRANS FERASE [ENZYMATIC [...] 2024 09:37 AM Reporting Lab: RICHARD [facility] [address] [facility] [address] Performing Lab: RICHARD [facility] [address] [facility] [address] [facility] PANEL 5 ALANINE AMINOTRANS FERASE [ENZYMATIC [...] 2024 09:37 AM Reporting Lab: R[facility]ARD [facility] [address] [facility] [address] Performing Lab: RICHARD OL[facility] [address] [address] [facility] PANEL 5 ANION GAP 3 IN [...] 2024 09:37 AM Reporting Lab: RICHARD [facility] [address] [facility] [address] Performing Lab: RICHARD [facility] [address] [facility] [address] [facility] PANEL 5 ALKALINE PHOSPHATAS E [ENZYMATIC [...] 2024 09:37 AM Reporting Lab: RICHARD [facility] [address] [facility] [address] Performing Lab: RICHARD [facility] [address] [facility] [address] [facility] PANEL 5 GLOMERULAR FILTRATION RATE/1.73 SQ [...] May 18, 2024 09:37 AM Reporting Lab: [place] [address] Performing Lab: [address] MICROALB UMIN/CRE AT RATIO CREATININE [MASS/VOLU ME] IN URINE 49.2 mg/dL 11/01 Specimen Type: URINE No comment entered. Ordering Provider: PHONG JENKINS Report Released Date/Time: Nov 02, 2023 09:25 AM Reporting Lab: [place] [phone] Performing Lab: [address] MICROALB UMIN/CRE AT RATIO MICROALBUM IN [MASS/VOLU ME] IN URINE 30.0 mg/L 0.0 - 30.0 11/01 Specimen Type: URINE No comment entered. Ordering Provider: PHONG JENKINS Report Released Date/Time: Nov 02, 2023 09:25 AM Reporting Lab: [place] [phone] Performing Lab: [address] MICROALB UMIN/CRE AT RATIO MICROALBUM IN/CREATIN INE [MASS RATIO] IN URINE 61.0 ug/mg{cr eat} 11/01 Specimen Type: URINE No comment entered. Ordering Provider: PHONG JENKINS Report Released Date/Time: Nov 02, 2023 09:25 AM Reporting Lab: [place]-Tar[place] [address] [address] Performing Lab: [address] [address] [facility] URINALYS IS COLOR OF URINE Light Yellow 11/01 Specimen Type: URINE Comment: Microscopic not indicated Ordering Provider: PHOGN JENKINS Report Released Date/Time: Nov 02, 2023 09:25 AM Reporting Lab: [address] [address] Performing Lab: MALAHCI[address] [address] [facility] URINALYS IS APPEARANCE OF URINE Clear 11/01 Specimen Type: URINE Comment: Microscopic not indicated Ordering Provider: PHONG JENKINS Report Released Date/Time: Nov 02, 2023 09:25 AM Reporting Lab: [address] [address] Performing Lab: MALACHITarik [address] [address] [facility] URINALYS IS UROBILINOG EN [MASS/VOLU ME] IN URINE BY TEST STRIP Normalmg /dL 11/01 Specimen Type: URINE Comment: Microscopic not indicated Ordering Provider: PHONG JENKINS Report Released Date/Time: Nov 02, 2023 09:25 AM Reporting Lab: [facility] [address] [address] Performing Lab: [id number] [address] [facility] IS HEMOGLOBIN [PRESENCE] IN URINE BY TEST STRIP Negative 11/01 Specimen Type: URINE Comment: Microscopic not indicated Ordering Provider: PHONG JENKINS Report Released Date/Time: Nov 02, 2023 09:25 AM Reporting Lab: [id number] [address] Performing Lab: [email or web address] [address] [facility] IS BILIRUBIN. TOTAL [PRESENCE] IN URINE BY TEST STRIP Negative 11/01 Specimen Type: URINE Comment: Microscopic not indicated Ordering Provider: PHONG JENKINS Report Released Date/Time: Nov 02, 2023 09:25 AM Reporting Lab: [id number] [address] Performing Lab: [address] [address] [facility] IS KETONES [MASS/VOLU ME] IN URINE BY TEST STRIP Negative mg/dL 11/01 Specimen Type: URINE Comment: Microscopic not indicated Ordering Provider: PHONG JENKINS Report Released Date/Time: Nov 02, 2023 09:25 AM Reporting Lab: [id number] [address] Performing Lab: [id number] [address] [facility] IS PROTEIN [MASS/VOLU ME] IN URINE BY TEST STRIP Negative mg/dL 11/01 Specimen Type: URINE Comment: Microscopic not indicated Ordering Provider: PHONG JENKINS Report Released Date/Time: Nov 02, 2023 09:25 AM Reporting Lab: [email or web address] [address] Performing Lab: [email or web address] [address] [facility] PH OF URINE BY TEST STRIP 5.5 4.5 - 8.0 11/01 Specimen Type: URINE Comment: Microscopic not indicated Ordering Provider: PHONG JENKINS Report Released Date/Time: Nov 02, 2023 09:25 AM Reporting Lab: [id number] [address] Performing Lab: [address] [address] [facility] URINALYS IS NITRITE [PRESENCE] IN URINE BY TEST STRIP Negative 11/01 Specimen Type: URINE Comment: Microscopic not indicated Ordering Provider: PHONG JENKINS Report Released Date/Time: Nov 02, 2023 09:25 AM Reporting Lab: [id number] [address] Performing Lab: [place] [address] [place] [address] URINALYS IS LEUKOCYTE ESTERASE [PRESENCE] IN URINE BY TEST STRIP Negative 11/01 Specimen Type: URINE Comment: Microscopic not indicated Ordering Provider: PHONG JENKINS Report Released Date/Time: Nov 02, 2023 09:25 AM Reporting Lab: [place] [phone] Performing Lab: [address] URINALYS IS SPECIFIC GRAVITY OF URINE 1.010 1.005 - 1.030 11/01 Specimen Type: URINE Comment: Microscopic not indicated Ordering Provider: PHONG JENKINS Report Released Date/Time: Nov 02, 2023 09:25 AM Reporting Lab: [place] [phone] Performing Lab: [address] URINALYS IS GLUCOSE [MASS/VOLU ME] IN URINE BY TEST STRIP Negative mg/dL 11/01 Specimen Type: URINE Comment: Microscopic not indicated Ordering Provider: PHONG JENKINS Report Released Date/Time: Nov 02, 2023 09:25 AM Reporting Lab: [place] [phone] Performing Lab: [address] PSA PROSTATE SPECIFIC AG [MASS/VOLU ME] [...] Nov 02, 2023 09:25 AM Reporting Lab: [place] [phone] Performing Lab: [place] [address] [address] [facility] GLYCOHEM OGLOBIN HEMOGLOBIN A1C/HEMOGL OBIN.TOTAL IN BLOOD BY HPLC 5.6 4.4 - 6.4 11/01 Specimen Type: BLOOD Comment: [facility] guidelines for A1c interpretat ion: Glycemic control targets are based on Shared Decision Making between clinicians and patients. Criteria used to establish an A1c target recommendat ion can be found at https://www .id.gov/moe lityandpati entsafety/ and include the use of [...] 9.27. Ref: https://ngs p.org/CAPda ta.asp. The in-house Final[employer]-BioMedom[employer] D-100 analyzer has a historical CV <= 2%. Contact the laboratory for further performance characteris tics of this assay. Ordering Provider: PHONG JENKINS Report Released Date/Time: Nov 02, 2023 09:25 AM Reporting Lab: [address] [address] Performing Lab: [address] [address] [facility] Vital Signs Combined list of inpatient and outpatient Vital Signs from Department of Defense and Veterans Affairs, ranging from 12 months to all on record, depending upon the facility. Vital Sign Value Date Comments Source SYSTOLIC BLOOD PRESSURE 139 01/09/2025 09:44:00 [facility] DIASTOLIC BLOOD PRESSURE 76 01/09/2025 09:44:00 [facility] WEIGHT 240.0 01/09/2025 09:44:00 [facility] BMI 34 kg/m2 01/09/2025 09:44:00 [facility] PAIN 0 01/09/2025 09:44:00 [facility] TEMPERATURE 97.4 01/09/2025 09:44:00 [facility] PULSE 72 01/09/2025 09:44:00 INGRID MORALES [facility] SYSTOLIC BLOOD PRESSURE 123 05/18/2024 08:50:13 [facility] DIASTOLIC BLOOD PRESSURE 69 05/18/2024 08:50:13 [facility] PULSE OXIMETRY 95 05/18/2024 08:50:13 L CHRISTINA [facility] WEIGHT 241.8 05/18/2024 08:50:13 [place] [facility] [facility] BMI 34 kg/m2 05/18/2024 08:50:13 [place] [facility] PAIN 2 05/18/2024 08:50:13 [place] [facility] HEIGHT 71 05/18/2024 08:50:13 [place] [facility] TEMPERATURE 97.8 05/18/2024 08:50:13 DIMITRI JOHNSON [facility] PULSE 65 05/18/2024 08:50:13 [place] [facility] Encounters Combined list of: 1) Encounters from Department of [facility] Affairs facilities going backup to the last 18 months, not all VA inpatient encounters are included; 2) 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 Location Location Details Encounter Type Encounter Number Reason For Visit Attending Provider ADM Date DC Date Status Disposition Source [facility] Outpatient Encounter [id number] 11/01 [place] [facility] OFFICE O/P EST MOD 30 MIN [id number] Diagnos is: ICD-10- CM I10 Essenti al (primar y) hyperte nsion NANCY JENKINS A 11/01 [place] [facility] COMPRE OPH EXAM EST PT 1/> [id number] Diagnos is: ICD-10- CM H25.813 Combine d forms of age-rel ated catarac t, bilater al BRIE DIXON Y 11/01 [place] [facility] Outpatient Encounter [id number] 11/05 [place] [facility] Outpatient Encounter [id number] 11/09 [place] Outpatient Encounter [id number] 11/14 [place] [facility] Outpatient Encounter [id number] 11/15 [place] [facility] Outpatient Encounter [id number] 11/23 [place] [facility] Outpatient Encounter [id number] 11/28 [place] [facility] Outpatient Encounter [id number] 11/30 [place] [facility] Outpatient Encounter [id number] 11/30 [place] OFFICE O/P NEW LOW 30 MIN [id number] Diagnos is: ICD-10- CM 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 , unspeci BEVERLY Gudino 01/10 [place] Outpatient Encounter [id number] 02/07 [place] [facility] OFF/OP EST MAY X REQ PHY/QHP [id number] Diagnos is: ICD-10- CM Z71.89 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 ed 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 Aline Merino 02/16 [place] [facility] Outpatient Encounter [id number] 02/22 [place] [facility] Outpatient Encounter [id number] 03/30 [place] OFFICE O/P EST MOD 30 MIN [id number] Diagnos is: ICD-10- CM I10 Essenti al (primar y) hyperte nsion NANCY JENKINS A 05/18 [place] [facility] Outpatient Encounter [id number] 05/21 [place] [facility] Outpatient Encounter [id number] 09/27 [place] COMPRE OPH EXAM EST PT 1/> [id number] Diagnos is: ICD-10- CM E11.9 Type 2 diabete s mellitu s without complic ations BRIE DIXON 11/02 [place] [facility] Outpatient Encounter [id number] 11/07 [place] [facility] Outpatient Encounter [id number] 11/14 [place] [facility] Outpatient Encounter [id number] 11/21 [place] [facility] Outpatient Encounter [id number] 11/22 [place] [facility] Outpatient Encounter [id number] 11/29 [place] [facility] OFFICE O/P EST LOW 20 MIN [id number] Diagnos is: ICD-10- CM 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 , unspeci JOSSELIN Infante AEL T 01/09 [place] Social History Combined list of available smoking, tobacco, and other social history from Department of Defense and Veterans Affairs facilities. 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 12/26/2019 [facility] History of tobacco use W[place]-TOBACCO USER SOME DAYS 10/19/2018 [facility] History of tobacco use V9 CURRENT TOBACCO USER 09/25/2017 [facility] History of tobacco use V9 CURRENT TOBACCO USER 10/14/2016 [facility] History of tobacco use V9 CURRENT TOBACCO USER 10/03/2015 [facility] History of tobacco use V9 CURRENT TOBACCO USER 08/30/2014 [facility] History of tobacco use V9 QUIT TOBACCO >7 YEARS AGO 07/18/2013 [facility] History of tobacco use V9 CURRENT TOBACCO USER 07/01/2012 [facility] History of tobacco use V9 CURRENT TOBACCO USER 2011 [facility] History of tobacco use V9 CURRENT TOBACCO USER 06/12/2011 [facility] History of tobacco use V9 CURRENT TOBACCO USER 09/06/2010 [facility] History of tobacco use V9 CURRENT TOBACCO USER 09/06/2009 [facility]
--- OUTSIDE RECORDS SUMMARY | 2025-03-13 10:39 | XMS_ITS | Patient Health Record ---
[facility] Address [address] [place] [id number] Care Team Providers Care Director Client Services Name Role Phone Ana Kesslerian Primary Care Provider Lulu Kelly Unavailable [phone] Allergies No Known Allergies Results Component Value [...] - 38 plat 161 100 - 400 CBC Fingerstick (in house) Reviewed date:05/05/2024 11:04:24 PM Interpretation: Performing Lab: Notes/Report: wbc 6.9 3.5 - 10 lym 19.1 15 - 50 mid 4.7 2 - 15 gran 76.2 35 - 80 rbc 4.41 3.5 - 5.5 hgb 12.6 11.5 - 16.5 hct 40.2 35 - 55 mcv 91.2 75 - 100 mch 28.7 25 - 35 mchc 31.4 31 - 38 plat 387 100 - 400 CXR Reviewed date:05/06/2024 04:19:29 PM Interpretation: Performing Lab: Notes/Report: CXR Reviewed date:05/17/2024 03:55:10 PM Interpretation:significant improvement Performing Lab: Notes/Report: significant improvement Sputum Culture Reviewed date:05/09/2024 11:28:17 AM Interpretation: Performing Lab: Notes/Report: H-Sputum Culture with Gram Donny mckeon Reviewed date:05/12/2024 12:36:30 PM Interpretation:Normal Performing Lab: Notes/Report: GS Gram Stain: GS <10 White Blood Cells/LPF GS <10 Epithelial Cells / LPF GS Rare Gram Positive Cocci GS Rare Gram Negative Rods CUSPU Normal Respiratory Viji CBC Fingerstick (in house) Reviewed date:04/19/2024 12:31:49 PM Interpretation: Performing Lab: Notes/Report: wbc 4.3 3.5 - 10 lym 27.6% 15 - 50 mid 7.3% 2 - 15 gran 65.1% 35 - 80 rbc 4.59 3.5 - 5.5 hgb 13.3 11.5 - 16.5 hct 40.1 35 - 55 mcv 87.4 75 - 100 mch 29.0 25 - 35 mchc 33.2 31 - 38 plat 143 100 - 400 CBC Fingerstick (in house) Reviewed date:04/27/2024 01:12:11 PM Interpretation: Performing Lab: Notes/Report: wbc 18.8 3.5 - 10 lym 4.8% 15 - 50 mid 1.6% 2 - 15 gran 93.6% 35 - 80 rbc 4.29 3.5 - 5.5 hgb 12.6 11.5 - 16.5 hct 37.1 35 - 55 mcv 86.3 75 - 100 mch 29.5 25 - 35 mchc 34.1 31 - 38 plat 192 100 - 400 Covid test (in house) Reviewed date:04/27/2024 01:11:57 PM Interpretation: Performing Lab: Notes/Report: Result: Neg CXR Reviewed date:04/28/2024 08:22:38 AM Interpretation:BIENVENIDO pneumonia Performing Lab: Notes/Report: BIENVENIDO pneumonia CBC Fingerstick (in house) Reviewed date:04/29/2024 04:00:12 PM Interpretation: Performing Lab: Notes/Report: wbc 21.9 3.5 - 10 lym 4.6 15 - 50 mid 1.4 2 - 15 gran 94.0 35 - 80 rbc 4.51 3.5 - 5.5 hgb 13.2 11.5 - 16.5 hct 40.6 35 - 55 mcv 89.8 75 - 100 mch 29.2 25 - 35 mchc 32.5 31 - 38 plat 215 100 - 400 P-Culture, Respiratory Reviewed date:05/01/2024 10:24:37 PM Interpretation: Performing Lab: Notes/Report: Test Cancelled Test Cancelled CXRES cance lled due to low Q score: oral contamination Gram Stain Reviewed date:05/01/2024 10:25:12 PM Interpretation: Performing Lab: Notes/Report: Test performed by [employer] [address] [place] [address] , [address], [place] [address] Checo Russell MD, Irrigation Foreman CLIA: [id number] Specimen Source Sputum - Lungs Gram Stain See Below Moderate Epithelial cells No polymorphonuclear leukocytes seen Few Gram Positive Cocci In pairs Q0 - Oral pharyngeal contamination Culture cancelled. Please repeat. Moderate Epithelial cells No polymorphonuclear leukocytes seen Few Gram Positive Cocci In pairs Q0 - Oral pharyngeal contamination Culture cancelled. Please repeat. Gram Stain See Below Moderate Epithelial cells No polymorphonuclear leukocytes seen Few Gram Positive Cocci In pairs Q0 - Oral pharyngeal contamination Culture cancelled. Please repeat. Moderate Epithelial cells No polymorphonuclear leukocytes seen Few Gram Positive Cocci In pairs Q0 - Oral pharyngeal contamination Culture cancelled. Please repeat. Reason For Referral No Information Medications Medication SIG (Take, Route, Frequency, Duration) Notes Start Date End Date Status Plavix 75 MG 1 tablet Orally Once a day; Duration: 30 day(s) Active Lisinopril 5 MG 1 tab(s) orally once a day Active Albuterol Sulfate (2.5 MG/3ML) 0.083% 3 ml Inhalation every 6 hrs, prn Active Aspirin 81 MG 1 tablet Orally Once a day; Duration: 30 day(s) Active Multivitamin - 1 tab(s) orally once a day; Duration: 30 day(s) Active CPAP SUPPLIES DIRECTED 01/06/2020 Act tricia Atorvastatin Calcium 80 MG 1 tab(s) oral ly once a day (at bedtime) Active Tamsulosin HCl 0.4 MG 1 cap(s) orally on ce a day Active Fluticasone Propionate 50 MCG/ACT 1 spray in each nostril Nasally Twice a day 08/31/2024 Active Breztri Aerosphere 160-9-4.8 MCG/ACT 2 puffs Inhalation Twice a day Active Allopurinol 100 MG 1 tablet Orally Once a day; Duration: 30 day(s) Active Nebulizer System All-In-One - as directed 04/27/2024 Active Montelukast Sodium 10 MG 1 tablet Orally Once a day; Duration: 30 day(s) 08/31/2024 Active CPAP machine and supplies - Autopap 9 as directed 04/19/2024 Active Immunizations Vaccine Route Administration Date Status Comme nts xFluzone High Dose-private (65yr&older) Unknown 07/08/2021 Administered Shingrix Unknown 09/29/2022 Administered Shingrix Unknown 2022 Administered Fluzone PF Quad (6-35 months) Unknown 06/01/2018 Administered Fluzone High Dose (65yr and older) IM Intramuscular 06/05/2015 Administered Fluzone High Dose (65yr and older) IM Intramuscular 06/14/2019 Administered Fluzone High Dose (65yr and older) IM Intramuscular 06/07/2020 Administered Fluzone High Dose (65yr and older) Unknown 06/25/2022 Administered DT, 7 YEARS OR OLDER Unknown 10/30/1996 Administered COVID 19 Pfizer Unknown 09/09/2020 Administered COVID 19 Pfizer Unknown 09/30/2020 Administered COVID 19 Pfizer Unknown 04/24/2021 Administered Problems Problem Type SNOMED Code ICD Code Onset Dates Problem Status W/U Status Risk Notes Problem Type II diabetes mellitus without complication (135954627) DM II [Diabetes mellitus type II] (250.00) Active confirmed Problem Hyperlipidemia (64530898) Hyperlipidemia (272.4) Active confirmed Problem Benign prostatic hypertrophy without outflow obstruction (546413527) Benign prostatic hypertrophy, not otherwise specified, without urinary obs (600.90) Active confirmed Problem Aortic aneurysm (04801989) Aortic aneurysm NOS (441.9) Active confirmed Problem Peripheral vascular disease (118369703) PVD (peripheral vascular disease) (I73.9) Active confirmed Problem Arthropathy of lumbar facet joint (996435401) Lumbar facet arthropathy (M47.816) Active confirmed Problem Obstructive sleep apnea (07184064) Obstructive sleep apnea (G47.33) Active confirmed Problem Peripheral vascular disease (612732254) Peripheral vascular disease, unspecified (I73.9) Active confirmed Problem Chronic pain (23316237) Other chronic pain (G89.29) Active confirmed Problem Atherosclerotic heart disease of [place] coronary artery without angina pectoris (914646918540807) Atherosclerosis of [place] coronary artery without angina pectoris, unspecified whether [place] or transplanted heart (I25.10) Active confirmed Problem Degenerative disc disease (30049730) DDD (degenerative disc disease), lumbar (M51.36) Active confirmed Vital Signs Heart Rate 68 /min 08/31/2024 Blood pressure diastolic 70 mm Hg 08/31/2024 Height 71 in 08/31/2024 Blood pressure systolic 112 mm Hg 08/31/2024 Weight 251 lbs 08/31/2024 BMI 35.00 kg/m2 08/31/2024 Encounters Encounter Location Date Provider Diagnosis [facility] [address] [facility] [place], [place] [id number] 04/19/2024 Tomás [place] Acute rhinitis J00 a nd Obstructive sleep apnea G47.33 [facility] [address] [facility] [address] [place], [place] [id number] 04/27/2024 Lulu Crowdy Bronchitis J40 [facility] [address] [facility] [address] [place], [place] [id number] 04/29/2024 Lulu Crowdy Pneumonia of left up per lobe due to infectious organism J18.9 [facility] [address] [facility] [address] [place], [place] [id number] 05/05/2024 Lulu Crowdy Pneumonia of left up per lobe due to infectious organism J18.9 [facility] [address] [facility] [address] [place], [place] [id number] 07/11/2024 Tomás [place] Obstructive sleep ap june G47.33 [facility] [address] [facility] [address] [place], [place] [id number] 08/31/2024 Tomás [place] Acute rhinitis J00 [facility] [address] [facility] [address] [place], [place] [id number] 04/27/2024 Tomás [place] Obstructive sleep ap june G47.33 [facility] [address] [facility] [address] [place], [place] [id number] 04/28/2024 Lulu Crowdy [facility] [address] [place], [place] [id number] 05/01/2024 Lulu Kelly [facility] [address] [place], [place] [id number] 05/06/2024 Lulu Kelly [facility] [address] [place] [id number] 05/13/2024 Lulu Kelly Pneumonia J18.9 [facility] [address] [place], [place] [id number] 05/17/2024 Lulu Kelly Assessments Encounter Date Diagnosis (ICD Code) Assessment Notes Treatment Notes Treatment Clinical Notes Section Notes 04/19/2024 Obstructive sleep apnea (ICD-10 - G47.33) 04/19/2024 Acute rhinitis (ICD-10 - J00) The patient is using and benefiting from the use of his CPAP, due to its age he is needing a new machine 04/27/2024 Bronchitis (ICD-10 - J40) Gave a neb treatment in the office and it helped. Will send a nebulizer to [facility] and vials to . Will give a sample of Breztri to use for the next few weeks. 05/05/2024 Pneumonia of left upper lobe due to infectious organism (ICD-10 - J18.9) CBC is normal. Will get a repeat CXR. 07/11/2024 Obstructive sleep apnea (ICD-10 - G47.33) Patient is doing well on CPAP and should continue using it anytime he sleeps 08/31/2024 Acute rhinitis (ICD-10 - J00) 04/29/2024 Pneumonia of left upper lobe due to infectious organism (ICD-10 - J18.9) WBC is slightly higher but he is on steroids and just started the cefdinir. Will recheck in 1 week. 04/27/2024 Obstructive sleep apnea (ICD-10 - G47.33) 05/13/2024 Pneumonia (ICD-10 - J18.9) Plan Of Treatment No Information Insurance Providers Payer Name Payer Address Payer Phone Subscriber Number Group Number Insured Name Patient Relationship to Insured Coverage Start Date Coverage End Date MEDICARE PART B [address] [address] [place] [address] [id number] MICHAEL THOMAS Self - patient is the insured [employer] [facility] [id number] MICHAEL THOMAS Self - patient is the insured Medications Administered Medication Instructions Date of Administration Dosage Notes Depo- Medrol 40 mg/ml 04/12/2014 1 mL Medical (General) History Medical History History ICD Code Diabetes Type 2 Abdominal Aortic Aneurysm Low Back Pain, L-spine xray 2013 osteoarthritis, left hip hyperlipidemia BPH Followed at [facility] in [place] by Dr. Krissy Abreu Lumbar Disc Disease Lumbar facet arthropathy peripheral vascular disease, see angiogr am December 2023 Surgical History Surgery Date(Month/Year) inguinal hernia repair LT Total Hip Replacement 10/27/2014 normal heart cath 12/2014 Hospitalization History Reason Date(Month/Year) peptic ulcer, Upper GI bleed- [facility] 2006 [place] - Total Hip Replacement 10/27-1
--- OUTSIDE RECORDS SUMMARY | 2025-03-13 10:39 | XMS_ITS | Clinical Summary ---
Author Organization [facility] Address [address] [place] [address] Care Team Providers Care Sweet Dough Mixer Name Role Phone Patel Smith MD Primary Care Prov ider Allergies No known active allergies Medications tamsulosin (FLOMAX) 0.4 MG capsule 24 hr capsule Take 1 capsule by mouth Daily. 08/27/2023 Active meloxicam (MOBIC) 15 MG tablet Take 15 mg by mouth Daily. 08/27/2023 Active cefadroxil (DURICEF) 500 MG capsule Take 500 mg by mouth 2 (Two) Times a Day. 08/27/2023 Active oxyCODONE (OXY-IR) 5 MG capsule Take 5 mg by mouth Every 4 (Four) Hours As Needed for Moderate Pain. 08/27/2023 Active traMADol (ULTRAM) 50 MG tablet Take 50 mg by mouth Every 6 (Six) Hours As Needed for Moderate Pain or Severe Pain. 08/27/2023 Active Social History Tobacco Use Types Packs/Day Years Used Date Smoking Tobacco: Never Assessed OASIS D0700: Social Isolation Answer Da te Recorded Frequency of experiencing loneliness or isolatio n Never 09/02/2023 OASIS A1250: Transportation Answer Date Recorded Lack of Transportation (Medical) No 09/02/2023 Lack of Transportation (Non-Medical) No 09/02/2023 Patient Unable or Declines to Respond No 09/02/2023 OASIS B1300: Health Literacy Answer Artemio e Recorded Frequency of needing help to read materials from doctor or pharmacy Never 09/02/2023 Abuse Screen Answer Date Recorded Unsafe at Home or Work/School Not on file Feels Threatened by Someone? Not on file 10/2023 Does Anyone Keep You from Co ntacting Others or Doint Things Outside the Home? Not on file 08/26/2023 Physical Sign of Abuse Present Not on file 0 08/26/2023 Housing Stability Answer Date Recorded Current Living Arrangements Not on file 10/2023 Potentially Unsafe Housing Conditions Not on jose maria e 08/26/2023 Family and Community Support Answer Artemio e Recorded Help with Day-to-Day Activities Not on file 08/26/2023 Lonely or Isolated Not on file 08/26/2023 Employment Answer Date Recorded Do you want help finding or keeping work or a adri b? Not on file 08/26/2023 Disabilities Answer Date Recorded Concentrating, Remembering, or Making Decisions Difficulty Not on file 08/26/2023 Doing Errands Independently Difficulty Not on fi le 08/26/2023 Education Answer Date Recorded Help with school or training? Not on file Preferred Language Not on file 08/26/2023 Sex and Gender Information Value Date Recorded Sex Assigned at Not on file Legal Sex Male 9:11 AM EST Gender Identity Not on file Sexual Orientation Not on file Last Filed Vital Signs Vital Sign Reading Time Taken Comments Blood Pressure 136/78 09/02/2023 12:40 PM EST Pulse 72 09/02/2023 12:40 PM EST Temperature 36.4 C (97.6 F) 09/02/2023 12:40 PM EST Respiratory Rate 17 09/02/2023 12:40 PM EST Oxygen Saturation 98% 09/02/2023 12:40 PM EST Inhaled Oxygen Concentration - - Weight - - Height - - Body Mass Index - - Plan of Treatment Health Maintenance Due Date Last Done Comments ANNUAL PHYSICAL 1945 HEPATITIS C SCREENING 1945 Pneumococcal Vaccine 50+ (1 of 1 - PCV) 12/21/1997 ZOSTER VACCINE (1 of 2) 12/21/1997 TDAP/TD VACCINES (2 - Tdap) 10/30/2006 10/30/1996 RSV Vaccine - Adults (1 - 1- dose 75+ series) 12/21/2022 COVID-19 Vaccine (4 - season) 2024 04/24/2021, 09/30/2020, 09/09/2020 INFLUENZA VACCINE 05/24/2025 07/08/2021, , 06/14/2019 Insurance MEDICARE A & B Advance Directives * No CPR (Do Not Attempt to Resuscitate) (Latest Code Status on File) Date Activated Date Inactivated Comments 08/28/2023 10:57 AM No CPR request ed by patient. Care Teams Sweet Dough Mixer Relationship Specialty Start Date End Date Patel Smith MD [address] [place] [address] PCP - General Orthopedic Surgery 08/26/23
--- NOTE | 2025-03-13 10:44 | EXP.PAIN.SOA ---
[facility] Disclaimer: The information contained in this section may have been updated after the patient was seen, as this information can be updated by other users. Medical History Right groin pain Peripheral artery disease CAD in [place] artery Pseudoaneurysm Type 2 diabetes mellitus Abdominal aortic aneurysm BPH (benign prostatic hyperplasia) Lumbar disc disease Paroxysmal A-fib Family history of ischemic heart disease (IHD) Abnormal electrocardiogram [ECG] [EKG] Hyperlipidemia Hypertension Surgical History History of cardiac catheterization History of inguinal hernia repair History of left hip replacement Family History Other Family history of myocardial infarction Social History Smoking Status: Current some day smoker tobacco type: cigars years smoked: 50 second hand exposure: No alcohol intake: current alcohol intake frequency: a few times a week substance use type: denies use current occupational status: other Travel in the last 8 weeks?: None adopted: No caregiver/support person: No foster care: No household members: spouse housing: house lives independently: Yes marital status: service: Yes status: retired care home: No current occupational exposures/hazards: No pets and animals: Yes pets and animals: cat(s) leisure activities: sports sexually active: No caffeine: Yes physical activity: walking do you feel safe at home: Yes PM Subjective & Objective Subjective Subjective:: Patient is a pleasant 79-year-old male who presents today for 3-month follow-up. Today he rates his pain a 2 out of 10. Patient denies any new falls or injuries. He does state overall he is still doing well from his last SI injections in August along with his compounded cream. He denies any side effects. He states that this seems to be a good combination for him. His Rc has been reviewed and is appropriate. Review of Systems: General: No recent weight changes, no fever, no sleep disturbances Respiratory: No cough, no shortness of air, no recurring pulmonary infections Cardiovascular/peripheral vascular: No chest pain, no palpitations, no edema, no shortness of breath Gastrointestinal: No new onset incontinence, normal bowel movements reported Genitourinary: No new onset incontinence Musculoskeletal: Low back pain Psychiatric: [Normal mood/affect] Neurological: [Denies weakness in extremities], [denies balance issues] Pain at rest (0-10 scale): 2 Objective Objective:: Physical Exam: General: Alert and oriented x3, no acute distress, pleasant and cooperative Lungs: Respirations even and unlabored, symmetrical chest expansion Eyes: PERRL Musculoskeletal: Flexion and extension of lumbar [spine] within normal limits Neurological: Speech clear, no gross sensory deficit Has patient had previous pain injection?: No Conservative treatment options previously tried: Home exercise plan Length of treatment: Longer than 12 weeks Meds Home Medications and Allergies Home Medications ?Medication ?Instructions ?Recorded ?Confirmed ?Type aspirin 81 mg tablet,delayed 81 mg PO DAILY 09/01/23 02/23/25 History release (Adult Low Dose Aspirin) metoprolol succinate 25 mg 25 mg PO DAILY #30 tabs 12/15/23 02/23/25 Rx tablet,extended release 24 hr (Toprol XL) clopidogrel 75 mg tablet (Plavix) 75 mg PO DAILY #30 tabs 01/08/24 02/23/25 Rx allopurinol 100 mg tablet 100 mg PO DAILY 01/12/24 02/23/25 History atorvastatin 40 mg tablet 80 mg PO HS 10/24/24 02/23/25 History lisinopril 20 mg tablet 10 mg PO HS 10/24/24 02/23/25 History omeprazole 20 mg capsule,delayed 20 mg PO DAILY 10/24/24 02/23/25 History release tamsulosin 0.4 mg capsule 0.4 mg PO HS 10/24/24 02/23/25 History New Prescriptions to Start Prescriptions: Allergies Allergy/AdvReac Type Severity Reaction Status Date / Time No Known Allergies Allergy Verified 02/23/25 08:01 Assessment and Plan *Assessment and plan (1) Sacroiliitis: Status: Acute Category: Medical Code(s): M46.1 - Sacroiliitis, not elsewhere classified Plan Patient has continued to do well from his last SI joint injections and does not require any additional injection therapy at this time. Patient will be ordered refills on his compounded cream and return to clinic in 6 months. Patient has been instructed to contact the clinic with any concerns before the next appointment. Dr. Pettit has reviewed this note and agrees with this plan of care. This note was dictated using voice recognition software and make contain errors or omissions. All injections are used with Lidocaine, Bupivacaine and dexamethasone. Occasionally urine drug screen is needed to verify patient's compliance with our office pain contract. This is ordered based off specific treatments related to chronic pain with the potential to abuse certain medications.
[2025-03-13 11:54] VITALS: BP 128/66; PULSE 68; RESP 18; O2SAT 95; BMI 34.2
== END 2025-03-13 23:59 | disposition home or self-care (01) ==
LOC: SC.PAIN 10:30
PROVIDERS: PCP Family Medicine; Visit Provider Nurse Practitioner Family
DX: M46.1 Sacroiliitis, not elsewhere classified (principal)
CPT/HCPCS: 99212; G0463

== ENCOUNTER 2025-04-17 10:22 | Outpatient (POV) | payer MEDICARE, OTHER, SELFPAY ==
--- OUTSIDE RECORDS SUMMARY | 2024-05-18 05:00 | XMS_ITS | Encounter Summary ---
Author Name [facility] [place] [facility] [place] Address [address] [place] [id number] Care Team Providers Care Collar Tacker Name Role Phone PHONG JENKINS Primary Care Provider Unavailabl e Insurance Providers: All historical and current Section Date Range: From patient's date of to the date document was created. This section includes the names of all active insurance providers for the patient. Insurance Provider Type of Coverage Plan Name Start of Policy Coverage End of Policy Coverage Group Number Member ID Insurance Provider's Telephone Number Policy Reece's Name Patient's Relationship to Policy Reece MEDICARE (WNR) MEDICARE (M) PART A Nov 22, 2012 PART A [id number] MICHAEL THOMAS PATIENT MEDICARE (WNR) MEDICARE (M) PART B Nov 22, 2012 PART B [id number] An PATIENT MEDICARE (WNR) MEDICARE (M) PART A Nov 22, 2012 PART A [id number] MICHAEL THOMAS PATIENT MEDICARE (WNR) MEDICARE (M) PART B Nov 22, 2012 PART B [id number] MICHAEL THOMAS PATIENT Selected Encounter This section includes the information on record at [place] for the Encounter. Date/Time Encounter Type Encounter Description Reason Provider Source May 18, 2024 09:00 AM OFFICE O/P EST MOD 30 MIN PRIMARY CARE/MEDICINE ICD-10-CM I10 Essential (primary) hypertension PHONG JENKINS Willy Encounter Template Text not used by [place] Assessments - Encounter Diagnoses This section includes the primary and secondary diagnoses documented for the Encounter. Date/Time Primary/Secondary Diagnosis Diagnosis Name Provider Source May 18, 2024 09:56 AM PRIMARY Essential (primary) hypertension GREGORY,[facility] May 18, 2024 09:56 AM SECONDARY Benign prostatic hyperplasia with lower urinary tract symp KOUSA,[facility] May 18, 2024 09:56 AM SECONDARY Hyperlipidemia, unspecified KOUSA,[facility] May 18, 2024 09:56 AM SECONDARY Mixed hyperlipidemia KOUSA,[facility] May 18, 2024 09:56 AM SECONDARY Obstructive sleep apnea (adult) (pediatric) KOUSA,[facility] May 18, 2024 09:56 AM SECONDARY Other obstructive and reflux uropathy KOUSA,[facility] May 18, 2024 09:56 AM SECONDARY Peripheral vascular disease, unspecified KOUSA,[facility] May 18, 2024 09:56 AM SECONDARY Solitary pulmonary nodule KOUSA,[facility] May 18, 2024 09:56 AM SECONDARY Unspecified sensorineural hearing loss KOUSA,[facility] May 18, 2024 09:56 AM SECONDARY Vertebrogenic low back pain KOUSA,[facility] Plan of Treatment: Future Appointments (+ 6 months) and Future Tests (+/- 45 days) The Plan of Treatment section includes future care activities for the [facility] [place] [facility] This section includes future appointments and future orders which are active, pending or scheduled. Future Appointments This section includes appointments that were scheduled to occur 6 months from the date of the Encounter, up to a maximum of 20 appointments. The data comes from all [place] treatment facilities. Appointment Date/Time Appointment Type Appointme nt Facility Name Nov 02, 2024 08:00 AM [facility] Active, Pending, and Scheduled Orders This section includes a listing of several types of active, pending, and scheduled orders, including clinic medications orders, diagnostic test orders, procedure orders and consult orders; where the start date of the order is 45 days before the date of the Encounter or 45 days after the date of theEncounter. The data comes from all [place] treatment facilities. Test Date/Time Test Type Test Details Facility Name May 21, 2024 12:00 AM Laboratory - Chemi stry Order FERRITIN [id number] SP ONCE [facility] May 21, 2024 12:00 AM Laboratory - Chemi stry Order FOLATE [id number] SP [facility] May 21, 2024 12:00 AM Laboratory - Chemi stry Order IRON/TIBC [id number] SP ONCE [facility] May 21, 2024 12:00 AM Laboratory - Chemi stry Order B12 VITAMIN [id number] SP ONCE [facility] Lab Results: +/- 30 days of the encounter This section includes the Chemistry and Hematology Lab Results on record with [place] for the patient. Radiology Reports and Pathology Reports are provided separately, in subsequent sections. Lab Results This section contains the Chemistry/Hematology Results that were resulted 30 days before or 30 daysafter the date of the Encounter. Date/Time Source Result Type Result - Unit Interpretation Reference Range Specimen Type Comment May 18, 2024 09:43 AM [facility] WN LIPID PROFILE PLASMA Specimen Type: PLASMA Comment: Estimated Glomerular Filtration Rate (eGFR) calculated using the 2020 Chronic Kidney Disease-Epidemio logy (CKD-EPI) Collaboration creatinine equation; units of measure are mL/min/1.73 m2. Results are only valid for adults (>=18 years) whose serum creatinine is in a steady state. eGFR calculations are not valid for patients with acute kidney injury and for patients on dialysis. Creatinine-based estimates of kidney function may also be inaccurate in patients with reduced creatinine generation due to decreased muscle mass (e.g., malnutrition, severe hypoalbuminemia, sarcopenia, chronic neuromuscular disease, amputations, severe heart failure or liver disease) and in patients with increased creatinine generation due to increased muscle mass (e.g., muscle builders, anabolic steroids) or increased dietary intake. As drug clearance is proportional to total GFR and not GFR indexed to body surface area (BSA), in individuals with a BSA substantially different than 1.73 m2, drug dosing should be based on the reported eGFR value de-indexed from BSA by multiplying by the individual's BSA and dividing by 1.73. CKD is diagnosed based on abnormalities of kidney structure or function, present for >3 months, with implications for health and disease. CKD is classified and staged based on cause, eGFR and albuminuria (quantified as urine albumin to creatinine ratio). An eGFR >60 mL/min/1.73 m2 in the absence of increased urine albumin excretion or structural abnormalities does not represent CKD. ====== eGFR CKD Interpretation (mL/min/1.73 m2) stage >=90 G1 Normal 60-89 G2 Mild decrease 45-59 G3A Mild to moderate decrease 30-44 G3B Moderate to severe decrease 15-29 G4 Severe decrease <15 G5 Kidney failure Ordering Provider: PHONG JENKINS Report Released Date/Time: May 18, 2024 09:37 AM Reporting Lab: [address] [address] Performing Lab: [address] [address] CHOLESTEROL 110 mg/dL 0-199 TRIGLYCERIDE 99 mg/dL 0-149 HDL CHOLESTEROL 33 mg/dL L 40-69 DIRECT LDL CHOL. 69 mg/dL 0-100 May 18, 2024 09:43 AM [facility] GLYCOHEMOGLOBIN BLOOD Specimen Type: BLOOD Comment: [place] guidelines for A1c interpretation: Glycemic control targets are based on Shared Decision Making between clinicians and patients. Criteria used to establish an A1c target recommendation can be found at https://www.nh.gov/qualityandpatientsafety/ and include the use of result accuracy and precision(CV) of the A1c tests clinicians utilize at their own sites of practice. Values obtained from A1C measurements can vary. For typical A1C assays, a reported value of 7.0 could actually be between 6.72 and 7.28 if measured by a reference method. A reported value of 9.0 could actually be between 8.73 and 9.27. Ref: https://ngsp.org/CAPdata.asp. The in-house [employer] D-100 analyzer has a historical CV <= 2%. Contact the laboratory for further performance characteristics of this assay. Ordering Provider: PHONG JENKINS Report Released Date/Time: May 18, 2024 09:37 AM Reporting Lab: [address] [address] Performing Lab: [address] [address] GLYCOHEMOGLOBIN 6.6 H 4.4-6.4 May 18, 2024 09:43 AM [facility] CBC/PLT BLOOD Specimen Type: BLOOD No comment entered. Ordering Provider: PHONG JENKINS Report Released Date/Time: May 18, 2024 09:37 AM Reporting Lab: [address] [address] Performing Lab: [address] [address] WBC 4.7 10*3/uL L 5.0-10.0 RBC 4.76 10*6/uL 4.6-6.2 HGB 13.3 g/dL L 14.0-18.0 HCT 42.5 42.0-52.0 MCV 89.3 fL 80.0-94.0 MCH 27.9 pg 27.0-31.0 MCHC 31.3 g/dL L 32.0-36.0 PLT 173 10*3/uL 150-450 MPV 10.2 fL 9.0-13.1 RDW 13.6 11.0-16.0 NRBC 0.0 0.0-0.0 May 18, 2024 09:43 AM [facility] URIC ACID PLASMA Specimen Type: PLASM A Comment: Estimated Glomerular Filtration Rate (eGFR) calculated using the 2020 Chronic Kidney Disease-Epidemiology (CKD-EPI) Collaboration creatinine equation; units of measure are mL/min/1.73 m2. Results are only valid for adults (>=18 years) whose serum creatinine is in a steady state. eGFR calculations are not valid for patients with acute kidney injury and for patients on dialysis. Creatinine-based estimates of kidney function may also be inaccurate in patients with reduced creatinine generation due to decreased muscle mass (e.g., malnutrition, severe hypoalbuminemia, sarcopenia, chronic neuromuscular disease, amputations, severe heart failure or liver disease) and in patients with increased creatinine generation due to increased muscle mass (e.g., muscle builders, anabolic steroids) or increased dietary intake. As drug clearance is proportional to total GFR and not GFR indexed to body surface area (BSA), in individuals with a BSA substantially different than 1.73 m2, drug dosing should be based on the reported eGFR value de-indexed from BSA by multiplying by the individual's BSA and dividing by 1.73. CKD is diagnosed based on abnormalities of kidney structure or function, present for >3 months, with implications for health and disease. CKD is classified and staged based on cause, eGFR and albuminuria (quantified as urine albumin to creatinine ratio). An eGFR >60 mL/min/1.73 m2 in the absence of increased urine albumin excretion or structural abnormalities does not represent CKD. eGFR CKD Interpretation (mL/min/1.73 m2) stage >=90 G1 Normal 60-89 G2 Mild decrease 45-59 G3A Mild to moderate decrease 30-44 G3B Moderate to severe decrease 15-29 G4 Severe decrease <15 G5 Kidney failure Ordering Provider: PHONG JENKINS Report Released Date/Time: May 18, 2024 09:37 AM Reporting Lab: [address] [address] Performing Lab: [address] [address] URIC ACID 5.5 mg/dL 3.5-7.2 May 18, 2024 09:43 AM [facility] PSA S KEO Specimen Type: SERUM No comment entered. Ordering Provider: PHONG JENKINS Report Released Date/Time: May 18, 2024 09:37 AM Reporting Lab: [address] [address] Performing Lab: [address] [address] PSA 8.384 ng/mL H 0-3.999 May 18, 2024 09:43 AM [facility] PANEL 5 PLASMA Specimen Type: PLASM A Comment: Estimated Glomerular Filtration Rate (eGFR) calculated using the 2020 Chronic Kidney Disease-Epidemiology (CKD-EPI) Collaboration creatinine equation; units of measure are mL/min/1.73 m2. Results are only valid for adults (>=18 years) whose serum creatinine is in a steady state. eGFR calculations are not valid for patients with acute kidney injury and for patients on dialysis. Creatinine-based estimates of kidney function may also be inaccurate in patients with reduced creatinine generation due to decreased muscle mass (e.g., malnutrition, severe hypoalbuminemia, sarcopenia, chronic neuromuscular disease, amputations, severe heart failure or liver disease) and in patients with increased creatinine generation due to increased muscle mass (e.g., muscle builders, anabolic steroids) or increased dietary intake. As drug clearance is proportional to total GFR and not GFR indexed to body surface area (BSA), in individuals with a BSA substantially different than 1.73 m2, drug dosing should be based on the reported eGFR value de-indexed from BSA by multiplying by the individual's BSA and dividing by 1.73. CKD is diagnosed based on abnormalities of kidney structure or function, present for >3 months, with implications for health and disease. CKD is classified and staged based on cause, eGFR and albuminuria (quantified as urine albumin to creatinine ratio). An eGFR >60 mL/min/1.73 m2 in the absence of increased urine albumin excretion or structural abnormalities does not represent CKD. eGFR CKD Interpretation (mL/min/1.73 m2) stage >=90 G1 Normal 60-89 G2 Mild decrease 45-59 G3A Mild to moderate decrease 30-44 G3B Moderate to severe decrease 15-29 G4 Severe decrease <15 G5 Kidney failure Ordering Provider: PHONG JENKINS Report Released Date/Time: May 18, 2024 09:37 AM Reporting Lab: [address] [address] Performing Lab: [address] [address] CREATININE 1.05 mg/dL 0.72-1.25 UREA NITROGEN 10 mg/dL 9-25 GLUCOSE 119 mg/dL H 74-100 SODIUM 142 mmol/L 136-145 POTASSIUM 4.6 mmol/L 3.5-5.1 CHLORIDE 110 mmol/L H 98-107 CO2 23 mmol/L 22-29 CALCIUM 9.4 mg/dL 8.4-10.2 TOTAL PROTEIN 7.0 g/dL 6.4-8.3 ALBUMIN 4.1 g/dL 3.5-5.2 TOTAL BILIRUBIN 1.0 mg/dL 0.2-1.2 AST 14 U/L 5-34 ALT 20 U/L 0-55 ANION GAP 9 meq/L 3-19 ALK PHOS 82 U/L 40-150 eGFR (CKD-EPI) 74 Vital Signs: All taken on the encounter date This section contains inpatient and outpatient Vital Signs collected on the date of the Encounter. Date/Time Temperature Pulse Blood Pressure Respiratory Rate SP02 Pain Height Weight Body Mass Index Source May 18, 2024 08:50 AM 97.8 65 123/69 95 2 71 241.8 34 [facility] Social History: Smoking Status (Most current) and Tobacco Use (All prior to encounter date) This section includes the most current, and the historical, smoking and tobacco- related health factors from the [place] facility where the Encounter took place. Current Smoking Status This section includes the most current smoking, or tobacco-related health factor, from the [place] facility where the Encounter took place. Date/Time Current Smoking Status Comment Facil ity May 18, 2024 09:00 AM VA-TOBACCO USER SOME DAYS [facility] Tobacco Use History This section includes a history of the smoking, or tobacco-related health factors, that were collected on or before the date of the Encounter. The data comes from the [place] facility where the Encounter took place. Date/Time Smoking Status/Tobacco Use Comment F acility May 18, 2024 09:00 AM VA-TOBACCO USE 30 YEARS OR MORE [facility] May 18, 2024 09:00 AM VA-TOBACCO USE ADVICE [facility] May 18, 2024 09:00 AM VA-TOBACCO USE EDGER RUNNER NO [facility] May 18, 2024 09:00 AM VA-TOBACCO USE MED NO [facility] May 18, 2024 09:00 AM VA-TOBACCO USER SOME DAYS [facility] Nov 02, 2023 09:00 AM VA-TOBACCO USE 30 YEARS OR MORE [facility] Nov 02, 2023 09:00 AM VA-TOBACCO USE ADVICE [facility] Nov 02, 2023 09:00 AM VA-TOBACCO USE EDGER RUNNER NO [facility] Nov 02, 2023 09:00 AM VA-TOBACCO USE MED NO [facility] Nov 02, 2023 09:00 AM VA-TOBACCO USE WI 30 MIN OF WAKEUP [facility] Nov 02, 2023 09:00 AM VA-TOBACCO USER EVERY DAY [facility] Aug 29, 2022 08:00 AM VA-TOBACCO DOESNT USE WI 30 MIN WAKEUP [facility] Aug 29, 2022 08:00 AM VA-TOBACCO USE 30 YEARS OR MORE [facility] Aug 29, 2022 08:00 AM VA-TOBACCO USE ADVICE [facility] Aug 29, 2022 08:00 AM VA-TOBACCO USE EDGER RUNNER NO [facility] Aug 29, 2022 08:00 AM VA-TOBACCO USE MED NO [facility] Aug 29, 2022 08:00 AM VA-TOBACCO USER EVERY DAY [facility] Aug 26, 2021 08:00 AM VA-TOBACCO DOESNT USE WI 30 MIN WAKEUP [facility] Aug 26, 2021 08:00 AM VA-TOBACCO USE 30 YEARS OR MORE [facility] Aug 26, 2021 08:00 AM VA-TOBACCO USE ADVICE [facility] Aug 26, 2021 08:00 AM VA-TOBACCO USE EDGER RUNNER NO [facility] Aug 26, 2021 08:00 AM VA-TOBACCO USE MED NO [facility] Aug 26, 2021 08:00 AM VA-TOBACCO USER EVERY DAY [facility] December 26, 2019 10:07 AM VA-TOBACCO DOESNT USE WI 30 MIN WAKEUP [facility] December 26, 2019 10:07 AM VA-TOBACCO USE 30 YEARS OR MORE [facility] December 26, 2019 10:07 AM VA-TOBACCO USE ADVICE [facility] December 26, 2019 10:07 AM VA-TOBACCO USE EDGER RUNNER NO [facility] December 26, 2019 10:07 AM VA-TOBACCO USE MED NO [facility] December 26, 2019 10:07 AM VA-TOBACCO USER EVERY DAY [facility] Oct 19, 2018 09:18 AM VA-TOBACCO DOESNT USE WI 30 MIN WAKEUP [facility] Oct 19, 2018 09:18 AM VA-TOBACCO USE 30 YEARS OR MORE [facility] Oct 19, 2018 09:18 AM VA-TOBACCO USE ADVICE [facility] Oct 19, 2018 09:18 AM VA-TOBACCO USE EDGER RUNNER NO [facility] Oct 19, 2018 09:18 AM VA-TOBACCO USE MED NO [facility] Oct 19, 2018 09:18 AM VA-TOBACCO USER SOME DAYS [facility] Sep 25, 2017 01:14 PM V9 CURRENT TOBACCO USER [facility] Sep 25, 2017 01:14 PM V9 TOBACCO OFFERED [facility] Sep 25, 2017 01:14 PM V9 TOBACCO USE-DECLINED MEDS [facility] Oct 14, 2016 04:43 PM V9 CURRENT TOBACCO USER [facility] Oct 14, 2016 04:43 PM V9 TOBACCO OFFERED [facility] Oct 14, 2016 04:43 PM V9 TOBACCO USE-DECLINED MEDS [facility] Oct 03, 2015 08:21 AM V9 CURRENT TOBACCO USER [facility] Oct 03, 2015 08:21 AM V9 TOBACCO OFFERED [facility] Oct 03, 2015 08:21 AM V9 TOBACCO USE-DECLINED MEDS [facility] Aug 30, 2014 08:12 AM V9 CURRENT TOBACCO USER [facility] Aug 30, 2014 08:12 AM V9 TOBACCO OFFERED [facility] Jul 18, 2013 08:02 AM V9 CURRENT TOBACCO USER [facility] Jul 18, 2013 08:02 AM V9 QUIT TOBACCO >7 YEARS AGO [facility] Jul 18, 2013 08:02 AM V9 TOBACCO OFFERED [facility] Jul 01, 2012 07:45 AM TOBACCO OFFERRED P T MEDS (PROVIDER) [facility] Jul 01, 2012 07:45 AM V9 CURRENT TOBACCO USER [facility] Jul 01, 2012 07:45 AM V9 QUIT TOBACCO >1 2 MO & <7 YRS AGO [facility] Jul 01, 2012 07:45 AM V9 TOBACCO OFFERED [facility] 2011 07:55 AM V9 CURRENT TOBACCO USER [facility] 2011 07:55 AM V9 TOBACCO OFFERED [facility] Jun 12, 2011 07:53 AM TOBACCO OFFERRED P T MEDS (PROVIDER) [facility] Jun 12, 2011 07:53 AM V9 CURRENT TOBACCO USER [facility] Jun 12, 2011 07:53 AM V9 TOBACCO OFFERED [facility] Sep 06, 2010 07:32 AM TOBACCO OFFERRED P T MEDS (PROVIDER) [facility] Sep 06, 2010 07:32 AM V9 CURRENT TOBACCO USER [facility] Sep 06, 2010 07:32 AM V9 TOBACCO OFFERED [facility] Sep 06, 2009 07:33 AM TOBACCO OFFERRED P T MEDS (PROVIDER) [facility] Sep 06, 2009 07:33 AM V9 CURRENT TOBACCO USER [facility] Sep 06, 2009 07:33 AM V9 TOBACCO OFFERED [facility] Encounter Notes: All associated encounter notes This section contains the clinical notes associated to the Encounter. Date/Time Encounter Note(s) Provider Source May 18, 2024 08:27 AM PRIMARY CARE NURSI NG NOTE: LOCAL TITLE: [facility] Health Tech/cafe helper Note STANDARD TITLE: PRIMARY CARE NURSING NOTE DATE OF NOTE: MAY 18, 2024@08:27 ENTRY DATE: MAY 18, 2024@08:27:25 AUTHOR: ADRIAN ROSS COSIGNER: URGENCY: STATUS: COMPLETED The patient was given a list of his current medications, instructed to review and discuss any changes or problems with their provider. Patient advised to carry a list of current medications and any allergies with them in the event of emergency situations. Yes - [place]/Caregiver verbalized understanding of topics discussed and education provided Provider notified of elevated B/P >/= 140/90. Not Applicable COVID-19 Immunization: Refused Moderna Monovalent COVID-19 vaccine Immunization: COVID-19 (MODERNA), MRNA, LNP-S, PF, 50 MCG/0.5 ML (AGES 12+ YEARS) Refusal Reason: PATIENT DECISION Patient refuses all immunization(s) in the COVID-19 group Date Documented: 05/18/24 08:29 Influenza Immunization: Deferral / Refusal The patient declines to receive the recommended dose of seasonal influenza vaccine. Immunization: INFLUENZA, UNSPECIFIED FORMULATION Refusal Reason: PATIENT DECISION Patient refuses all immunization(s) in the FLU group Date Documented: 05/18/24 08:30 Learning Readiness Assessment: Preferred language for discussing health care Cymraes REASSESSMENT LEARNING BARRIERS Hearing Barrier Comment: left hearing aide Visual Barrier Comment: glasses for reading READING LIMITATIONS No reading limitations PREFERRED METHODS FOR LEARNING Written/Printed Material Verbal Demonstration (Audio/Visual) Computer INTERESTED IN LEARNING (MOTIVATED) No PERSON BEING EDUCATED TODAY Patient Education was provided on the following topics RESPONSE Verbalizes Successfully ADL/IADL Functional Measures(V9): Incontinence Screen: Within the past 12 months, has the patient had any characteristics of incontinence (ability, voiding, leakage, etc.)? No incontinence. Falls Screen: Patient does not report falls within the past 12 months. Patient has a diagnosis of Dementia on file. Screening not required. [place] Index of [place] in Activities of Daily Living: [place] INDEX FOR ADL ASSESSMENT: [place] Index of [place] in Activities of Daily Living was completed at this encounter. BATHING: Patient needs no supervision, direction or personal assistance with bathing. DRESSING: Patient needs no supervision, direction or personal assistance with dressing. TOILETING: Patient needs no supervision, direction or personal assistance with toileting. TRANSFERRING: Patient needs no supervision, direction or personal assistance with transferring. CONTINENCE: Patient needs no supervision, direction or personal assistance with bowel continence. FEEDING: Patient needs no supervision, direction or personal assistance with feeding/eating. ENTER TOTAL SCORE BELOW: TOTAL POINTS: = [ 6 ] NOTE: 6-5 = FULL FUNCTION (patient independent) INSTRUMENTAL ACTIVITIES OF DAILY LIVING (IADL) SCALE ([place]) Telephone: 1 point - Looks up numbers, dials, receives and makes calls without help Shoppin point - Takes care of all shopping needs independently Food preparation: 1 point - Plans, prepares, and serves adequate meals independently Housekeepin point - Performs light daily tasks but cannot maintain acceptable level of cleanliness Laundry: 0 points - Unable to do any laundry. Mode of transportation: 1 point - Travels independently on public transportation or drives own car Responsibility for own medications: 1 point - Is responsible for taking medication in correct dosages at correct time Ability to handle finances: 1 point - Manages financial matters independently (budgets, writes checks, pays rent and bills, goes to bank), collects and keeps track of income SCORING: The total score may range from 0 - 8. A lower score indicates a higher level of dependence. Total score: 8 points Alcohol Use Screen (AUDIT-C): Alcohol Screen: SCREEN FOR ALCOHOL (AUDIT-C) An alcohol screening test (AUDIT-C) was negative (score=4). 1. How often did you have a drink containing alcohol in the past year? Consider a drink to be a 12 ounce can or bottle of regular beer, 8 ounces of malt liquor, a 5 ounce glass of table wine, or a 1.5 ounce shot of liquor (like scotch, gin, or vodka). Four or more times a week (Has not drank alcohol in 6 weeks) 2. How many drinks containing alcohol did you have on a typical day when you were drinking in the past year? One or two drinks 3. How often did you have six or more drinks on one occasion in the past year? Never Depression Screening: Perform PHQ-2 A PHQ-2 screen was performed. The score was 0 which is a negative screen for depression. Over the past two weeks, how often have you been bothered by the following problems? 1. Little interest or pleasure in doing things Not at all 2. Feeling down, depressed, or hopeless Not at all Suicide Screen: C-SSRS Screening Gilliam Suicide Severity Rating Scale (C-SSRS) screener 1. Over the past month, have you wished you were or wished you could go to sleep and not wake up? No 2. Over the past month, have you had any actual thoughts of killing yourself? No 3. Over the past month, have you been thinking about how you might do this? Response not required due to responses to other questions. 4. Over the past month, have you had these thoughts and had some intention of acting on them? Response not required due to responses to other questions. 5. Over the past month, have you started to work out or worked out the details of how to kill yourself? Response not required due to responses to other questions. 6. If yes, at any time in the past month did you intend to carry out this plan? Response not required due to responses to other questions. 7. In your lifetime, have you ever done anything, started to do anything, or prepared to do anything to end your life (for example, collected pills, obtained a gun, gave away valuables, went to the roof but didn't jump)? No 8. If YES, was this within the past 3 months? Response not required due to responses to other questions. Tobacco Use Screening: The patient uses tobacco but not every day. Smokes an occasional cigar The patient does not use tobacco within 30 minutes of waking up. The patient has been smoking or using tobacco for thirty years or more. Patient was advised to quit smoking and/or using tobacco. Discussion with patient included: - Quitting smoking or tobacco use is one of the most important things you can do to protect and improve your health and [place] has the resources to support you. - Set a quit date when you are ready to quit. - Get support from your family and friends. - Review any past quit attempts- What helped? What didn't? - On the day you plan to quit, get rid of all cigarettes and tobacco products from your home, car or work. - Using a combination of behavioral counseling or other support strategies and FDA-approved cessation medications is the most effective way to ensure success in quitting. Patient was offered Behavioral Counseling and other support strategies to assist with quitting. Discussion with patient included: - Behavioral counseling or other support strategies greatly increases your chances of successfully quitting smoking or tobacco use by helping you develop a quit plan and providing support and other strategies to make behavioral changes to help you quit. - [place] has a number of behavioral counseling options to help you with quitting, including: * Provide information about the facility smoking or tobacco use treatment options or clinics * [place]'s national quitline, 8-252-HGZY-VET, with counseling available Thursday-Thursday The patient was not interested in receiving additional information about how to use the treatment options discussed. Patient was offered FDA-approved cessation medications. Discussion with patient included: - Medications for Nicotine replacement therapy such as the patch, gum or lozenge, and other medications such as varenicline or bupropion, can play an important role in the initial weeks and months after you quit smoking or tobacco use. - Medications help with cravings and withdrawal symptoms and they greatly increase your chances of successfully quitting. The patient was not interested in a prescription for tobacco cessation medications. PAVE Foot Check: Patient indicates foot exam (including monofilament test for sensation) was performed in the past year in the private sector: Date: February 23, 2024 Result: F/U appt May 25 No issues reported with feet/occasional neuropath feeling /es/ ADRIAN ROSS PIPELAYING FITTER STAFF PIPELAYING FITTER Signed: 05/18/2024 08:51 [facility] May 18, 2024 08:26 AM PRIMARY CARE NOTE: LOCAL TITLE: PC PROGRESS NOTE STANDARD TITLE: PRIMARY CARE NOTE DATE OF NOTE: MAY 18, 2024@08:26 ENTRY DATE: MAY 18, 2024@08:26:26 AUTHOR: PHONG JENKINS COSIGNER: URGENCY: STATUS: COMPLETED ID: 78 year old MALE Chief Complaint: Ongoing management of active/chronic medical problems PC-Nurse's note is reviewed. HPI/PROBLEM LIST: Patient is a 78 year old MALE here today to establish treatment of active/chronic medical problems, and F/U test results. Patient denies any recent Hospitalizations, ER visits or surgeries in last 90 days. NON-[place] Provider-PAULY Diaz - right hip replacement [facility] - [place], [place], pain management clinic for low back pain. PCP- Dr Kessler - [place], [place] NON-[place] Pharmacy- [facility] - Since last visit had pneumonia treated as an outpt by his NON-VA [facility] in his home town. Cleared yup yesterday as he completed all the RXs . Today has no complaints. - Low back pain across lower back / right leg pain- had epidural steroid injection on 08/04/2023 at [facility] - pain management clinic in - [place], [place] , helped,the lower back pain and right leg pain- his lower back pain became much better and the right leg pain resolved. a 2nd injection done on 03/24/2024 that seems to help , also using the compound pain cream of: - Ketamine/neurontin/BA/ibupro fen/lidocain qid PRN. no other therapy, seems to help too. - S/P total R-THR repalcement on 08/26/2023- by NON-VA Kim diaz Stable. no complaints. Did not need to F/U with them since last PCP visit. - left foot tingling and numbing- left leg NCS cancelled by pt on 11/16/2023. Today, pt denies any foot complaints. - Benign prostatic hyperplasia with outflow obstruction-/- Elevated PSA- 12/01/2022 Urology visit- [facility] [employer] - PSA stable, recheck in 6 month to assess stability 05/27/2023- PSA:3.887 ng/mL (11/02/2023 09:26) - Is taking TAMSULOSIN HCL 0.4MG CAP TAKE ONE CAPSULE BY MOUTH EVERY EVENING FOR PROSTATE No family H/O prostae cancer. - Smokes tobacco daily- smokes one cigar a day now, now 1 cigar a day maxmimum once in a while, last done 6 weeks ago. - Peripheral arterial occlusive disease- ABIs 11/12/2023 was abnormal. Patient was referred to vascular surgery. Is taking ASA 81 mg po daily, Plavix 75 mg po daily, and Atorvasatin 40 mg po daily. Quit smoking in 2007. Encouraged to quit smoking cigars. - Renal disorder due to type 2 diabetes mellitus-/diabetic nephropathy h/o DM II treated with po diabetic meds x 10 years, then stopped by previous PCP- baseline creatinine 0.96-1.11 in the last 2 years. was 1.02 on 11/02/2023. 11/02/2023 09:26 BLOOD !! GLYCOHEMOGLOBIN 5.6 % 4.4 - 6.4 03/09/2023 09:28 BLOOD !! GLYCOHEMOGLOBIN 5.7 % 4.4 - 6.4 09/24/2021 08:04 BLOOD !! GLYCOHEMOGLOBIN 6.0 % 4.4 - 6.4 09/26/2020 09:01 BLOOD !! GLYCOHEMOGLOBIN 6.0 % 4.4 - 6.4 11/02/2023 09:32 URINE MICROALBUMIN DIEGO 30.0 mg/L 0.0 - 30.0 F/U [facility]- Optometry . Diabetic foot exam- PCP . PAV-foot - completed - PCP- 05/18/2024 - Patient has his toenail clipped every 3 month at [facility] in [place] hometown. - Gastroesophageal reflux disease- better controlled with taking the prilosec 20 mg po daily. Denies side effects. Denies constipation. - Multiple nodules of lung- 11/24/2023 LDCT benign, repeat in 12 months. - Benign essential hypertension - Home bp is good . BP in the clinic is 139/72. Is taking LISINOPRIL 5MG TAB TAKE ONE TABLET BY MOUTH DAILY - will increase it to 10 for daibeti cnephropathy. - Mixed hyperlipidemia - FLP is controlled per 11/02/2023 labs. Is taking ATORVASTATIN CALCIUM 80MG TAB TAKE ONE-HALF TABLET BY MOUTH . Denies side effects. - left ear hearing loss- Is waering hearing aids and F/U [facility]- Audiology. - [facility]- Sleeps with CPAP. HEALTH CARE MAINTENANCE: .SCREENING- - LDCT Screening for Lung Cancer: 10/12 stable RUL/LLL nodules-11/24/2023 LDCT benign, repeat in 12 months. -screening- AAA Screening :09/2013 negative - Screening for colon cancer:COLONOSCOPY:03/2013 mass, repeat 10/2013 +benign TA, repeated 03/11 at [facility] at [facility] benign TA; F/U Dr. Jay-repeat recommended 2023. - PSA:3.887 ng/mL (11/02/2023 09:26) - Screening for HIV:NEG 2017 - Screening for HCV:NEG 2017 . IM - Immunizations ADMINISTERED COVID-19 (MODERNA), MRNA, LNP-S,* 6 06/19/2023 IZG:KALIN ALVAREZ COVID-19 (Handpay), MRNA, LNP-S, * B 08/29/2022 [place]* COVID-19 (PFIZER), MRNA, LNP-S, * 3 04/24/2021 IZG:KALIN IIS COVID-19 (Handpay), MRNA, LNP-S, * 2 09/30/2020 [place]* COVID-19 (PFIZER), MRNA, LNP-S, * 1 09/09/2020 [place]* COVID-19 (PFIZER), MRNA, LNP-S, * 3 03/17/2022 [facility] DTP 10/03/2015 [place]* HEP A, ADULT 10/17/2019 [place]* HEP A, ADULT 04/18/2019 [place]* INFLUENZA, SPLIT VIRUS, QUADRIVA* 6 06/19/2023 IZG:KALIN ALVAREZ [id number] (HISTORICAL) 10/15/2016 [place]* PNEUMOCOCCAL CONJUGATE PCV20, PO* C 08/29/2022 [place]* PNEUMOCOCCAL POLYSACCHARIDE PPV23 09/28/2017 [place]* PNEUMOCOCCAL, UNSPECIFIED FORMUL* 08/04/2012 [place]* TD (ADULT), 2 LF TETANUS TOXOID,* 1 10/30/1996 IZG:KALIN IIS TD(ADULT) UNSPECIFIED FORMULATION 08/24/2004 Elsewhere TD(ADULT) UNSPECIFIED FORMULATION kalin Goetz TDAP 10/03/2015 1 AD TDAP (HISTORICAL) 10/03/2015 [place]* ZOSTER LIVE 07/01/2012 [place]* ZOSTER RECOMBINANT 2 2022 [place]* ZOSTER RECOMBINANT 1 09/29/2022 [place]* CONTRAINDICATED ZOSTER RECOMBINANT 08/29/2022 [place]* REFUSED ======= INFLUENZA, UNSPECIFIED FORMULATI* 08/29/2022 [place]* ST - Skin Tests No data available: Collection DT Specimen Test Name Result Units Ref Range 10/22/2018 08:26 SERUM !! BRICEÑO/TOT (TO [id number] NEG No Hep B immunization history found. Active problems - Computerized Problem List is the source for the followin. Exposure to potentially hazardous substance (SCT [id number]) 2. Low back pain 3. Hearing loss in left ear 4. Obstructive sleep apnea of adult 5. Neuropathy 6. Exposure to potentially hazardous substance 7. Benign prostatic hyperplasia with outflow obstruction 8. Smokes tobacco daily 9. Peripheral arterial occlusive disease 10. Renal disorder due to type 2 diabetes mellitus 11. Gastroesophageal reflux disease 12. Multiple nodules of lung (SNOMED CT 685039682) 13. Benign essential hypertension (SNOMED CT 9655501) 14. Mixed hyperlipidemia (SNOMED CT 985448094) List of active problems are reviewed with patient and updated. SURGICAL HISTORY: Right hip TR 08/26/2023- [facility] FAMILY HISTORY Father-passed in his 70s Mother-passed in her 90s with dementia Siblings: 3 brothers, 2 sisters. All living in [place]. Healthy as far as he knows Children: 1 son, living in [place], healthy SOCIAL HISTORY: [employer] # Entered [employer]charge [employer]S [id number] JUN 17, 1967 JUN 16, 1969 [employer] ([employer]) OCCUPATION:[employer],retired x 13 years MARITAL STATUS - .Lives: [place] with . Son Lives in [place] TOBACCO: 2 ppd x 30 years, quit in 2007. Current cigar smoker,1-2 day ALCOHOL: daily, one case of beer a week total ILLICIT DRUGS:Denies ROS: A 10 point ROS was completed with patient and is negative with exception of what was noted above in History of Present Illness and Past Medical History sections. DS - Disabilities Eligibility: SC LESS THAN 50% VERIFIED Total S/C %: 20 DIABETES MELLITUS 20% S/C IMPAIRED HEARING 0% S/C MEDICATIONS: Active and Recently Outpatient Medications (including Supplies): Active Outpatient Medications Status 1) ALLOPURINOL 100MG TAB TAKE ONE TABLET BY MOUTH DAILY ACTIVE FOR GOUT 2) ASPIRIN 81MG EC TAB TAKE ONE TABLET BY MOUTH DAILY ACTIVE FOR HEART 3) ATORVASTATIN CALCIUM 80MG TAB TAKE ONE-HALF TABLET BY ACTIVE MOUTH DAILY FOR CHOLESTEROL 4) LISINOPRIL 20MG TAB TAKE ONE-HALF TABLET BY MOUTH ACTIVE DAILY FOR BLOOD PRESSURE/HEART NEW DOSE 5) OMEPRAZOLE 20MG EC CAP TAKE ONE CAPSULE BY MOUTH ONCE ACTIVE A DAY 30 MINUTES BEFORE A MEAL FOR STOMACH -TAKE ON AN EMPTY STOMACH 6) TAMSULOSIN HCL 0.4MG CAP TAKE ONE CAPSULE BY MOUTH ACTIVE EVERY EVENING FOR PROSTATE ALLERGIES: Patient has answered NKA PHYSICAL EXAM: VITAL SIGNS 05/18/24 08:50 T: 97.8 F (36.6 C) (ORAL) P: 65 (RADIAL) B/P: 123/69 Ht: 71.00 in (180.34 cm) Wt: 241.80 lb (109.68 kg) Body Mass Index: 34* Pulse Oximetry: 95% Pain: 2 MOBILITY: ambulating WITHOUT assistive device. General: Well-developed , well-nourished MALE in no acute distress. HEENT: Atraumatic, Normocephalic, no icterus. Nose is patent. Moist mucous membranes. No oral lesions. Neck- Supple, could not appreciate JVD, carotid bruit,thyromegaly, or lymphadenopathy. Heart: RRR, Normal S1 and S2, no S4, no M/G/R. Lungs: Clear to auscultation, no rales, no wheezes, no rhonchi Abdomen: Nontender, nondistended, normal bowel sounds Extremities: No edema. Pulses are palpable. Musculoskeletal: No joint swelling, erythema or warmth. Neurologic: Alert and oriented times 3, no new focal neurological deficits. Skin: Warm and dry, no new lesions. PSYCH: Appropriate mood and behavior. Interacting appropriately. IMAGES: No recent studies. LABS: PHOSPHORUS:4.0 mg/dL (11/02/2023 09:26) 11/02/2023 09:26 BLOOD !! GLYCOHEMOGLOBIN 5.6 % 4.4 - 6.4 03/09/2023 09:28 BLOOD !! GLYCOHEMOGLOBIN 5.7 % 4.4 - 6.4 09/24/2021 08:04 BLOOD !! GLYCOHEMOGLOBIN 6.0 % 4.4 - 6.4 09/26/2020 09:01 BLOOD !! GLYCOHEMOGLOBIN 6.0 % 4.4 - 6.4 11/02/2023 09:32 URINE MICROALBUMIN DIEOG 30.0 mg/L 0.0 - 30.0 11/02/2023 09:26 PLASMA!! CHOLESTEROL 121 mg/dL 0 - 199 11/02/2023 09:26 PLASMA!! TRIGLYCERIDE 144 mg/dL 0 - 149 11/02/2023 09:26 PLASMA!! HDL CHOLESTEROL 32 L mg/dL 40 - 69 11/02/2023 09:26 PLASMA!! DIRECT LDL CHOL. 69 mg/dL 0 - 100 PANEL 2 David. date TOT PRO ALBUMIN SGOT SGPT Z ALK PHZ DIRECTZ TOTAL 11/02/23 09:26 7.3 4.5 17 29 66 0.2 0.8 Vitamin D: Collection DT Spec VITAMIN 11/02/2023 09:26 SERUM 34.5 08/29/2022 09:00 SERUM 36.4 TSH: 1.0241 mIU/mL (11/02/2023 09:26) Magnesium:2.2 mg/dL (11/02/2023 09:26) Iron saturation:32 % (08/29/2022 08:59) Iron: 101 ug/dL (08/29/2022 08:59) 11/02/2023 09:26 PLASMA!! B12 VITAMIN 1244 H pg/mL 213 - 816 11/02/2023 09:26 PLASMA!! FOLATE 14.3 ng/mL 7.0 - 31.4 Uric Acid:URIC ACID 11/02/23 09:26 8.3 H PSA:3.887 ng/mL (11/02/2023 09:26) URINALYSIS David. date Z SPECIFZ URINE Z URINE Z URINE Z URINE Z URINE Z URINE 11/02/23 09:32 1.010 Negativ Light Y Clear 5.5 Negativ Negativ URINALYSIS David. date Z URINE Z URINE Z URINE Z URINE Z LEUK. 11/02/23 09:32 Negativ Negativ Negativ Normal Negativ 11/02/2023 09:26 BLOOD WBC 6.0 K/cmm 5.0 - 10.0 11/02/2023 09:26 BLOOD RBC 5.08 M/cmm 4.6 - 6.2 11/02/2023 09:26 BLOOD HGB 14.3 g/dL 14.0 - 18.0 11/02/2023 09:26 BLOOD HCT 43.8 % 42.0 - 52.0 11/02/2023 09:26 BLOOD MCV 86.2 fL 80.0 - 94.0 11/02/2023 09:26 BLOOD MCH 28.1 pg 27.0 - 31.0 11/02/2023 09:26 BLOOD MCHC 32.6 g/dL 32.0 - 36.0 11/02/2023 09:26 BLOOD PLT 189 K/cmm 150 - 450 11/02/2023 09:26 BLOOD MPV 10.1 fL 9.0 - 13.1 11/02/2023 09:26 BLOOD RDW 12.9 % 11.0 - 16.0 11/02/2023 09:26 BLOOD NRBC 0.0 % 0.0 - 0.0 11/02/2023 09:32 URINE CREATININE 49.2 mg/dL 11/02/2023 09:26 PLASMA!! UREA NITROGEN 15 mg/dL 11/02/2023 09:26 PLASMA!! eGFR (CKD-EPI) 77 SEE MELANIE 11/02/2023 09:26 PLASMA!! GLUCOSE 129 H mg/dL 74 - 100 11/02/2023 09:26 PLASMA!! SODIUM 140 mmol/L 136 - 145 11/02/2023 09:26 PLASMA!! POTASSIUM 4.3 mmol/L 3.5 - 5.1 11/02/2023 09:26 PLASMA!! CHLORIDE 107 mmol/L 98 - 107 11/02/2023 09:26 PLASMA!! CO2 22 mmol/L 22 - 29 11/02/2023 09:26 PLASMA!! CALCIUM 9.6 mg/dL 8.4 - 10.2 11/02/2023 09:26 PLASMA!! ANION GAP 11.0 mEq/L 3 - ASSESSMENT AND PLAN: - Low back pain across lower back / right leg pain- stable. Continue F[facility]. Continuecompound pain cream of: - Ketamine/neurontin/BA/ibupro fen/lidocain qid PRN. - Benign prostatic hyperplasia with outflow obstruction-/- Elevated PSA- stable. Continue: TAMSULOSIN HCL 0.4MG CAP TAKE ONE CAPSULE BY MOUTH EVERY EVENING FOR PROSTATE Order 6 month f/u PSA. - Peripheral arterial occlusive disease- Continue ASA 81 mg po daily, Plavix 75 mg po daily, and Atorvasatin 40 mg po daily. Continue F/U Vascular surgery and their rec. - Renal disorder due to type 2 diabetes mellitus-/diabetic nephropathy all stable. No DM II. Continue to monitor. Continue Liisnopril 10 mg po daily. Continue F/U [facility]- Optometry . Diabetic foot exam- PCP . PAV-foot - completed - PCP- 05/18/2024 - Patient has his toenail clipped every 3 month at [facility] in [place]. - Gastroesophageal reflux disease- better controlled. Continue prilosec 20 mg po daily. Denies constipation. - Multiple nodules of lung- 11/24/2023 LDCT benign, repeat in 12 months. - Benign essential hypertension - controlled. Continue Is taking LISINOPRIL 10MG TAB TAKE ONE TABLET BY MOUTH DAILY - Mixed hyperlipidemia - Continue: ATORVASTATIN CALCIUM 80MG TAB TAKE ONE-HALF TABLET BY MOUTH . - Left ear hearing loss- Continue waering hearing aids and Continue F/U [facility]- Audiology. - [facility]- Continue sleep with CPAP. Medication Reconciliation: Reviewed and reconciled medication list with patient and/or caregiver: ___ No discrepancies were found, _x__ Discrepancies were corrected or sent to the ordering provider to correct The updated medication list was given to the patient/caregiver by: _x__Patient declines med list, ___Handing physical copy at the end of visit, ___Mail, ___[facility] ___Patient does not take any meds ___ New pt presented with her list of meds. Pt instructed to watch for adverse reaction to therapy and if allergy suspected then discontinue and present immediately to ER. Potential side effects/adverse events associated with prescription medication including potential drug interactions were discussed and all questions answered. Patient expressed understanding of information presented in this note. -LABWORK: Today's labs: ( )FASTING ( )NON-FASTING: See orders ( ) NO LABS WITH THIS VISIT ( ) RETURN FOR LABS: -CONSULTS ENTERED FROM TODAYS VISIT: -CLERICAL ORDERS: RNA APPOINTMENT: SCHEDULE THE FOLLOWING: RECALL:04/14/2024 ( ) Fasting labs on RTC ( ) Non-fasting labs on RTC: To be determined (x ) No labs on RTC Follow up:11 months and PRN The /caregiver voiced understanding of topics covered/discussed in today's visit. All questions were answered, and the patient/caregiver voiced understanding and agreement. I spent 38 min today reviewing last visit notes, recent lab results, recent XRs reports, [facility] for any recent hospitilizations or ER visits, [facility] consults, Consults reports , evaluating and managing the patient's acute and chronic conditions, and documenting clinical information in health record. _x_ Preparing to see patient (tests, reviewing last progress note) _x_ Perform medically necessary Exam _x_ Order tests, procedures, medications _x_ Documenting clinical info in health record _x_ Independently interpreting results and communicating results to patient/caregiver _X__ Refer and/or communicate with other providers regarding patient _X__ Obtain/review separately obtained history __ Placed consult SYSTEM GENERATED CLINICAL REMINDERS: Influenza Immunization: Deferral / Refusal Deferred due to sergio burgos take it in 05/[place] hometown. PAVE Foot Check: A complete foot check was completed at this encounter. VISUAL INSPECTION: Includes inspection for skin breaks, deformity, erythema, trauma, pallor on elevation, dependent rubor, nail deformities, extensive callus and pitting edema. Visual exam results: Normal PEDAL PULSES: Includes palpation of dorsalis and posterior tibial pulses and signs/symptoms of vascular compromise like pain, pallor, parasthesia or paralysis. Present (even if diminished) SENSORY CHECK: Includes 10 gram Monofilament (Elaine-Jun) test of sensation. Intact (Greater than or equal to 80% of sites checked) Abnormal (Less than 80% of sites checked): Intact LOW-RISK: LOW RISK INFORMATION PROVIDED: 1. Advised patient not to walk barefoot. 2. Explained the importance of daily foot checks for changes. 3. Stressed the importance of daily foot hygiene, including bathing and complete drying. /es/ PHONG JENKINS MD Signed: 05/18/2024 09:56 PHONG JENKINS [facility]
--- OUTSIDE RECORDS SUMMARY | 2024-07-11 06:15 | XMS_ITS ---
Author Organization [facility] Address [address] [facility] [address] [place] [phone] Care Team Providers Care Reeling And Tubing Machine Operator Name Role Phone Checo Tomás Primary Care Provider Allergies No Known Allergies REASON FOR VISIT check up for Cpap Medications Medication SIG (Take, Route, Frequency, Duration) Notes Start Date End Date Status CPAP machine and supplies - Autopap 9 as directed 04/19/2024 Active Nebulizer System All-In-One - as directed 04/27/2024 Active CPAP SUPPLIES DIRECTED 01/06/2020 Act tricia Multivitamin - 1 tab(s) orally once a day; Duration: 30 day(s) Active Lisinopril 5 MG 1 tab(s) orally once a day Active Plavix 75 MG 1 tablet Orally Once a day; Duration: 30 day(s) Active Aspirin 81 MG 1 tablet Orally Once a day; Duration: 30 day(s) Active Tamsulosin HCl 0.4 MG 1 cap(s) orally on ce a day Active Atorvastatin Calcium 80 MG 1 tab(s) oral ly once a day (at bedtime) Active Doxycycline Monohydrate 100 MG 1 tablet Orally every 12 hrs; Duration: 7 days 05/06/2024 Active Albuterol Sulfate (2.5 MG/3ML) 0.083% 3 ml Inhalation every 6 hrs, prn Active Allopurinol 100 MG 1 tablet Orally Once a day; Duration: 30 day(s) Active Breztri Aerosphere 160-9-4.8 MCG/ACT 2 puffs Inhalation Twice a day Active Vital Signs Blood pressure systolic 114 mm Hg 07/11/20 24 Blood pressure diastolic 70 mm Hg 024 Heart Rate 68 /min 07/11/2024 Height 71 in 07/11/2024 Weight 250.6 lbs 07/11/2024 BMI 34.95 kg/m2 07/11/2024 Encounters Encounter Location Date Provider Diagnosis [facility] [address] [facility] [address] [place] [phone] 07/11/2024 Tomás Kessler Obstructive sleep ap june G47.33 Assessments Encounter Date Diagnosis (ICD Code) Assessment Notes Treatment Notes Treatment Clinical Notes Section Notes 07/11/2024 Obstructive sleep apnea (ICD-10 - G47.33) Patient is doing well on CPAP and should continue using it anytime he sleeps Plan Of Treatment Treatment Notes Assessment Notes Obstructive sleep apnea Patient is doing well on CPAP and should continue using it anytime he sleeps Next Appt Details Follow Up: 1 Year, Reason: Progress Notes * MICHAEL THOMASDOB:[birth year] (79 yo M)Acc No.[id number]:07/11/2024 Progress Notes Patient: MICHAEL RAMIREZ Provider: Janie Kessler M.D. :1945 A ge:78 Y S ex:Male Date:07/11/2024 Address:[address] [place] [address] , [place], [id number] Subjective: * Chief Complaints: * 1 . check up for Cpap. * HPI: H PI: 78 year old male presents with c/o Here for follow up on: C PAP usage, report requested from Sushant. Pt states he is doing well and using CPAP as directed. * ROS: D ERMATOLOGY: no R prabhjot. n o H jose a. G ASTROENTEROLOGY: no N ausea. n o V omiting. U ROLOGY: no B lood in urine. n o F requent urination. ? * Medical History: D iabetes Type 2, Abdominal Aortic Aneurysm, Low Back Pain, L-spine xray 2013, Osteoarthritis, left hip, Hyperlipidemia, BPH, Followed at [facility] in [place] by Dr. Krissy Abreu, Lumbar Disc Disease, Lumbar facet arthropathy, peripheral vascular disease, see angiogram December 2023. * Surgical History: i nguinal hernia repair , LT Total Hip Replacement 10/27/2014, normal heart cath 12/2014. * Hospitalization/Major Diagno stic Procedure: p eptic ulcer, Upper GI bleed- [facility] 2006, [facility] - Total Hip Replacement 10/27-05/2015. * Family History: F ather: , diagnosed with Heart Disease. M other: alive, diagnosed with Mental Illness. S iblings: alive, family history unknown . Tarik espinal: alive. 3 brother(s) , 2 sister(s) . 1 son(s) - healthy. . * Social History: C URRENT TOBACCO USE S moking Status: P atient does smoke, S amber age of: 1 5,?Smoking preference: c igars 2-3 day. * Medications: T aking Allopurinol 100 MG Tablet 1 tablet Orally Once a day , Taking Aspirin 81 MG Tablet Delayed Release 1 tablet Orally Once a day , Taking Plavix 75 MG Tablet 1 tablet Orally Once a day , Taking Lisinopril 5 MG Tablet 1 tab(s) orally once a day , Taking Atorvastatin Calcium 80 MG Tablet 1 tab(s) orally once a day (at bedtime) , Taking Tamsulosin HCl 0.4 MG Capsule 1 cap(s) orally once a day , Taking Multivitamin - Tablet 1 tab(s) orally once a day , Taking CPAP SUPPLIES DIRECTED , Taking Nebulizer System All-In-One - Miscellaneous as directed , Taking CPAP machine and supplies - - Autopap 9 as directed , Taking Breztri Aerosphere 160-9-4.8 MCG/ACT Aerosol 2 puffs Inhalation Twice a day , Taking Albuterol Sulfate (2.5 MG/3ML) 0.083% Nebulization Solution 3 ml Inhalation every 6 hrs, prn , Taking Doxycycline Monohydrate 100 MG Tablet 1 tablet Orally every 12 hrs , Discontinued Benzonatate 200 MG Capsule 1 capsule Orally Three times a day , Medication List reviewed and reconciled with the patient * Allergies: N .K.D.A. Objective: * Vitals: W t:250.6, Temp:97.7, BP:114/70, HR:68, O2 Sat:98% on RA, Nurse:janice, Ht: 71, BMI:34.95. * Examination: G eneral Examination: General Appearance: N AD. H eart: R SR. L ungs:?clear to auscultation. Assessment: * Assessment: 1. O bstructive sleep apnea - G47.33 (Primary) Plan: * Treatment: * Procedure Codes: G 2211 Complex e/m visit add on * Follow Up: 1 Year * Images: Billing Information: * Visit Code: 61213 Office Visit, Est Pt., Level 3. * Procedure Codes: G2211 Complex e/m visit add on. * Electronic signature of Machelle Kessler MD on 04/17/2025 at 11:03 AM EDT Sign off status: Pending * Provider: Janie Kessler M.D. Date: 1 09/10/2023 Generated for Carmel jenkins/Vika/Mauitting on: 0 04/17/2025 11:03 AM EDT History and Physical Notes * HPI (History of Present Illness) Category Sub-Category Detail Notes Category Not es HPI Here for follow up on: CPAP usag e, report requested from Sushant. Pt states he is doing well and using CPAP as directed Examination Category Sub-Category Detail Notes Category Not es General Examination Heart: RSR Lungs: clear to auscultatio n General Appearance: NAD
--- OUTSIDE RECORDS SUMMARY | 2024-08-31 06:15 | XMS_ITS ---
Author Organization [facility] Address [address] [place] [phone] Care Team Providers Care Municipal Court Magistrate Name Role Phone Tomás Kessler Primary Care Provider Allergies No Known Allergies Results Component Value Reference Range Notes CBC Fingerstick (in house) Reviewed date:08/31/2024 11:47:28 AM Interpretation: Performing Lab: Notes/Report: wbc 5.2 3.5 - 10 lym 25.2% 15 - 50 mid 6.3% 2 - 15 gran 68.5% 35 - 80 rbc 4.99 3.5 - 5.5 hgb 14.5 11.5 - 16.5 hct 43.2 35 - 55 mcv 86.6 75 - 100 mch 29.1 25 - 35 mchc 33.6 31 - 38 plat 161 100 - 400 REASON FOR VISIT allergy issues for a week Medications Medication SIG (Take, Route, Frequency, Duration) Notes Start Date End Date Status Albuterol Sulfate (2.5 MG/3ML) 0.083% 3 ml Inhalation every 6 hrs, prn Active Breztri Aerosphere 160-9-4.8 MCG/ACT 2 puffs Inhalation Twice a day Active Nebulizer System All-In-One - as directed 04/27/2024 Active CPAP machine and supplies - Autopap 9 as directed 04/19/2024 Active Lisinopril 5 MG 1 tab(s) orally once a day Active Multivitamin - 1 tab(s) orally once a day; Duration: 30 day(s) Active CPAP SUPPLIES DIRECTED 01/06/2020 Act tricia Atorvastatin Calcium 80 MG 1 tab(s) oral ly once a day (at bedtime) Active Tamsulosin HCl 0.4 MG 1 cap(s) orally on ce a day Active Plavix 75 MG 1 tablet Orally Once a day; Duration: 30 day(s) Active Aspirin 81 MG 1 tablet Orally Once a day; Duration: 30 day(s) Active Fluticasone Propionate 50 MCG/ACT 1 spray in each nostril Nasally Twice a day 08/31/2024 Active Allopurinol 100 MG 1 tablet Orally Once a day; Duration: 30 day(s) Active Montelukast Sodium 10 MG 1 tablet Orally Once a day; Duration: 30 day(s) 08/31/2024 Active Vital Signs Blood pressure systolic 112 mm Hg 08/31/19 25 Blood pressure diastolic 70 mm Hg 025 Heart Rate 68 /min 08/31/2024 Height 71 in 08/31/2024 Weight 251 lbs 08/31/2024 BMI 35.00 kg/m2 08/31/2024 Encounters Encounter Location Date Provider Diagnosis [facility] [address] [place] [phone] 08/31/2024 Tomás Kessler Acute rhiniti s J00 Assessments Encounter Date Diagnosis (ICD Code) Assessment Notes Treatment Notes Treatment Clinical Notes Section Notes 08/31/2024 Acute rhinitis (ICD-10 - J00) Plan Of Treatment Medication Medication Name Sig Start Date Stop Date Notes Fluticasone Propionate 50 MCG/ACT 1 spray in each nostril Nasally Twice a day 08/31/2024 Montelukast Sodium 10 MG 1 tablet Orally Once a day; Duration: 30 day(s) 08/31/2024 Next Appt Details Follow Up: via phone to repo rt progress, Reason: Progress Notes * WAGNERSamuel MICHAELDOB:[birth year] (79 yo M)Acc No.[id number]:08/31/2024 Progress Notes Patient: MICHAEL RAMIREZ Provider: Janie Kessler M.D. :1945 A ge:78 Y S ex:Male Date:08/31/2024 Address:[facility] [place] [id number] Subjective: * Chief Complaints: * 1 . Allergy issues for a week. * HPI: E NT/respiratory: 78 year old male presents with c/o nasal congestion P t complains of nasal congestion for about 3 weeks. Pt states he is unsure if it is allergies or sinus infection. Pt states that he has also had some sneezing and watery eyes. OTC antihistamine helps a little. Denies : cough. D enies : Fever. * ROS: D ERMATOLOGY: no R prabhjot. n o H jose a. G ASTROENTEROLOGY: no N ausea. n o V omiting. U ROLOGY: no D ifficulty urinating. n o B lood in urine. * Medical History: D iabetes Type 2, Abdominal Aortic Aneurysm, Low Back Pain, L-spine xray 2013, Osteoarthritis, left hip, Hyperlipidemia, BPH, Followed at [facility] in [place] by Dr. Krissy Abreu, Lumbar Disc Disease, Lumbar facet arthropathy, peripheral vascular disease, see angiogram December 2023. * Surgical History: i nguinal hernia repair , LT Total Hip Replacement 10/27/2014, normal heart cath 12/2014. * Hospitalization/Major Diagno stic Procedure: p eptic ulcer, Upper GI bleed- [facility] 2006, [facility] - Total Hip Replacement 10/27-05/2015. * Family History: F ather: , diagnosed with Heart Disease. M other: alive, diagnosed with Mental Illness. S iblings: alive, family history unknown . C hildren: alive. 3 brother(s) , 2 sister(s) . [...] ml Inhalation every 6 hrs, prn , Discontinued Doxycycline Monohydrate 100 MG Tablet 1 tablet Orally every 12 hrs , Medication List reviewed and reconciled with the patient * Allergies: N .K.D.A. Objective: * Vitals: W t:251, Temp:97.9, BP:112/70, HR:68, Nurse:janice, Ht: 71, BMI:35.00. * Examination: E NT/Respiratory: General Appearance: N AD. E yes: P ERRLA, sclera clear. N ose : nares patent, pale, edematous turbinates, clear rhinorrhea. O ral cavity : n o erythema or exudate seen on pharynx. N ben : n o cervical lymphadenopathy. H eart : R RR, normal S1 S2. L ungs: c lear to auscultation bilaterally. ? Assessment: * Assessment: 1. A cute rhinitis - J00 (Primary) Plan: * Treatment: Value Reference Range w bc 5.2 3.5 - 10 * l ym 25.2% 15 - 50 * m id 6.3% 2 - 15 * g ran 68.5% 35 - 80 * r bc 4.99 3.5 - 5.5 * h gb 14.5 11.5 - 16.5 * h ct 43.2 35 - 55 * m cv 86.6 75 - 100 * m ch 29.1 25 - 35 * m chc 33.6 31 - 38 * p lat 161 100 - 400 * Keyona Hassan 08/31/2024 10:41:17 AM > , Provider reviewed results while patient in office. * Procedure Codes: G 2211 Complex e/[place], [address] CAPILLARY BLOOD DRAW, 43889 CBC WITH AUTO DIFF * Follow Up: v ia phone to report progress * Images: Billing Information: * Visit Code: 24482 Office Visit, Est Pt., Level 3. * Procedure Codes: G2211 Complex e/[place]. [address] CAPILLARY BLOOD DRAW. 31541 CBC WITH AUTO DIFF. * Electronic signature of Machelle Kessler MD on 04/17/2025 at 11:04 AM EDT Sign off status: Pending * Provider: Janie Kessler M.D. Date: 0 08/31/2024 Generated for Printi ng/Faxing/eTransmitting on: 0 04/17/2025 11:04 AM EDT History and Physical Notes * HPI (History of Present Illness) Category Sub-Category Detail Notes Category Not es ENT/respiratory cough Fever nasal congestion Pt complains of nasa l congestion for about 3 weeks. Pt states he is unsure if it is allergies or sinus infection. Pt states that he has also had some sneezing and watery eyes. OTC antihistamine helps a little Examination Category Sub-Category Detail Notes Category Not es ENT/Respiratory Oral cavity : no erythema or exudate s een on pharynx Neck : no cervical lymphade nopathy Heart : RRR, normal S1 S2 Lungs: clear to auscultatio n bilaterally General Appearance: NAD Nose : nares patent, pale, edematous turbinates, clear rhinorrhea Eyes: PERRLA, sclera clear
--- OUTSIDE RECORDS SUMMARY | 2024-09-27 05:40 | XMS_ITS | Encounter Summary ---
Author Name [facility] Organization [facility] Address [address] [place] [address] Care Team Providers Care [place] Supervisor Name Role Phone PHONG JENKINS Primary Care [...] PART A Nov 22, 2012 PART A [id number] [phone] MICHAEL THOMAS PATIENT MEDICARE (WNR) MEDICARE (M) PART B Nov 22, 2012 PART B [id number] MICHAEL THOMAS PATIENT MEDICARE (WNR) MEDICARE (M) PART A Nov 22, 2012 PART A [id number] [phone] [id number] MICHAEL THOMAS PATIENT MEDICARE (WNR) MEDICARE (M) PART B Nov 22, 2012 PART B [id number] MICHAEL THOMAS PATIENT Selected Encounter This section includes the information on record at [place] for the Encounter. Date/Time Encounter Type Encounter Description Reason Pro vider Source Sep 27, 2024 09:40 AM Outpatient Encounter ADMIN PAT ACTIVTIES (MASNONCT) IHE Encounter Template Text not used by [place] Plan of Treatment: Future Appointments (+ 6 months) and Future Tests (+/- 45 days) The Plan of Treatment section includes future care activities for the patient from all [place] treatmentfacilities. This section includes future appointments and future orders which are active, pending or scheduled. Future Appointments This section includes appointments that were scheduled to occur 6 months from the date of the Encounter, up to a maximum of 20 appointments. The data comes from all [place] treatment facilities. Appointment Date/Time Appointment Type Appointme nt Facility Name Nov 02, 2024 08:00 AM [facility] Nov 29, 2024 08:30 AM AM[facility]ULATORY - NONE [place] [facility] January 09, 2025 08:30 AM [facility] - SURGERY [facility] January 09, 2025 10:20 AM [facility] Encounter Notes: All associated encounter notes This section contains the clinical notes associated to the Encounter. 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 /milagros/ MITZI SEGOVIA AMSA Signed: 09/27/2024 09:41 [facility]
--- OUTSIDE RECORDS SUMMARY | 2024-11-02 04:00 | XMS_ITS | Encounter Summary ---
Author Name [facility] Organization [facility] Address [address] [place] [id number] Care Team Providers Care Doggy Daycare Activities Director Name Role Phone PHONG JENKINS Primary Care [...] PART A Nov 22, 2012 PART A [id number] MICHAEL THOMAS PATIENT MEDICARE (WNR) MEDICARE (M) PART B Nov 22, 2012 PART B [id number] MARTHA MICHAEL PATIENT MEDICARE (WNR) MEDICARE (M) PART A Nov 22, 2012 PART A [id number] MEGANMIKEMICHAEL An PATIENT MEDICARE (WNR) MEDICARE (M) PART B Nov 22, 2012 PART B [id number] MICHAEL THOMAS PATIENT Selected Encounter This section includes the information on record at [place] for the Encounter. Date/Time Encounter Type Encounter Description Reason Provider Source Nov 02, 2024 08:00 AM COMPRE OPH EXAM EST PT 1/> OPTOMETRY ICD-10-CM E11.9 Type 2 diabetes mellitus without complications YOLANDA DIXON Willy Encounter Template Text not used by [facility] Assessments - Encounter Diagnoses This section includes the primary and secondary diagnoses documented for the Encounter. Date/Time Primary/Secondary Diagnosis Diagnosis Name Provider Source Nov 02, 2024 09:09 AM PRIMARY Type 2 diabetes mellitus without complications YOLANDA DIXON [facility] Nov 02, 2024 09:09 AM SECONDARY Combined forms of age-related cataract, bilateral YOLANDA DIXON [facility] Nov 02, 2024 09:09 AM SECONDARY Presbyopia YOLANDA DIXON [facility] Plan of Treatment: Future Appointments (+ 6 months) and Future Tests (+/- 45 days) The Plan of Treatment section includes future care activities for the patient from all [place] treatmentfacilities. This section includes future appointments and future orders which are active, pending or scheduled. Future Appointments This section includes appointments that were scheduled to occur 6 months from the date of the Encounter, up to a maximum of 20 appointments. The data comes from all [place] treatment facilities. Appointment Date/Time Appointment Type Appointme nt Facility Name Nov 29, 2024 08:30 AM AMBULATORY - NONE [facility] January 09, 2025 08:30 AM AMBULATORY - SURGERY [facility] January 09, 2025 10:20 AM AMBULATORY - SURGERY [facility] Apr 14, 2025 10:00 AM AMBULATORY - NONE [facility] Social History: Smoking Status (Most current) and Tobacco Use (All prior to encounter date) This section includes the most current, and the historical, smoking and tobacco- related health factors from the [place] facility where the Encounter took place. Current Smoking Status This section includes the most current smoking, or tobacco-related health factor, from the [place] facility where the Encounter took place. Date/Time Current Smoking Status Comment Davi gama May 18, 2024 09:00 AM VA-TOBACCO USER SOME DAYS [facility] Tobacco Use History This section includes a history of the smoking, or tobacco-related health factors, that were collected on or before the date of the Encounter. The data comes from the [place] facility where the Encounter took place. Date/Time Smoking Status/Tobacco Use Comment F acility May 18, 2024 09:00 AM VA-TOBACCO USE 30 YEARS OR MORE [facility] May 18, 2024 09:00 AM VA-TOBACCO USE ADVICE [facility] May 18, 2024 09:00 AM VA-TOBACCO USE LENS GENERATOR NO [facility] May 18, 2024 09:00 AM VA-TOBACCO USE MED NO [facility] May 18, 2024 09:00 AM VA-TOBACCO USER SOME DAYS [facility] Nov 02, 2023 09:00 AM VA-TOBACCO USE 30 YEARS OR MORE [facility] Nov 02, 2023 09:00 AM VA-TOBACCO USE ADVICE [facility] Nov 02, 2023 09:00 AM VA-TOBACCO USE LENS GENERATOR NO [facility] Nov 02, 2023 09:00 AM VA-TOBACCO USE MED NO [facility] Nov 02, 2023 09:00 AM VA-TOBACCO USE WI 30 MIN OF WAKEUP [facility] Nov 02, 2023 09:00 AM VA-TOBACCO USER EVERY DAY [facility] Aug 29, 2022 08:00 AM VA-TOBACCO DOESNT USE WI 30 MIN WAKEUP [facility] Aug 29, 2022 08:00 AM VA-TOBACCO USE 30 YEARS OR MORE [facility] Aug 29, 2022 08:00 AM VA-TOBACCO USE ADVICE [facility] Aug 29, 2022 08:00 AM VA-TOBACCO USE LENS GENERATOR NO [facility] Aug 29, 2022 08:00 AM VA-TOBACCO USE MED NO [facility] Aug 29, 2022 08:00 AM VA-TOBACCO USER EVERY DAY [facility] Aug 26, 2021 08:00 AM VA-TOBACCO DOESNT USE WI 30 MIN WAKEUP [facility] Aug 26, 2021 08:00 AM VA-TOBACCO USE 30 YEARS OR MORE [facility] Aug 26, 2021 08:00 AM VA-TOBACCO USE ADVICE [facility] Aug 26, 2021 08:00 AM VA-TOBACCO USE LENS GENERATOR NO [facility] Aug 26, 2021 08:00 AM VA-TOBACCO USE MED NO [facility] Aug 26, 2021 08:00 AM VA-TOBACCO USER EVERY DAY [facility] December 26, 2019 10:07 AM VA-TOBACCO DOESNT USE WI 30 MIN WAKEUP [facility] December 26, 2019 10:07 AM VA-TOBACCO USE 30 YEARS OR MORE [facility] December 26, 2019 10:07 AM VA-TOBACCO USE ADVICE [facility] December 26, 2019 10:07 AM VA-TOBACCO USE LENS GENERATOR NO [facility] December 26, 2019 10:07 AM VA-TOBACCO USE MED NO [facility] December 26, 2019 10:07 AM VA-TOBACCO USER EVERY DAY [facility] Oct 19, 2018 09:18 AM VA-TOBACCO DOESNT USE WI 30 MIN WAKEUP [facility] Oct 19, 2018 09:18 AM VA-TOBACCO USE 30 YEARS OR MORE [facility] Oct 19, 2018 09:18 AM VA-TOBACCO USE ADVICE [facility] Oct 19, 2018 09:18 AM VA-TOBACCO USE LENS GENERATOR NO [facility] Oct 19, 2018 09:18 AM VA-TOBACCO USE MED NO [facility] Oct 19, 2018 09:18 AM VA-TOBACCO USER SOME DAYS [facility] Sep 25, 2017 01:14 PM V9 CURRENT TOBACCO USER [facility] Sep 25, 2017 01:14 PM V9 TOBACCO OFFERED [facility] Sep 25, 2017 01:14 PM V9 TOBACCO USE-DECLINED MEDS [facility] Oct 14, 2016 04:43 PM V9 CURRENT TOBACCO USER [facility] Oct 14, 2016 04:43 PM V9 TOBACCO OFFERED [facility] Oct 14, 2016 04:43 [facility] Oct 03, 2015 08:21 AM V9 CURRENT TOBACCO USER [facility] Oct 03, 2015 08:21 AM V9 TOBACCO OFFERED [facility] Oct 03, 2015 08:21 AM V9 TOBACCO USE-DECLINED MEDS [facility] Aug 30, 2014 08:12 AM V9 CURRENT TOBACCO USER [facility] Aug 30, 2014 08:12 AM V9 TOBACCO OFFERED [facility] Jul 18, 2013 08:02 AM V9 CURRENT TOBACCO USER [facility] Jul 18, 2013 08:02 AM V9 QUIT TOBACCO >7 YEARS AGO [facility] Jul 18, 2013 08:02 AM V9 TOBACCO OFFERED [facility] Jul 01, 2012 07:45 AM TOBACCO OFFERRED P T MEDS (PROVIDER) [facility] Jul 01, 2012 07:45 AM V9 CURRENT TOBACCO USER [facility] Jul 01, 2012 07:45 AM V9 QUIT TOBACCO >1 2 MO & <7 YRS AGO [facility] Jul 01, 2012 07:45 AM V9 TOBACCO OFFERED [facility] 2011 07:55 AM V9 CURRENT TOBACCO USER [facility] 2011 07:55 AM V9 TOBACCO OFFERED [facility] Jun 12, 2011 07:53 AM TOBACCO OFFERRED P T MEDS (PROVIDER) [facility] Jun 12, 2011 07:53 AM V9 CURRENT TOBACCO USER [facility] Jun 12, 2011 07:53 AM V9 TOBACCO OFFERED [facility] Sep 06, 2010 07:32 AM TOBACCO OFFERRED P T MEDS (PROVIDER) [facility] Sep 06, 2010 07:32 AM V9 CURRENT TOBACCO USER [facility] Sep 06, 2010 07:32 AM V9 TOBACCO OFFERED [facility] Sep 06, 2009 07:33 AM TOBACCO OFFERRED P T MEDS (PROVIDER) [facility] Sep 06, 2009 07:33 AM V9 CURRENT TOBACCO USER [facility] Sep 06, 2009 07:33 AM V9 TOBACCO OFFERED [facility] Radiology Reports: +/- 30 days of the encounter Radiology Reports For cases when an order for radiology services may have been completed prior to the date of the Encounter, the report list includes the Radiology Reports that were completed up to 30 days before dateof the Encounter. For cases when an order for radiology services may have been completed after the date of the Encounter, the report list also includes the Radiology Reports that were completed up to30 days after date of the Encounter. The data comes from all [place] treatment facilities. Date/Time Radiology Report Provider Source Nov 29, 2024 07:47 AM LDCT LCS 1, 3 OR 6 MONTH FOLLOW UP: MICHAEL THOMAS [id number] -[id number] M Exm Date: NOV 29, 2024@07:47 Req Phys: PHONG JENKINS Loc: [facility] PACT ALPHA 1-3 (Req'g Loc) Img Loc: CT SCAN Service: [place] [address] (Case [id number] COMPLETE) LDCT LCS 1, 3 OR 6 MONTH FOLLOW U(CT Detailed) CPT:74411 Reason for Study: 12-month F/U LDCT Clinical History: Report Status: Verified Date Reported: NOV 29, 2024 Date Verified: NOV 29, 2024 Tar [place]aser E-Sig: Report: EXAM: LDCT LCS 1, 3 OR 6 MONTH FOLLOW UP ADDITIONAL HISTORY: N/A PROTOCOL: Screening protocol, low dose, non-contrast CT chest. Axial reconstruction <= 1 mm slice thickness. Additional coronal and sagittal reconstructions. MIP reconstructions were reviewed. TECHNICAL PARAMETERS: CTDI(vol): 3.4 mGy DLP: mGy*cm COMPARISON: November 24, 2023 INDEX LUNG NODULE = left lower lobe nodule Location = N/A Series = 301 Image 319 Density = N/A Solid diameter = 7 mm Volume (mm3) = Non-solid diameter = N/A Other characteristics = Change = present on study of November 24, 2023 but not significantly changed Comments = OTHER NODULES: N/A OTHER LUNG FINDINGS hyperexpanded chest calcified granuloma, interstitial lung disease PLEURA: Unremarkable MEDIASTINUM: Cardiomegaly CORONARY ARTERY CALCIFIED PLAQUE: moderate UPPER ABDOMEN: Hepatosplenomegaly BONES AND SOFT TISSUES: Unremarkable OTHER FINDINGS: None significant Impression: LUNG-RADS [2022]: 3 RECOMMENDATION: Follow-up LDCT for lung cancer screening on or after May 2025 _ OTHER SIGNIFICANT FINDINGS: None significant LUNG-RADS MODIFIER: N/A Primary Diagnostic Code: LUNGRADS 3: PROBABLY BENIGN Primary Interpreting Staff: CLAUDETTE HIDALGO, Staff Radiologist Verified by fertilizing machine operator for CLAUDETTE HIDALGO /CLAUDETTE [facility] Encounter Notes: All associated encounter notes This section contains the clinical notes associated to the Encounter. Date/Time Encounter Note(s) Provider Source Nov 02, 2024 08:56 AM STUDENT NOTE: LOCAL TITLE: MEDICAL STUDENT SOAP NOTE STANDARD TITLE: STUDENT NOTE DATE OF NOTE: NOV 02, 2024@08:56 ENTRY DATE: NOV 02, 2024@08:56:28 AUTHOR: SHERRELL TIPTON EXP COSIGNER: YOLANDA DIXNO URGENCY: STATUS: COMPLETED I participated in this patient care encounter with Dr. Dixon /milagros/ SHERRELL TIPTON Optometry Student Signed: 11/02/2024 08:56 /milagros/ YOLANDA DIXON Staff It Investment/Portfolio Manager, Primary Care Service Cosigned: 11/02/2024 09:09 SHERRELL TIPTON [facility] Nov 02, 2024 08:08 AM OPTOMETRY NOTE: LOCAL TITLE: OPTOMETRY ATTENDING NOTE STANDARD TITLE: OPTOMETRY NOTE DATE OF NOTE: NOV 02, 2024@08:08 ENTRY DATE: NOV 02, 2024@08:09:08 AUTHOR: YOLANDA DIXON EXP COSIGNER: URGENCY: STATUS: COMPLETED Type of exam: Comprehensive Chief complaint/Reason for visit: [id number] WHITE patient presents for diabetic eye exam and to monitor of cataracts OU. Pt reports using allergies drops once a while when eyes get irriatetd. Pt denies any dry eye symptoms without use of drops. Pt denies any flashes, floaters or eye pain. No other ocular or visual complaints. Bgl range: Pt does not check Ocular History: DANA:11/02/23 (-) Eye Injury: (+) Eye Surgery/Laser Tx: monovision LASIK OU (-) Eye Infection: (+) Other: cataracts OU (-) History of Cancer (-) History of Known CVA (-) Use of anticoagulant Ocular Medications: OTC allergy drops PRN OU (-) History of allergies to ocular medications Family history: None Smoking history: (-) Smoker Diabetes History: Date of Dx:2003 Last HemA1C: Z GLYCOHEMOGLOBIN (HPLC) 05/18/24 09:43 6.6 H 11/02/23 09:26 5.6 03/09/23 09:28 5.7 Additional Diabetic retinopathy risk factors: (+) Hypertension (-) Proteinuria (+) Dyslipidemia (-) Poor control of diabetes (-) Currently (-) Sedentary lifestyle/Lack of exercise Additional Risk Factors for Macular Degeneration: (+) Patient is over age 60 (+) Obesity (Centers for Disease Control and Prevention definition: BMI of 30 or more) (+) Pt has heritage (-) Female sex Additional Glaucoma Risk Hx: (-) over age 40 (+) Pt is over age 60 (-) Pt has [place] heritage Medical history: Active problems - Computerized Problem List is the source for the followin. Exposure to potentially hazardous substance ([facility] [id number]) 2. Low back pain 3. Hearing loss in left ear 4. Obstructive sleep apnea of adult 5. Neuropathy 6. Exposure to potentially hazardous substance 7. Benign prostatic hyperplasia with outflow obstruction 8. Smokes tobacco daily 9. Peripheral arterial occlusive disease 10. Renal disorder due to type 2 diabetes mellitus 11. Gastroesophageal reflux disease 12. Multiple nodules of lung (SNOMED CT [id number]) 13. Benign essential hypertension (SNOMED CT [id number]) 14. Mixed hyperlipidemia (SNOMED CT [id number]) Allergies: Patient has answered NKA Medications: Active Outpatient Medications (including Supplies): Active Outpatient Medications Status = 1) ALLOPURINOL 100MG TAB TAKE ONE TABLET BY MOUTH DAILY ACTIVE Indication: FOR GOUT 2) ATORVASTATIN CALCIUM 80MG TAB TAKE ONE-HALF TABLET BY MOUTH ACTIVE DAILY Indication: FOR CHOLESTEROL 3) CLOPIDOGREL BISULFATE 75MG TAB TAKE ONE TABLET BY MOUTH ACTIVE DAILY Indication: TO THIN BLOOD 4) LISINOPRIL 20MG TAB TAKE ONE-HALF TABLET BY MOUTH DAILY NEW ACTIVE DOSE Indication: FOR BLOOD PRESSURE/HEART 5) METOPROLOL SUCCINATE 50MG SA TAB TAKE ONE-HALF TABLET BY ACTIVE MOUTH DAILY Indication: FOR BLOOD PRESSURE 6) OMEPRAZOLE 20MG EC CAP TAKE ONE CAPSULE BY MOUTH ONCE A DAY ACTIVE 30 MINUTES BEFORE A MEAL -TAKE ON AN EMPTY STOMACH Indication: FOR STOMACH 7) TAMSULOSIN HCL 0.4MG CAP TAKE ONE CAPSULE BY MOUTH EVERY ACTIVE EVENING Indication: FOR PROSTATE Medication list reviewed by: Elizabeth Medication list is accurate per patient/doctor review, Pt/significant other reports patient taking ALL VA, Non VA, OTC medications as listed on medication tab. Describe Discrepancies: Printed copy of medication list provided to patient and/or significant other and reviewed: Yes Explained to patient and/or significant other the importance of keeping providers updated on medication changes and to carrying an updated list of medication at all times in case of an emergency situation. Yes Medication changes reviewed, patient/significant other verbalized understanding, provided updated list. VA: sc 20/20 20/25-2 cc 20/40+1 20/25 Habitual Rx: OD: +1.50 -0.25 x 005 OS: -0.25 -0.50 x 097 Add: +2.50 EOMs: Full and unrestricted OU, No Diplopia Confrontation VF: Full to finger count OU Pupils: PERRL, no APD Refraction: OD: +1.00-0.47d314 20/20-2 OS: -0.50-0.19e784 20/25+2 Add:+2.50 Final RX: Same as above SLIT LAMP EXAM: Lids/lashes: 1+ Bleph OU Conj/sclera: temp pinguecula OU Cornea: LASIK scar OU Anterior chamber: D/q OU Iris/pupil: Flat/round OU, No rubeosis OU Informed consent obtained prior to instillation of all diagnostic pharmaceutical agents. IOPs (Goldmann applanation): igt Altafluor Benox OD, OS OD:17 OS:16 Time:08 Angles:4+ VH N/T OU OCULAR HEALTH: igt 1% Tropicacyl OD, igt 1% Tropicacyl OS, igt 2.5% Phenylephrine OD, igt 2.5% Phenylephrine OS Time:08 Lenses used for viewinD, 20D LENS: OD: 2+ NS, 2+ CC, tr PSC superior nasal OS: 2+ NS, 2+ CC, tr PSC centrally C/D: H/ V OD: 0.30/0.30 NRRI, No NVD, No Hemes, No Pallor, No Edema OS: 0.25/0.25 NRRI, No NVD, No Hemes, No Pallor, No Edema Size: average MACULA: OD: Flat, even pigment, No DME OS: Flat, even pigment, No DME VESSELS: OD: 2/3 AV OS: 2/3 AV POSTERIOR POLE: OD: Clear, No NVE OS: Clear, No NVE VITREOUS: OD: Clear OS: PVD PERIPHERY: OD: No holes, tears or breaks OS: No holes, tears or breaks ADDITIONAL TESTING: None A: 1. Type 2 Diabetes Mellitus without retinopathy OU - pt reports no longer diabetic, off medications - No diabetic macular edema OU 2.Senile combined cataracts OU - BCVA 20/20-2 OD, 20/30+2 OS 3. Presbyopia OU - s/p LASIK OU P: 1. Discussed with patient the importance of good blood pressure, blood sugar, cholesterol and lipid control. Discussed with patient the importance of regular,preventative eye screenings in the future to reduce risk of vision loss secondary to diabetes. Monitor annually per peer review guidelines. 2.Patient educated about cataracts, their effect on vision and the typical time for extraction is when they begin to affect the patient's activities of daily living. Patient was advised on the typical gradual course of cataracts and instructed to RTC if vision changes significantly before next F/U. 3. Patient educated on today's findings. No new SRx released today. Patient is happy with habitual bifocals. Monitor annually. The [place] voiced understanding of topics covered/discussed in today's visit. Next visit: 12 months with attending 5 for full exam /es/ YOLANDA DIXON Staff It Investment/Portfolio Manager, Primary Care Service Signed: 11/02/2024 09:09 YOLANDA DIXON [facility]
--- OUTSIDE RECORDS SUMMARY | 2025-01-09 06:20 | XMS_ITS | Encounter Summary ---
Author Name [facility] [place] Address [address] [place] [id number] Care Team Providers Care Health And Fitness Instructor Name Role Phone PHONG JENKINS Primary Care [...] PART A Nov 22, 2012 PART A [id number] MICHAEL THOMAS PATIENT MEDICARE (WNR) MEDICARE (M) PART B Nov 22, 2012 PART B [id number] MICHAEL THOMAS PATIENT MEDICARE (WNR) MEDICARE (M) PART B Nov 22, 2012 PART B [id number] [phone] [id number] MICHAEL THOMAS PATIENT MEDICARE (WNR) MEDICARE (M) PART A Nov 22, 2012 PART A [id number] MICHAEL THOMAS PATIENT Selected Encounter This section includes the information on record at [place] for the Encounter. Date/Time Encounter Type Encounter Description Reason Provider Source January 09, 2025 10:20 AM OFFICE O/P EST LOW 20 MIN VASCULAR SURGERY ICD-10-CM I73.9 Peripheral vascular disease, unspecified MARNIECLAUDETTE CARDENAS Juve IHE Encounter Template Text not used by [place] Assessments - Encounter Diagnoses This section includes the primary and secondary diagnoses documented for the Encounter. Date/Time Primary/Secondary Diagnosis Diagnosis Name Provider Source Jan 23, 2025 02:11 PM PRIMARY Peripheral vascular disease, unspecified MARNIECLAUDETTE CARDENAS MALACHI-CD D [facility] Plan of Treatment: Future Appointments (+ 6 months) and Future Tests (+/- 45 days) The Plan of Treatment section includes future care activities for the patient from all [place] treatmentfacilities. This section includes future appointments and future orders which are active, pending or scheduled. Future Appointments This section includes appointments that were scheduled to occur 6 months from the date of the Encounter, up to a maximum of 20 appointments. The data comes from all [facility] facilities. Appointment Date/Time Appointment Type Appointme nt Facility Name Apr 14, 2025 10:00 AM AMBULATORY - NONE [facility] Radiology Reports: +/- 30 days of [...] the Encounter. The data comes from all [place] treatment facilities. Date/Time Radiology Report Provider Source January 09, 2025 08:00 AM SEGMENTAL PRESSURE S, LOWER EXT(JONELLE) UNILAT: MICHAEL THOMAS [facility] [id number] -[id number] M [facility] Date: JANUARY 09, 2025@08:00 Req Phys: JADYN JESUS Loc: [facility] VS/CONSULT/CD (Req'g Loc) Img Loc: [facility] VAS LAB [facility] Service: Unknown (Case [id number] COMPLETE) SEGMENTAL PRESSURES, LOWER EXT(AB(VAS Detailed) CPT:63120 Reason for Study: SEE CLINICAL HISTORY Clinical History: JONELLE's/Segs Indications: Asymptomatic with comorbidities, i.e. smoking, diabetes, age >50 years Report Status: Verified Date Reported: JANUARY 10, 2025 Date Verified: JANUARY 10, 2025 Family Dinner Service Specialist E-Sig: Report: SEGMENTAL PRESSURES AND ANKLE-BRACHIAL INDEX OF LOWER EXTREMITIES Findings: Right: Right brachial arterial pressure is 189 mmHg. Monophasic waveforms noted in the right posterior tibial and right dorsalis pedis arteries. Right toe pressure is 57 mmHg. Right-sided JONELLE is 0.68 mmHg. Left: Left brachial arterial pressure is 178 mmHg. Monophasic waveforms noted in the left posterior tibial and left dorsalis pedis arteries. Left toe pressure is 81 mmHg. Left-sided JONELLE is 0.56 mmHg. Impression: Right: Abnormal study. Hemodynamically significant infrainguinal disease is identified. Moderate arterial insufficiency is present at rest. Left: Abnormal study. Hemodynamically significant infrainguinal disease is identified. Moderate arterial insufficiency is present at rest. Primary Diagnostic Code: SIGNIFICANT ABNORMALITY, ATTN NEEDED Primary Interpreting Staff: NEIL BAEZ, VASCULAR SURGERY ATTENDING Verified by human resources intern for NEIL BAEZ /NEIL GALO [facility] Encounter Notes: All associated encounter notes This section contains the clinical notes associated to the Encounter. Date/Time Encounter Note(s) Provider Source January 09, 2025 12:11 PM VASCULAR SURGERY N URSING OUTPATIENT NOTE: LOCAL TITLE: VASCULAR CLINIC NURSING EXIT NOTE STANDARD TITLE: VASCULAR SURGERY NURSING OUTPATIENT NOTE DATE OF NOTE: JANUARY 09, 2025@12:11 ENTRY DATE: JANUARY 09, 2025@12:11:27 AUTHOR: JEANETTE WITT V EXP COSIGNER: URGENCY: STATUS: COMPLETED VASCULAR SURGERY PROVIDER CLINIC NOTE REVIEWED. PT EXITED CLINIC BY PROVIDER, WHO PROVIDED INSTRUCTION TO THE PATIENT. Per PROVIDER, to return to VASCULAR SURGERY Follow-up clinic in: JONELLE in 1 year CC to Marnie /milagros/ JEANETTE WITT technical agronomist Scientist Signed: 01/09/2025 12:14 Receipt Acknowledged By: 01/10/2025 11:23 /milagros/ [facility] January 09, 2025 10:22 AM VASCULAR SURGERY R CHARITY NOTE: LOCAL TITLE: VASCULAR CLINIC PHYSICIAN NOTE STANDARD TITLE: VASCULAR SURGERY RESIDENT NOTE DATE OF NOTE: JANUARY 09, 2025@10:22 ENTRY DATE: JANUARY 09, 2025@10:22:25 AUTHOR: CLAUDETTE DYE EXP COSIGNER: URGENCY: STATUS: COMPLETED CHIEF COMPLAINT/REASON FOR VISIT: No complaints HPI: This 79-year-old from [place] had an extensive peripheral vascular disease workup last year. He had less than 50% stenosis of bilateral carotids. He did have some evidence of lower extremity peripheral vascular disease on JONELLE. He is here today with a repeat. His JONELLE has actually improved on the right 0.68 and on the left is 0.56. His toe pressures have also improved. He has no pain of his lower extremities or open sores or wounds. He takes Plavix and aspirin and a statin. He does continue to smoke 1 cigar daily, but he now no longer inhales. He states that over the past 2 years he has felt better than he ever has. At this stage we can continue BMT, and have him return for an JONELLE in 1 year with a chart check. Pain Level: 0 (01/09/2025 09:44) Active problems - Computerized Problem List is the source for the followin. Exposure to potentially hazardous substance ([facility] [id number]) 2. Low back pain 3. Hearing loss in left ear 4. Obstructive sleep apnea of adult 5. Neuropathy 6. Exposure to potentially hazardous substance 7. Benign prostatic hyperplasia with outflow obstruction 8. Smokes tobacco daily 9. Peripheral arterial occlusive disease 10. Renal disorder due to type 2 diabetes mellitus 11. Gastroesophageal reflux disease 12. Multiple nodules of lung (SNOMED CT 706190007) 13. Benign essential hypertension (SNOMED CT 5126997) 14. Mixed hyperlipidemia (SNOMED CT 498615169) OBJECTIVE: Temp 97.4 F [36.3 C] (01/09/2025 09:44) BP 157/85 (01/09/2025 09:45) HR 70 (01/09/2025 09:45) Resp 18 (02/17/2024 10:44) Wt 240.0 lb [108.86 kg] (01/09/2025 09:44) Physical Exam: Gen: Generally well-appearing, in NAD, AAOx3 HEENT: NC/AT, MMM, EOMI, ears and nose externally normal Neck: Trachea midline Heart: RRR, no murmur, appears well perfused Pulm: CTA, No respiratory distress on room air, symmetric chest rise Abd: Soft, nontender, nondistended Ext: No clubbing, cyanosis or edema Integumentary: no rash, no wounds/abrasion Neuro: AAOx3, no focal deficits Psych: cooperative, appropriate mood and affect Pulses: R L Carotid Radial Femoral All 1+ DP PT Date Procedure CPT Status Case # 11/12/2023 SEGMENTAL PRESSURES, LOWER [id number] Verified 1435 EXT(JONELLE) BILAT Right: Abnormal study. Hemodynamically significant infrainguinal disease is identified. Moderate arterial insufficiency is present at rest. Left: Abnormal study. Hemodynamically significant inflow disease is identified. Moderate arterial insufficiency is present at rest. 01/09/2025 SEGMENTAL PRESSURES, LOWER [id number] Pending 105 EXT(JONELLE) UNILAT 05/15/2017 SEGMENTAL PRESSURES (JONELLE) WITH 14013 Verified 1925 TREADMILL Abnormal study. Left lower extremity abnormal study. Hemodynamically significant disease identified at rest and with exercise. Moderate arterial insufficiency is present at rest Right lower extremity no evidence of hemodynamically significant arterial disease identified at rest. ASSESSMENT: Stable peripheral vascular disease Follow-up Treatment and Patient Instructions: RTC: As needed Vascular Studies: JONELLE with chart check Radiology: Consults requested/detailed reason: Chart check/Reason: JONELLE in 1 year CODE STATUS: n/a /milagros/ CLAUDETTE DYE VASCULAR SURGERY PA-C Signed: 01/09/2025 10:27 CLAUDETTE DYE-TARAHD [facility] January 09, 2025 09:58 AM SURGERY NURSING NO TE: LOCAL TITLE: SURGERY CLINIC INTAKE NOTE STANDARD TITLE: SURGERY NURSING NOTE DATE OF NOTE: JANUARY 09, 2025@09:58 ENTRY DATE: JANUARY 09, 2025@09:58:11 AUTHOR: JASMIN PIÑA EXP COSIGNER: URGENCY: STATUS: COMPLETED The patient [...] of active outpatient prescriptions dispensed from this [place] (local) and dispensed from another NE or DoD facility (remote) as well as inpatient orders (local pending and active), local clinic medications, locally documented non-VA medications, and local prescriptions that have or been discontinued in the past 90 days. Non-VA Meds Last Documented On: Sep 06, 2010 NOTE The display of VA prescriptions dispensed from another [place] or [facility] facility (remote) is limited to active outpatient prescription entries matched to National Drug File at the originating site and may not include some items such as investigational drugs, compounds, etc. NOT INCLUDED IN THIS LIST: Medications self-entered by the patient into personal health records (i.e. [employer]) are NOT included in this list. Non-VA medications documented outside this [place], remote inpatient orders (regardless of status) and remote clinic medications are NOT included in this list. The patient and provider must always discuss medications the patient is taking, regardless of where the medication was dispensed or obtained. OUTPT ALLOPURINOL 100MG TAB (Status = Discontinued) TAKE ONE TABLET BY MOUTH DAILY FOR GOUT Rx# [id number] Last Released: 08/03/24 Qty/Days Supply: Rx Expiration Date: 11/15/24 Refills Remainin Indication: FOR GOUT OUTPT ALLOPURINOL 100MG TAB (Status = Discontinued) TAKE ONE TABLET BY MOUTH DAILY FOR GOUT Rx# [id number] Last Released: 10/25/24 Qty/Days Supply: Rx Expiration Date: 10/19/25 Refills Remainin Indication: FOR GOUT OUTPT ALLOPURINOL 100MG TAB (Status = Active) TAKE ONE TABLET BY MOUTH DAILY FOR GOUT Rx# [id number] Last Released: Qty/Days Supply: Rx Expiration Date: 11/23/25 Refills Remainin Indication: FOR GOUT OUTPT ASPIRIN 81MG EC TAB (Status = Discontinued) TAKE ONE TABLET BY MOUTH DAILY FOR HEART Rx# [id number] Last Released: 11/03/23 Qty/Days Supply: Rx Expiration Date: 11/02/24 Refills Remainin Indication: FOR HEART OUTPT ASPIRIN 81MG EC TAB (Status = Active) TAKE ONE TABLET BY MOUTH DAILY FOR HEART Rx# [id number] Last Released: 11/22/24 Qty/Days Supply: Rx Expiration Date: 11/23/25 Refills Remainin Indication: FOR HEART OUTPT ATORVASTATIN CALCIUM 80MG TAB (Status = Discontinued) TAKE ONE-HALF TABLET BY MOUTH DAILY FOR CHOLESTEROL Rx# [id number] Last Released: 07/27/24 Qty/Days Supply: Rx Expiration Date: 11/02/24 Refills Remainin Indication: FOR CHOLESTEROL OUTPT ATORVASTATIN CALCIUM 80MG TAB (Status = Discontinued) TAKE ONE-HALF TABLET BY MOUTH DAILY FOR CHOLESTEROL Rx# [id number] Last Released: 10/17/24 Qty/Days Supply: Rx Expiration Date: 10/12/25 Refills Remainin Indication: FOR CHOLESTEROL OUTPT ATORVASTATIN CALCIUM 80MG TAB (Status = Active) TAKE ONE-HALF TABLET BY MOUTH DAILY FOR CHOLESTEROL Rx# [id number] Last Released: 12/28/24 Qty/Days Supply: Rx Expiration Date: 11/23/25 Refills Remainin Indication: FOR CHOLESTEROL OUTPT CLOPIDOGREL BISULFATE 75MG TAB (Status = Discontinued) TAKE ONE TABLET BY MOUTH DAILY TO THIN BLOOD Rx# [id number] Last Released: 11/16/24 Qty/Days Supply: Rx Expiration Date: 05/19/25 Refills Remainin Indication: TO THIN BLOOD OUTPT CLOPIDOGREL BISULFATE 75MG TAB (Status = Active/Suspended) TAKE ONE TABLET BY MOUTH DAILY TO THIN BLOOD Rx# [id number] Last Released: Qty/Days Supply: Rx Expiration Date: 11/23/25 Refills Remainin Indication: TO THIN BLOOD OUTPT LISINOPRIL 20MG TAB (Status = Discontinued) TAKE ONE-HALF TABLET BY MOUTH DAILY FOR BLOOD PRESSURE/HEART NEW DOSE Rx# [id number] Last Released: 07/27/24 Qty/Days Supply: Rx Expiration Date: 11/02/24 Refills Remainin Indication: FOR BLOOD PRESSURE/HEART OUTPT LISINOPRIL 20MG TAB (Status = Discontinued) TAKE ONE-HALF TABLET BY MOUTH DAILY FOR BLOOD PRESSURE/HEART NEW DOSE Rx# [id number] Last Released: 10/17/24 Qty/Days Supply: 4590 Rx Expiration Date: 10/12/25 Refills Remainin Indication: FOR BLOOD PRESSURE/HEART OUTPT LISINOPRIL 20MG TAB (Status = Active) TAKE ONE-HALF TABLET BY MOUTH DAILY FOR BLOOD PRESSURE/HEART Rx# [id number] Last Released: 12/28/24 Qty/Days Supply: 45/90 Rx Expiration Date: 11/23/25 Refills Remainin Indication: FOR BLOOD PRESSURE/HEART OUTPT METOPROLOL SUCCINATE 50MG SA TAB (Status = Discontinued) TAKE ONE-HALF TABLET BY MOUTH DAILY FOR BLOOD PRESSURE Rx# [id number] Last Released: 11/16/24 Qty/Days Supply: 4590 Rx Expiration Date: 05/19/25 Refills Remainin Indication: FOR BLOOD PRESSURE OUTPT METOPROLOL SUCCINATE 50MG SA TAB (Status = Active/Suspended) TAKE ONE-HALF TABLET BY MOUTH DAILY FOR BLOOD PRESSURE Rx# [id number] Last Released: Qty/Days Supply: 45 Rx Expiration Date: 11/23/25 Refills Remainin Indication: FOR BLOOD PRESSURE OUTPT OMEPRAZOLE 20MG EC CAP (Status = Discontinued) TAKE ONE CAPSULE BY MOUTH ONCE A DAY 30 MINUTES BEFORE A MEAL FOR STOMACH -TAKE ON AN EMPTY STOMACH Rx# [id number] Last Released: 07/25/24 Qty/Days Supply: 90/90 Rx Expiration Date: 11/02/24 Refills Remainin Indication: FOR STOMACH OUTPT OMEPRAZOLE 20MG EC CAP (Status = Active/Suspended) TAKE ONE CAPSULE BY MOUTH ONCE A DAY 30 MINUTES BEFORE A MEAL FOR STOMACH -TAKE ON AN EMPTY STOMACH Rx# [id number] Last Released: 11/23/24 Qty/Days Supply: 90/90 Rx Expiration Date: 11/23/25 Refills Remainin Indication: FOR STOMACH OUTPT TAMSULOSIN HCL 0.4MG CAP (Status = Discontinued) TAKE ONE CAPSULE BY MOUTH EVERY EVENING FOR PROSTATE Rx# [id number] Last Released: 09/01/24 Qty/Days Supply: 90/90 Rx Expiration Date: 11/02/24 Refills Remainin Indication: FOR PROSTATE OUTPT TAMSULOSIN HCL 0.4MG CAP (Status = Active) TAKE ONE CAPSULE BY MOUTH EVERY EVENING FOR PROSTATE Rx# [id number] Last Released: 11/28/24 Qty/Days Supply: 90/90 Rx Expiration Date: 11/23/25 Refills Remainin Indication: FOR PROSTATE SUPPLIES /milagros/ JASMIN PIÑA Health Wire Products Inspector Signed: 01/09/2025 09:58 JASMIN PIÑA-KAROLINE [facility]
--- OUTSIDE RECORDS SUMMARY | 2025-02-20 20:00 | XMS_ITS | Encounter Summary ---
Author Name [facility] [place] Address [address] [place] [id number] Care Team Providers Care Acid Dumper Name Role Phone PHONG JENKINS Primary Care [...] PART A Nov 22, 2012 PART A [id number] MICHAEL THOMAS PATIENT MEDICARE (WNR) MEDICARE (M) PART B Nov 22, 2012 PART B [id number] MICHAEL THOMAS PATIENT MEDICARE (WNR) MEDICARE (M) PART A Nov 22, 2012 PART A [id number] MICHAEL THOMAS PATIENT MEDICARE (WNR) MEDICARE (M) PART B Nov 22, 2012 PART B [id number] MICHAEL THOMAS PATIENT Selected Encounter This section includes the information on record at [place] for the Encounter. Date/Time Encounter Type Encounter Description Reason Pro vider Source Feb 21, 2025 12:00 AM Outpatient Encounter EVENT (HISTORICAL) IHE Encounter Template Text not used by [place] Plan of Treatment: Future Appointments (+ 6 months) and Future Tests (+/- 45 days) The Plan of Treatment section includes future care activities for the patient [facility] [place] [facility] This section includes future appointments and future orders which are active, pending or scheduled. Future Appointments This section includes appointments that were scheduled to occur 6 months from the date of the Encounter, up to a maximum of 20 appointments. The data comes from all [place] treatment facilities. Appointment Date/Time Appointment Type Appointme nt Facility Name Apr 14, 2025 10:00 AM [facility]ULATORY - NONE [facility] Social History: Smoking Status (Most current) and Tobacco Use (All prior to encounter date) This section includes the most current, and the historical, smoking and tobacco- related health factors from the [place] facility where the Encounter took place. Current Smoking Status This section includes the most current smoking, or tobacco-related health factor, from the [place] facility where the Encounter took place. Date/Time Current Smoking Status Comment Facil ity May 18, 2024 09:00 AM VA-TOBACCO USER SOME DAYS [facility] Tobacco Use History This section includes a history of the smoking, or tobacco-related health factors, that were collected on or before the date of the Encounter. The data comes from the [place] facility where the Encounter took place. Date/Time Smoking Status/Tobacco Use Comment F acility May 18, 2024 09:00 AM VA-TOBACCO USE 30 YEARS OR MORE [facility] May 18, 2024 09:00 AM VA-TOBACCO USE ADVICE [facility] May 18, 2024 09:00 AM VA-TOBACCO USE LASER ENGRAVER NO [facility] May 18, 2024 09:00 AM VA-TOBACCO USE MED NO [facility] May 18, 2024 09:00 AM VA-TOBACCO USER SOME DAYS [facility] Nov 02, 2023 09:00 AM VA-TOBACCO USE 30 YEARS OR MORE [facility] Nov 02, 2023 09:00 AM VA-TOBACCO USE ADVICE [facility] Nov 02, 2023 09:00 AM VA-TOBACCO USE LASER ENGRAVER NO [facility] Nov 02, 2023 09:00 AM VA-TOBACCO USE MED NO [facility] Nov 02, 2023 09:00 AM VA-TOBACCO USE WI 30 MIN OF WAKEUP [facility] Nov 02, 2023 09:00 AM VA-TOBACCO USER EVERY DAY [facility] Aug 29, 2022 08:00 AM VA-TOBACCO DOESNT USE WI 30 MIN WAKEUP [facility] Aug 29, 2022 08:00 AM VA-TOBACCO USE 30 YEARS OR MORE [facility] Aug 29, 2022 08:00 AM VA-TOBACCO USE ADVICE [facility] Aug 29, 2022 08:00 AM VA-TOBACCO USE LASER ENGRAVER NO [facility] Aug 29, 2022 08:00 AM VA-TOBACCO USE MED NO [facility] Aug 29, 2022 08:00 AM VA-TOBACCO USER EVERY DAY [facility] Aug 26, 2021 08:00 AM VA-TOBACCO DOESNT USE WI 30 MIN WAKEUP [facility] Aug 26, 2021 08:00 AM VA-TOBACCO USE 30 YEARS OR MORE [facility] Aug 26, 2021 08:00 AM VA-TOBACCO USE ADVICE [facility] Aug 26, 2021 08:00 AM VA-TOBACCO USE LASER ENGRAVER NO [facility] Aug 26, 2021 08:00 AM VA-TOBACCO USE MED NO [facility] Aug 26, 2021 08:00 AM VA-TOBACCO USER EVERY DAY [facility] December 26, 2019 10:07 AM VA-TOBACCO DOESNT USE WI 30 MIN WAKEUP [facility] December 26, 2019 10:07 AM VA-TOBACCO USE 30 YEARS OR MORE [facility] December 26, 2019 10:07 AM VA-TOBACCO USE ADVICE [facility] December 26, 2019 10:07 AM VA-TOBACCO USE LASER ENGRAVER NO [facility] December 26, 2019 10:07 AM VA-TOBACCO USE MED NO [facility] December 26, 2019 10:07 AM VA-TOBACCO USER EVERY DAY [facility] Oct 19, 2018 09:18 AM VA-TOBACCO DOESNT USE WI 30 MIN WAKEUP [facility] Oct 19, 2018 09:18 AM VA-TOBACCO USE 30 YEARS OR MORE [facility] Oct 19, 2018 09:18 AM VA-TOBACCO USE ADVICE [facility] Oct 19, 2018 09:18 AM VA-TOBACCO USE LASER ENGRAVER NO [facility] Oct 19, 2018 09:18 AM VA-TOBACCO USE MED NO [facility] Oct 19, 2018 09:18 AM VA-TOBACCO USER SOME DAYS [facility] Sep 25, 2017 01:14 PM V9 CURRENT TOBACCO USER [facility] Sep 25, 2017 01:14 PM V9 TOBACCO OFFERED [facility] Sep 25, 2017 01:14 PM V9 TOBACCO USE-DECLINED MEDS [facility] Oct 14, 2016 04:43 PM V9 CURRENT TOBACCO USER [facility] Oct 14, 2016 04:43 PM V9 TOBACCO OFFERED [facility] Oct 14, 2016 04:43 PM V9 TOBACCO USE-DECLINED MEDS [facility] Oct 03, 2015 08:21 AM V9 CURRENT TOBACCO USER [facility] Oct 03, 2015 08:21 AM V9 TOBACCO OFFERED [facility] Oct 03, 2015 08:21 AM V9 TOBACCO USE-DECLINED MEDS [facility] Aug 30, 2014 08:12 AM V9 CURRENT TOBACCO USER [facility] Aug 30, 2014 08:12 AM V9 TOBACCO OFFERED [facility] Jul 18, 2013 08:02 AM V9 CURRENT TOBACCO USER [facility] Jul 18, 2013 08:02 AM V9 QUIT TOBACCO >7 YEARS AGO [facility] Jul 18, 2013 08:02 AM V9 TOBACCO OFFERED [facility] Jul 01, 2012 07:45 AM TOBACCO OFFERRED P T MEDS (PROVIDER) [facility] Jul 01, 2012 07:45 AM V9 CURRENT TOBACCO USER [facility] Jul 01, 2012 07:45 AM V9 QUIT TOBACCO >1 2 MO & <7 YRS AGO [facility] Jul 01, 2012 07:45 AM V9 TOBACCO OFFERED [facility] 2011 07:55 AM V9 CURRENT TOBACCO USER [facility] 2011 07:55 AM V9 TOBACCO OFFERED [facility] Jun 12, 2011 07:53 AM TOBACCO OFFERRED P T MEDS (PROVIDER) [facility] Jun 12, 2011 07:53 AM V9 CURRENT TOBACCO USER [facility] Jun 12, 2011 07:53 AM V9 TOBACCO OFFERED [facility] Sep 06, 2010 07:32 AM TOBACCO OFFERRED P T MEDS (PROVIDER) [facility] Sep 06, 2010 07:32 AM V9 CURRENT TOBACCO USER [facility] Sep 06, 2010 07:32 AM V9 TOBACCO OFFERED [facility] Sep 06, 2009 07:33 AM TOBACCO OFFERRED P T MEDS (PROVIDER) [facility] Sep 06, 2009 07:33 AM V9 CURRENT TOBACCO USER [facility] Sep 06, 2009 07:33 AM V9 TOBACCO OFFERED [facility]
--- OUTSIDE RECORDS SUMMARY | 2025-03-22 05:15 | XMS_ITS ---
[facility] Address [address] [facility] [address] [place] [id number] Care Team Providers Care Photonics Technician Name Role Phone Ana Kesslerian Primary Care Provider Allergies No Known Allergies REASON FOR VISIT check up Medications Medication SIG (Take, Route, Frequency, Duration) Notes Start Date End Date Status CPAP machine and supplies - Autopap 9 as directed 04/19/2024 Active Nebulizer System All-In-One - as directed 04/27/2024 Active CPAP SUPPLIES DIRECTED 01/06/2020 Act tricia Multivitamin - 1 tab(s) orally once a day; Duration: 30 day(s) Active Tamsulosin HCl 0.4 MG 1 cap(s) orally on ce a day Active Allopurinol 100 MG 1 tablet Orally Once a day; Duration: 30 day(s) Active Plavix 75 MG 1 tablet Orally Once a day; Duration: 30 day(s) Active Aspirin 81 MG 1 tablet Orally Once a day; Duration: 30 day(s) Active Atorvastatin Calcium 80 MG 1 tab(s) oral ly once a day (at bedtime) Active Lisinopril 5 MG 1 tab(s) orally once a day Active Albuterol Sulfate (2.5 MG/3ML) 0.083% 3 ml Inhalation every 6 hrs, prn Active Breztri Aerosphere 160-9-4.8 MCG/ACT 2 puffs Inhalation Twice a day Active Fluticasone Propionate 50 MCG/ACT 1 spray in each nostril Nasally Twice a day 08/31/2024 Active Montelukast Sodium 10 MG 1 tablet Orally Once a day; Duration: 30 day(s) 08/31/2024 Active Problems Problem Type SNOMED Code ICD Code Onset Dates Problem Status W/U Status Risk Notes Problem Type 2 diabetes mellitus with peripheral angiopathy (761573715) Type 2 diabetes mellitus with diabetic peripheral angiopathy without gangrene, unspecified whether cnc machine setter insulin use (E11.51) Active confirmed Problem Morbid obesity (disorder) (921844600) Morbid (severe) obesity due to excess calories (E66.01) Active confirmed Problem Body mass index 30.00 to 34.99 (91076226556506 7) BMI 34.0-34.9,adult (Z68.34) Active confirmed Vital Signs Blood pressure systolic 110 mm Hg 03/22/20 25 Blood pressure diastolic 80 mm Hg 025 Heart Rate 70 /min 03/22/2025 Height 71 in 03/22/2025 Weight 247.2 lbs 03/22/2025 BMI 34.47 kg/m2 03/22/2025 Encounters Encounter Location Date [facility] [address], [place] [id number] 03/22/2025 Tomás Kessler Obstructive sleep ap june G47.33 ; Peripheral vascular disease, unspecified I73.9 ; Type 2 diabetes mellitus with diabetic peripheral angiopathy without gangrene, unspecified whether fdc insulin use E11.51 ; Morbid (severe) obesity due to excess calories E66.01 and BMI 34.0-34.9,adult Z68.34 Assessments Encounter Date Diagnosis (ICD Code) Assessment Notes Treatment Notes Treatment Clinical Notes Section Notes 03/22/2025 Obstructive sleep apnea (ICD-10 - G47.33) CPAP compliance report from Sushant reviewed in office today 03/22/2025 Peripheral vascular disease, unspecified (ICD-10 - I73.9) 03/22/2025 Type 2 diabetes mellitus with diabetic peripheral angiopathy without gangrene, unspecified whether fdc insulin use (ICD-10 - E11.51) 03/22/2025 Morbid (severe) obesity due to excess calories (ICD-10 - E66.01) 03/22/2025 BMI 34.0-34.9,adult (ICD-10 - Z68.34) Plan Of Treatment Treatment Notes Assessment Notes Obstructive sleep apnea CPAP compliance report from Sushant reviewed in office today Next Appt Details Follow Up: 1 Year, Reason: Progress Notes * MICHAEL THOMASDOB:[birth year] (79 yo M)Acc No.[id number]:03/22/2025 Progress Notes Patient: MICHAEL RAMIREZ Provider: Janie Kessler M.D. :1945 A ge:79 Y S ex:Male Date:03/22/2025 Address:[address] [place] [address] , [place], [phone] Subjective: * Chief Complaints: * 1 . Check up. * HPI: H PI: 79 year old male presents with c/o Here for follow up on: o n CPAP. He is doing well. [facility] is [facility] followed at [facility] [place] for his primary medical care. * ROS: D ERMATOLOGY: no R prabhjot. n o H jose a. G ASTROENTEROLOGY: no N ausea. n o H eartburn. U ROLOGY: no D ifficulty urinating. n o B lood in urine. * Medical History: D iabetes Type 2, Abdominal Aortic Aneurysm, Low Back Pain, L-spine xray 2013, Osteoarthritis, left hip, Hyperlipidemia, BPH, Followed at [facility] in [place] by Dr. Krissy Abreu, Lumbar Disc Disease, Lumbar facet arthropathy, peripheral vascular disease, see angiogram December 2023. 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 * Hospitalization/Major Diagno stic Procedure: p eptic ulcer, Upper GI bleed- [facility] 2006, [facility] - Total Hip Replacement 10/27-05/2015. * [...] Inhalation every 6 hrs, prn , Taking Montelukast Sodium 10 MG Tablet 1 tablet Orally Once a day , Taking Fluticasone Propionate 50 MCG/ACT Suspension 1 spray in each nostril Nasally Twice a day , Medication List reviewed and reconciled with the patient * Allergies: N .K.D.A. Objective: * Vitals: W t: 247.2, Temp: 97.8, BP: 110/80, HR: 70, Nurse: cuba, Ht: 71, BMI:34.47. * Examination: G eneral Examination: General Appearance: N AD. Assessment: * Assessment: 1. O bstructive sleep apnea - G47.33 (Primary) 2 . P eripheral vascular disease, unspecified - I73.9 3 . T ype 2 diabetes mellitus with diabetic peripheral angiopathy without gangrene, unspecified whether cnc machine setter insulin use - E11.51 4 . Morbid (severe) obesity due to excess calories - E66.01 5 . B [place] 34.0-34.9,adult - Z68.34 Plan: * Treatment: * Procedure Codes: G 2211 Complex e/m visit add on, G9450 BP SCR PRFRM RCMDD DEFIND SCR INTVL, G8752 MOST RECENT SYSTOLIC BP < 140MM HG, G8754 MOST RECENT DIASTOLIC BP < 90MM HG * Follow Up: 1 Year * Images: Billing Information: * Visit Code: 28264 Office Visit, Est Pt., Level 3. * Procedure Codes: G2211 Complex e/m visit add on. G8783 BP SCR PRFRM RCMDD DEFIND SCR INTVL. G8752 MOST RECENT SYSTOLIC BP < 140MM HG. G8754 MOST RECENT DIASTOLIC BP < 90MM HG. * Electronic signature of Machelle Kessler MD on 04/17/2025 at 11:02 AM EDT Sign off status: Pending * Provider: Janie Kessler M.D. Date: 0 03/22/2025 Generated for Carmel jenkins/Vika/Mukulsmitting on: 0 04/17/2025 11:02 AM EDT History and Physical Notes * HPI (History of Present Illness) Category Sub-Category Detail Notes Category Not es HPI Here for follow up on: on CPAP. He is doing well. He is still followed at the [facility] in [place] for his primary medical care Examination Category Sub-Category Detail Notes Category Not es General Examination General Appearance: NAD
--- OUTSIDE RECORDS SUMMARY | 2025-04-13 20:00 | XMS_ITS | Encounter Summary ---
Author Name [facility] [facility] [place] Address [address] [place] [address] Care Team Providers Care Machine I Trimmer Name Role Phone PHONG JENKINS Primary Care [...] PART A Nov 22, 2012 PART A [id number] [phone] MICHAEL THOMAS PATIENT MEDICARE (WNR) MEDICARE (M) PART B Nov 22, 2012 PART B [id number] MICHAEL THOMAS PATIENT MEDICARE (WNR) MEDICARE (M) PART A Nov 22, 2012 PART A [id number] MICHAEL THOMAS PATIENT MEDICARE (WNR) MEDICARE (M) PART B Nov 22, 2012 PART B [id number] MICHAEL THOMAS PATIENT Selected Encounter This section includes the information on [place] at [place] for the [place]counter. Date/Time Encounter Type Encounter Description Reason Pro vider Source Apr 14, 2025 12:00 AM Outpatient Encounter EVENT (HISTORICAL) IHE Encounter Template Text not used by [facility] Lab Results: +/- 30 days of the encounter This section includes the Chemistry and Hematology Lab Results on record with [facility] for the patient. Radiology Reports and Pathology Reports are provided separately, in subsequent sections. Lab Results This section contains the Chemistry/Hematology Results that were resulted 30 days before or 30 daysafter the date of the Encounter. Date/Time Source Result Type Result - Unit Interpretation Reference Range Specimen Type Comment Apr 14, 2025 10:03 AM [facility] FOLATE PLASMA Specimen Type: PLASMA Comment: Vitamin B12 test may not yield results when protein level of sample is too elevated. Estimated Glomerular Filtration Rate (eGFR) calculated using [...] Ordering Provider: PHONG JENKINS Report Released Date/Time: Apr 14, 2025 10:00 AM Reporting Lab: [facility] [address] [facility] [address] Performing Lab: [address] [address] FOLATE 13.5 ng/mL 7.0-31.4 Apr 14, 2025 10:03 AM [facility] URIC ACID PLASMA Specimen Type: PLASM A Comment: Vitamin B12 test may not yield results when protein level of sample is too elevated. Estimated Glomerular Filtration Rate (eGFR) calculated using [...] Ordering Provider: PHONG JENKINS Report Released Date/Time: Apr 14, 2025 10:00 AM Reporting Lab: [address] [address] Performing Lab: [address] [address] URIC ACID 6.6 mg/dL 3.5-7.2 Apr 14, 2025 10:03 AM [facility] B12 VITAMIN PLASMA Specimen Type: PLASM A Comment: Vitamin B12 test may not yield results when protein level of sample is too elevated. Estimated Glomerular Filtration Rate (eGFR) calculated using [...] Ordering Provider: PHONG JENKINS Report Released Date/Time: Apr 14, 2025 10:00 AM Reporting Lab: [address] [address] Performing Lab: [address] [address] B12 VITAMIN 324 pg/mL 213-816 Apr 14, 2025 10:03 AM [facility] TSH PLASMA Specimen Type: PLASM A Comment: Vitamin B12 test may not yield results when protein level of sample is too elevated. Estimated Glomerular Filtration Rate (eGFR) calculated using [...] Ordering Provider: PHONG JENKINS Report Released Date/Time: Apr 14, 2025 10:00 AM Reporting Lab: [address] [address] Performing Lab: [address] [address] TSH 0.9788 m[IU]/mL 0.3500-4.9400 Apr 14, 2025 10:03 AM [facility] MICROALBUMIN/CREAT RATIO URINE Specimen Type: URINE No comment entered. Ordering Provider: PHONG JENKINS Report Released Date/Time: Apr 14, 2025 10:00 AM Reporting Lab: [address] [address] Performing Lab: [address] [address] CREATININE 80.5 mg/dL MICROALBUMIN QUANT 48.6 mg/L H 0.0-30.0 .MICROALBUMIN/CREA RATIO 60.4 ug/mg{creat} Apr 14, 2025 10:03 AM [facility] GLYCOHEMOGLOBIN BLOOD Specimen Type: BLOOD Comment: Prediabetes: 5.7%-6.4% Diabetes: >= 6.5% [place] guidelines for A1c interpretation: Glycemic control targets are based on Shared Decision Making between clinicians and patients. Criteria used to establish an A1c target recommendation can be found at https://www.ne.gov/qualityandpatientsafety/ and include the use of result accuracy [...] 8.73 and 9.27. Ref: https://ngsp.org/CAPdata.asp. The in-house [employer]-W[employer] D-100 analyzer has a historical CV <= 2%. Contact the laboratory for further performance characteristics of this assay. Ordering Provider: PHONG JENKINS Report Released Date/Time: Apr 14, 2025 10:00 AM Reporting Lab: [address] [address] Performing Lab: [address] [address] GLYCOHEMOGLOBIN 5.3 4.4-5.6 Apr 14, 2025 10:03 AM [facility] LIPID PROFILE PLASMA Specimen Type: PLASM A Comment: Vitamin B12 test may not yield results when protein level of sample is too elevated. Estimated Glomerular Filtration Rate (eGFR) calculated using [...] Ordering Provider: PHONG JENKINS Report Released Date/Time: Apr 14, 2025 10:00 AM Reporting Lab: [address] [address] Performing Lab: [address] [address] CHOLESTEROL 121 mg/dL 0-199 TRIGLYCERIDE 99 mg/dL 0-149 HDL CHOLESTEROL 36 mg/dL L 40-69 DIRECT LDL CHOL. 79 mg/dL 0-100 Apr 14, 2025 10:03 AM [facility] CBC/PLT BLOOD Specimen Type: BLOOD No comment entered. Ordering Provider: PHONG JENKINS Report Released Date/Time: Apr 14, 2025 10:00 AM Reporting Lab: [address] [address] Performing Lab: [address] [address] WBC 5.6 10*3/uL 5.0-10.0 RBC 4.87 10*6/uL 4.6-6.2 HGB 14.1 g/dL 14.0-18.0 HCT 42.4 42.0-52.0 MCV 87.1 fL 80.0-94.0 MCH 29.0 pg 27.0-31.0 MCHC 33.3 g/dL 32.0-36.0 PLT 171 10*3/uL 150-450 MPV 10.5 fL 9.0-13.1 RDW 13.7 11.0-16.0 NRBC 0.0 0.0-0.0 Apr 14, 2025 10:03 AM [facility] PANEL 5 PLASMA Specimen Type: PLASM A Comment: Vitamin B12 test may not yield results when protein level of sample is too elevated. Estimated Glomerular Filtration Rate (eGFR) calculated using [...] Ordering Provider: PHONG JENKINS Report Released Date/Time: Apr 14, 2025 10:00 AM Reporting Lab: [address] [address] Performing Lab: [address] [address] CREATININE 0.99 mg/dL 0.72-1.25 UREA NITROGEN 18 mg/dL 9-25 GLUCOSE 118 mg/dL H 74-100 SODIUM 142 mmol/L 136-145 POTASSIUM 4.6 mmol/L 3.5-5.1 CHLORIDE 110 mmol/L H 98-107 CO2 23 mmol/L 22-29 CALCIUM 8.8 mg/dL 8.4-10.2 TOTAL PROTEIN 7.1 g/dL 6.4-8.3 ALBUMIN 4.3 g/dL 3.5-5.2 TOTAL BILIRUBIN 1.0 mg/dL 0.2-1.2 AST 14 U/L 5-34 ALT 15 U/L 0-55 ANION GAP 9 meq/L 3-19 ALK PHOS 71 U/L 40-150 eGFR (CKD-EPI) 78 Vital Signs: All taken on the encounter date This section contains inpatient and outpatient Vital Signs collected on the date of the Encounter. Date/Time Temperature Pulse Blood Pressure Respiratory Rate SP02 Pain Height Weight Body Mass Index Source Apr 14, 2025 09:22 AM 97.8 F 65 /min 136/70 mm[Hg] 95 % 7 71 in 248.6 lb 35 [place] [facility] Social History: Smoking Status (Most current) and Tobacco Use (All prior to encounter date) This section includes the most current, and the historical, smoking and tobacco- related health factors from the [place] facility where the Encounter took place. Current Smoking Status This section includes the most current smoking, or tobacco-related health factor, from the [place] facility where the Encounter took place. Date/Time Current Smoking Status Comment Facil ity May 18, 2024 09:00 AM VA-TOBACCO USER SOME DAYS [facility] Tobacco Use History This section includes a history of the smoking, or tobacco-related health factors, that were collected on or before the date of the Encounter. The data comes from the [place] facility where the Encounter took place. Date/Time Smoking Status/Tobacco Use Comment F acility May 18, 2024 09:00 AM VA-TOBACCO USE 30 YEARS OR MORE [facility] May 18, 2024 09:00 AM VA-TOBACCO USE ADVICE [facility] May 18, 2024 09:00 AM VA-TOBACCO USE BEEF GRADER NO [facility] May 18, 2024 09:00 AM VA-TOBACCO USE MED NO [facility] May 18, 2024 09:00 AM VA-TOBACCO USER SOME DAYS [facility] Nov 02, 2023 09:00 AM VA-TOBACCO USE 30 YEARS OR MORE [facility] Nov 02, 2023 09:00 AM VA-TOBACCO USE ADVICE [facility] Nov 02, 2023 09:00 AM VA-TOBACCO USE BEEF GRADER NO [facility] Nov 02, 2023 09:00 AM VA-TOBACCO USE MED NO [facility] Nov 02, 2023 09:00 AM VA-TOBACCO USE WI 30 MIN OF WAKEUP [facility] Nov 02, 2023 09:00 AM VA-TOBACCO USER EVERY DAY [facility] Aug 29, 2022 08:00 AM VA-TOBACCO DOESNT USE WI 30 MIN WAKEUP [facility] Aug 29, 2022 08:00 AM VA-TOBACCO USE 30 YEARS OR MORE [facility] Aug 29, 2022 08:00 AM VA-TOBACCO USE ADVICE [facility] Aug 29, 2022 08:00 AM VA-TOBACCO USE BEEF GRADER NO [facility] Aug 29, 2022 08:00 AM VA-TOBACCO USE MED NO [facility] Aug 29, 2022 08:00 AM VA-TOBACCO USER EVERY DAY [facility] Aug 26, 2021 08:00 AM VA-TOBACCO DOESNT USE WI 30 MIN WAKEUP [facility] Aug 26, 2021 08:00 AM VA-TOBACCO USE 30 YEARS OR MORE [facility] Aug 26, 2021 08:00 AM VA-TOBACCO USE ADVICE [facility] Aug 26, 2021 08:00 AM VA-TOBACCO USE BEEF GRADER NO [facility] Aug 26, 2021 08:00 AM VA-TOBACCO USE MED NO [facility] Aug 26, 2021 08:00 AM VA-TOBACCO USER EVERY DAY [facility] December 26, 2019 10:07 AM VA-TOBACCO DOESNT USE WI 30 MIN WAKEUP [facility] December 26, 2019 10:07 AM VA-TOBACCO USE 30 YEARS OR MORE [facility] December 26, 2019 10:07 AM VA-TOBACCO USE ADVICE [facility] December 26, 2019 10:07 AM VA-TOBACCO USE BEEF GRADER NO [facility] December 26, 2019 10:07 AM VA-TOBACCO USE MED NO [facility] December 26, 2019 10:07 AM VA-TOBACCO USER EVERY DAY [facility] Oct 19, 2018 09:18 AM VA-TOBACCO DOESNT USE WI 30 MIN WAKEUP [facility] Oct 19, 2018 09:18 AM VA-TOBACCO USE 30 YEARS OR MORE [facility] Oct 19, 2018 09:18 AM VA-TOBACCO USE ADVICE [facility] Oct 19, 2018 09:18 AM VA-TOBACCO USE BEEF GRADER NO [facility] Oct 19, 2018 09:18 AM VA-TOBACCO USE MED NO [facility] Oct 19, 2018 09:18 AM VA-TOBACCO USER SOME DAYS [facility] Sep 25, 2017 01:14 PM V9 CURRENT TOBACCO USER [facility] Sep 25, 2017 01:14 PM V9 TOBACCO OFFERED [facility] Sep 25, 2017 01:14 PM V9 TOBACCO USE-DECLINED MEDS [facility] Oct 14, 2016 04:43 PM V9 CURRENT TOBACCO USER [facility] Oct 14, 2016 04:43 PM V9 TOBACCO OFFERED [facility] Oct 14, 2016 04:43 PM V9 TOBACCO USE-DECLINED MEDS [facility] Oct 03, 2015 08:21 AM V9 CURRENT TOBACCO USER [facility] Oct 03, 2015 08:21 AM V9 TOBACCO OFFERED [facility] Oct 03, 2015 08:21 AM V9 TOBACCO USE-DECLINED MEDS [facility] Aug 30, 2014 08:12 AM V9 CURRENT TOBACCO USER [facility] Aug 30, 2014 08:12 AM V9 TOBACCO OFFERED [facility] Jul 18, 2013 08:02 AM V9 CURRENT TOBACCO USER [facility] Jul 18, 2013 08:02 AM V9 QUIT TOBACCO >7 YEARS AGO [facility] Jul 18, 2013 08:02 AM V9 TOBACCO OFFERED [facility] Jul 01, 2012 07:45 AM TOBACCO OFFERRED P T MEDS (PROVIDER) [facility] Jul 01, 2012 07:45 AM V9 CURRENT TOBACCO USER [facility] Jul 01, 2012 07:45 AM V9 QUIT TOBACCO >1 2 MO & <7 YRS AGO [facility] Jul 01, 2012 07:45 AM V9 TOBACCO OFFERED [facility] 2011 07:55 AM V9 CURRENT TOBACCO USER [facility] 2011 07:55 AM V9 TOBACCO OFFERED [facility] Jun 12, 2011 07:53 AM TOBACCO OFFERRED P T MEDS (PROVIDER) [facility] Jun 12, 2011 07:53 AM V9 CURRENT TOBACCO USER [facility] Jun 12, 2011 07:53 AM V9 TOBACCO OFFERED [facility] Sep 06, 2010 07:32 AM TOBACCO OFFERRED P T MEDS (PROVIDER) [facility] Sep 06, 2010 07:32 AM V9 CURRENT TOBACCO USER [facility] Sep 06, 2010 07:32 AM V9 TOBACCO OFFERED [facility] Sep 06, 2009 07:33 AM TOBACCO OFFERRED P T MEDS (PROVIDER) [facility] Sep 06, 2009 07:33 AM V9 CURRENT TOBACCO USER [facility] Sep 06, 2009 07:33 AM V9 TOBACCO OFFERED [facility]
--- OUTSIDE RECORDS SUMMARY | 2025-04-14 06:00 | XMS_ITS | Encounter Summary ---
Author Name [facility] Organization [facility] [place] Address [address] [place] [id number] Care Team Providers Care Machines Technician Name Role Phone PHONG JENKINS Primary Care [...] PART A Nov 22, 2012 PART A [id number] [phone] MICHAEL THOMAS PATIENT MEDICARE (WNR) MEDICARE (M) PART B Nov 22, 2012 PART B [id number] MEGANMIKEMICHAEL An PATIENT MEDICARE (WNR) MEDICARE (M) PART A Nov 22, 2012 PART A [id number] MICHAEL THOMAS PATIENT MEDICARE (WNR) MEDICARE (M) PART B Nov 22, 2012 PART B [id number] [phone] MICHAEL THOMAS PATIENT Selected Encounter This section includes the information on record at [place] for the Encounter. Date/Time Encounter Type Encounter Description Reason Provider Source Apr 14, 2025 10:00 AM OFFICE O/P EST MOD 30 MIN PRIMARY CARE/MEDICINE ICD-10-CM I10 Essential (primary) hypertension PHONG JENKINS [facility] Encounter Template Text not used by [facility] Assessments - Encounter Diagnoses This section includes the primary and secondary diagnoses documented for the Encounter. Date/Time Primary/Secondary Diagnosis Diagnosis Name Provider Source Apr 14, 2025 10:35 AM PRIMARY Essential (primary) [facility] Apr 14, 2025 10:35 AM SECONDARY Benign prostatic hyperplasia with lower urinary tract symp [facility] Apr 14, 2025 10:35 AM SECONDARY Encounter for immunization CAULDER,TAVAI RRA E [facility] Apr 14, 2025 10:35 AM SECONDARY Hyperlipidemia, unspecified [facility] Apr 14, 2025 10:35 AM SECONDARY Mixed hyperlipidemia [facility] Apr 14, 2025 10:35 AM SECONDARY Obstructive sleep apnea (adult) (pediatric) [facility] Apr 14, 2025 10:35 AM SECONDARY Other obstructive and reflux uropathy [facility] Apr 14, 2025 10:35 AM SECONDARY Peripheral vascular disease, unspecified [facility] Apr 14, 2025 10:35 AM SECONDARY Solitary pulmonary nodule [facility] Apr 14, 2025 10:35 AM SECONDARY Type 2 diabetes mellitus with diabetic nephropathy [facility] Apr 14, 2025 10:35 AM SECONDARY Type 2 diabetes mellitus with unspecified complications [facility] Apr 14, 2025 10:35 AM SECONDARY Vertebrogenic low back pain [facility] Lab Results: +/- 30 days of the encounter This section includes the Chemistry and Hematology Lab Results on record with [place] for the patient. Radiology Reports and Pathology Reports are provided separately, in subsequent sections. Lab Results This section contains the Chemistry/Hematology Results that were resulted 30 days before or 30 daysafter the date of the Encounter. Date/Time Source Result Type Result - Unit Interpretation Reference Range Specimen Type Comment Apr 14, 2025 10:03 AM [facility] Kirsten FOLATE PLASMA Specimen Type: PLASMA Comment: [...] Apr 14, 2025 10:00 AM Reporting Lab: [address] [address] Performing Lab: [address] [place] [address] FOLATE 13.5 ng/mL 7.0-31.4 Apr 14, 2025 10:03 AM [facility] URIC ACID PLASMA Specimen Type: [...] Apr 14, 2025 10:00 AM Reporting Lab: [facility] [address] [facility] [place] [address] Performing Lab: [facility] [address] [facility] [place] [address] URIC ACID 6.6 mg/dL 3.5-7.2 Apr 14, 2025 10:03 AM [facility]OU[facility] B12 VITAMIN PLASMA Specimen Type: PLASM A [...] Apr 14, 2025 10:00 AM Reporting Lab: [facility] [address] [facility] [place] [address] Performing Lab: [facility] [address] [facility] [place] [address] B12 VITAMIN 324 pg/mL 213-816 Apr 14, 2025 10:03 AM [facility] TSH PLASMA Specimen Type: PLASM A Comment: [...] Apr 14, 2025 10:00 AM Reporting Lab: [address] [address] Performing Lab: [address] [address] TSH 0.9788 m[IU]/mL 0.3500-4.9400 Apr 14, 2025 10:03 AM [facility] MICROALBUMIN/CREAT RATIO URINE Specimen Type: URINE No comment entered. Ordering Provider: PHONG JENKINS Report Released Date/Time: Apr 14, 2025 10:00 AM Reporting Lab: [address] [address] Performing Lab: [address] [address] CREATININE 80.5 mg/dL MICROALBUMIN QUANT 48.6 mg/L H 0.0-30.0 .MICROALBUMIN/CREA RATIO 60.4 ug/mg{creat} Apr 14, 2025 10:03 AM [facility] GLYCOHEMOGLOBIN BLOOD Specimen Type: BLOOD Comment: Prediabetes: 5.7%-6.4% Diabetes: >= 6.5% [facility] guidelines for A1c interpretation: Glycemic control targets are based on Shared Decision Making between clinicians and patients. Criteria used to establish an A1c target recommendation can be found at https://www.vt.gov/qualityandpatientsafety/ and include the use of result accuracy [...] 8.73 and 9.27. Ref: https://ngsp.org/CAPdata.asp. The in-house Traffio-Webmedx D-100 analyzer has a historical CV <= 2%. Contact the laboratory for further performance characteristics of this assay. Ordering Provider: PHONG JENKINS Report Released Date/Time: Apr 14, 2025 10:00 AM Reporting Lab: [facility] [address] [facility] [place] [address] Performing Lab: [facility] [address] [facility] [place] [address] GLYCOHEMOGLOBIN 5.3 4.4-5.6 Apr 14, 2025 10:03 AM [facility] LIPID PROFILE PLASMA Specimen Type: PLASM A [...] Apr 14, 2025 10:00 AM Reporting Lab: [address] [address] Performing Lab: [address] [address] CHOLESTEROL 121 mg/dL 0-199 TRIGLYCERIDE 99 mg/dL 0-149 HDL CHOLESTEROL 36 mg/dL L 40-69 DIRECT LDL CHOL. 79 mg/dL 0-100 Apr 14, 2025 10:03 AM [facility] CBC/PLT BLOOD Specimen Type: BLOOD No comment entered. Ordering Provider: PHONG JENKINS Report Released Date/Time: Apr 14, 2025 10:00 AM Reporting Lab: [address] [address] Performing Lab: [address] [address] WBC 5.6 10*3/uL 5.0-10.0 RBC 4.87 10*6/uL 4.6-6.2 HGB 14.1 g/dL 14.0-18.0 HCT 42.4 42.0-52.0 MCV 87.1 fL 80.0-94.0 MCH 29.0 pg 27.0-31.0 MCHC 33.3 g/dL 32.0-36.0 PLT 171 10*3/uL 150-450 MPV 10.5 fL 9.0-13.1 RDW 13.7 11.0-16.0 NRBC 0.0 0.0-0.0 Apr 14, 2025 10:03 AM [facility] PANEL 5 PLASMA Specimen Type: PLASM A [...] Apr 14, 2025 10:00 AM Reporting Lab: [address] [address] Performing Lab: [address] [address] CREATININE 0.99 mg/dL 0.72-1.25 UREA NITROGEN 18 [...] % 7 71 in 248.6 lb 35 [facility] Immunizations: All administered on the encounter date This section contains immunizations associated to the Encounter. Immunization Series Date Issued Administered By Site Reaction Lot Number CVX Code Drug Beater Out Leveling Machine Comment(s) Source TDAP Apr 14, 2025 SALINAS PARDO RRA E LEFT DELTO ID [id number] [facility] PASTEUR ADMINISTERE D AT [place], [facility] Social History: Smoking Status (Most current) and Tobacco Use (All prior to encounter date) This section includes the most current, and the historical, smoking and tobacco- related health factors from the [place] facility where the Encounter took place. Current Smoking Status This section includes the most current smoking, or tobacco-related health factor, from the [place] facility where the Encounter took place. Date/Time Current Smoking Status Comment Davi ity May 18, 2024 09:00 AM VA-TOBACCO USER SOME DAYS [facility] Tobacco Use History This section includes a history of the smoking, or tobacco-related health factors, that were collected on or before the date of the Encounter. The data comes from the [place] facility where the Encounter took place. Date/Time Smoking Status/Tobacco Use Comment F acility May 18, 2024 09:00 AM VA-TOBACCO USE 30 YEARS OR MORE [facility] May 18, 2024 09:00 AM VA-TOBACCO USE ADVICE [facility] May 18, 2024 09:00 AM VA-TOBACCO USE VALET ATTENDANT NO [facility] May 18, 2024 09:00 AM VA-TOBACCO USE MED NO [facility] May 18, 2024 09:00 AM VA-TOBACCO USER SOME DAYS [facility] Nov 02, 2023 09:00 AM VA-TOBACCO USE 30 YEARS OR MORE [facility] Nov 02, 2023 09:00 AM VA-TOBACCO USE ADVICE [facility] Nov 02, 2023 09:00 AM VA-TOBACCO USE VALET ATTENDANT NO [facility] Nov 02, 2023 09:00 AM VA-TOBACCO USE MED NO [facility] Nov 02, 2023 09:00 AM VA-TOBACCO USE WI 30 MIN OF WAKEUP [facility] Nov 02, 2023 09:00 AM VA-TOBACCO USER EVERY DAY [facility] Aug 29, 2022 08:00 AM VA-TOBACCO DOESNT USE WI 30 MIN WAKEUP [facility] Aug 29, 2022 08:00 AM VA-TOBACCO USE 30 YEARS OR MORE [facility] Aug 29, 2022 08:00 AM VA-TOBACCO USE ADVICE [facility] Aug 29, 2022 08:00 AM VA-TOBACCO USE VALET ATTENDANT NO [facility] Aug 29, 2022 08:00 AM VA-TOBACCO USE MED NO [facility] Aug 29, 2022 08:00 AM VA-TOBACCO USER EVERY DAY [facility] Aug 26, 2021 08:00 AM VA-TOBACCO DOESNT USE WI 30 MIN WAKEUP [facility] Aug 26, 2021 08:00 AM VA-TOBACCO USE 30 YEARS OR MORE [facility] Aug 26, 2021 08:00 AM VA-TOBACCO USE ADVICE [facility] Aug 26, 2021 08:00 AM VA-TOBACCO USE VALET ATTENDANT NO [facility] Aug 26, 2021 08:00 AM VA-TOBACCO USE MED NO [facility] Aug 26, 2021 08:00 AM VA-TOBACCO USER EVERY DAY [facility] December 26, 2019 10:07 AM VA-TOBACCO DOESNT USE WI 30 MIN WAKEUP [facility] December 26, 2019 10:07 AM VA-TOBACCO USE 30 YEARS OR MORE [facility] December 26, 2019 10:07 AM VA-TOBACCO USE ADVICE [facility] December 26, 2019 10:07 AM VA-TOBACCO USE VALET ATTENDANT NO [facility] December 26, 2019 10:07 AM VA-TOBACCO USE MED NO [facility] December 26, 2019 10:07 AM VA-TOBACCO USER EVERY DAY [facility] Oct 19, 2018 09:18 AM VA-TOBACCO DOESNT USE WI 30 MIN WAKEUP [facility] Oct 19, 2018 09:18 AM VA-TOBACCO USE 30 YEARS OR MORE [facility] Oct 19, 2018 09:18 AM VA-TOBACCO USE ADVICE [facility] Oct 19, 2018 09:18 AM VA-TOBACCO USE VALET ATTENDANT NO [facility] Oct 19, 2018 09:18 AM VA-TOBACCO USE MED NO [facility] Oct 19, 2018 09:18 AM VA-TOBACCO USER SOME DAYS [facility] Sep 25, 2017 01:14 PM V9 CURRENT TOBACCO USER [facility] Sep 25, 2017 01:14 PM V9 TOBACCO OFFERED [facility] Sep 25, 2017 01:14 PM V9 TOBACCO USE-DECLINED MEDS [facility] Oct 14, 2016 04:43 PM V9 CURRENT TOBACCO USER [facility] Oct 14, 2016 04:43 PM V9 TOBACCO OFFERED [facility] Oct 14, 2016 04:43 PM V9 TOBACCO USE-DECLINED MEDS [facility] Oct 03, 2015 08:21 AM V9 CURRENT TOBACCO USER [facility] Oct 03, 2015 08:21 AM V9 TOBACCO OFFERED [facility] Oct 03, 2015 08:21 AM V9 TOBACCO USE-DECLINED MEDS [facility] Aug 30, 2014 08:12 AM V9 CURRENT TOBACCO USER [facility] Aug 30, 2014 08:12 AM V9 TOBACCO OFFERED [facility] Jul 18, 2013 08:02 AM V9 CURRENT TOBACCO USER [facility] Jul 18, 2013 08:02 AM V9 QUIT TOBACCO >7 YEARS AGO [facility] Jul 18, 2013 08:02 AM V9 TOBACCO OFFERED [facility] Jul 01, 2012 07:45 AM TOBACCO OFFERRED P T MEDS (PROVIDER) [facility] Jul 01, 2012 07:45 AM V9 CURRENT TOBACCO USER [facility] Jul 01, 2012 07:45 AM V9 QUIT TOBACCO >1 2 MO & <7 YRS AGO [facility] Jul 01, 2012 07:45 AM V9 TOBACCO OFFERED [facility] 2011 07:55 AM V9 CURRENT TOBACCO USER [facility] 2011 07:55 AM V9 TOBACCO OFFERED [facility] Jun 12, 2011 07:53 AM TOBACCO OFFERRED P T MEDS (PROVIDER) [facility] Jun 12, 2011 07:53 AM V9 CURRENT TOBACCO USER [facility] Jun 12, 2011 07:53 AM V9 TOBACCO OFFERED [facility] Sep 06, 2010 07:32 AM TOBACCO OFFERRED P T MEDS (PROVIDER) [facility] Sep 06, 2010 07:32 AM V9 CURRENT TOBACCO USER [facility] Sep 06, 2010 07:32 AM V9 TOBACCO OFFERED [facility] Sep 06, 2009 07:33 AM TOBACCO OFFERRED P T MEDS (PROVIDER) [facility] Sep 06, 2009 07:33 AM V9 CURRENT TOBACCO USER [facility] Sep 06, 2009 07:33 AM V9 TOBACCO OFFERED [facility] Encounter Notes: All associated encounter notes This section contains the clinical notes associated to the Encounter. Date/Time Encounter Note(s) Provider Source Apr 14, 2025 09:40 AM PRIMARY CARE NOTE: LOCAL TITLE: PC PROGRESS NOTE STANDARD TITLE: PRIMARY CARE NOTE DATE OF NOTE: APR 14, 2025@09:40 ENTRY DATE: APR 14, 2025@09:40:31 AUTHOR: PHONG JENKINS COSIGNER: URGENCY: STATUS: COMPLETED ID: 79 year old MALE Chief Complaint: Annual PCP visit for ongoing management of active/chronic medical problems PC-Nurse's note is reviewed. NON-VA Provider-NA [facility] - right hip replacement [facility] [place], pain management clinic for low back pain. PCP- Dr Kessler - [facility] NON-VA Pharmacy- [facility] in [place] HPI/PROBLEM LIST: Patient is a 79 year old MALE here today fo rhis annual PCP for treatment of active/chronic medical problems, and F/U test results. Patient denies any recent Hospitalizations, ER visits or surgeries in last 90 days. HEALTH CARE MAINTENANCE: .SCREENING- - LDCT Screening for Lung Cancer: 10/12 stable RUL/LLL nodules-11/29/2024 LDCT benign, repeat in 12 months. -screening- AAA Screening :09/2013 negative - Screening for colon cancer:COLONOSCOPY:03/2013 mass, repeat 10/2013 +benign TA, repeated 03/11 at [facility] benign TA; F/U Dr. Jay-repeat recommended 2023- see reminders 04/14/2025- pt chose to have his C-scope be done in [place], [place]. - PSA:3.887 ng/mL (11/02/2023 09:26) - Screening for HIV:NEG 2017 - Screening for HCV:NEG 2017 . IM - Immunizations ADMINISTERED COVID-19 ([facility]), MRNA, LNP-S,* 6 06/19/2023 IZG:[facility] COVID-19 ([facility]), MRNA, LNP-S, * B 08/29/2022 [place]* COVID-19 ([facility]), MRNA, LNP-S, * 3 04/24/2021 IZG:KALIN [facility] COVID-19 ([facility]), MRNA, LNP-S, * 2 09/30/2020 [place]* COVID-19 ([facility]), MRNA, LNP-S, * 1 09/09/2020 [place]* COVID-19 ([facility]), MRNA, LNP-S, * 3 03/17/2022 [facility] COVID-19 ([facility]), MRNA, LNP-S, * 7 06/25/2024 IZG:KALIN ALVAREZ DTP 10/03/2015 [place]* HEP A, ADULT 10/17/2019 [place]* HEP A, ADULT 04/18/2019 [place]* INFLUENZA, HIGH-DOSE, TRIVALENT,* 7 06/25/2024 IZG:KALIN IIS [id number] (HISTORICAL) 10/15/2016 [place]* PNEUMOCOCCAL CONJUGATE PCV20, PO* C 08/29/2022 [place]* PNEUMOCOCCAL POLYSACCHARIDE PPV23 09/28/2017 [place]* PNEUMOCOCCAL, UNSPECIFIED FORMUL* 08/04/2012 [place]* RSV, RECOMBINANT, PROTEIN SUBUNI* 1 07/05/2024 IZG:KALIN IIS TD (ADULT), 2 LF TETANUS TOXOID,* 1 10/30/1996 IZG:KALIN IIS TD(ADULT) UNSPECIFIED FORMULATION 08/24/2004 Elsewhere TD(ADULT) UNSPECIFIED FORMULATION kalin Goetz TDAP 04/14/2025 [place]* TDAP 10/03/2015 1 AD TDAP (HISTORICAL) 10/03/2015 [place]* ZOSTER LIVE 07/01/2012 [place]* ZOSTER RECOMBINANT 2 2022 [place]* ZOSTER RECOMBINANT 1 09/29/2022 [place]* CONTRAINDICATED ZOSTER RECOMBINANT 08/29/2022 [place]* <I> REFUSED ======= COVID-19 ([facility]), MRNA, LNP-S,* 04/14/2025 [place]* <I> COVID-19 ([facility]), MRNA, LNP-S,* 05/18/2024 [place]* <I> INFLUENZA, UNSPECIFIED FORMULATI* 05/18/2024 [place]* <I> INFLUENZA, UNSPECIFIED FORMULATI* 08/29/2022 [place]* <I> ST - Skin Tests No data available: Collection DT Specimen Test Name Result Units Ref Range 10/22/2018 08:26 SERUM !! BRICEÑO/TOT (TO 5-4-78MYQRNQAA NEG No Hep B immunization history found. Active problems - Computerized Problem List is the source for the followin. Exposure to potentially hazardous substance (SCT 164504621730164) 2. Low back pain 3. Hearing loss in left ear 4. Obstructive sleep apnea of adult 5. Neuropathy 6. Exposure to potentially hazardous substance 7. Benign prostatic hyperplasia with outflow obstruction 8. Smokes tobacco daily 9. Peripheral arterial occlusive disease 10. Renal disorder due to type 2 diabetes mellitus 11. Gastroesophageal reflux disease 12. Multiple nodules of lung (SNOMED CT 174380331) 13. Benign essential hypertension (SNOMED CT 8514797) 14. Mixed hyperlipidemia (SNOMED CT 636341689) List of active problems are reviewed with patient and updated. SURGICAL HISTORY: Right hip TR 08/26/2023- [facility] FAMILY HISTORY Father-passed in his 70s Mother-passed in her 90s with dementia Siblings: 3 brothers, 2 sisters. All living in [place]. 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 Son Lives in [place] TOBACCO: 2 ppd x 30 years, quit [...] THAN 50% VERIFIED Total S/C %: 20 IMPAIRED HEARING 0% S/C DIABETES MELLITUS 20% S/C MEDICATIONS: Active and Recently Outpatient Medications (including Supplies): Active Outpatient Medications Status 1) ALLOPURINOL 100MG TAB TAKE ONE TABLET BY MOUTH DAILY ACTIVE Indication: FOR GOUT 2) ATORVASTATIN CALCIUM 80MG TAB TAKE ONE-HALF TABLET BY MOUTH ACTIVE DAILY Indication: FOR CHOLESTEROL 3) CLOPIDOGREL BISULFATE 75MG TAB TAKE ONE TABLET BY MOUTH ACTIVE (S) DAILY Indication: TO THIN BLOOD 4) LISINOPRIL 20MG TAB TAKE ONE-HALF TABLET BY MOUTH DAILY ACTIVE Indication: FOR BLOOD PRESSURE/HEART 5) METOPROLOL SUCCINATE 50MG SA TAB TAKE ONE-HALF TABLET BY ACTIVE (S) MOUTH DAILY Indication: FOR BLOOD PRESSURE 6) OMEPRAZOLE 20MG EC CAP TAKE ONE CAPSULE BY MOUTH ONCE A DAY ACTIVE (S) 30 MINUTES BEFORE A MEAL -TAKE ON AN EMPTY STOMACH Indication: FOR STOMACH 7) TAMSULOSIN HCL 0.4MG CAP TAKE ONE CAPSULE BY MOUTH EVERY ACTIVE EVENING Indication: FOR PROSTATE Active Non-VA Medications Status 1) Non-VA ASPIRIN 81MG EC TAB 81MG MOUTH DAILY ACTIVE Indication: FOR HEART 8 Total Medications ALLERGIES: Patient has answered NKA PHYSICAL EXAM: VITAL SIGNS Measurement DT TEMP PULSE RESP BP HT WT F(C) IN(CM) LB(KG)[BMI] ---- ----- ---- -- ------ 04/14/2025 09:22 97.8(36.6) 65 136/70 71.0(180) 249(112.8)[35*] Measurement DT CVP POx CG CMH20(MMHG) (L/MIN)(%) IN(CM) ------ 04/14/2025 09:22 95 Measurement DT Pain ---- 04/14/2025 09:22 7 MOBILITY: ambulating WITHOUT assistive device. General: Well-developed [...] recent studies. LABS: PHOSPHORUS:4.0 mg/dL (11/02/2023 09:26) 05/18/2024 09:43 BLOOD !! GLYCOHEMOGLOBIN 6.6 H % 4.4 - 6.4 11/02/2023 09:26 BLOOD !! GLYCOHEMOGLOBIN 5.6 % 4.4 - 6.4 03/09/2023 09:28 BLOOD !! GLYCOHEMOGLOBIN 5.7 % 4.4 - 6.4 09/24/2021 08:04 BLOOD !! GLYCOHEMOGLOBIN 6.0 % 4.4 - 6.4 05/18/2024 09:43 PLASMA!! CHOLESTEROL 110 mg/dL 0 - 199 05/18/2024 09:43 PLASMA!! TRIGLYCERIDE 99 mg/dL 0 - 149 05/18/2024 09:43 PLASMA!! HDL CHOLESTEROL 33 L mg/dL 40 - 69 05/18/2024 09:43 PLASMA!! DIRECT LDL CHOL. 69 mg/dL 0 - 100 PANEL 2 David. date TOT PRO ALBUMIN SGOT SGPT Z ALK PHZ DIRECTZ TOTAL 05/18/24 09:43 7.0 4.1 14 20 82 1.0 Vitamin D: Collection DT Spec VITAMIN 11/02/2023 09:26 SERUM 34.5 TSH: 1.0241 mIU/mL (11/02/2023 09:26) Magnesium:2.2 mg/dL (11/02/2023 09:26) PSA:8.384 ng/mL H (05/18/2024 09:43) URINALYSIS David. date Z SPECIFZ URINE Z URINE Z URINE Z URINE Z URINE Z URINE 11/02/23 09:32 1.010 Negativ Light Y Clear 5.5 Negativ Negativ URINALYSIS David. date Z URINE Z URINE Z URINE Z URINE Z LEUK. 11/02/23 09:32 Negativ Negativ Negativ Normal Negativ 05/18/2024 09:43 BLOOD WBC 4.7 L K/cmm 5.0 - 10.0 05/18/2024 09:43 BLOOD RBC 4.76 M/cmm 4.6 - 6.2 05/18/2024 09:43 BLOOD HGB 13.3 L g/dL 14.0 - 18.0 05/18/2024 09:43 BLOOD HCT 42.5 % 42.0 - 52.0 05/18/2024 09:43 BLOOD MCV 89.3 fL 80.0 - 94.0 05/18/2024 09:43 BLOOD MCH 27.9 pg 27.0 - 31.0 05/18/2024 09:43 BLOOD MCHC 31.3 L g/dL 32.0 - 36.0 05/18/2024 09:43 BLOOD PLT 173 K/cmm 150 - 450 05/18/2024 09:43 BLOOD MPV 10.2 fL 9.0 - 13.1 05/18/2024 09:43 BLOOD RDW 13.6 % 11.0 - 16.0 05/18/2024 09:43 BLOOD NRBC 0.0 % 0.0 - 0.0 05/18/2024 09:43 PLASMA!! CREATININE 1.05 mg/dL 0.72 - 1.25 05/18/2024 09:43 PLASMA!! UREA NITROGEN 10 mg/dL - 05/18/2024 09:43 PLASMA!! eGFR (CKD-EPI) 74 SEE EVAL 05/18/2024 09:43 PLASMA!! GLUCOSE 119 H mg/dL 74 - 100 05/18/2024 09:43 PLASMA!! SODIUM 142 mmol/L 136 - 145 05/18/2024 09:43 PLASMA!! POTASSIUM 4.6 mmol/L 3.5 - 5.1 05/18/2024 09:43 PLASMA!! CHLORIDE 110 H mmol/L 98 - 107 05/18/2024 09:43 PLASMA!! CO2 23 mmol/L 22 - 29 05/18/2024 09:43 PLASMA!! CALCIUM 9.4 mg/dL 8.4 - 10.2 05/18/2024 09:43 PLASMA!! ANION GAP 9.0 mEq/L 3 - 19 ASSESSMENT AND PLAN: - Benign essential hypertension - controlled. Continue: LISINOPRIL 10MG TAB TAKE ONE TABLET BY MOUTH DAILY . Denies side effects. Low salt diet and weight loss encouraged. - Mixed hyperlipidemia - HDL 33 (05/18/2024)- Continue: ATORVASTATIN CALCIUM 80MG TAB TAKE ONE-HALF TABLET BY MOUTH . Denies side effects. low fat and low cholesterol diet encouraged. Order FLP and LFTs. - DM II/diabetic nephropathy h/o DM II treated with po diabetic meds x 10 years, then stopped by previous PCP. 05/18/2024 09:43 BLOOD !! GLYCOHEMOGLOBIN 6.6 H % 4.4 - 6.4 11/02/2023 09:32 URINE MICROALBUMIN DIEGO 30.0 mg/L 0.0 - 30.0 Continue Lisinopril 10 mg po daily. Continue F/U [facility]- Optometry . Diabetic foot exam- PCP . PAV-foot - [facility] podiatry 02/2025 - Patient has his toenail clipped every 3 month at [facility] podiatry in [place] hometown. Order A1c and nephropathy panel. - Peripheral arterial occlusive disease- ABIs 11/12/2023 was abnormal. Patient was referred to vascular surgery. Is taking ASA 81 mg po daily, Plavix 75 mg po daily, and Atorvasatin 40 mg po daily. Quit smoking cigarettes in 2007. Encouraged to quit smoking cigars. - Gastroesophageal reflux disease- controlled. Denies dysphagia, weight loss or melena. Continue: OMEPRAZOLE 20MG EC CAP TAKE ONE CAPSULE BY MOUTH ONCE A DAY . Denies side effects. Denies constipation. Anti-reflux measures: Raise the head of the bed to 45 degrees. Avoid smoking, ETOH, excess coffee, tea or other caffeinated beverages. Avoid Spicy and sour food. Avoid eating before bed by at least 2 hours. . - Multiple nodules of lung- 11/29/2024 LDCT benign, repeat in 12 months. - Low back pain across lower back / right leg pain- had epidural steroid injection on 08/04/2023 at [facility] - pain management clinic in [place], [place] , helped,the lower back pain and right leg pain- his lower back pain became much better and the right leg pain resolved. a 2nd injection done on 03/24/2024 that seems to help , also using the compound pain cream of: - Ketamine/neurontin/BA/ibupr ofen/lidocain qid PRN. no other therapy, seems to help too. Stable. No complaints today. - Benign prostatic hyperplasia with outflow obstruction-/- Elevated PSA- 12/01/2022 Urology visit- [facility] - PSA stable, recheck in 6 month to assess stability - 05/27/2023- PSA:3.887 ng/mL (11/02/2023 09:26). Continue: TAMSULOSIN HCL 0.4MG CAP TAKE ONE CAPSULE BY MOUTH EVERY EVENING FOR PROSTATE No personal or family H/O prostae cancer. - left ear hearing loss- Stable. Continue Left hearing aids and F/U [facility]- Audiology. - [facility]- Continue sleep with CPAP. Medication Reconciliation: Reviewed and reconciled medication list with patient and/or caregiver: _x__ No discrepancies were found, ___ Discrepancies were corrected or sent to the ordering provider to correct The updated medication list was given to the patient/caregiver by: ___Patient declines med list, _x__Handing physical copy at the end of visit, ___Mail, ___[facility] ___Patient does not take any meds ___ New pt presented with his/her list of meds. Pt instructed to watch for adverse reaction to therapy and if allergy suspected then discontinue and present immediately to ER. Potential side effects/adverse events associated with prescription medication including potential drug interactions were discussed and all questions answered. Patient expressed understanding of information presented in this note. -LABWORK: Today's labs: (x )FASTING ( )NON-FASTING: See orders ( ) NO LABS WITH THIS VISIT ( ) RETURN FOR LABS: -CONSULTS ENTERED FROM TODAYS VISIT:None -CLERICAL ORDERS: RNA APPOINTMENT:NA SCHEDULE THE FOLLOWING: RECALL:04/13/2026 ( ) Fasting labs on RTC ( ) Non-fasting labs on RTC: To be determined ( ) No labs on RTC Follow up: one year and PRN. The /caregiver voiced understanding of topics covered/discussed in today's visit. All questions were answered, and the patient/caregiver voiced understanding and agreement. I spent 37 min today reviewing last visit notes, recent [...] __ Placed consult SYSTEM GENERATED CLINICAL REMINDERS: Follow Up Colonoscopy: Colonoscopy is due based on information available to this reminder. Patient has arranged or is choosing to arrange a Colonoscopy independent of and w/out assistance from this MS. Pt always gets his C-scope in [place], [place]. ZEKE-DM HbA1c not done: Glycohemoglobin (HgbA1c) ordered Nephropathy Screen (Prov) (V9): eGFR and uACR ordered. /es/ PHONG JENKINS MD Signed: 04/14/2025 10:35 [facility] Apr 14, 2025 09:15 AM PRIMARY CARE NURSING NOTE: LOCAL TITLE: [facility]/service center coordinator Note STANDARD TITLE: PRIMARY CARE NURSING NOTE DATE OF NOTE: APR 14, 2025@09:15 ENTRY DATE: APR 14, 2025@09:15:03 AUTHOR: CYNTHIA PARDO: URGENCY: STATUS: COMPLETED The patient was given a list of his current medications, instructed to review and discuss any changes or problems with their provider. Patient advised to carry a list of current medications and any allergies with them in the event of emergency situations. Yes - [place]/Caregiver verbalized understanding of topics discussed and education provided Alcohol Use Screen (AUDIT-C): Alcohol Screen: SCREEN [...] vodka). Four or more times a week 2. How many drinks containing alcohol did [...] Not at all Suicide Screen: C-SSRS Screening [place] Suicide Severity Rating Scale (C-SSRS) screener 1. [...] required due to responses to other questions. COVID-19 Immunization: Refused Moderna Monovalent COVID-19 vaccine Immunization: COVID-19 (MODERNA), MRNA, LNP-S, PF, 50 MCG/0.5 ML (AGES 12+ YEARS) Refusal Reason: PATIENT DECISION Patient refuses all immunization(s) in the COVID-19 group Date Documented: 04/14/25 09:16 Homelessness/Food Insecurity Screen: In the past 2 months, have you been living in stable housing that you own, rent, or stay in as part of a household? Yes - Living in stable housing. Are you worried or concerned that in the next 2 months you may NOT have stable housing that you own, rent, or stay in as part of a household? No - Not worried about housing near future The reports the following: Within the past 12 months, you worried whether your food would run out before you got money to buy more. Never true Within the past 12 months, the food you bought just didn't last and you didn't have money to get more. Never true Sexual Orientation: The patient thinks of their sexual orientation as: Straight or Heterosexual Learning Readiness Assessment: Preferred language for discussing health care Macedonian NEW ASSESSMENT LEARNING BARRIERS Hearing Barrier Comment: Hearing aids Visual Barrier Comment: Glasses for reading fine print READING LIMITATIONS No reading limitations PREFERRED METHODS FOR LEARNING Written/Printed Material Verbal Demonstration (Audio/Visual) INTERESTED IN LEARNING (MOTIVATED) Yes, interested in learning what? PERSON BEING EDUCATED TODAY Patient Education was provided on the following topics RESPONSE ADL/IADL Functional Measures(V9): Incontinence Screen: Within the past 12 months, has the patient had any characteristics of incontinence (ability, voiding, leakage, etc.)? No incontinence. Falls Screen: Patient does not report falls within the past 12 months. Patient has a diagnosis of Dementia on file. Screening not required. [place] Index of Cotton in Activities of Daily Living: [place] INDEX FOR ADL ASSESSMENT: CAL[place]N Index of Cotton in Activities of Daily Living was completed [...] serves adequate meals independently Housekeepin point - Maintains house alone or with occasional assistance (e.g., heavy work domestic help ) Laundry: 1 point - Able to do personal laundry completely. Mode of transportation: 1 point - Travels [...] level of dependence. Total score: 8 points PAVE Foot Check: Patient indicates foot exam (including monofilament test for sensation) was performed in the past year in the private sector: Date: February, ? Exact date is unknown Result: Normal Td/Tdap Immunization: Administered: TDAP Date Administered: Apr 14, 2025 09:26 Beater Out Leveling Machine: [employer] Lot: [id number] Exp Date: Dec 21, 2026 [facility]: [phone] Admin Route/Site: INTRAMUSCULAR/LEFT DELTOID Dosage: 0.5mL Vaccine Information Statement(s): TDAP (TETANUS, DIPHTHERIA, PERTUSSIS) VACCINE VIS Sep 23, 2024 ([place]) Order By: Policy Administered By: Cynthia Pardo The TETANUS/DIPHTHERIA/PERTUSSI S (TDAP) Vaccine Information Statement (VIS) was reviewed with the patient/caregiver which lists the benefits and risks of the vaccine and the risks of not receiving the Tdap vaccine. The patient/caregiver denied any prior severe reaction to this vaccine or its components or a severe allergic reaction, such as anaphylaxis, to any vaccine or any injectable therapy. The patient/caregiver gave verbal consent to receive the vaccine. /milagros/ CYNTHIA PARDO LICENSED PRACTICAL NURSE Signed: 04/14/2025 09:27 CYNTHIA PARDO [facility]
--- OUTSIDE RECORDS SUMMARY | 2025-04-17 05:24 | XMS_ITS | Continuity of Care Document ---
Author Name [facility] Organization [facility] Care Team Providers Care Ovens Supervisor Name Role Phone [facility] Unavailable Unavailable Problems Combined list of problems from Department of Defense and [facility] Affairs facilities. It does not include entries that were removed or entered in error. Problem Status Onset Date Problem Type Date of Resolution Comments Source Benign essential hypertension (SNOMED CT 2677525) Active Condition [place] [facility] Benign prostatic hyperplasia with outflow obstruction [facility] Exposure to potentially hazardous substance Active Condition [place] [facility] Exposure to potentially hazardous substance (SCT [id number]) Active Condition [place] [facility] Former smoker Active Condition [place] Entered By: PHONG JENKINS Comment: Quit in 2007 [place] Gastroesophageal reflux disease [facility] Hearing loss in left ear Active Condition [place] [facility] Low back pain Active Condition [place] [facility] Mixed hyperlipidemia (SNOMED CT 692180575) Active Condition [place] Multiple nodules of lung (SNOMED CT [id number]) [facility] Neuropathy Active Condition [place] [facility] Obstructive sleep apnea of adult Active Condition [facility] Peripheral arterial occlusive disease Active Condition [place] [facility] 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 [facility] D [facility] Dm Type I Dm W/O Complications Inactive Condition 02/06/2014 Feb 06, 2014 Entered By: NANCY PABLO Comment: removed per MD request [facility] Diagnosis: ICD-10-CM I10 Essential (primary) hypertension Active Diagnosis [facility] Diagnosis: ICD-10-CM I73.9 Peripheral vascular disease, unspecified Active Diagnosis [facility] Diagnosis: ICD-10-CM E11.9 Type 2 diabetes mellitus without complications Active Diagnosis [facility] Diagnosis: ICD-10-CM Z71.89 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ed counseling Active Diagnosis [facility] Diagnosis: ICD-10-CM H25.813 Combined forms of age-related cataract, bilateral Active Diagnosis [facility] Medications Combined list of outpatient medications from Department of Defense and Veterans Affairs facilities.Medications provided include 1) outpatient medications from the last 15 months, and 2) patient-reported medications. Medication Details Route Status Patient Instructions Prescription Expires Prescription Number Last Dispense Date Ordering Provider Order Date Order Qty Source ALLOPURINOL 100MG TAB TAKE ONE TABLET BY MOUTH DAILY FOR GOUT ORAL ACTIVE 11/23/2025 [id number] 5 SANTANA JENKINS TA 2024 90 [place] [facility] ALLOPURINOL 100MG TAB TAKE ONE TABLET BY MOUTH DAILY FOR GOUT ORAL DISCONT INUED 10/19/2025 [id number] 5 SANTANA JENKINS TA 2024 90 [place] [facility] ALLOPURINOL 100MG TAB TAKE ONE TABLET BY MOUTH DAILY FOR GOUT ORAL DISCONT INUED 11/15/2024 [id number] SANTANA JENKINS TA 2023 90 [place] [facility] ASPIRIN 81MG TAB,EC TAKE ONE TABLET BY MOUTH DAILY FOR HEART ORAL DISCONT INUED BY PROVIDE R 11/23/2025 [id number] 5 SANTANA JENKINS TA 2024 90 [place] [facility] ASPIRIN 81MG TAB,EC TAKE ONE TABLET BY MOUTH DAILY ORAL ACTIVE OMAR SUBRAMANIAN T 2024 [place] ATORVASTATI N [place] 80MG TAB TAKE ONE-HALF TABLET BY MOUTH DAILY FOR CHOLESTE ROL ORAL SUSPEND ED 04/15/2026 [id number] 5 SANTANA JENKINS TA 2024 45 [place] [facility] ATORVASTATI N CA 80MG TAB TAKE ONE-HALF TABLET BY MOUTH DAILY FOR CHOLESTE ROL ORAL DISCONT INUED 11/23/2025 [id number] 5 SANTANA JENKINS TA 2024 45 [place] [facility] ATORVASTATI N CA 80MG TAB TAKE ONE-HALF TABLET BY MOUTH DAILY FOR CHOLESTE ROL ORAL DISCONT INUED 10/12/2025 [id number] 5 SANTANA JENKINS TA 2024 45 [place] [facility] ATORVASTATI N CA 80MG TAB TAKE ONE-HALF TABLET BY MOUTH DAILY FOR CHOLESTE ROL ORAL DISCONT INUED 11/02/2024 [id number] 4 [facility] 2023 45 [place] [facility] CLOPIDOGREL BISULFATE 75MG TAB TAKE ONE TABLET BY MOUTH DAILY TO THIN BLOOD ORAL ACTIVE 11/23/2025 [id number] 5 [facility] TA 2024 90 [place] [facility] CLOPIDOGREL BISULFATE 75MG TAB TAKE ONE TABLET BY MOUTH DAILY TO THIN BLOOD ORAL DISCONT INUED 05/19/2025 [id number] [facility] TA 2023 90 [place] [facility] LISINOPRIL 20MG TAB TAKE ONE-HALF TABLET BY MOUTH DAILY FOR BLOOD PRESSURE /HEART ORAL SUSPEND ED 04/15/2026 [id number] 5 [facility] 2024 45 [place] [facility] LISINOPRIL 20MG TAB TAKE ONE-HALF TABLET BY MOUTH DAILY FOR BLOOD PRESSURE /HEART ORAL DISCONT INUED 11/23/2025 [id number] 5 SANTANA JENKINS TA 2024 45 [place] [facility] LISINOPRIL 20MG TAB TAKE ONE-HALF TABLET BY MOUTH DAILY FOR BLOOD PRESSURE /HEART NEW DOSE ORAL DISCONT INUED 10/12/2025 [id number] 5 [facility] TA 2024 45 [place] [facility] LISINOPRIL 20MG TAB TAKE ONE-HALF TABLET BY MOUTH DAILY FOR BLOOD PRESSURE /HEART NEW DOSE ORAL DISCONT INUED 11/02/2024 [id number] 4 [facility] TA 2023 45 [place] [facility] METOPROLOL SUCCINATE 50MG TAB,SA TAKE ONE-HALF TABLET BY MOUTH DAILY FOR BLOOD PRESSURE ORAL ACTIVE 11/23/2025 [id number] 5 KOUSA,KIT TA 2024 45 [place] [facility] METOPROLOL SUCCINATE 50MG TAB,SA TAKE ONE-HALF TABLET BY MOUTH DAILY FOR BLOOD PRESSURE ORAL DISCONT INUED 05/19/2025 [id number] KOUSA,KIT TA 2023 45 [place] [facility] OMEPRAZOLE 20MG CAP,EC TAKE ONE CAPSULE BY MOUTH ONCE A DAY 30 MINUTES BEFORE A MEAL FOR STOMACH -TAKE ON AN EMPTY STOMACH ORAL SUSPEND ED 11/23/2025 [id number] 5 KOUSA,KIT TA 2024 90 [place] [facility] OMEPRAZOLE 20MG CAP,EC TAKE ONE CAPSULE BY MOUTH ONCE A DAY 30 MINUTES BEFORE A MEAL FOR STOMACH -TAKE ON AN EMPTY STOMACH ORAL DISCONT INUED BY PROVIDE R 11/02/2024 [id number] KOUSA,KIT TA 2023 90 [place] [facility] TAMSULOSIN HCL 0.4MG CAP TAKE ONE CAPSULE BY MOUTH EVERY EVENING FOR PROSTATE ORAL ACTIVE 11/23/2025 [id number] 5 KOUSA,KIT TA 2024 90 [place] [facility] TAMSULOSIN HCL 0.4MG CAP TAKE ONE CAPSULE BY MOUTH EVERY EVENING FOR PROSTATE ORAL DISCONT INUED 11/02/2024 [id number] 5 KOUSA,KIT TA 2023 90 [place] [facility] Immunizations Combined list of available immunizations from the Department of Defense and Veterans Affairs facilities. Immunization Series Date Given Administered By Site Reaction Lot Number CVX Code Drug Drill Sharpener Status Comments Source TDAP 2024 SALINAS LACKEY RRA E LEFT DELTO ID [id number] 115 complet ed [facility] [place] [facility] [place], [place] [facility] RSV, RECOMBINANT, PROTEIN SUBUNIT RSVPREF3, ADJUVANT RECONSTITUTED , 0.5 ML, PF 1 2023 303 complet ed HISTORICA L INFORMATI ON - FROM OTHER REGISTRY, [place] [facility] [place] COVID-19 (PFIZER), MRNA, LNP-S, PF, KIRSTEN-SUCROSE, 30 MCG/0.3 ML (AGES 12+ YEARS) 7 2023 309 complet ed HISTORICA L INFORMATI ON - FROM OTHER REGISTRY, [place] [facility] INFLUENZA, HIGH-DOSE, TRIVALENT, PF 7 2023 135 complet ed HISTORICA L INFORMATI ON - [facility] OTHER REGISTRY, [place] [facility] (MODERNA), MRNA, LNP-S, PF, 50 MCG/0.5 ML (AGES 12+ YEARS) 6 2022 312 complet ed HISTORICA L INFORMATI ON - FROM OTHER REGISTRY, [place] [facility] INFLUENZA, INJECTABLE, QUADRIVALENT, PRESERVATIVE FREE 6 2022 150 complet ed HISTORICA L INFORMATI ON - FROM OTHER REGISTRY, [place] [facility] Z[facility] RECOMBINANT 2 2022 SOILA BOSS LEFT DELTO ID [id number] 187 complet ed [facility] [place] [facility] [place] ZOSTER RECOMBINANT 1 2022 PEYTON SOOD LEFT DELTO ID [id number] 187 complet ed [facility] [place] [facility]-19 (PFIZER), MRNA, LNP-S, BIVALENT BOOSTER, PF, 30 MCG/0.3 ML DOSE 2022 ALANIS PARKER RIGHT DELTO ID [id number] 300 complet ed Booster for Series, [facility], [place] [facility] PNEUMOCOCCAL CONJUGATE PCV20, POLYSACCHARID E [id number] CONJUGATE, ADJUVANT, PF 2022 ALANIS PARKER LEFT DELTO ID [id number] 216 complet ed Completed Series, [facility] [place] [facility] IN[facility], HIGH-DOSE, QUADRIVALENT 5 2021 197 complet ed HISTORICA L INFORMATI ON - FROM OTHER REGISTRY, [place] [facility] [place] COVID-19 (PFIZER), MRNA, LNP-S, PF, 30 MCG/0.3 ML DOSE, KIRSTEN-SUCROSE (AGES 12+ YEARS) 3 2021 217 complet ed HISTORICA L INFORMATI ON - FROM OTHER REGISTRY, [place] [facility] [place] INFLUENZA, HIGH DOSE SEASONAL 4 2020 135 complet ed HISTORICA L INFORMATI ON - FROM OTHER REGISTRY, [place] [facility] INFLUENZA, UNSPECIFIED FORMULATION 2020 88 complet ed [place] [facility] COVID-19 (PFIZER), MRNA, LNP-S, PF, 30 MCG/0.3 ML DOSE 3 2020 208 complet ed HISTORICA L INFORMATI ON - FROM OTHER REGISTRY, [place] [facility] COVID-19 (PFIZER), MRNA, LNP-S, PF, 30 MCG/0.3 ML DOSE 2 2020 208 complet ed PFR; [id number]; 1 [place] COVID-19 (PFIZER), MRNA, LNP-S, PF, 30 MCG/0.3 ML DOSE 1 2020 208 complet ed PFR; [id number]; 1 [place] INFLUENZA, HIGH DOSE SEASONAL 3 2019 135 complet ed HISTORICA L INFORMATI ON - FROM OTHER REGISTRY, [place] [facility] INFLUENZA, UNSPECIFIED FORMULATION 2019 88 complet ed [place] [facility] HEP A, ADULT 2019 52 complet ed [place] [facility] INFLUENZA, HIGH DOSE SEASONAL 2 2018 135 complet ed HISTORICA L INFORMATI ON - FROM OTHER REGISTRY, [place] [facility] INFLUENZA, SEASONAL, INJECTABLE 2018 141 complet ed [place] [facility] [place] HEP A, ADULT 2018 52 complet ed [place] [facility] [place] INFLUENZA, INJECTABLE, QUADRIVALENT, PRESERVATIVE FREE 1 2017 150 complet ed HISTORICA L INFORMATI ON - FROM OTHER REGISTRY, [place] [facility] [place] INFLUENZA, SEASONAL, INJECTABLE 2017 141 complet ed locally [place] [facility] [place] PNEUMOCOCCAL POLYSACCHARID E [id number] 2017 33 complet ed [place] [facility] [place] INFLUENZA A & B (HISTORICAL) 2016 88 complet ed [place] [facility] [place] [id number] (HISTORICAL) 2016 133 complet ed [place] [facility] [place] INFLUENZA A & B (HISTORICAL) 2015 [...] (HISTORICAL) 2008 88 complet ed [place] [facility] [place] TD(ADULT) UNSPECIFIED FORMULATION 2004 139 complet ed [place] [facility] [place] TD (ADULT), 2 LF TETANUS TOXOID, PRESERVATIVE FREE, ADSORBED 1 1996 09 complet ed HISTORICA L INFORMATI ON - FROM OTHER REGISTRY, [place] [facility] [place] Results Combined list of recent chemistry, hematology and other laboratory results from Department of Defense and Veterans Affairs, ranging from 15 months to all on record, depending upon the facility. Order Name Results Value Reference Range Date Interpretation Specimen Comments Source B12 VITAMIN COBALAMIN (VITAMIN B12) [MASS/VOLUM E] IN SERUM OR PLASMA 324 pg/mL 213 - 816 04/14 Specimen Type: PLASMA Comment: Vitamin B12 test [...] Apr 14, 2025 10:00 AM Reporting Lab: [place] [phone] Performing Lab: [place] [phone] [place] [address] CBC/PLT LEUKOCYTES [#/VOLUME] IN BLOOD BY AUTOMATED COUNT 5.6 10*3/u L 5.0 - 10.0 04/14 Specimen Type: BLOOD No comment entered. Ordering Provider: PHONG JENKINS Report Released Date/Time: Apr 14, 2025 10:00 AM Reporting Lab: [address] [address] Performing Lab: [place] [phone] [place] [address] CBC/PLT ERYTHROCYTE S [#/VOLUME] IN BLOOD BY AUTOMATED COUNT 4.87 10*6/u L 4.6 - 6.2 04/14 Specimen Type: BLOOD No comment entered. Ordering Provider: PHONG JENKINS Report Released Date/Time: Apr 14, 2025 10:00 AM Reporting Lab: [address] [address] Performing Lab: [place] [phone] [place] [address] CBC/PLT HEMOGLOBIN [MASS/VOLUM E] IN BLOOD 14.1 g/dL 14.0 - 18.0 04/14 Specimen Type: BLOOD No comment entered. Ordering Provider: PHONG JENKINS Report Released Date/Time: Apr 14, 2025 10:00 AM Reporting Lab: [address] [address] Performing Lab: [place] [phone] [place] [address] CBC/PLT HEMATOCRIT [VOLUME FRACTION] OF BLOOD BY AUTOMATED COUNT 42.4 42.0 - 52.0 04/14 Specimen Type: BLOOD No comment entered. Ordering Provider: PHONG JENKINS Report Released Date/Time: Apr 14, 2025 10:00 AM Reporting Lab: [address] [address] Performing Lab: [place] [phone] [place] [address] CBC/PLT MCV [ENTITIC VOLUME] BY AUTOMATED COUNT 87.1 fL 80.0 - 94.0 04/14 Specimen Type: BLOOD No comment entered. Ordering Provider: PHONG JENKINS Report Released Date/Time: Apr 14, 2025 10:00 AM Reporting Lab: [place] [phone] Performing Lab: [place] [phone] [place] [address] CBC/PLT MCH [ENTITIC MASS] BY AUTOMATED COUNT 29.0 pg 27.0 - 31.0 04/14 Specimen Type: BLOOD No comment entered. Ordering Provider: PHONG JENKINS Report Released Date/Time: Apr 14, 2025 10:00 AM Reporting Lab: [place] [phone] Performing Lab: [place] [phone] [place] [address] CBC/PLT MCHC [MASS/VOLUM E] BY AUTOMATED COUNT 33.3 g/dL 32.0 - 36.0 04/14 Specimen Type: BLOOD No comment entered. Ordering Provider: PHONG JENKINS Report Released Date/Time: Apr 14, 2025 10:00 AM Reporting Lab: [place] [phone] Performing Lab: [place] [phone] [place] [address] CBC/PLT PLATELETS [#/VOLUME] IN BLOOD 171 10*3/u L 150 - 450 04/14 Specimen Type: BLOOD No comment entered. Ordering Provider: PHONG JENKINS Report Released Date/Time: Apr 14, 2025 10:00 AM Reporting Lab: [place] [phone] Performing Lab: [place] [phone] [place] [address] CBC/PLT PLATELET MEAN VOLUME [ENTITIC VOLUME] IN BLOOD 10.5 fL 9.0 - 13.1 04/14 Specimen Type: BLOOD No comment entered. Ordering Provider: PHONG JENKINS Report Released Date/Time: Apr 14, 2025 10:00 AM Reporting Lab: [place] [phone] Performing Lab: [address] CBC/PLT ERYTHROCYTE DISTRIBUTIO N WIDTH [ENTITIC VOLUME] BY AUTOMATED COUNT 13.7 11.0 - 16.0 04/14 Specimen Type: BLOOD No comment entered. Ordering Provider: PHONG JENKINS Report Released Date/Time: Apr 14, 2025 10:00 AM Reporting Lab: [place] [phone] Performing Lab: [address] CBC/PLT NUCLEATED ERYTHROCYTE S/100 ERYTHROCYTE S IN BLOOD 0.0 0.0 - 0.0 04/14 Specimen Type: BLOOD No comment entered. Ordering Provider: PHONG JENKINS Report Released Date/Time: Apr 14, 2025 10:00 AM Reporting Lab: [place] [phone] Performing Lab: [address] FOLATE FOLATE [MASS/VOLUM E] IN SERUM OR PLASMA 13.5 ng/mL 7.0 - 31.4 04/14 Specimen Type: PLASMA Comment: Vitamin B12 test [...] Apr 14, 2025 10:00 AM Reporting Lab: [facility] [address] [address] Performing Lab: [facility] [address] [address] [facility] GLYCOHEMO GLOBIN HEMOGLOBIN A1C/HEMOGLO BIN.TOTAL IN BLOOD BY HPLC 5.3 4.4 - 5.6 04/14 Specimen Type: BLOOD Comment: Prediabetes : 5.7%-6.4% Diabetes: >= 6.5% [facility] guidelines for A1c interpretat ion: Glycemic control targets are based on Shared Decision Making between clinicians and patients. Criteria used to establish an A1c target recommendat ion can be found at https://www .ma.gov/moe doradpati entsafety/ and include the use of result [...] 9.27. Ref: https://ngs p.org/CAPda ta.asp. The in-house [facility] [employer] D-100 analyzer has a historical CV <= 2%. Contact the laboratory for further performance characteris tics of this assay. Ordering Provider: PHONG JENKINS Report Released Date/Time: Apr 14, 2025 10:00 AM Reporting Lab: [facility] [address] [address] Performing Lab: [facility] [address] [address] [facility] LIPID PROFILE CHOLESTEROL [MASS/VOLUM E] IN SERUM OR PLASMA 121 mg/dL 0 - 199 04/14 Specimen Type: PLASMA Comment: Vitamin B12 test [...] Apr 14, 2025 10:00 AM Reporting Lab: [facility] [address] [address] Performing Lab: [facility] [address] [address] [facility] LIPID PROFILE TRIGLYCERID E [MASS/VOLUM E] IN SERUM OR PLASMA 99 mg/dL 0 - 149 04/14 Specimen Type: PLASMA Comment: Vitamin B12 test [...] Apr 14, 2025 10:00 AM Reporting Lab: [facility] [address] [address] Performing Lab: [facility] [address] [address] [facility] LIPID PROFILE CHOLESTEROL IN HDL [MASS/VOLUM E] IN SERUM OR PLASMA 36 mg/dL 40 - 69 04/14 L Specimen Type: PLASMA Comment: Vitamin B12 test [...] Apr 14, 2025 10:00 AM Reporting Lab: [facility] [address] [address] Performing Lab: [facility] [address] [address] [facility] LIPID PROFILE CHOLESTEROL IN LDL [MASS/VOLUM E] IN SERUM OR PLASMA BY DIRECT ASSAY 79 mg/dL 0 - 100 04/14 Specimen Type: PLASMA Comment: Vitamin B12 test [...] Apr 14, 2025 10:00 AM Reporting Lab: RICHARD [address] [address] Performing Lab: [facility] [address] [address] [facility] MIN/CREAT RATIO CREATININE [MASS/VOLUM E] IN URINE 80.5 mg/dL 04/14 Specimen Type: URINE No comment entered. Ordering Provider: PHONG JENKINS Report Released Date/Time: Apr 14, 2025 10:00 AM Reporting Lab: [facility] [address] [address] Performing Lab: [address] [phone] [place] [address] MICROALBU MIN/CREAT RATIO MICROALBUMI N [MASS/VOLUM E] IN URINE 48.6 mg/L 0.0 - 30.0 04/14 H Specimen Type: URINE No comment entered. Ordering Provider: PHONG JENKINS Report Released Date/Time: Apr 14, 2025 10:00 AM Reporting Lab: [place] [phone] Performing Lab: [place] [phone] MICROALBU MIN/CREAT RATIO MICROALBUMI N/CREATININ E [MASS RATIO] IN URINE 60.4 ug/mg{ creat} 04/14 Specimen Type: URINE No comment entered. Ordering Provider: PHONG JENKINS Report Released Date/Time: Apr 14, 2025 10:00 AM Reporting Lab: [place] [phone] Performing Lab: [place] [phone] [place] [address] PANEL 5 CREATININE [MASS/VOLUM E] IN SERUM OR PLASMA 0.99 mg/dL 0.72 - 1.25 04/14 Specimen Type: PLASMA Comment: Vitamin B12 test [...] Apr 14, 2025 10:00 AM Reporting Lab: [facility] [address] [address] Performing Lab: [facility] [address] [address] [facility] PANEL 5 UREA NITROGEN [MASS/VOLUM E] IN SERUM OR PLASMA 18 mg/dL 9 - 25 04/14 Specimen Type: PLASMA Comment: Vitamin B12 test [...] Apr 14, 2025 10:00 AM Reporting Lab: [facility] [address] [address] Performing Lab: [facility] [address] [address] [facility] PANEL 5 GLUCOSE [MASS/VOLUM E] IN SERUM OR PLASMA 118 mg/dL 74 - 100 04/14 H Specimen Type: PLASMA Comment: Vitamin B12 test [...] Apr 14, 2025 10:00 AM Reporting Lab: [facility] [address] [address] Performing Lab: [facility] [address] [address] [facility] PANEL 5 SODIUM [MOLES/VOLU ME] IN SERUM OR PLASMA 142 mmol/L 136 - 145 04/14 Specimen Type: PLASMA Comment: Vitamin B12 test [...] Apr 14, 2025 10:00 AM Reporting Lab: [facility] [address] [address] Performing Lab: [facility] [address] [address] [facility] PANEL 5 POTASSIUM [MOLES/VOLU ME] IN SERUM OR PLASMA 4.6 mmol/L 3.5 - 5.1 04/14 Specimen Type: PLASMA Comment: Vitamin B12 test [...] Apr 14, 2025 10:00 AM Reporting Lab: [facility] [address] [address] Performing Lab: [facility] [address] [place] [address] [facility] PANEL 5 CHLORIDE [MOLES/VOLU ME] IN SERUM OR PLASMA 110 mmol/L 98 - 107 04/14 H Specimen Type: PLASMA Comment: Vitamin B12 test [...] Apr 14, 2025 10:00 AM Reporting Lab: [facility] [address] [facility] [address] Performing Lab: [facility] [address] [facility] [address] [facility] PANEL 5 CARBON DIOXIDE, TOTAL [MOLES/VOLU ME] IN SERUM OR PLASMA 23 mmol/L 04/14 Specimen Type: PLASMA Comment: Vitamin B12 test [...] Apr 14, 2025 10:00 AM Reporting Lab: [facility] [address] [address] Performing Lab: [facility] [address] [address] [facility] PANEL 5 CALCIUM [MASS/VOLUM E] IN SERUM OR PLASMA 8.8 mg/dL 8.4 - 10.2 04/14 Specimen Type: PLASMA Comment: Vitamin B12 test [...] Apr 14, 2025 10:00 AM Reporting Lab: [facility] [address] [address] Performing Lab: [facility] [address] [address] [facility] PANEL 5 PROTEIN [MASS/VOLUM E] IN SERUM OR PLASMA 7.1 g/dL 6.4 - 8.3 04/14 Specimen Type: PLASMA Comment: Vitamin B12 test [...] Apr 14, 2025 10:00 AM Reporting Lab: [facility] [address] [address] Performing Lab: [facility] [address] [address] [facility] PANEL 5 ALBUMIN [MASS/VOLUM E] IN SERUM OR PLASMA 4.3 g/dL 3.5 - 5.2 04/14 Specimen Type: PLASMA Comment: Vitamin B12 test [...] Apr 14, 2025 10:00 AM Reporting Lab: [facility] [address] [address] Performing Lab: [facility] [address] [address] [facility] PANEL 5 BILIRUBIN.T OTAL [MASS/VOLUM E] IN SERUM OR PLASMA 1.0 mg/dL 0.2 - 1.2 04/14 Specimen Type: PLASMA Comment: Vitamin B12 test [...] Apr 14, 2025 10:00 AM Reporting Lab: [facility] [address] [address] Performing Lab: [facility] [address] [address] [facility] PANEL 5 ASPARTATE AMINOTRANSF ERASE [ENZYMATIC ACTIVITY/VO LUME] IN SERUM OR PLASMA 14 U/L 5 - 34 04/14 Specimen Type: PLASMA Comment: Vitamin B12 test [...] Apr 14, 2025 10:00 AM Reporting Lab: [facility] [address] [phone] Performing Lab: [facility] [address] [address] [facility] PANEL 5 ALANINE AMINOTRANSF ERASE [ENZYMATIC ACTIVITY/VO LUME] IN SERUM OR PLASMA 15 U/L 0 - 55 04/14 Specimen Type: PLASMA Comment: Vitamin B12 test [...] Apr 14, 2025 10:00 AM Reporting Lab: [facility] [address] [address] Performing Lab: [facility] [address] [phone] [facility] PANEL 5 ANION GAP 3 IN SERUM OR PLASMA 9 meq/L 3 - 19 04/14 Specimen Type: PLASMA Comment: Vitamin B12 test [...] Apr 14, 2025 10:00 AM Reporting Lab: [facility] [address] [facility] [address] Performing Lab: [facility] [address] [facility] [address] [facility] PANEL 5 ALKALINE PHOSPHATASE [ENZYMATIC ACTIVITY/VO LUME] IN SERUM OR PLASMA 71 U/L 40 - 150 04/14 Specimen Type: PLASMA Comment: Vitamin B12 test [...] Apr 14, 2025 10:00 AM Reporting Lab: [facility] [address] [facility] [address] Performing Lab: [facility] OL[facility] [address] [facility] [address] [facility] PANEL 5 GLOMERULAR FILTRATION RATE/1.73 SQ M.PREDICTED [VOLUME RATE/AREA] IN SERUM, PLASMA OR BLOOD BY CREATININE- BASED FORMULA (CKD-EPI 2020) 78 04/14 Specimen Type: PLASMA Comment: Vitamin B12 test [...] Apr 14, 2025 10:00 AM Reporting Lab: [address] [address] Performing Lab: [address] [address] [facility] TSH THYROTROPIN [UNITS/VOLU ME] IN SERUM OR PLASMA 0.9788 m[IU]/ mL 0.3500 - 4.9400 04/14 Specimen Type: PLASMA Comment: Vitamin B12 test [...] Apr 14, 2025 10:00 AM Reporting Lab: RICHARD OLIVEROS [address] [address] Performing Lab: RICHARD OLIVEROS [address] [address] [facility] URIC ACID URATE [MASS/VOLUM E] IN SERUM OR PLASMA 6.6 mg/dL 3.5 - 7.2 04/14 Specimen Type: PLASMA Comment: Vitamin B12 test [...] Apr 14, 2025 10:00 AM Reporting Lab: [address] [address] Performing Lab: [address] [address] [facility] GLYCOHEMO GLOBIN HEMOGLOBIN A1C/HEMOGLO BIN.TOTAL IN BLOOD BY HPLC 6.6 4.4 - 6.4 05/18 H Specimen Type: BLOOD Comment: [facility] guidelines for A1c interpretat ion: Glycemic control targets are based on Shared Decision Making between clinicians and patients. Criteria used to establish an A1c target recommendat ion can be found at https://www .ma.gov/moe lityandpati entsafety/ and include the use of [...] 9.27. Ref: https://ngs p.org/CAPda ta.asp. The in-house GetJar D-100 analyzer has a historical CV <= 2%. Contact the laboratory for further performance characteris tics of this assay. Ordering Provider: PHONG JENKINS Report Released Date/Time: May 18, 2024 09:37 AM Reporting Lab: [facility] [address] [facility] [address] Performing Lab: [facility] [address] [facility] [address] [facility] Vital Signs Combined list of inpatient and outpatient Vital Signs from Department of Defense and Veterans Affairs, ranging from 12 months to all on record, depending upon the facility. Vital Sign Value Date Comments Source SYSTOLIC BLOOD PRESSURE 136 04/14/2025 09:22:02 [facility] DIASTOLIC BLOOD PRESSURE 70 04/14/2025 09:22:02 [facility] PULSE OXIMETRY 95 % 04/14/2025 09:22:02 [facility] WEIGHT 248.6 04/14/2025 09:22:02 [place] [facility] BMI 35 kg/m2 04/14/2025 09:22:02 [place] [facility] PAIN 7 04/14/2025 09:22:02 [place] [facility] HEIGHT 71 04/14/2025 09:22:02 [place] [facility] TEMPERATURE 97.8 04/14/2025 09:22:02 D[facility] NGTON [facility] PULSE 65 04/14/2025 09:22:02 [place] [facility] SYSTOLIC BLOOD PRESSURE 139 01/09/2025 09:44:00 [facility] DIASTOLIC BLOOD PRESSURE 76 01/09/2025 09:44:00 [facility] WEIGHT 240.0 01/09/2025 09:44:00 [place] [facility] BMI 34 kg/m2 01/09/2025 09:44:00 [place] [facility] PAIN 0 01/09/2025 09:44:00 [place] [facility] TEMPERATURE 97.4 01/09/2025 09:44:00 D[facility]RI NGTON [facility] PULSE 72 01/09/2025 09:44:00 IN[facility] MORAL[facility] SYSTOLIC BLOOD PRESSURE 123 05/18/2024 08:50:13 [facility] DIASTOLIC BLOOD PRESSURE 69 05/18/2024 08:50:13 [facility] PULSE OXIMETRY 95 05/18/2024 08:50:13 L [facility] WEIGHT 241.8 05/18/2024 08:50:13 [place] [facility] BMI 34 kg/m2 05/18/2024 08:50:13 [place] [facility] PAIN 2 05/18/2024 08:50:13 [place] [facility] HEIGHT 71 05/18/2024 08:50:13 [place] [facility] TEMPERATURE 97.8 05/18/2024 08:50:13 DIMITRI JOHNSON [facility] PULSE 65 05/18/2024 08:50:13 [place] [facility] Encounters Combined list of: 1) Encounters from Department of [facility] Affairs facilities going backup to the last 18 months, not all [place] inpatient encounters are included; 2) 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 Location Location Details Encounter Type Encounter Number Reason For Visit Attending Provider ADM Date DC Date Status Disposition Source [facility] Outpatient Encounter [id number] 11/01 [place] [facility] OFFICE O/P EST MOD 30 MIN [id number] Diagnos is: ICD-10- CM I10 Essenti al (primar y) hyperte nsion KOUSA,NANCY A 11/01 [place] [facility] COMPRE OPH EXAM EST PT 1/> [id number] Diagnos is: ICD-10- CM H25.813 Combine d forms of age-rel ated catarac t, bilater al ZACKASHLE Y 11/01 [place] [facility] Outpatient Encounter [id number] 11/05 [place] [facility] Outpatient Encounter [id number] 11/09 [place] [facility] Outpatient Encounter [id number] 11/14 [place] [facility] Outpatient Encounter [id number] 11/15 [place] [facility] Outpatient Encounter [id number] 11/23 [place] [facility] Outpatient Encounter [id number] 11/28 [place] [facility] Outpatient Encounter [id number] 11/30 [place] [facility] Outpatient Encounter [id number] 11/30 [place] [facility] OFFICE O/P NEW LOW 30 MIN [id number] Diagnos is: ICD-10- CM 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 , unspeci BEVERLY Gudino 01/10 [place] [facility] Outpatient Encounter [id number] 02/07 [place] [facility] OFF/OP EST DECEMBER X REQ PHY/QHP [id number] Diagnos is: ICD-10- CM 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 Aline Merino 02/16 [place] [facility] Outpatient Encounter [id number] 02/22 [place] [facility] Outpatient Encounter [id number] 03/30 [place] OFFICE O/P EST MOD 30 MIN [id number] Diagnos is: ICD-10- CM I10 Essenti al (primar y) hyperte nsNANCY Dumont A 05/18 [place] [facility] Outpatient Encounter [id number] 05/21 [place] [facility] Outpatient Encounter [id number] 06/25 [place] [facility] Outpatient Encounter [id number] 07/05 [place] [facility] Outpatient Encounter [id number] 09/27 [place] [facility] COMPRE OPH EXAM EST PT 1/> [id number] Diagnos is: ICD-10- CM E11.9 Type 2 diabete s mellitu s without complic ations BRIE DIXON 11/02 [place] [facility] Outpatient Encounter [id number] 11/07 [place] [facility] Outpatient Encounter [id number] 11/14 [place] [facility] Outpatient Encounter [id number] 11/21 [place] [facility] Outpatient Encounter [id number] 11/22 [place] [facility] Outpatient Encounter [id number] 11/29 [place] [facility] OFFICE O/P EST LOW 20 MIN [id number] Diagnos is: ICD-10- CM 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 , unspeci JOSSELIN Infante AEL T 01/09 [place] Outpatient Encounter [id number] 02/21 [place] [facility] Outpatient Encounter [id number] 04/14 [place] [facility] OFFICE O/P EST MOD 30 MIN [id number] Diagnos is: ICD-10- CM I10 Essenti al (primar y) hyperte nsion GREGORYNANCY A 04/14 [place] [facility] Social History Combined list of available smoking, tobacco, and other social history from Department of Defense and [facility] Affairs facilities. 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 DAYS 05/18/2024 [facility] History of tobacco use VA-TOBACCO DOESNT USE WI 30 MIN WAKEUP 05/18/2024 [facility] History of tobacco use [place]TO[place] USE ADVICE 11/02/2023 [facility] History of tobacco use VA-TOBACCO USE 30 YEARS OR MORE 08/29/2022 [facility] History of tobacco use VA-TOBACCO DOESNT USE WI 30 MIN WAKEUP 08/26/2021 [facility] History of tobacco use VA-TOBACCO USE ADVICE 12/26/2019 [facility] History of tobacco use [place]-TOBACCO USE STAGE 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 NO 10/19/2018 [facility] History of tobacco use V9 CURRENT TOBACCO USER 09/25/2017 [facility] History of tobacco use V9 CURRENT TOBACCO USER 10/14/2016 [facility] History of tobacco use V9 CURRENT TOBACCO USER 10/03/2015 [facility] History of tobacco use V9 CURRENT TOBACCO USER 08/30/2014 [facility] History of tobacco use V9 QUIT TOBACCO >7 YEARS AGO 07/18/2013 [facility] History of tobacco use V9 CURRENT TOBACCO USER 07/01/2012 [facility] History of tobacco use V9 CURRENT TOBACCO USER 2011 [facility] History of tobacco use V9 CURRENT TOBACCO USER 06/12/2011 [facility] History of tobacco use V9 CURRENT TOBACCO USER 09/06/2010 [facility] History of tobacco use V9 CURRENT [facility]
[2025-04-17 10:32] VITALS: BP 154/87; BP 164/84; PULSE 76; RESP 14; O2SAT 96; BMI 34.5
--- NOTE | 2025-04-17 10:52 | EXP.PAIN.SOA ---
[facility] Disclaimer: The information contained in this section may have been updated after the patient was seen, as this information can be updated by other users. Medical History Right groin pain Peripheral artery disease CAD in [place] artery Pseudoaneurysm Type 2 diabetes mellitus Abdominal aortic aneurysm BPH (benign prostatic hyperplasia) Lumbar disc disease Paroxysmal A-fib Family history of ischemic heart disease (IHD) Abnormal electrocardiogram [ECG] [EKG] Hyperlipidemia Hypertension Surgical History History of cardiac catheterization History of inguinal hernia repair History of left hip replacement Family History Other Family history of myocardial infarction Social History Smoking Status: Current some day smoker tobacco type: cigars years smoked: 50 second hand exposure: No alcohol intake: current alcohol intake frequency: a few times a week substance use type: denies use current occupational status: other Travel in the last 8 weeks?: None adopted: No caregiver/support person: No foster care: No household members: spouse housing: house lives independently: Yes marital status: service: Yes status: retired residential: No current occupational exposures/hazards: No pets and animals: Yes pets and animals: cat(s) leisure activities: sports sexually active: No caffeine: Yes physical activity: walking do you feel safe at home: Yes PM Subjective & Objective Subjective Subjective:: Patient is a pleasant 79-year-old male who presents today for 1 month follow-up. Today he rates his pain a 2 out of 10 however stated that this morning it was much worse of at least 5 out of 10 and he was actually having a lot of significant pain in his knees. He states that he ended up waking up with this pain and he was even having trouble walking and it was interfering with his ability perform activities of daily living such as cooking and cleaning. Patient states that it has since improved and he does feel like he is doing better now. Patient did bring in a cane today to help with his ambulation. Patient denies any previous knee replacement. His Rc has been reviewed and is appropriate. Review of Systems: General: No recent weight changes, no fever, no sleep disturbances Respiratory: No cough, no shortness of air, no recurring pulmonary infections Cardiovascular/peripheral vascular: No chest pain, no palpitations, no edema, no shortness of breath Gastrointestinal: No new onset incontinence, normal bowel movements reported Genitourinary: No new onset incontinence Musculoskeletal: Bilateral knee pain Psychiatric: [Normal mood/affect] Neurological: [Denies weakness in extremities], [denies balance issues] Pain at rest (0-10 scale): 5 Objective Objective:: Physical Exam: General: Alert and oriented x3, no acute distress, pleasant and cooperative Lungs: Respirations even and unlabored, symmetrical chest expansion Eyes: PERRL Musculoskeletal: Flexion and extension of bilateral knees somewhat guarded secondary to pain, [antalgic gait noted] Neurological: Speech clear, no gross sensory deficit Has patient had previous pain injection?: No Conservative treatment options previously tried: Home exercise plan Length of treatment: Longer than 12 weeks Meds Home Medications and Allergies Home Medications ?Medication ?Instructions ?Recorded ?Confirmed ?Type aspirin 81 mg tablet,delayed 81 mg PO DAILY 09/01/23 04/17/25 History release (Adult Low Dose Aspirin) metoprolol succinate 25 mg 25 mg PO DAILY #30 tabs 12/15/23 04/17/25 Rx tablet,extended release 24 hr (Toprol XL) clopidogrel 75 mg tablet (Plavix) 75 mg PO DAILY #30 tabs 01/08/24 04/17/25 Rx allopurinol 100 mg tablet 100 mg PO DAILY 01/12/24 04/17/25 History atorvastatin 40 mg tablet 80 mg PO HS 10/24/24 04/17/25 History lisinopril 20 mg tablet 10 mg PO HS 10/24/24 04/17/25 History omeprazole 20 mg capsule,delayed 20 mg PO DAILY 10/24/24 04/17/25 History release tamsulosin 0.4 mg capsule 0.4 mg PO HS 10/24/24 04/17/25 History New Prescriptions to Start Prescriptions: Allergies Allergy/AdvReac Type Severity Reaction Status Date / Time No Known Allergies Allergy Verified 02/23/25 08:01 Assessment and Plan *Assessment and plan (1) Chronic pain of both knees: Status: Acute Category: Medical Code(s): M25.561 - Pain in right knee; M25.562 - Pain in left knee; G89.29 - Other chronic pain Plan Patient did have some tenderness with limited range of motion of his bilateral knees. I did discuss with the patient since the pain has now eased off that we will hold off and wait however I do believe he would be a beneficial candidate of intra-articular knee injections. Risk and benefits were discussed with the patient and he would like to definitely look at these for future. I did program counselor him if the pain does start to increase and worsen over the next several weeks to months between our next visit to call us and we will go ahead and schedule him over the phone since we have already reviewed over this information. We did discuss the risk and benefits. Patient would be scheduled for bilateral intra-articular knee injections without fluoroscopic guidance. Patient agrees with this plan of care. Patient will be given a tentative 3-month follow-up. Patient has been instructed to contact the clinic with any concerns before the next appointment. Dr. Pettit has reviewed this note and agrees with this plan of care. This note was dictated using voice recognition software and make contain errors or omissions. All injections are used with Lidocaine, Bupivacaine and dexamethasone. Occasionally urine drug screen is needed to verify patient's compliance with our office pain contract. This is ordered based off specific treatments related to chronic pain with the potential to abuse certain medications.
--- OUTSIDE RECORDS SUMMARY | 2025-04-17 11:03 | XMS_ITS | Patient Health Record ---
[facility] [address] [place] [id number] Care Team Providers Care Assisted Living Housekeeper Name Role Phone Tomás Kessler Primary Care Provider Lulu Kelly Unavailable [phone] Allergies No Known Allergies Results Component Value Reference Range Notes Covid test (in house) Reviewed date:04/27/2024 01:11:57 PM Interpretation: Performing Lab: Notes/Report: Result: Neg CBC Fingerstick (in house) Reviewed date:04/27/2024 01:12:11 [...] - 38 plat 192 100 - 400 CBC Fingerstick (in house) Reviewed date:04/19/2024 12:31:49 [...] - 38 plat 143 100 - 400 H-Sputum Culture with Gram S tain Reviewed date:05/12/2024 12:36:30 PM Interpretation:Normal Performing Lab: Notes/Report: GS Gram Stain: GS <10 White Blood Cells/LPF GS <10 Epithelial Cells / LPF GS Rare Gram Positive Cocci GS Rare Gram Negative Rods CUSPU Normal Respiratory Viji Sputum Culture Reviewed date:05/09/2024 11:28:17 AM Interpretation: Performing Lab: Notes/Report: CXR Reviewed date:05/06/2024 04:19:29 PM Interpretation: Performing Lab: Notes/Report: CBC Fingerstick (in house) Reviewed date:05/05/2024 11:04:24 [...] - 38 plat 387 100 - 400 Gram Stain Reviewed date:05/01/2024 10:25:12 PM Interpretation: Performing Lab: Notes/Report: Test performed by [address] [place] [address] , [address], [place] [address] Checo Russell MD, Quality Control Scientist CLIA: [id number] Specimen Source Sputum - Lungs Gram Stain [...] Oral pharyngeal contamination Culture cancelled. Please repeat. CBC Fingerstick (in house) Reviewed date:08/31/2024 11:47:28 [...] - 38 plat 161 100 - 400 CXR Reviewed date:04/28/2024 08:22:38 AM Interpretation:BIENVENIDO pneumonia [...] due to low Q score: oral contamination CXR Reviewed date:05/17/2024 03:55:10 PM Interpretation:significant improvement Performing Lab: Notes/Report: significant improvement Reason For Referral No Information Medications Medication SIG (Take, Route, Frequency, Duration) Notes Start Date End Date Status Allopurinol 100 MG 1 tablet Orally Once a day; Duration: 30 day(s) Active Albuterol Sulfate (2.5 MG/3ML) 0.083% 3 ml Inhalation every 6 hrs, prn Active Breztri Aerosphere 160-9-4.8 MCG/ACT 2 puffs Inhalation Twice a day Active Plavix 75 MG 1 tablet Orally Once a day; Duration: 30 day(s) Active Fluticasone Propionate 50 MCG/ACT 1 spray in each nostril Nasally Twice a day 08/31/2024 Active Aspirin 81 MG 1 tablet Orally [...] cap(s) orally on ce a day Active Immunizations Vaccine Route Administration Date Status Comme nts COVID 19 Pfizer Unknown 09/09/2020 Administered COVID 19 Pfizer Unknown 09/30/2020 Administered COVID 19 Pfizer Unknown 04/24/2021 Administered DT, 7 YEARS OR OLDER Unknown 10/30/1996 Administered Fluzone High Dose (65yr and older) IM Intramuscular 06/05/2015 Administered Fluzone High Dose (65yr and older) IM Intramuscular 06/14/2019 Administered Fluzone High Dose (65yr and older) IM Intramuscular 06/07/2020 Administered Fluzone High Dose (65yr and older) Unknown 06/25/2022 Administered Fluzone PF Quad (6-35 months) Unknown 06/01/2018 Administered Shingrix Unknown 09/29/2022 Administered Shingrix Unknown 2022 Administered xFluzone High Dose-private (65yr&older) Unknown 07/08/2021 Administered Problems Problem Type SNOMED Code ICD Code Onset Dates Problem Status W/U Status Risk Notes Problem Hyperlipidemia (22566408) Hyperlipidemia (272.4) Active confirmed Problem Benign prostatic hypertrophy without outflow obstruction (261471807) Benign prostatic hypertrophy, not otherwise specified, without urinary obs (600.90) Active confirmed Problem Aortic aneurysm (76562848) Aortic aneurysm NOS (441.9) Active confirmed Problem Peripheral vascular disease (067485840) PVD (peripheral vascular disease) (I73.9) Active confirmed Problem Arthropathy of lumbar facet joint (441674249) Lumbar facet arthropathy (M47.816) Active confirmed Problem Obstructive sleep apnea (73067543) Obstructive sleep apnea (G47.33) Active confirmed Problem Morbid obesity (disorder) (695999660) Morbid (severe) obesity due to excess calories (E66.01) Active confirmed Problem Peripheral vascular disease (927731833) Peripheral vascular disease, unspecified (I73.9) Active confirmed Problem Chronic pain (80055306) Other chronic pain (G89.29) Active confirmed Problem Body mass index 30.00 to 34.99 (154401476733271) BMI 34.0-34.9,adult (Z68.34) Active confirmed Problem Atherosclerotic heart disease of rosebud coronary artery without angina pectoris (198858805493356) Atherosclerosis of rosebud coronary artery without angina pectoris, unspecified whether rosebud or transplanted heart (I25.10) Active confirmed Problem Degenerative disc disease (65832195) DDD (degenerative disc disease), lumbar (M51.36) Active confirmed Problem Type 2 diabetes mellitus with peripheral angiopathy (012347444) Type 2 diabetes mellitus with diabetic peripheral angiopathy without gangrene, unspecified whether correction insulin use (E11.51) Active confirmed Vital Signs Heart Rate 70 /min 03/22/2025 Blood pressure diastolic 80 mm Hg 03/22/2025 Height 71 in 03/22/2025 Blood pressure systolic 110 mm Hg 03/22/2025 Weight 247.2 lbs 03/22/2025 BMI 34.47 kg/m2 03/22/2025 Encounters Encounter Location Date Provider Diagnosis [facility] [address] [facility] [address] [place], [place] [id number] 04/19/2024 Tomás Canada Acute rhinitis J00 a nd Obstructive sleep apnea G47.33 [facility] [address] [facility] [address] [place], [place] [id number] 04/27/2024 Lulu Crowdy Bronchitis J40 [facility] [facility] [address] [facility] [address] [place], [place] [id number] 04/29/2024 Lulu Crowdy Pneumonia of left up per lobe due to infectious organism J18.9 [facility] [address] [facility] [address] [place], [place] [id number] 05/05/2024 Lulu Crowdy Pneumonia of left up per lobe due to infectious organism J18.9 [facility] [address] [facility] [address] [place], [place] [id number] 07/11/2024 Tomás Canada Obstructive sleep ap june G47.33 [facility] [address] [facility] [address] [place], [place] [id number] 08/31/2024 Tomás Canada Acute rhinitis J00 [facility] [address] [place], [place] [id number] 03/22/2025 Tomás Canada Obstructive sleep ap june G47.33 ; Peripheral vascular disease, unspecified I73.9 ; Type 2 diabetes mellitus with diabetic peripheral angiopathy without gangrene, unspecified whether correction insulin use E11.51 ; Morbid (severe) obesity due to excess calories E66.01 and BMI 34.0-34.9,adult Z68.34 [facility] [address] [place], [place] [id number] 04/27/2024 Tomás Canada Obstructive sleep ap june G47.33 [facility] [address] [place], [place] [id number] 04/28/2024 Lulu Crowdy [facility] [address] [place] [id number] 05/01/2024 Lulu Crowdy [facility] [address] [place] [id number] 05/06/2024 Lulu Crowdy [facility] [address] [place], [place] [id number] 05/13/2024 Lulu Crowdy Pneumonia J18.9 [facility] [address] [facility] [address] [place], [place] [id number] 05/17/2024 Lulu Crowdy Assessments Encounter Date Diagnosis (ICD Code) Assessment [...] it helped. Will send a nebulizer to [place] and vials to . Will give a sample of Breztri to use for the next few weeks. 04/27/2024 Obstructive sleep apnea (ICD-10 - G47.33) 04/29/2024 Pneumonia of left upper lobe due to infectious organism (ICD-10 - J18.9) WBC is slightly higher but he is on steroids and just started the cefdinir. Will recheck in 1 week. 05/05/2024 Pneumonia of left upper lobe due to infectious organism (ICD-10 - J18.9) CBC is normal. Will get a repeat CXR. 07/11/2024 Obstructive sleep apnea (ICD-10 - G47.33) Patient is doing well on CPAP and should continue using it anytime he sleeps 08/31/2024 Acute rhinitis (ICD-10 - J00) 03/22/2025 Obstructive sleep apnea (ICD-10 - G47.33) CPAP compliance report from [facility] reviewed in office today 03/22/2025 Peripheral vascular disease, unspecified (ICD-10 - I73.9) 03/22/2025 Type 2 diabetes mellitus with diabetic peripheral angiopathy without gangrene, unspecified whether correction insulin use (ICD-10 - E11.51) 05/13/2024 Pneumonia (ICD-10 - J18.9) 03/22/2025 Morbid (severe) obesity due to excess calories (ICD-10 - E66.01) 03/22/2025 BMI 34.0-34.9,adult (ICD-10 - Z68.34) Plan Of Treatment No Information Insurance Providers Payer Name Payer Address Payer Phone Subscriber Number Group Number Insured Name Patient Relationship to Insured Coverage Start Date Coverage End Date MEDICARE PART B [address] [address] [place] [address] [phone] [id number] MICHAEL THOMAS Self - patient is the insured [employer] [facility] [place] [address] [phone] [id number] MICHAEL THOMAS Self - patient is the insured Medications Administered Medication Instructions Date of Administration Dosage Notes Depo- Medrol 40 mg/ml 04/12/2014 1 mL Medical (General) History Medical History History ICD Code Diabetes Type 2 Abdominal Aortic Aneurysm Low Back Pain, L-spine xray 2013 osteoarthritis, left hip hyperlipidemia BPH Followed at [facility] in [place] by Dr. Krissy Abreu Lumbar Disc Disease Lumbar facet arthropathy peripheral vascular disease, see angiogr am December 2023 Surgical History Surgery Date(Month/Year) Inguinal Hernia Repair LT Total Hip Replacement 10/27/2014 normal heart cath 12/2014 Hospitalization History Reason Date(Month/Year) Good [facility] - Total Hip Replacement 10/27-1 peptic ulcer, Upper GI bleed- [facility] [place] 2006
--- OUTSIDE RECORDS SUMMARY | 2025-04-17 11:04 | XMS_ITS | Clinical Summary ---
Author Organization [facility] Address [address] [place] [address] Care Team Providers Care Environmental Remediation Specialist Name Role Phone Patel Smith MD Primary [...] CPR request ed by patient. Care Teams Environmental Remediation Specialist Relationship Specialty Start Date End Date Patel Smith MD [address] [place] [address] PCP - General Orthopedic Surgery 08/26/23
== END 2025-04-17 23:59 | disposition home or self-care (01) ==
LOC: SC.PAIN 10:23
PROVIDERS: PCP Family Medicine; Visit Provider Nurse Practitioner Family
DX: M25.561 Pain in right knee (principal); M25.562 Pain in left knee; G89.29 Other chronic pain; F17.210 Nicotine dependence, cigarettes, uncomplicated
CPT/HCPCS: 99212; G0463

== ENCOUNTER 2025-04-26 09:17 | Outpatient (CLI) | payer MEDICARE, OTHER, SELFPAY ==
--- OUTSIDE RECORDS SUMMARY | 2025-04-26 03:28 | XMS_ITS | Continuity of Care Document ---
Author Name [facility] Organization [facility] Care Team Providers Care Web Applications Developer Name Role Phone [facility] Unavailable Unavailable Problems Combined list of problems from Department of Defense and [facility] Affairs facilities. It does not include entries that were removed or entered in error. Problem Status Onset Date Problem Type Date of Resolution Comments Source Benign essential hypertension (SNOMED CT 3365919) [facility] Benign prostatic hyperplasia with outflow obstruction [facility] Exposure to potentially hazardous substance Active Condition [place] [facility] Exposure to potentially hazardous substance (SCT [id number]) Active Condition [place] [facility] Former smoker Active Condition [place] Entered By: PHONG JENKINS Comment: [facility] Gastroesophageal reflux disease Active Condition [place] [facility] Hearing loss in left ear Active Condition [place] [facility] Low back pain Active Condition [place] [facility] Mixed hyperlipidemia (SNOMED CT 110861973) Active Condition [place] [facility] Multiple nodules of lung (SNOMED CT 022118212) Active Condition [place] [facility] Neuropathy Active Condition [place] D [facility] Obstructive sleep apnea of adult Active Condition [facility] Peripheral arterial occlusive disease Active Condition [place] [facility] 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 [facility] Dm Type I Dm W/O Complications Inactive Condition 02/06/2014 Feb 06, 2014 Entered By: NANCY PABLO Comment: removed per MD request [facility] Diagnosis: ICD-10-CM E78.2 Mixed hyperlipidemia Active Diagnosis [facility] Diagnosis: ICD-10-CM I10 Essential (primary) hypertension Active Diagnosis [facility] Diagnosis: ICD-10-CM I73.9 Peripheral vascular disease, unspecified Active Diagnosis [facility] Diagnosis: ICD-10-CM E11.9 Type 2 diabetes mellitus without complications Active Diagnosis [facility] N Diagnosis: ICD-10-CM Z71.89 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ed counseling Active Diagnosis [facility] N Diagnosis: ICD-10-CM H25.813 Combined forms of age-related cataract, bilateral Active Diagnosis [facility] N Medications Combined list of outpatient medications from Department of Defense and Veterans Affairs facilities.Medications provided include 1) outpatient medications from the last 15 months, and 2) patient-reported medications. Medication Details Route Status Patient Instructions Prescription Expires Prescription Number Last Dispense Date Ordering Provider Order Date Order Qty Source ALLOPURINOL 100MG TAB TAKE ONE TABLET BY MOUTH DAILY FOR GOUT ORAL ACTIVE 11/23/2025 [id number] SANTANA JENKINS 2024 90 [place] [facility] ALLOPURINOL 100MG TAB TAKE ONE TABLET BY MOUTH DAILY FOR GOUT ORAL DISCONT INUED 10/19/2025 [id number] 5 SANTANA JENKINS TA 2024 90 [place] [facility] ALLOPURINOL 100MG TAB TAKE ONE TABLET BY MOUTH DAILY FOR GOUT ORAL DISCONT INUED 11/15/2024 [id number] SANTANA JENKINS 2023 90 [place] [facility] ASPIRIN 81MG TAB,EC TAKE ONE TABLET BY MOUTH DAILY FOR HEART ORAL DISCONT INUED BY PROVIDE R 11/23/2025 [id number] 5 SANTANA JENKINS 2024 90 [place] [facility] ASPIRIN 81MG TAB,EC TAKE ONE TABLET BY MOUTH DAILY ORAL ACTIVE OMAR SUBRAMANIAN T 2024 [place]-D [facility] ATORVASTATI N CA 80MG TAB TAKE ONE TABLET BY MOUTH DAILY FOR CHOLESTE ROL -DO NOT DRINK GRAPEFRU IT JUICE WHILE ON THIS DRUG ORAL ACTIVE 04/19/2026 [id number] 5 SANTANA JENKINS 2024 90 [place] [facility] ATORVASTATI N CA 80MG TAB TAKE ONE-HALF TABLET BY MOUTH DAILY FOR CHOLESTE ROL ORAL DISCONT INUED (EDIT) 04/15/2026 [id number] 5 KOALBA,KIT TA 2024 45 [place] [facility] ATORVASTATI N CA 80MG TAB TAKE ONE-HALF TABLET BY MOUTH DAILY FOR CHOLESTE ROL ORAL DISCONT INUED 11/23/2025 [id number] 5 KOALBA,KIT TA 2024 45 [place] [facility] ATORVASTATI N CA 80MG TAB TAKE ONE-HALF TABLET BY MOUTH DAILY FOR CHOLESTE ROL ORAL DISCONT INUED 10/12/2025 [id number] 5 GREGORY,KIT TA 2024 45 [place] [facility] ATORVASTATI N CA 80MG TAB TAKE ONE-HALF TABLET BY MOUTH DAILY FOR CHOLESTE ROL ORAL DISCONT INUED 11/02/2024 [id number] 4 GREGORY,KIT TA 2023 45 [place] [facility] CLOPIDOGREL BISULFATE 75MG TAB TAKE ONE TABLET BY MOUTH DAILY TO THIN BLOOD ORAL ACTIVE 11/23/2025 [id number] 5 KOUSA,KIT TA 2024 90 [place] [facility] CLOPIDOGREL BISULFATE 75MG TAB TAKE ONE TABLET BY MOUTH DAILY TO THIN BLOOD ORAL DISCONT INUED 05/19/2025 [id number] KOUSA,KIT TA 2023 90 [place] [facility] CYANOCOBALA MIN 500MCG TAB TAKE ONE TABLET BY MOUTH DAILY FOR VITAMIN B12 SUPPLEME NT ORAL ACTIVE 04/19/2026 [id number] KOUSA,KIT TA 2024 100 [place] [facility] LISINOPRIL 20MG TAB TAKE ONE-HALF TABLET BY MOUTH DAILY FOR BLOOD PRESSURE /HEART ORAL SUSPEND ED 04/15/2026 [id number] 5 KOUSA,KIT TA 2024 45 [place] [facility] LISINOPRIL 20MG TAB TAKE ONE-HALF TABLET BY MOUTH DAILY FOR BLOOD PRESSURE /HEART ORAL DISCONT INUED 11/23/2025 [id number] 5 SANTANA JENKINS TA 2024 45 [place] [facility] LISINOPRIL 20MG TAB TAKE ONE-HALF TABLET BY MOUTH DAILY FOR BLOOD PRESSURE /HEART NEW DOSE ORAL DISCONT INUED 10/12/2025 [id number] 5 SANTANA JENKINS TA 2024 45 [place] [facility] LISINOPRIL 20MG TAB TAKE ONE-HALF TABLET BY MOUTH DAILY FOR BLOOD PRESSURE /HEART NEW DOSE ORAL DISCONT INUED 11/02/2024 [id number] SANTANA JENKINS TA 2023 45 [place] [facility] METOPROLOL SUCCINATE 50MG TAB,SA TAKE ONE-HALF TABLET BY MOUTH DAILY FOR BLOOD PRESSURE ORAL ACTIVE 11/23/2025 [id number] 5 SANTANA JENKINS TA 2024 45 [place] [facility] [place] METOPROLOL SUCCINATE 50MG TAB,SA TAKE ONE-HALF TABLET BY MOUTH DAILY FOR BLOOD PRESSURE ORAL DISCONT INUED 05/19/2025 [id number] 5 SANTANA JENKINS TA 2023 45 [place] [facility] [place] OMEPRAZOLE 20MG CAP,EC TAKE ONE CAPSULE BY MOUTH ONCE A DAY 30 MINUTES BEFORE A MEAL FOR STOMACH -TAKE ON AN EMPTY STOMACH ORAL SUSPEND ED 11/23/2025 [id number] 5 SANTANA JENKINS TA 2024 90 [place] [facility] OMEPRAZOLE 20MG CAP,EC TAKE ONE CAPSULE BY MOUTH ONCE A DAY 30 MINUTES BEFORE A MEAL FOR STOMACH -TAKE ON AN EMPTY STOMACH ORAL DISCONT INUED BY PROVIDE R 11/02/2024 [id number] 4 GREGORYKIT TA 2023 90 [place] [facility] [place] TAMSULOSIN HCL 0.4MG CAP TAKE ONE CAPSULE BY MOUTH EVERY EVENING FOR PROSTATE ORAL ACTIVE 11/23/2025 [id number] 5 SANTANA JENKISN TA 2024 90 [place] [facility] TAMSULOSIN HCL 0.4MG CAP TAKE ONE CAPSULE BY MOUTH EVERY EVENING FOR PROSTATE ORAL DISCONT INUED 11/02/2024 [id number] 5 SANTANA JENKINS 2023 90 [place] [facility] Immunizations Combined list of available immunizations from the Department of Defense and Veterans Affairs facilities. Immunization Series Date Given Administered By Site Reaction Lot Number CVX Code Drug Field Representative/Health Education Status Comments Source TDAP 2024 SALINAS LACKEY RRA E LEFT DELTO ID [id number] 115 complet ed [facility] [place], [place] [facility] RSV, RECOMBINANT, PROTEIN SUBUNIT RSVPREF3, ADJUVANT RECONSTITUTED , 0.5 ML, PF 1 2023 303 complet ed HISTORICA L INFORMATI ON - FROM OTHER REGISTRY, [place] [facility] COVID-19 (PFIZER), MRNA, LNP-S, PF, KIRSTEN-SUCROSE, 30 MCG/0.3 ML (AGES 12+ YEARS) 7 2023 309 complet ed HISTORICA L INFORMATI ON - FROM OTHER REGISTRY, [place] INFLUENZA, HIGH-DOSE, TRIVALENT, PF 7 2023 135 complet ed HISTORICA L INFORMATI ON - FROM OTHER REGISTRY, [place] [facility] COVID-19 (MODERNA), MRNA, LNP-S, PF, 50 MCG/0.5 ML (AGES 12+ YEARS) 6 2022 312 complet ed HISTORICA L INFORMATI ON - FROM OTHER REGISTRY, [place] [facility] INFLUENZA, INJECTABLE, QUADRIVALENT, PRESERVATIVE FREE 6 2022 150 complet ed HISTORICA L INFORMATI ON - FROM OTHER REGISTRY, [place] [facility] ZOSTER RECOMBINANT 2 2022 SOILA BOSS A LEFT DELTO ID [id number] 187 complet ed [facility] [place], [place] [facility] ZOSTER RECOMBINANT 1 2022 PEYTON SOOD LEFT DELTO ID [id number] 187 complet ed [facility] [place] [facility] [place], [place] [facility] COVID-19 (PFIZER), MRNA, LNP-S, BIVALENT BOOSTER, PF, 30 MCG/0.3 ML DOSE 2022 ALANIS PARKER RIGHT DELTO ID [id number] 300 complet ed Booster for Series, [facility] [place] [facility] [place], [place] [facility] PNEUMOCOCCAL CONJUGATE PCV20, POLYSACCHARID E [id number] CONJUGATE, ADJUVANT, PF 2022 ALANIS PARKER LEFT DELTO ID [id number] 216 complet ed Completed Series, [place], [place] [facility] [place] INFLUENZA, HIGH-DOSE, QUADRIVALENT 5 2021 197 complet ed HISTORICA L INFORMATI ON - FROM OTHER REGISTRY, [place] [facility] COVID-19 (Oriense), MRNA, LNP-S, PF, 30 MCG/0.3 ML DOSE, KIRSTEN-SUCROSE (AGES 12+ YEARS) 3 2021 217 complet ed HISTORICA L INFORMATI ON - FROM OTHER REGISTRY, [place] [facility] [place] INFLUENZA, HIGH DOSE SEASONAL 4 2020 135 complet ed HISTORICA L INFORMATI ON - FROM OTHER REGISTRY, [place] [facility] [place] INFLUENZA, UNSPECIFIED FORMULATION 2020 88 complet ed [place] [facility] [place] COVID-19 (Oriense), MRNA, LNP-S, PF, 30 MCG/0.3 ML DOSE 3 2020 208 complet ed HISTORICA L INFORMATI ON - FROM OTHER REGISTRY, [place] [facility] [place] COVID-19 (Oriense), MRNA, LNP-S, PF, 30 MCG/0.3 ML DOSE 2 2020 208 complet ed PFR; [id number]; 1 [place] COVID-19 (PFIZER), MRNA, LNP-S, PF, 30 MCG/0.3 ML DOSE 1 2020 208 complet ed PFR; [id number]; 1 [place] INFLUENZA, HIGH DOSE SEASONAL 3 2019 135 complet ed HISTORICA L INFORMATI ON - FROM OTHER REGISTRY, [place] [facility] [place] INFLUENZA, UNSPECIFIED FORMULATION 2019 88 complet [...] 88 complet ed [place] [facility] [place] [id number] (HISTORICAL) 2016 133 complet ed [place] [...] (HISTORICAL) 2009 88 complet ed [place] [facility] INFLUENZA A & B (HISTORICAL) 2008 88 complet ed [facility] [facility] TD(ADULT) UNSPECIFIED FORMULATION 2004 139 complet ed [place] [facility] TD (ADULT), 2 LF TETANUS TOXOID, PRESERVATIVE FREE, ADSORBED 1 1996 09 complet ed HISTORICA L INFORMATI ON - FROM OTHER REGISTRY, [place] [facility] Results Combined list of recent chemistry, hematology [...] Apr 14, 2025 10:00 AM Reporting Lab: [place] [address] Performing Lab: [address] CBC/PLT LEUKOCYTES [#/VOLUME] IN BLOOD BY AUTOMATED COUNT 5.6 10*3/u L 5.0 - 10.0 04/14 Specimen Type: BLOOD No comment entered. Ordering Provider: PHONG JENKINS Report Released Date/Time: Apr 14, 2025 10:00 AM Reporting Lab: [place] [address] Performing Lab: [address] CBC/PLT ERYTHROCYTE S [#/VOLUME] IN BLOOD BY AUTOMATED COUNT 4.87 10*6/u L 4.6 - 6.2 04/14 Specimen Type: BLOOD No comment entered. Ordering Provider: PHONG JENKINS Report Released Date/Time: Apr 14, 2025 10:00 AM Reporting Lab: [place] [address] Performing Lab: [address] CBC/PLT HEMOGLOBIN [MASS/VOLUM E] IN BLOOD 14.1 g/dL 14.0 - 18.0 04/14 Specimen Type: BLOOD No comment entered. Ordering Provider: PHONG JENKINS Report Released Date/Time: Apr 14, 2025 10:00 AM Reporting Lab: [place] [phone] Performing Lab: [place] [phone] CBC/PLT HEMATOCRIT [VOLUME FRACTION] OF BLOOD BY AUTOMATED COUNT 42.4 42.0 - 52.0 04/14 Specimen Type: BLOOD No comment entered. Ordering Provider: PHONG JENKINS Report Released Date/Time: Apr 14, 2025 10:00 AM Reporting Lab: [place] [phone] Performing Lab: [address] CBC/PLT MCV [ENTITIC VOLUME] BY AUTOMATED COUNT 87.1 fL 80.0 - 94.0 04/14 Specimen Type: BLOOD No comment entered. Ordering Provider: PHONG JENKINS Report Released Date/Time: Apr 14, 2025 10:00 AM Reporting Lab: [place] [phone] Performing Lab: [place] [phone] [place] [address] CBC/PLT MCH [ENTITIC MASS] BY AUTOMATED COUNT 29.0 pg 27.0 - 31.0 04/14 Specimen Type: BLOOD No comment entered. Ordering Provider: PHONG JENKINS Report Released Date/Time: Apr 14, 2025 10:00 AM Reporting Lab: [place] [phone] Performing Lab: [place] [phone] [place] [address] CBC/PLT MCHC [MASS/VOLUM E] BY AUTOMATED COUNT 33.3 g/dL 32.0 - 36.0 04/14 Specimen Type: BLOOD No comment entered. Ordering Provider: PHONG JENKINS Report Released Date/Time: Apr 14, 2025 10:00 AM Reporting Lab: [place] [phone] Performing Lab: [phone] [place] [address] CBC/PLT PLATELETS [#/VOLUME] IN BLOOD 171 10*3/u L 150 - 450 04/14 Specimen Type: BLOOD No comment entered. Ordering Provider: PHONG JENKINS Report Released Date/Time: Apr 14, 2025 10:00 AM Reporting Lab: [place] [phone] Performing Lab: [place] [phone] [place] [address] CBC/PLT PLATELET MEAN VOLUME [ENTITIC VOLUME] IN BLOOD 10.5 fL 9.0 - 13.1 04/14 Specimen Type: BLOOD No comment entered. Ordering Provider: PHONG JENKINS Report Released Date/Time: Apr 14, 2025 10:00 AM Reporting Lab: [place] [phone] Performing Lab: [place] [phone] [place] [address] CBC/PLT ERYTHROCYTE DISTRIBUTIO N WIDTH [ENTITIC VOLUME] BY AUTOMATED COUNT 13.7 11.0 - 16.0 04/14 Specimen Type: BLOOD No comment entered. Ordering Provider: PHONG JENKINS Report Released Date/Time: Apr 14, 2025 10:00 AM Reporting Lab: [place] [phone] Performing Lab: [place] [phone] [place] [address] CBC/PLT NUCLEATED ERYTHROCYTE S/100 ERYTHROCYTE S IN BLOOD 0.0 0.0 - 0.0 04/14 Specimen Type: BLOOD No comment entered. Ordering Provider: PHONG JENKINS Report Released Date/Time: Apr 14, 2025 10:00 AM Reporting Lab: [place] [phone] Performing Lab: [place] [phone] [place] [address] FOLATE FOLATE [MASS/VOLUM E] IN SERUM OR [...] 2025 10:00 AM Reporting Lab: [facility] [address] [facility] [address] Performing Lab: [address] [address] [facility] GLYCOHEMO GLOBIN HEMOGLOBIN A1C/HEMOGLO BIN.TOTAL IN BLOOD BY HPLC 5.3 4.4 - 5.6 04/14 Specimen Type: BLOOD Comment: Prediabetes : 5.7%-6.4% Diabetes: >= 6.5% [facility] guidelines for A1c interpretat ion: Glycemic [...] 9.27. Ref: https://ngs p.org/CAPda ta.asp. The in-house [place]iqu[employer] State D-100 analyzer has a historical CV <= 2%. Contact the laboratory for further performance characteris tics of this assay. Ordering Provider: PHONG JENKINS Report Released Date/Time: Apr 14, 2025 10:00 AM Reporting Lab: [address] [address] Performing Lab: [address] [address] [facility] LIPID PROFILE CHOLESTEROL [MASS/VOLUM E] IN SERUM [...] 2025 10:00 AM Reporting Lab: [facility] [address] [address] Performing Lab: [facility] [address] [address] [facility] LIPID PROFILE TRIGLYCERID E [MASS/VOLUM E] IN [...] 2025 10:00 AM Reporting Lab: [facility] [address] [address] Performing Lab: [facility] [address] [address] [facility] LIPID PROFILE CHOLESTEROL IN HDL [MASS/VOLUM E] [...] 2025 10:00 AM Reporting Lab: [facility] [address] [address] Performing Lab: [facility] [address] [address] [facility] LIPID PROFILE CHOLESTEROL IN LDL [MASS/VOLUM E] [...] Apr 14, 2025 10:00 AM Reporting Lab: [place] [address] Performing Lab: [address] MICROALBU MIN/CREAT RATIO CREATININE [MASS/VOLUM E] IN URINE 80.5 mg/dL 04/14 Specimen Type: URINE No comment entered. Ordering Provider: PHONG JENKINS Report Released Date/Time: Apr 14, 2025 10:00 AM Reporting Lab: [place] [address] Performing Lab: [address] MICROALBU MIN/CREAT RATIO MICROALBUMI N [MASS/VOLUM E] IN URINE 48.6 mg/L 0.0 - 30.0 04/14 H Specimen Type: URINE No comment entered. Ordering Provider: PHONG JENKINS Report Released Date/Time: Apr 14, 2025 10:00 AM Reporting Lab: [place] [phone] Performing Lab: [address] MICROALBU MIN/CREAT RATIO MICROALBUMI N/CREATININ E [MASS RATIO] IN URINE 60.4 ug/mg{ creat} 04/14 Specimen Type: URINE No comment entered. Ordering Provider: PHONG JENKINS Report Released Date/Time: Apr 14, 2025 10:00 AM Reporting Lab: [place] [phone] Performing Lab: [address] PANEL 5 CREATININE [MASS/VOLUM E] IN SERUM [...] 2025 10:00 AM Reporting Lab: [facility] [address] [address] Performing Lab: [facility] [address] [address] [facility] PANEL 5 UREA NITROGEN [MASS/VOLUM E] IN SERUM OR PLASMA 18 mg/dL 9 04/14 Specimen Type: PLASMA Comment: Vitamin B12 [...] 2025 10:00 AM Reporting Lab: [facility] [address] [facility] [address] Performing Lab: [facility] [address] [facility] [address] [facility] PANEL 5 GLUCOSE [MASS/VOLUM E] IN SERUM [...] 2025 10:00 AM Reporting Lab: [facility] [address] [facility] [address] Performing Lab: [facility] [address] [facility] [address] [facility] PANEL 5 SODIUM [MOLES/VOLU ME] IN SERUM [...] Apr 14, 2025 10:00 AM Reporting Lab: [facility] [address] [address] Performing Lab: [address] [address] [facility] PANEL 5 POTASSIUM [MOLES/VOLU ME] IN SERUM [...] 2025 10:00 AM Reporting Lab: [facility] [address] [address] Performing Lab: [facility] [address] [address] [facility] PANEL 5 CHLORIDE [MOLES/VOLU ME] IN SERUM [...] 2025 10:00 AM Reporting Lab: [facility] [address] [address] Performing Lab: [facility] [address] [address] [facility] PANEL 5 CARBON DIOXIDE, TOTAL [MOLES/VOLU ME] [...] 2025 10:00 AM Reporting Lab: [facility] [address] [address] Performing Lab: [facility] [address] [address] [facility] PANEL 5 CALCIUM [MASS/VOLUM E] IN SERUM [...] 2025 10:00 AM Reporting Lab: [facility] [address] [address] Performing Lab: [facility] [address] [address] [facility] PANEL 5 PROTEIN [MASS/VOLUM E] IN SERUM [...] 2025 10:00 AM Reporting Lab: [facility] [address] [address] Performing Lab: [facility] [address] [address] [facility] PANEL 5 ALBUMIN [MASS/VOLUM E] IN SERUM [...] 2025 10:00 AM Reporting Lab: [facility] [address] [address] Performing Lab: [facility] [address] [address] [facility] PANEL 5 BILIRUBIN.T OTAL [MASS/VOLUM E] IN [...] 2025 10:00 AM Reporting Lab: [facility] [address] [facility] [address] Performing Lab: [facility] [address] [facility] [address] [facility] PANEL 5 ASPARTATE AMINOTRANSF ERASE [ENZYMATIC ACTIVITY/VO [...] 2025 10:00 AM Reporting Lab: [facility] [address] [address] Performing Lab: [facility] [address] [address] [facility] PANEL 5 ALANINE AMINOTRANSF ERASE [ENZYMATIC ACTIVITY/VO [...] Apr 14, 2025 10:00 AM Reporting Lab: [facility] [address] [place] [address] Performing Lab: [facility] [address] [place] [address] [facility] PANEL 5 ANION GAP 3 IN [...] 2025 10:00 AM Reporting Lab: [facility] [address] [address] Performing Lab: [facility] [address] [address] [facility] PANEL 5 ALKALINE PHOSPHATASE [ENZYMATIC ACTIVITY/VO LUME] [...] 2025 10:00 AM Reporting Lab: [facility] [address] [address] Performing Lab: [facility] OL[facility] [address] [address] [facility] 5 GLOMERULAR FILTRATION RATE/1.73 SQ M.PREDICTED [VOLUME [...] 2025 10:00 AM Reporting Lab: [facility] [address] [address] Performing Lab: [facility] [address] [address] [facility] TSH THYROTROPIN [UNITS/VOLU ME] IN SERUM OR [...] 2025 10:00 AM Reporting Lab: [facility] [address] [address] Performing Lab: [facility] [address] [address] [facility] URIC ACID URATE [MASS/VOLUM E] IN SERUM [...] 2025 10:00 AM Reporting Lab: [facility] [address] [address] Performing Lab: [facility] [address] [address] [facility] GLYCOHEMO GLOBIN HEMOGLOBIN A1C/HEMOGLO BIN.TOTAL IN BLOOD BY HPLC 6.6 4.4 - 6.4 05/18 H Specimen Type: BLOOD Comment: [place] guidelines for A1c interpretat ion: Glycemic control targets are based on Shared Decision Making between clinicians and patients. Criteria used to establish an A1c target recommendat ion can be found at https://www .[place].gov/moe irwin entsafety/ and include the use of result [...] 9.27. Ref: https://ngs p.org/CAPda ta.asp. The in-house [employer] D-100 analyzer has a historical CV <= 2%. Contact the laboratory for further performance characteris tics of this assay. Ordering Provider: PHONG JENKINS Report Released Date/Time: May 18, 2024 09:37 AM Reporting Lab: [address] [id number] Performing Lab: [address] [address] [facility] Vital Signs Combined list of inpatient and outpatient Vital Signs from Department of Defense and Veterans Affairs, ranging from 12 months to all on record, depending upon the facility. Vital Sign Value Date Comments Source SYSTOLIC BLOOD PRESSURE 136 04/14/2025 09:22:02 [facility] DIASTOLIC BLOOD PRESSURE 70 04/14/2025 09:22:02 [facility] PULSE OXIMETRY 95 % 04/14/2025 09:22:02 [facility] WEIGHT 248.6 04/14/2025 09:22:02 [facility] BMI 35 kg/m2 04/14/2025 09:22:02 [facility] PAIN 7 04/14/2025 09:22:02 [facility] HEIGHT 71 04/14/2025 09:22:02 [facility] TEMPERATURE 97.8 04/14/2025 09:22:02 [facility] PULSE 65 04/14/2025 09:22:02 [place] [facility] SYSTOLIC BLOOD PRESSURE 139 01/09/2025 09:44:00 [facility] DIASTOLIC BLOOD PRESSURE 76 01/09/2025 09:44:00 [facility] WEIGHT 240.0 01/09/2025 09:44:00 [facility] BMI 34 kg/m2 01/09/2025 09:44:00 [facility] G[facility] PAIN 0 01/09/2025 09:44:00 [facility] [facility] TEMPERATURE 97.4 01/09/2025 09:44:00 DIMITRI ELIZABETH [facility] PULSE 72 01/09/2025 09:44:00 [place] GTON [facility] SYSTOLIC BLOOD PRESSURE 123 05/18/2024 08:50:13 ZEKEINGTON [facility] DIASTOLIC BLOOD PRESSURE 69 05/18/2024 08:50:13 [facility] PULSE OXIMETRY 95 05/18/2024 08:50:13 L CHRISTINA [facility] WEIGHT 241.8 05/18/2024 08:50:13 [place] GTMARINA [facility] BMI 34 kg/m2 05/18/2024 08:50:13 [place] G[place] [facility] PAIN 2 05/18/2024 08:50:13 [place] G[place] [facility] HEIGHT 71 05/18/2024 08:50:13 [place] [facility] TEMPERATURE 97.8 05/18/2024 08:50:13 DIMITRI NGFREDDIE [facility] PULSE 65 05/18/2024 08:50:13 [place] GTON [facility] Encounters Combined list of: 1) Encounters from [facility] of Veterans Affairs facilities going backup to the last 18 months, not all VA inpatient encounters are included; 2) 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 Location Location Details Encounter Type Encounter Number Reason For Visit Attending Provider ADM Date DC Date Status Disposition Source [facility] Outpatient Encounter [id number] 03/11 /2024 [place] [facility] OFFICE O/P EST MOD 30 MIN [id number] Diagnos is: ICD-10- CM I10 Essenti al (primar y) hyperte nsion NANCY JENKINS A 11/01 [place] [facility] COMPRE OPH EXAM EST PT 1/> [id number] Diagnos is: ICD-10- CM H25.813 Combine d forms of age-rel ated catarac t, bilater al ZACK,ASHLE Y 11/01 [place] [facility] Outpatient Encounter [id number] 11/05 [place] [facility] Outpatient Encounter [id number] 11/09 [place] Outpatient Encounter [id number] 11/14 [place] [facility] Outpatient Encounter [id number] 11/15 [place] [facility] Outpatient Encounter [id number] 11/23 [place] [facility] Outpatient Encounter [id number] 11/28 [place] [facility] Outpatient Encounter [id number] 11/30 [place] [facility] Outpatient Encounter [id number] 11/30 [place] OFFICE O/P NEW LOW 30 MIN [id number] Diagnos is: ICD-10- CM 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 , unspeci fiBEVERLY Aleman 01/10 [place] Outpatient Encounter [id number] 02/07 [place] [facility] OFF/OP EST MAY X REQ PHY/QHP [id number] Diagnos is: ICD-10- CM Z71.89 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 Aline Merino 02/16 [place] [facility] Outpatient Encounter [id number] 02/22 [place] [facility] Outpatient Encounter [id number] 03/30 [place] OFFICE O/P EST MOD 30 MIN [id number] Diagnos is: ICD-10- CM I10 Essenti al (primar y) hyperte nsion NANCY JENKINS A 05/18 [place] [facility] Outpatient Encounter [id number] 05/21 [place] [facility] Outpatient Encounter [id number] 06/25 [place] [facility] Outpatient Encounter [id number] 07/05 [place] [facility] Outpatient Encounter [id number] 09/27 [place] COMPRE OPH EXAM EST PT 1/> [id number] Diagnos is: ICD-10- CM E11.9 Type 2 diabete s mellitu s without complic ations BRIE DIXON Y 11/02 [place] [facility] Outpatient Encounter [id number] 11/07 [place] [facility] Outpatient Encounter [id number] 11/14 [place] [facility] Outpatient Encounter [id number] 11/21 [place] [facility] Outpatient Encounter [id number] 11/22 [place] [facility] Outpatient Encounter [id number] 11/29 [place] [facility] OFFICE O/P EST LOW 20 MIN [id number] Diagnos is: ICD-10- CM 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 , unspeci JOSSELIN Infante AEAline T 01/09 [place] [facility] Outpatient Encounter [id number] 02/21 [place] [facility] Outpatient Encounter [id number] 04/14 [place] [facility] OFFICE O/P EST MOD 30 MIN [id number] Diagnos is: ICD-10- CM I10 Essenti al (primar y) hyperte nsNANCY Dumont A 04/14 [place] [facility] PH1 ASSMT&MGMT NQHP 5-10 [id number] Diagnos is: ICD-10- CM E78.2 Mixed hyperli pidemia ELIJAH ELLISON 04/18 [place] [facility] Social History Combined list of available smoking, tobacco, and other social history from Department of Defense and Veterans Affairs facilities. 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 [facility] History of tobacco use VA-TOBACCO DOESNT USE WI 30 MIN WAKEUP 10/19/2018 [facility] History of tobacco use V9 CURRENT TOBACCO USER 09/25/2017 [facility] History of tobacco use V9 CURRENT TOBACCO USER 10/14/2016 [facility] History of tobacco use V9 CURRENT TOBACCO USER 10/03/2015 [facility] History of tobacco use V9 CURRENT TOBACCO USER 08/30/2014 [facility] History of tobacco use V9 QUIT TOBACCO >7 YEARS AGO 07/18/2013 [facility] History of tobacco use V9 CURRENT TOBACCO USER 07/01/2012 [facility] History of tobacco use V9 CURRENT TOBACCO USER 2011 [facility] History of tobacco use V9 CURRENT TOBACCO USER 06/12/2011 [facility] History of tobacco use V9 CURRENT TOBACCO USER 09/06/2010 [facility] History of tobacco use V9 CURRENT TOBACCO USER 09/06/2009 [facility]
--- OUTSIDE RECORDS SUMMARY | 2025-04-26 09:32 | XMS_ITS | Clinical Summary ---
Author Organization [facility] Address [address] [place] [address] Care Team Providers Care [employer] Name Role Phone Patel Smith MD Primary [...] CPR request ed by patient. Care Teams [employer] Relationship Specialty Start Date End Date Patel Smith MD [address] [place] [address] PCP - General Orthopedic Surgery 08/26/23
== END 2025-04-26 23:59 | disposition home or self-care (01) ==
LOC: RT 09:19
PROVIDERS: PCP Family Medicine; Visit Provider Physician Assistant
DX: I49.1 Atrial premature depolarization (principal); I47.19 Other supraventricular tachycardia; I49.3 Ventricular premature depolarization; I47.29 Other ventricular tachycardia; I49.8 Other specified cardiac arrhythmias; I45.89 Other specified conduction disorders; I48.92 Unspecified atrial flutter; I48.0 Paroxysmal atrial fibrillation; R94.31 Abnormal electrocardiogram [ECG] [EKG]
CPT/HCPCS: 93270